=== PATIENT | female | born 1960 | race Caucasian/White ===

== ENCOUNTER 2020-02-11 14:15 | Outpatient (CLI) | payer MEDICARE, SELFPAY ==
--- NOTE | ~2020-02-11 | XR_ITS ---
XR ankle RT min 3V 02/11/2020 14:43 INDICATION: Right ankle pain. Arthritis. PROCEDURE: 4 views right ankle COMPARISON: No prior studies for comparison. FINDINGS: Fracture, dislocation or subluxation is not identified. Small degenerative calcaneal enthes ophytes. Ankle mortise intact. The soft tissues appear within normal limits. No foreign bodies are i dentified. IMPRESSION: 1: NO ACUTE BONE OR JOINT ABNORMALITY IDENTIFIED. Reviewed, dictated and finalized at location A.
== END 2020-02-11 14:16 | disposition home or self-care (01) ==
LOC: ANHIMG 14:18
PROVIDERS: PCP Internal Medicine; Visit Provider Nurse Practitioner Family
DX: M25.571 Pain in right ankle and joints of right foot (principal)
CPT/HCPCS: 73610

== ENCOUNTER 2020-02-26 15:51 | Outpatient (CLI) | payer MEDICARE, SELFPAY ==
[2020-02-26 16:34] LABS: Alanine Aminotransferase 20 U/L (4-35); Albumin Level 4.3 g/dL (3.5-5.1); Alkaline Phosphatase 92 U/L (38-126); Anion Gap 12.2 mmol/L (7-16); Aspartate Amino Transferase 25 U/L (14-36); Bilirubin,Total 0.6 mg/dL (0.2-1.3); Blood Urea Nitrogen 10 mg/dL (7-17); Calcium 9.2 mg/dL (8.4-10.2); Carbon Dioxide 26 mmol/L (22-30); Chloride 104 mmol/L (98-107); Cholesterol 186 mg/dL (0-200); Estimated Glomerular Filt Rate > 60; Glucose 178 mg/dL (65-105); HDL Direct 44 mg/dL; Potassium 3.2 mmol/L (3.4-5.0); Sodium 139 mmol/L (137-145); Triglycerides 220 mg/dL (<150)
[2020-02-26 16:45] LABS: LDL Cholesterol Direct 111 mg/dL
[2020-02-26 16:47] LABS: Basophils Percent Auto 0.4 % (0.2-1.2); Eosinophils Absolute Auto 0.2 K/mm3 (0-0.3); Eosinophils Percent Auto 1.6 % (0-4.4); Hematocrit 42.3 % (37.0-47.0); Hemoglobin 13.5 g/dL (12.0-15.0); Immature Granulocyte Absolute 0.03 K/mm3 (0.00-0.031); Immature Granulocyte Percent A 0.3 % (0-0.5); Lymphocytes Absolute Auto 2.75 K/mm3 (0.9-3.2); Lymphocytes Percent Auto 29.3 % (18.3-44.2); Mean Corpuscular HGB Conc 31.9 g/dl (32-36); Mean Corpuscular Hemoglobin 28.5 pg (26-34); Mean Corpuscular Volume 89.2 fl (80-100); Mean Platelet Volume 10.3 fl (7.4-10.4); Monocytes Absolute Auto 0.7 K/mm3 (0.1-0.6); Monocytes Percent Auto 7.2 % (2.6-8.5); Neutrophils Absolute Auto 5.7 K/mm3 (1.3-6.7); Neutrophils Percent Auto 61.2 % (45.5-73.1); Platelet Count Result 275 k/mm3 (150-375); Red Blood Count 4.74 M/mm3 (4.2-5.4); Red Cell Distribution Width 15.4 % (11.5-14.5); White Blood Count 9.4 K/mm3 (4.5-10.0)
[2020-02-26 17:24] LABS: Vitamin D 25 Hydroxy 45.4 ng/mL
== END 2020-02-26 15:52 | disposition home or self-care (01) ==
PROVIDERS: PCP Internal Medicine; Visit Provider Clinical Nurse Specialist
DX: E78.5 Hyperlipidemia, unspecified (principal); I10 Essential (primary) hypertension; E55.9 Vitamin D deficiency, unspecified
CPT/HCPCS: 36415; 80053; 80061; 82306; 85025

== ENCOUNTER 2020-03-04 14:53 | Outpatient (CLI) | payer MEDICARE, SELFPAY ==
--- NOTE | ~2020-03-04 | CT_ITS ---
EXAMINATION: CT lung screening DATE: 03/04/2020 15:27 INDICATION: Lung cancer screening TECHNIQUE: Computed tomography (CT) of the chest was performed without intravenous contrast. The dose -length product was 132.77 mGy-cm. Automated exposure control and iterative reconstruction technique were employed. COMPARISON: CT dated 09/15/2018 FINDINGS: Heart size normal. No significant pleural or pericardial effusion. There are cholecystectom y clips. Small hypodense lesions of the liver most likely benign cysts or hemangiomas. No thoracic ly mphadenopathy. Mild atherosclerosis of the coronary arteries. Calcified granuloma left upper lobe. 1- 2 mm nodule left upper lobe at the lingula. 3 mm nodule right upper lobe, axial image 31. 2 mm right upper lobe groundglass nodule, axial image 45. No endobronchial lesions. No pneumothorax. No focal ai rspace consolidation. Mild thoracic spondylosis. Spinal stimulator leads are noted. No acute osseous abnormality. IMPRESSION: 1. Lung-RADS category 2: Benign appearance or behavior. Continue annual screening with noncontrast lo w-dose chest CT in 12 months. Reviewed, dictated and finalized at location A. IMPRESSION: 1. Lung-RADS category 2: Benign appearance or behavior. Continue annual screeni ng with noncontrast low-dose chest CT in 12 months.
== END 2020-03-04 14:54 | disposition home or self-care (01) ==
LOC: ANHIMG 14:55
PROVIDERS: PCP Internal Medicine; Visit Provider Clinical Nurse Specialist
DX: Z12.2 Encounter for screening for malignant neoplasm of respiratory organs (principal); Z87.891 Personal history of nicotine dependence
CPT/HCPCS: G0297

== ENCOUNTER 2020-04-04 14:29 | Outpatient (CLI) | payer MEDICARE, SELFPAY ==
[2020-04-04 15:15] LABS: Add Urine Microscopic? YES; Appearance Urine Cloudy (Clear); Bilirubin Urine Negative (Negative); Blood Urine 2+ (Negative); Color Urine Yellow (Yellow); Glucose Urine UA Negative (Negative); Ketones Urine Negative (Negative); Leukocyte Esterase Ur 3+ LEU/UL (Negative); Mucus Urine Rare /lpf; Nitrate Urine Negative (Negative); Protein Urine 2+ mg/dL (Negative); Specific Grav Ur 1.012 (1.001-1.035); Squamous Epithelial Cell Urine Moderate /hpf (Few); Urobilinogen Urine Negative mg/dL (<2.0); WBC Urine >75 /hpf
[2020-04-04 15:21] LABS: Anion Gap 6 mmol/L (8-16); Blood Urea Nitrogen 12 mg/dL (7-17); Calcium 9.2 mg/dL (8.4-10.2); Carbon Dioxide 24 mmol/L (22-30); Chloride 107 mmol/L (98-107); Estimated Glomerular Filt Rate > 60; Glucose 98 mg/dL (65-105); Potassium 3.8 mmol/L (3.4-5.0); Sodium 137 mmol/L (137-145)
[2020-04-04 16:14] LABS: Hemoglobin A1C 5.2 % (<5.7)
== END 2020-04-04 14:30 | disposition home or self-care (01) ==
PROVIDERS: Nurse Practitioner; PCP Internal Medicine; Visit Provider Clinical Nurse Specialist
DX: E87.6 Hypokalemia (principal); R73.09 Other abnormal glucose; R39.9 Unspecified symptoms and signs involving the genitourinary system
CPT/HCPCS: 36415; 80048; 81001; 83036; 87077; 87086; 87088; 87186

== ENCOUNTER 2020-04-08 20:30 | Emergency (ER) | payer MEDICARE, SELFPAY ==
--- NOTE | ~2020-04-08 | CT_ITS ---
EXAMINATION: CT abdomen pelvis w con DATE: 04/08/2020 22:15 INDICATION: Lower abdominal pain TECHNIQUE: Computed tomography (CT) of the abdomen and pelvis was performed with 100 cc Omnipaque 350 intravenous contrast. Automated exposure control and iterative reconstruction technique were employe d. Exam dose: 1285.77 mGy-cm total exam DLP. COMPARISON: 11/21/2018 CT abdomen pelvis FINDINGS: The lung bases are clear of infiltrate or consolidation. Normal heart size. No pericardial or pleural effusion. There are occasional hepatic cysts, the largest in the left lobe, measuring up to approximately 2.1 c m dimension. Status post cholecystectomy. This likely accounts for mild prominence of the bile ducts, primarily th e extrahepatic bile ducts. No pancreatic duct dilatation. Normal splenic size. No pancreatic mass lesion or calcification. Normal morphology of the adrenal gla nds. There are scattered bilateral renal cysts, measuring up to approximately 13 mm maximal dimension on t he right, 3 cm on the left. There is an approximately 3.6 cm hypoattenuating lesion of the lower pole of the left kidney which has increased in size from 3.1 cm on 11/21/2018; this measures 24 Hounsfield units. Consider sonographic correlation or MR correlation to exclude any renal malignancy. Normal caliber of the abdominal aorta. No intraperitoneal or retroperitoneal or pelvic mass lesion or adenopathy or ascites. There is mild pericolic fat stranding in the sigmoid area, consistent with mild sigmoid diverticuliti s. There are multiple diverticula of the sigmoid and to a lesser extent descending colon. Normal appe ndix. No bowel obstruction. No intraperitoneal free air. The uterus and adnexal areas and urinary bladder are unremarkable. Leads are noted in the lower thoracic spinal canal. There is degenerative disease moderately severe degree at L3-4, L4-5 and L5-S1.. IMPRESSION: Mild sigmoid diverticulitis; no abscess or free air identified Hepatic and probable bilateral renal cysts; consider sonographic correlation for further evaluation o f enlarging 3.6 cm hypoattenuating lesion of the lower pole left kidney. Status post cholecystectomy Reviewed, dictated and finalized at [facility]. Reviewed, dictated and finalized at location A. IMPRESSION: Mild sigmoid diverticulitis; no abscess or free air identified Hepatic and probable bilateral renal cysts; consider sonographic correlation fo r further evaluation of enlarging 3.6 cm hypoattenuating lesion of the lower po le left kidney. Status post cholecystectomy
[2020-04-08 20:36] VITALS: BP 146/102; PULSE 94; RESP 16; TEMP 37.5; O2SAT 99
[2020-04-08 20:55] LABS: Basophils Absolute Auto 0.1 K/mm3 (0.0-0.1); Basophils Percent Auto 0.3 % (0.2-1.2); Eosinophils Absolute Auto 0.2 K/mm3 (0-0.3); Eosinophils Percent Auto 1.3 % (0-4.4); Hematocrit 41.7 % (37.0-47.0); Hemoglobin 13.5 g/dL (12.0-15.0); Immature Granulocyte Absolute 0.08 K/mm3 (0.00-0.031); Immature Granulocyte Percent A 0.5 % (0-0.5); Lymphocytes Absolute Auto 2.31 K/mm3 (0.9-3.2); Lymphocytes Percent Auto 13.8 % (18.3-44.2); Mean Corpuscular HGB Conc 32.4 g/dl (32-36); Mean Corpuscular Volume 89.5 fl (80-100); Mean Platelet Volume 10.5 fl (7.4-10.4); Monocytes Absolute Auto 1.5 K/mm3 (0.1-0.6); Monocytes Percent Auto 8.7 % (2.6-8.5); Neutrophils Absolute Auto 12.7 K/mm3 (1.3-6.7); Neutrophils Percent Auto 75.4 % (45.5-73.1); Platelet Count Result 249 k/mm3 (150-375); Red Blood Count 4.66 M/mm3 (4.2-5.4); Red Cell Distribution Width 14.7 % (11.5-14.5); White Blood Count 16.8 K/mm3 (4.5-10.0)
[2020-04-08 21:08] LABS: Add Urine Microscopic? YES; Appearance Urine Clear (Clear); Bilirubin Urine Negative (Negative); Blood Urine Negative (Negative); Color Urine Yellow (Yellow); Glucose Urine UA Negative (Negative); Ketones Urine Negative (Negative); Leukocyte Esterase Ur Negative LEU/UL (Negative); Mucus Urine Few /lpf; Nitrate Urine Negative (Negative); Protein Urine 3+ mg/dL (Negative); RBC Urine 0-2 /hpf (0-2); Specific Grav Ur 1.018 (1.001-1.035); Squamous Epithelial Cell Urine Occasional /hpf (Few); Urobilinogen Urine Negative mg/dL (<2.0); WBC Urine 0-3 /hpf
[2020-04-08 21:12] LABS: Alanine Aminotransferase 21 U/L (4-35); Albumin Level 4.2 g/dL (3.5-5.1); Alkaline Phosphatase 85 U/L (38-126); Anion Gap 6 mmol/L (8-16); Aspartate Amino Transferase 25 U/L (14-36); Bilirubin,Total 0.4 mg/dL (0.2-1.3); Blood Urea Nitrogen 9 mg/dL (7-17); Calcium 9.2 mg/dL (8.4-10.2); Carbon Dioxide 26 mmol/L (22-30); Chloride 105 mmol/L (98-107); Estimated CRCL calculation 63 ml/min; Estimated Glomerular Filt Rate 57; Glucose 118 mg/dL (65-105); Lipase 169 U/L (23-300); Potassium 3.8 mmol/L (3.4-5.0); Sodium 137 mmol/L (137-145)
--- NOTE | 2020-04-08 21:46 | ED.ABDPAIN ---
HPI - Abdominal Pain General Chief Complaint: Abdominal Pain Stated Complaint: abdominal pain Time Seen by Provider: 04/08/20 21:35 Source: patient Mode of arrival: ambulatory Limitations: no limitations History of Present Illness HPI narrative: This patient is a 59 year old female who presents for evaluation of lower abdominal pain. Patient reports she was diagnosed with a UTI on Saturday and she has been taking amoxicillin. She also reports diarrhea for the past week, and she now complains of lower abdominal pain starting today. She also has nausea and vomiting. She was evaluated at [facility] and she was sent to [place] for further evaluation . She had labs performed that shows leukocytosis of 16K. Pain scale (0-10): 6 Related Data Home Medications Medication Instructions Recorded Confirmed calcium carbonate 500 mg (1,250 1 tablet PO DAILY 07/01/19 04/04/20 mg)-vitamin D3 125 unit tablet cetirizine 10 mg tablet 10 mg PO DAILY 07/01/19 04/04/20 cholecalciferol (vitamin D3) 25 1,000 unit PO DAILY 07/01/19 04/04/20 mcg (1,000 unit) capsule lansoprazole 15 mg capsule,delayed 15 mg PO DAILY 07/01/19 04/04/20 release multivitamin with minerals 1 tablet PO DAILY 01/21/20 04/04/20 Allergies Allergy/AdvReac Type Severity Reaction Status Date / Time Sulfa (Sulfonamide Allergy Unknown Anaphylaxis Verified 04/08/20 20:41 Antibiotics) Review of Systems Review of Systems: All systems reviewed & are unremarkable except as noted in HPI and below Constitutional: Constitutional: Denies chills and Denies fever(s) ENT: Denies nasal congestion Cardiovascular: Cardiovascular: Denies chest pain Respiratory: Respiratory: Denies cough and Denies dyspnea Gastrointestinal: Gastrointestinal: Reports abdominal pain and Reports diarrhea Genitourinary: Genitourinary: Reports dysuria [facility] Past Medical History Medical History (Updated 04/08/20 @ 23:36 by Betty Camp MD) Allergies Back pain Degenerative disc disease Diverticulitis Hepatitis Herniated disc HLD (hyperlipidemia) HTN (hypertension) Leukocytosis Measles Spinal cord stimulator status Vitamin D deficiency Surgical History Surgical History (Updated 07/01/19 @ 07:23 by Cindi Fox CMA) History of back surgery History of bilateral tubal ligation History of carpal tunnel release of both wrists History of neck surgery vertebrae replacement in neck Hx of cholecystectomy Family History Family History (Updated 07/17/19 @ 10:36 by Cindi Fox [facility]) Sibling CHF (congestive heart failure) Cerebrovascular accident Kidney failure Father AAA (abdominal aortic aneurysm) CAD (coronary artery disease) Cerebrovascular accident Mother Brain aneurysm Hypertension Social History Social History (Updated 04/04/20 @ 13:35 by Cindi Fox [facility]) Smoking packs per day: 1.5 Smoking cigarettes per day: 30.0 Smoking status: Current every day smoker Tobacco type: cigarettes and e-cigarettes/vaping Smoking end date: 04/05/19 Alcohol intake: current Substance use: never Exam Narrative: Exam Narrative: GENERAL: Well-appearing, well-nourished, and in no acute distress. HEAD: Normocephalic, atraumatic EYES: PERRLA and EOMI, conjunctiva clear without discharge THROAT:Mucous membranes moist, NECK: Supple, without lymphadenopathy or mass RESPIRATORY: No respiratory distress, Airway patent, Respirations non-labored, Clear to auscultation without rales, rhonchi or wheeze HEART: Regular rate and rhythm. No murmur heard. Normal peripheral pulses. ABDOMEN: Soft, bilateral lower quadrant, nondistended, normal active bowel sounds. No masses. No rebound or guarding, No organomegaly. EXTREMITIES: No edema, normal strength with full range of motion. SKIN: Warm, dry, normal color without rash NEURO: Alert and oriented x3. CN 2-12 grossly intact. No focal deficits. PSYCH: Normal mood and affect. Course Reeval
[2020-04-08] MEDS: MORPHINE SULFATE 4 MG/ML INJ IV PUSH (22:45)
[2020-04-08] MEDS: SODIUM CHLORIDE 0.9% IV 1,000 ML 999 ML IV CONT (22:45)
[2020-04-08] MEDS: ONDANSETRON INJ 4 MG/2 ML VIAL IV PUSH (22:46)
[2020-04-08 23:07] VITALS: BP 156/93; PULSE 83; RESP 17; O2SAT 100
[2020-04-08 23:15] VITALS: TEMP 37.5
[2020-04-09 00:04] VITALS: BP 143/89; PULSE 74; RESP 18; TEMP 36.6; O2SAT 98
--- NOTE | 2020-04-09 00:11 | PC.NURSE ---
No dose of Dilaudid needed upon discharge. Patient did not report any pain.
== END 2020-04-09 00:08 | disposition home or self-care (01) ==
PROVIDERS: Emergency Provider General Practice; PCP Internal Medicine
DX: K57.32 Diverticulitis of large intestine without perforation or abscess without bleeding (principal); E78.5 Hyperlipidemia, unspecified; I10 Essential (primary) hypertension; E55.9 Vitamin D deficiency, unspecified; F17.210 Nicotine dependence, cigarettes, uncomplicated; K76.89 Other specified diseases of liver; N28.9 Disorder of kidney and ureter, unspecified
CPT/HCPCS: 36415; 74177; 80053; 81001; 83690; 85025; 96365; 96375; 99284; J2270; J2405; J2543; J7030; Q9967

== ENCOUNTER 2020-04-20 08:52 | Outpatient (CLI) | payer MEDICARE, SELFPAY ==
--- NOTE | 2020-04-20 08:55 | ECHO_ITS ---
Patient Info Name: Ninoska Del Rosario Age: 60 years : 1960 Gender: Female Ht: 65 in Wt: 230 lbs BSA: 2.24 m2 HR: 90 bpm BP: 148 / 99 mmHg Heart Rhythm: Sinus Rhythm Technical Quality: Good Exam Date: 04/20/2020 9:14 AM Exam Location: [facility] Patient Status: Outpatient Admit Date: 04/20/2020 Staff Ordering Physician: Africa Aguirre Shredding Machine Knife Changer: Jaison Aburto RDCS Attending Provider: Africa Aguirre Referring Physician: Carla SANDOVAL; Exam Type: CA echo doppler color flow Study Info Indications R60.9 - Edema, unspecified Complete two-dimensional, color flow and Doppler transthoracic echocardiogram is performed. Strain analysis performed. History/Risk Factors Edema and palpitations. Summary 1. Complete two-dimensional, color flow and Doppler transthoracic echocardiogram is performed. 2. Left ventricular chamber dimension is mildly enlarged. 3. Ventricular septum is mild sigmoid shaped. No significant LVOT obstruction. 4. Left ventricular systolic function is normal, estimated at 60-65%. 5. The left ventricular diastolic function is grade I diastolic dysfunction. 6. E/e' 11 is mildly elevated. 7. Global longitudinal strain is normal at -19.9%. 8. Mild systolic anterior motion of mitral valve. 9. There is trace tricuspid valve regurgitation. 10. No pulmonary hypertension, estimated pulmonary arterial systolic pressure is 33 mmHg. Left Ventricle E/e' 11 is mildly elevated. Ventricular septum is mild sigmoid shaped. No significant LVOT obstruction. Global longitudinal strain is normal at -19.9%. Left ventricular chamber dimension is mildly enlarged. Left ventricular systolic function is normal, estimated at 60-65%. The left ventricular diastolic function is grade I diastolic dysfunction. Right Ventricle Right ventricular chamber dimension is normal. Right ventricular systolic function is normal. Left Atria Left atrial chamber dimension is normal. Right Atria Right atrial chamber dimension is normal. Aortic Valve The aortic valve is trileaflet. There is no aortic valve stenosis. There is no aortic valve regurgitation. Pulmonic Valve There is no pulmonic regurgitation. Mitral Valve Mild systolic anterior motion of mitral valve. There is no mitral valve stenosis. There is no mitral valve regurgitation. Tricuspid Valve There is trace tricuspid valve regurgitation. No pulmonary hypertension, estimated pulmonary arterial systolic pressure is 33 mmHg. Pericardium/Pleural There is no pericardial effusion. Inferior Vena Cava Normal inferior vena cava with >50% collapse upon inspiration consistent with normal right atrial pressure, 5 mmHg. Aorta The aortic root size at the sinus of Valsalva is normal. Left Ventricular Outflow Tract Name Value Normal LVOT 2D LVOT Diameter 1.8 cm LVOT Doppler LVOT Peak Gradient 11 mmHg LVOT Mean Gradient 5 mmHg LVOT VTI 30 cm LVOT VTI/AV VTI Ratio 0.9 LVOT Stroke
== END 2020-04-20 08:53 | disposition home or self-care (01) ==
LOC: ANHCARD 08:54
PROVIDERS: PCP Internal Medicine; Visit Provider Clinical Nurse Specialist
DX: M79.89 Other specified soft tissue disorders (principal)
CPT/HCPCS: 93306

== ENCOUNTER 2020-06-22 12:03 | Emergency (ER) | payer MEDICARE, SELFPAY ==
--- NOTE | ~2020-06-22 | CT_ITS ---
EXAMINATION: CT brain wo con EXAM DATE: 06/22/2020 13:02 INDICATION: Headache and blurry vision. High blood pressure. TECHNIQUE: Spiral CT of the head was performed without contrast. Axial, coronal and sagittal images were reviewed. The dose-length product (DLP) for this examination was 605.33 mGy-cm. The exposure w as tailored according to patient size, and iterative reconstruction (ASIR) was used as additional dos e reduction technique. There is no prior study for comparison. FINDINGS: There is no acute intraparenchymal hemorrhage. No evidence of intraparenchymal brain mass lesion. No evidence of acute infarction. Please note that initial head CT has limited sensitivity f or small or acute infarctions. There is mild periventricular and subcortical hypodensity, nonspecific but probably related to small vessel ischemic disease. There is mild prominence of the sulci and v entricles related to cerebral atrophy. There is intracranial carotid arteriosclerosis. There are n o extra-axial collections. There is no mass effect or midline shift. The orbits are unremarkable. Soft tissue is unremarkable. The visualized sinuses and mastoid air cells are well aerated. IMPRESSION: 1. No acute intracranial findings. 2. Chronic age related findings. Reviewed, dictated and finalized at location A. M INSTALLATION TECHNICIAN
[2020-06-22 12:15] VITALS: BP 157/95; PULSE 100; RESP 16; TEMP 36.8; O2SAT 100
[2020-06-22 12:19] VITALS: BP 123/93
[2020-06-22 12:31] VITALS: BP 132/96
--- NOTE | 2020-06-22 13:01 | ED.HA ---
HPI - Headache General Chief Complaint: Headache Stated Complaint: sent by pcp for OJEDA, HTN Time Seen by Provider: 06/22/20 12:20 Source: patient Mode of arrival: ambulatory Limitations: no limitations History of Present Illness HPI Narrative: 60-year-old female History of hypertension and takes 5 mg of amlodipine and 20 mg of lisinopril Has been having occasional headaches for at least 2 weeks On a couple occasions, most recently last Saturday, the headache was associated with a little transient blurry vision This morning she had another headache and before taking some Tylenol she took her blood pressure, and got a reading of approximately 170/100, and this prompted her PCP office to suggest she be evaluated in the ER Here blood pressures have been normal or minimally elevated with systolics in the 120s and 130s There does not seem to be any pattern to these headaches, no identified triggers, they do not happen every day, they are generalized , there is no other associated neurologic symptoms with them, no sinus troubles, no fevers, no neck pain Related Data Home Medications Medication Instructions Recorded Confirmed calcium carbonate 500 mg (1,250 1 tablet PO DAILY 07/01/19 04/04/20 mg)-vitamin D3 125 unit tablet cetirizine 10 mg tablet 10 mg PO DAILY 07/01/19 04/04/20 cholecalciferol (vitamin D3) 25 1,000 unit PO DAILY 07/01/19 04/04/20 mcg (1,000 unit) capsule lansoprazole 15 mg capsule,delayed 15 mg PO DAILY 07/01/19 04/04/20 release multivitamin with minerals 1 tablet PO DAILY 01/21/20 04/04/20 Allergies Allergy/AdvReac Type Severity Reaction Status Date / Time Sulfa (Sulfonamide Allergy Unknown Anaphylaxis Verified 06/22/20 12:30 Antibiotics) Review of Systems Review of Systems: All systems reviewed & are unremarkable except as noted in HPI and below Constitutional: Constitutional: Denies chills, Denies fatigue, Denies fever(s), Denies headache(s) and Denies weakness Eyes: Eyes: Reports no additional eye complaints, Reports change in vision and Reports photophobia ENT: Denies headache(s), Denies epistaxis, Denies nasal congestion and Denies sore throat Cardiovascular: Cardiovascular: Denies chest pain, Denies leg edema, Denies palpitations and Denies dyspnea Respiratory: Respiratory: Denies cough, Denies dyspnea and Denies wheezing Gastrointestinal: Gastrointestinal: Denies abdominal pain, Denies diarrhea, Denies nausea and Denies vomiting Genitourinary: Genitourinary: Denies urinary frequency Musculoskeletal: Musculoskeletal: Denies myalgias, Denies deformity, Denies muscle weakness and Denies numbness Integumentary/Breasts: Skin/Breast: Denies wounds Neurologic: Reports headache(s), Denies focal weakness, Denies numbness and Denies weakness Psychiatric: Psychiatric: Reports no additional psychiatric complaints Endocrine: Endocrine: Denies fatigue and Denies palpitations Hematologic/Lymphatic: Hematologic/Lymphatic: Denies easy bleeding and Denies easy bruising Allergic/Immunologic: Allergic/Immunologic: Denies wheezing [facility] Past Medical History Medical History (Updated 06/22/20 @ 13:37 by Samuel Wong MD) Allergies Back pain Degenerative disc disease Diverticulitis Hepatitis Herniated disc HLD (hyperlipidemia) HTN (hypertension) Leukocytosis Measles Spinal cord stimulator status Vitamin D deficiency Surgical History Surgical History (Updated 07/01/19 @ 07:23 by Cindi Fox CMA) History of back surgery History of bilateral tubal ligation History of carpal tunnel release of both wrists History of neck surgery vertebrae replacement in neck Hx of cholecystectomy Family History Family History (Updated 07/17/19 @ 10:36 by Cindi Fox CMA) Sibling CHF (congestive heart failure) Cerebrovascular accident Kidney failure Father AAA (abdominal aortic aneurysm) CAD (coronary artery disease) Cerebrovascular accident Mother Brain aneurysm Hyperte
[2020-06-22 13:14] VITALS: BP 146/97
[2020-06-22] MEDS: ACETAMINOPHEN 500 MG TABLET 1000 MG PO (13:14)
[2020-06-22 13:26] LABS: Basophils Percent Auto 0.5 % (0.2-1.2); Eosinophils Absolute Auto 0.2 K/mm3 (0-0.3); Eosinophils Percent Auto 2.2 % (0-4.4); Hematocrit 41.5 % (37.0-47.0); Hemoglobin 13.6 g/dL (12.0-15.0); Immature Granulocyte Absolute 0.03 K/mm3 (0.00-0.031); Immature Granulocyte Percent A 0.4 % (0-0.5); Lymphocytes Absolute Auto 2.13 K/mm3 (0.9-3.2); Lymphocytes Percent Auto 25.6 % (18.3-44.2); Mean Corpuscular HGB Conc 32.8 g/dl (32-36); Mean Corpuscular Hemoglobin 29.5 pg (26-34); Mean Platelet Volume 9.7 fl (7.4-10.4); Monocytes Absolute Auto 0.7 K/mm3 (0.1-0.6); Monocytes Percent Auto 8.5 % (2.6-8.5); Neutrophils Absolute Auto 5.2 K/mm3 (1.3-6.7); Neutrophils Percent Auto 62.8 % (45.5-73.1); Platelet Count Result 230 k/mm3 (150-375); Red Blood Count 4.61 M/mm3 (4.2-5.4); Red Cell Distribution Width 14.2 % (11.5-14.5); White Blood Count 8.3 K/mm3 (4.5-10.0)
[2020-06-22 13:31] VITALS: BP 144/95
[2020-06-22 13:38] LABS: Anion Gap 7 mmol/L (8-16); Blood Urea Nitrogen 12 mg/dL (7-17); Calcium 9.7 mg/dL (8.4-10.2); Carbon Dioxide 27 mmol/L (22-30); Chloride 105 mmol/L (98-107); Estimated CRCL calculation 61 ml/min; Estimated Glomerular Filt Rate 56; Glucose 101 mg/dL (65-105); Potassium 4.4 mmol/L (3.4-5.0); Sodium 139 mmol/L (137-145)
--- NOTE | 2020-06-22 13:59 | PC.NURSE ---
resting on stretcher. provider has reviewed lab results with patient. denies needs.
[2020-06-22 14:01] VITALS: BP 136/95
== END 2020-06-22 14:19 | disposition home or self-care (01) ==
PROVIDERS: Emergency Provider Emergency Medicine; PCP Internal Medicine
DX: R51.9 Headache, unspecified (principal); I10 Essential (primary) hypertension; F17.210 Nicotine dependence, cigarettes, uncomplicated; E78.5 Hyperlipidemia, unspecified
CPT/HCPCS: 36415; 70450; 80048; 85025; 99284; A9270

== ENCOUNTER 2020-07-19 15:57 | Observation (INO) | payer MEDICARE, SELFPAY ==
[2020-07-19] VITALS (10 sets, daily range): BP systolic 120–143; BP diastolic 68–93; PULSE 66–86; RESP 12–18; TEMP 36.5–36.6; O2SAT 98–100; BMI 37.6
--- NOTE | ~2020-07-19 | CT_ITS ---
EXAMINATION: CT brain wo con EXAM DATE: 07/19/2020 17:27 INDICATION: vertigo . TECHNIQUE: Spiral CT of the head was performed without contrast. Axial, coronal and sagittal images were reviewed. The dose-length product (DLP) for this examination was 605.33 mGy-cm. The exposure w as tailored according to patient size, and iterative reconstruction (ASIR) was used as additional dos e reduction technique. Comparison is made to prior examination from 06/22/2020. FINDINGS: Punctate old left basal ganglia and internal capsular anterior limb lacunar infarctions. Th ere is no acute intraparenchymal hemorrhage. No evidence of intraparenchymal brain mass lesion. No evidence of acute infarction. Please note that initial head CT has limited sensitivity for small or acute infarctions. There is mild periventricular and subcortical hypodensity, nonspecific but probabl y related to small vessel ischemic disease. There is intracranial carotid arteriosclerosis. There are no extra-axial collections. There is no mass effect or midline shift. The orbits are unremarkab le. Soft tissue is unremarkable. The visualized sinuses and mastoid air cells are well aerated. T here is no interval change. IMPRESSION: 1. No acute intracranial findings. 2. Old left-sided lacunar infarctions.. Reviewed, dictated and finalized at location A. ING TECHNICIAN
--- NOTE | ~2020-07-19 | US_ITS ---
EXAMINATION: US carotid duplex BI DATE: 07/20/2020 08:59 INDICATION: Left basal ganglia infarct. TECHNIQUE: Grayscale, color Doppler, and pulsed Doppler images of the cervical carotid arteries were obtained. The degree of vessel stenosis is placed in one of the following categories: normal, <50%, 5 0-69%, >=70% but less than near-occlusion, near-occlusion, or total occlusion. Note that percent sten osis relative to normal distal artery lumen diameter is indirectly measured from velocity measurement s as described by Jayden, et al. Radiology 2003; 229:340-346. COMPARISON: None. FINDINGS: RIGHT: The right common carotid artery (CCA) peak systolic velocity (PSV) is 101 cm/s. The right internal ca rotid artery (ICA) PSV is 49 cm/s. The right ICA end-diastolic velocity (EDV) is 23 cm/s. The right I CA/CCA PSV ratio is 0.5. Grayscale and color Doppler images yield an estimate of <50% diameter reduct ion from plaque in the ICA. There is antegrade flow in the right vertebral artery. LEFT: The left CCA PSV is 108 cm/s. The left ICA PSV is 62 cm/s. The left ICA EDV is 20 cm/s. The left ICA/ CCA PSV ratio is 0.6. Grayscale and color Doppler images yield an estimate of <50% diameter reduction from plaque in the ICA. There is antegrade flow in the left vertebral artery. IMPRESSION: 1. <50% stenosis in the right internal carotid artery. 2. <50% stenosis in the left internal carotid artery. Reviewed, dictated and finalized at location A. TICAL CONSULTANT
--- NOTE | 2020-07-19 16:24 | ED.DIZZY ---
HPI - Dizziness General Chief Complaint: Dizziness Stated Complaint: Dizzy Time Seen by Provider: 07/19/20 16:07 History of Present Illness HPI Narrative: 60 yo female w/ h/o htn, seasonal allergies presents to the ED fro dizziness. She reports that she has been dizzy since this morning. Better with here eyes closed. Associated with headache, difficulty walking and mild nausea. She has not tried any thing for her symptoms. Seen by PCP and sent here for further evaluation. Additionally she reports that she has had 2 courses of antibiotics for an abscess on near her left hip. Improved on antibiotics then came back. Started draining spontaneously. No fever, weakness Related Data Home Medications Medication Instructions Recorded Confirmed calcium carbonate 500 mg (1,250 1 tablet PO DAILY 07/01/19 07/19/20 mg)-vitamin D3 125 unit tablet cetirizine 10 mg tablet 10 mg PO DAILY 07/01/19 07/19/20 cholecalciferol (vitamin D3) 25 1,000 unit PO DAILY 07/01/19 07/19/20 mcg (1,000 unit) capsule lansoprazole 15 mg capsule,delayed 15 mg PO DAILY 07/01/19 07/19/20 release multivitamin with minerals 1 tablet PO DAILY 01/21/20 07/19/20 citalopram [Celexa] 20 mg PO DAILY 07/19/20 07/19/20 Allergies Allergy/AdvReac Type Severity Reaction Status Date / Time Sulfa (Sulfonamide Allergy Unknown Anaphylaxis Verified 07/19/20 21:51 Antibiotics) Review of Systems Review of Systems: All systems reviewed & are unremarkable except as noted in HPI and below Constitutional: Constitutional: Denies fever(s) and Denies weakness Eyes: Eyes: Denies change in vision ENT: Reports dizziness and Denies sore throat Cardiovascular: Cardiovascular: Denies chest pain Respiratory: Respiratory: Denies cough and Denies dyspnea Gastrointestinal: Gastrointestinal: Denies abdominal pain, Denies constipation, Denies diarrhea, Reports nausea and Denies vomiting Genitourinary: Genitourinary: Denies hematuria and Denies dysuria Musculoskeletal: Musculoskeletal: Denies back pain Integumentary/Breasts: Skin/Breast: Denies rash Neurologic: Reports dizziness, Reports headache(s), Denies focal weakness, Denies numbness and Denies weakness PMFSH Past Medical History Medical History Allergies Back pain Degenerative disc disease Diverticulitis Hepatitis Herniated disc HLD (hyperlipidemia) HTN (hypertension) Leukocytosis Measles Spinal cord stimulator status Vitamin D deficiency Surgical History Surgical History History of back surgery History of bilateral tubal ligation History of carpal tunnel release of both wrists History of neck surgery vertebrae replacement in neck Hx of cholecystectomy Family History Family History Sibling CHF (congestive heart failure) Cerebrovascular accident Kidney failure Father AAA (abdominal aortic aneurysm) CAD (coronary artery disease) Cerebrovascular accident Mother Brain aneurysm Hypertension Social History Social History Social History: Patient quit smoking 17 years ago however restarted with vaping after her few years ago. Smoking packs per day: 1.5 Smoking cigarettes per day: 30.0 Smoking status: Current every day smoker Tobacco type: e-cigarettes/vaping Smoking end date: 04/05/19 Additional smoking assessment comments: Daily vaping Alcohol intake: current Drinks per week: 6 Alcohol use details: 6 a day on weekends Substance use: former Substance use type: marijuana Other substance usage details: Very occasionally minimal over last 6 months Living arrangements: with family Additional living arrangements comments: Lives in a split home, adult daughter and son-in-law live upstairs. Gender identity (if verbalize
--- NOTE | 2020-07-19 16:25 | ECG_ITS ---
Measurements Intervals [place] Rate: 70 P: 53 KS: 134 QRS: 38 QRSD: 89 T: 40 QT: 406 QTc: 441 Interpretive Statements SINUS RHYTHM BASELINE ARTIFACT- V1, V3-V5 NORMAL ECG Electronically Signed On 07-19-2020 17:08:16 CONSTRUCTION MGR by All [facility]es D.O.
[2020-07-19 16:39] LABS: Basophils Percent Auto 0.3 % (0.2-1.2); Eosinophils Absolute Auto 0.1 K/mm3 (0-0.3); Hematocrit 39.8 % (37.0-47.0); Hemoglobin 13.6 g/dL (12.0-15.0); Immature Granulocyte Absolute 0.03 K/mm3 (0.00-0.031); Immature Granulocyte Percent A 0.3 % (0-0.5); Lymphocytes Absolute Auto 2.21 K/mm3 (0.9-3.2); Lymphocytes Percent Auto 23.5 % (18.3-44.2); Mean Corpuscular HGB Conc 34.2 g/dl (32-36); Mean Corpuscular Hemoglobin 30.2 pg (26-34); Mean Corpuscular Volume 88.2 fl (80-100); Mean Platelet Volume 9.8 fl (7.4-10.4); Monocytes Absolute Auto 0.8 K/mm3 (0.1-0.6); Monocytes Percent Auto 8.2 % (2.6-8.5); Neutrophils Absolute Auto 6.3 K/mm3 (1.3-6.7); Neutrophils Percent Auto 66.7 % (45.5-73.1); Platelet Count Result 225 k/mm3 (150-375); Red Blood Count 4.51 M/mm3 (4.2-5.4); Red Cell Distribution Width 13.8 % (11.5-14.5); White Blood Count 9.4 K/mm3 (4.5-10.0)
[2020-07-19] MEDS: ONDANSETRON INJ 4 MG/2 ML VIAL IV PUSH (16:42)
[2020-07-19 16:49] LABS: Anion Gap 8 mmol/L (8-16); Blood Urea Nitrogen 12 mg/dL (7-17); Calcium 9.4 mg/dL (8.4-10.2); Carbon Dioxide 25 mmol/L (22-30); Chloride 104 mmol/L (98-107); Estimated CRCL calculation 68 ml/min; Estimated Glomerular Filt Rate > 60; Glucose 120 mg/dL (65-105); Potassium 3.7 mmol/L (3.4-5.0); Sodium 137 mmol/L (137-145)
[2020-07-19] MEDS: ASPIRIN 81 MG CHEWABLE TABLET 324 MG PO (18:24)
[2020-07-19] MEDS: MECLIZINE HCL 25 MG TABLET PO (18:25)
[2020-07-19] MEDS: diazePAM INJ (*CRX) 10 MG/2 ML SYRINGE 2.5 MG IV PUSH (18:26)
--- NOTE | 2020-07-19 20:38 | PM.IMHP ---
H&P: HPI History of Present Illness Date/Time: 07/19/20 20:38 Cheif Complaint: dizziness/vertigo Narrative: Ninoska Del Rosario is a 60 year old female with past medical history hypertension, hyperlipidemia, GERD, DJD with spinal stimulator, osteoarthritis status post cervical spine surgery presents to the ED with complaints of dizziness. Her symptom onset was sudden at 9:30 a.m. while she was cooking breakfast after a visit to her shrink pit operator. She was standing cooking an egg at the stove when all the sudden she felt dizzy to the point where she had to go lay down. The room was spinning and she needed to close her eyes. She did not fall or lose consciousness. She denies any seizure activity or migraine history. Laying down and closing her eyes helped. This current episode ended at 7:00 p.m. while in the ED. She has had 3 other episodes previous to this within the last month which were much shorter in length. Of note she says that she typically does not get headaches or migraines, last headache was 06/22/2020 which came to the ED. During that episode she had a hypertensive episode blood pressure 170/100 when her normals is systolic 120-130, she was discharged from the ED with increasing her home amlodipine to 10 mg. Also she recently she has been following up SEEING EYE DOG TRAINER aRysa Marin for an abscess in her left abdomen for last couple weeks. She was on a course of Keflex and developed a yeast infection, subsequently had a course of Diflucan. She was told the cyst would have to be excised out later this week. In the ED: EKG normal sinus rhythm rate 70, CT head noncontrast no acute findings, old left-sided lacunar infarcts. Labs stable. Patient was admitted for observation for dizziness. Review of Systems Review of Systems: Narrative: Constitutional: No Fever, No Chills, No Night Sweats, No Fatigue, No Malaise ENT/Mouth: No Hearing Changes, No Ear Pain, No Nasal Congestion, No Sinus Pain, No Hoarseness, No sore throat, No Rhinorrhea, No Swallowing Difficulty Eyes: No Eye Pain, No Redness, No Vision Changes Cardiovascular: No Chest Pain, No Palpitations, No Dyspnea on Exertion, No Orthopnea, No Claudication, No Edema Respiratory: No Cough, No Sputum, No Wheezing, No Shortness of Breath Gastrointestinal: No Nausea, No Vomiting, No Diarrhea, No Constipation, No Abdominal Pain, No Heartburn, No Hematochezia, No Melena Genitourinary: No Dysuria, No Urinary Frequency, No Hematuria, No Urinary Incontinence, No Urgency Musculoskeletal: No Arthralgias, No Myalgias, No Joint Swelling, No Joint Stiffness, endorses chronic back pain. Skin: No Skin Lesions, No Pruritis, No Hair Changes Neuro: No Weakness, No Numbness, No Paresthesias, No Loss of Consciousness, No Syncope, No Headache. Endorses dizziness. Psych: No Anxiety/Panic, No Depression, No Insomnia Heme: No Bruising, No Bleeding Lymph: No Adenopathy Endocrine: No Polyuria, No Polydipsia, No Temperature Intolerance [facility] Past Medical History Medical History Allergies Back pain Degenerative disc disease Diverticulitis Hepatitis Herniated disc HLD (hyperlipidemia) HTN (hypertension) Leukocytosis Measles Spinal cord stimulator status Vitamin D deficiency Surgical History Surgical History History of back surgery History of bilateral tubal ligation History of carpal tunnel release of both wrists History of neck surgery vertebrae replacement in neck Hx of cholecystectomy Family History Family History Sibling CHF (congestive heart failure) Cerebrovascular accident Kidney failure Father AAA (abdominal aortic aneurysm) CAD (coronary artery disease) Cerebrovascular accident Mother Brain aneurysm Hypertension Social History Social History Social Histor
--- NOTE | 2020-07-19 21:00 | ADMGEN ---
This patient, Ninoska Del Rosario, was admitted to Medical Room 340-01. Patient/family oriented to hospital policies and general routines including ID bracelet, bed and alarms, visiting hours, pain management, procedures, bathroom and other care routines, personal items, smoking policy, room service/diet, and visiting hours. Information on how to activate the Rapid Response Team has been discussed. Patient/Family are encouraged to report perceived risks to care and to ask questions if they do not understand what they are told or what they should do.
[2020-07-20] VITALS (9 sets, daily range): BP systolic 124–130; BP diastolic 72–82; PULSE 64–84; RESP 16–18; TEMP 36.1–36.6; O2SAT 95–100
[2020-07-20] MEDS: MECLIZINE HCL 25 MG TABLET PO (05:52)
[2020-07-20] MEDS: SIMVASTATIN 10 MG TABLET PO (08:06)
[2020-07-20] MEDS: PANTOPRAZOLE 40 MG TABLET PO (08:06)
[2020-07-20] MEDS: CHOLECALCIFEROL 1,000 UNITS TABLET 1000 UNITS PO (08:07)
[2020-07-20] MEDS: CITALOPRAM HYDROBROMIDE 20 MG TABLET PO (08:07)
[2020-07-20] MEDS: LORATADINE 10 MG TABLET PO (08:07)
[2020-07-20] MEDS: amLODIPine BESYLATE 5 MG TABLET 10 MG PO (08:07)
[2020-07-20] MEDS: ASPIRIN 81 MG CHEWABLE TABLET PO (08:07)
[2020-07-20] MEDS: THERAPEUTIC MULTIVITAMINS/MINERALS TAB (*BKC) 1 TABLET PO (08:07)
[2020-07-20] MEDS: lisinopriL 20 MG TABLET PO (08:07)
--- NOTE | 2020-07-20 08:51 | PCPTNOTE ---
Attempted physical therapy (vestibular) initial evaluation at 840am, however patient currently out for carotid US per RN. Will re-attempt PT evaluation around 1pm today, RN notified and aware. Denita Barr, PT, DPT
--- NOTE | 2020-07-20 09:03 | PC.NURSE ---
Patient returned from ultrasound via stretcher.
--- NOTE | 2020-07-20 14:41 | PM.DS ---
DS: Admitting Diagnosis Admitting Diagnosis Admitting Diagnosis: Dizziness DS: Discharge Diagnosis Discharge Diagnosis (1) Vertigo: Code(s): R42 - Dizziness and giddiness Status: Acute Assessment and Plan: Date of Admission 07/19/20 Date of Discharge 07/20/20 Ms. Del Rosario is a very pleasant 60yo F with history of hypertension, hyperlipidemia, chronic back pain with a nerve stimulator placed who presented to the ED for evaluation of dizziness. She had a sudden onset of dizziness while cooking breakfast in the kitchen around 9:00 AM. She felt the room was spinning which and her symptoms improved when she closed her eyes. Symptoms resolved several hours later while she was in the emergency department. CT brain showed old left-sided lacunar infarction without acute intracranial findings. She did just have a previous CT brain around 1 month ago for evaluation of headaches which did report this finding. MRI brain was unable to be obtained due to her spinal nerve stimulator. She was treated with meclizine for presumed BPPV and her symptoms resolved. Her amlodipine was recently increased from 5 mg daily to 10 mg daily around 1 month ago and her blood pressures are stable now on this dose. No arrhythmias noted on EKG or cardiac telemetry monitoring. She is noted to have a small cutaneous cyst to left lower flank which does not appear to be acutely infected at this time and she is getting excised by her OBGYN as an outpatient appointment tomorrow. She is feeling well and symptoms are completely resolved; She is hemodynamically stable for discharge on 07/20/20 with instructions to follow-up with her PCP. She is given orders for vestibular therapy should her symptoms return or persist. Given old left-sided lacunar infarct finding on CT, she will be maintained on her home statin therapy and ASA was added. (2) HTN (hypertension): Qualifiers: Hypertension type: essential hypertension Qualified Code(s): I10 - Essential (primary) hypertension Code(s): I10 - Essential (primary) hypertension Status: Chronic Assessment and Plan: Blood pressure stable maintained her home amlodipine. (3) HLD (hyperlipidemia): Code(s): E78.5 - Hyperlipidemia, unspecified Status: Chronic Assessment and Plan: Continue statin therapy. DS: Summary Hospital Course Hospital Course: See above. Time Spent with Patient Time attestation: Total time spent providing and/or coordinating discharge services: 40 minutes Exam Narrative: Exam Narrative: - GENERAL: Pleasant obese woman in no acute distress - EYES: EOMI. Anicteric. PERRL. - HENT: Moist mucous membranes. - LUNGS: Clear to auscultation bilaterally. Respirations even and nonlabored. Tolerating room air - CARDIOVASCULAR: Regular rate and rhythm. No murmur. - ABDOMEN: Soft, non-tender and non-distended, obese. No palpable masses. - EXTREMITIES: Peripheral pulses intact no edema, nontender to palpation. - NEUROLOGIC: Awake, and oriented x3. No focal neurological deficits. CN II-XII grossly intact as tested. Speech is clear. - PSYCHIATRIC: Mood and affect are normal. Pleasant and cooperative. - SKIN: No rashes. Warm. Left abdominal wall non fluctuant cyst with no open drainage. DS: Data Data Completed and Pending Labs on day of discharge: Last Vital Signs Temp 97.0 F L 07/20/20 14:00 Pulse 84 07/20/20 16:00 Resp 18 07/20/20 14:00 BP 128/74 07/20/20 14:00 Pulse Ox 100 07/20/20 14:[address] 07/19/20 17:28 IMPRESSION: 1. No acute intracranial findings. 2. Old left-sided lacunar infarctions.. Carotid Doppler Study 07/20/20 09:08 IMPRESSION: 1. <50% stenosis in the right internal carotid artery. 2. <50% stenosis in the left internal carotid artery. Laboratory
--- NOTE | 2020-07-20 17:42 | WPDNEURCNPN ---
Assessment and Plan Assessment and plan (1) Vertigo: Code(s): R42 - Dizziness and giddiness Status: Acute Additional Plan benign paroxysmal vertigo with history of stroke on the basis of small-vessel in the past considering that she has brain stimulator MRI cannot be done but at this stage neurologically she is stable and agree with the treatment plant Consult date: 07/20/20 Time Seen: 17:15 HPI: Ninoska Del Rosario is a 60 year old female admitted to the hospital for the complaints of vertigo with dizziness in addition to the ongoing history of 1. CHI hypertension 2. Hyperlipidemia 3. GERD 4. DJD with spinal stimulator 5. Osteoarthritis status post cervical spine surgery she noted the dizziness early in the morning at 9:30 a.m. while she was cooking breakfast after visit to her harness and bag inspector she felt dizzy and had to go lay down room was spinning she had to close her eyes she did not become unconscious and no seizures the whole episode lasted for up until 7:00 p.m. while she was in the emergency room she had 3 episodes within the last month which were much shorter in length but she usually does not get headaches along with these episodes at 1 time she was noted to have blood pressure 170/100 during these episodes she has received a course of Keflex by the nurse practitioner Unique mccurdy abscess in her left abdomen evaluation the ER revealed leukocytosis with hemoglobin of 13.5 MRI with old left-sided lacunar infarct and basal ganglia but no evidence of bleed or territorial stroke. carotid study unremarkable. She had echocardiogram in April with trace tricuspid valve regurgitation but not otherwise significant. Review of Systems Review of Systems: All systems reviewed & are unremarkable except as noted in HPI and below PMFSH Past Medical History Medical History Allergies Back pain Degenerative disc disease Diverticulitis Hepatitis Herniated disc HLD (hyperlipidemia) HTN (hypertension) Leukocytosis Measles Spinal cord stimulator status Vitamin D deficiency Surgical History Surgical History History of back surgery History of bilateral tubal ligation History of carpal tunnel release of both wrists History of neck surgery vertebrae replacement in neck Hx of cholecystectomy Family History Family History Sibling CHF (congestive heart failure) Cerebrovascular accident Kidney failure Father AAA (abdominal aortic aneurysm) CAD (coronary artery disease) Cerebrovascular accident Mother Brain aneurysm Hypertension Social History Social History Social History: Patient quit smoking 17 years ago however restarted with vaping after her few years ago. Smoking packs per day: 1.5 Smoking cigarettes per day: 30.0 Smoking status: Current every day smoker Tobacco type: e-cigarettes/vaping Smoking end date: 04/05/19 Additional smoking assessment comments: Daily vaping Alcohol intake: current Drinks per week: 6 Alcohol use details: 6 a day on weekends Substance use: former Substance use type: marijuana Other substance usage details: Very occasionally minimal over last 6 months Living arrangements: with family Additional living arrangements comments: Lives in a split home, adult daughter and son-in-law live upstairs. Gender identity (if verbalized by the patient): Female Spiritual care concerns: No Meds Home Medications and Allergies Home Medications Medication Instructions Recorded Confirmed Type calcium carbonate 500 mg (1,250 1 tablet PO DAILY 07/01/19 07/19/20 History mg)-vitamin D3 125 unit tablet cetirizine 10 mg tablet 10 mg PO DAILY 07/01/19 07/19/20 History cholecalciferol (vitamin D3) 25 1,000 unit PO DAILY 07/01/19 07/19/20 History mcg (1,000 unit) ca
== END 2020-07-20 18:48 | disposition home or self-care (01) ==
LOC: ANHED 16:12 → ANH3MED 21:49
PROVIDERS: Admitting Provider Internal Medicine; Emergency Provider Emergency Medicine; PCP Internal Medicine; Visit Provider Family Medicine
DX: R42 Dizziness and giddiness (principal); G89.29 Other chronic pain; M54.9 Dorsalgia, unspecified; F17.290 Nicotine dependence, other tobacco product, uncomplicated; I10 Essential (primary) hypertension; E78.5 Hyperlipidemia, unspecified; Z86.73 Personal history of transient ischemic attack (TIA), and cerebral infarction without residual deficits; Z96.82 Presence of neurostimulator
CPT/HCPCS: 36415; 70450; 80048; 85025; 93005; 93880; 96374; 96375; 97161; 99285; A9270; G0378; J2405; J3360

== ENCOUNTER 2020-11-01 19:02 | Emergency (ER) | payer MEDICARE, SELFPAY ==
--- NOTE | ~2020-11-01 | CT_ITS ---
EXAMINATION: CT brain wo con DATE: 11/01/2020 21:47 INDICATION: Syncope. TECHNIQUE: Computed tomography (CT) of the head was performed without intravenous contrast. The mA wa s adjusted according to patient size. Iterative reconstruction technique was employed. The dose-lengt h product was 605.33 mGy-cm. COMPARISON: Head CT 07/19/2020 FINDINGS: There are scattered areas of low attenuation in the cerebral white matter. There is no intr acranial hemorrhage, acute infarction, or abnormal intracranial mass lesion. The ventricles are emre l in size. The paranasal sinuses are clear. The orbits are normal. The mastoid air cells are normal. IMPRESSION: 1. Stable mild nonspecific cerebral white matter disease, which likely represents chronic small vesse l ischemic disease. Reviewed, dictated and finalized at location A. IMPRESSION: 1. Stable mild nonspecific cerebral white matter disease, which likely represen ts chronic small vessel ischemic disease.
--- NOTE | ~2020-11-01 | XR_ITS ---
EXAMINATION: XR chest 2V DATE: 11/01/2020 19:47 INDICATION: Left chest pain. TECHNIQUE: Frontal and lateral views of the chest were obtained. COMPARISON: Chest 2 views 04/28/2019, CT abdomen and pelvis 04/08/2020 FINDINGS: There is a diffuse interstitial pattern, consistent with mild pulmonary edema. No pleural e ffusion or pneumothorax. Cardiomegaly is noted. Surgical clips in the right upper quadrant are likely from cholecystectomy. There are epidural electrodes in thoracic spine. IMPRESSION: 1. Mild pulmonary edema. 2. Cardiomegaly. Reviewed, dictated and finalized at location A.
--- NOTE | 2020-11-01 19:06 | ECG_ITS ---
Measurements Intervals Leroy Rate: 88 P: 50 ID: 140 QRS: 39 QRSD: 77 T: 51 QT: 358 QTc: 433 Interpretive Statements SINUS RHYTHM ATRIAL PREMATURE COMPLEX BASELINE ARTIFACT- II, III, AVF BORDERLINE ECG Electronically Signed On 11-01-2020 19:14:49 CDT by All Montes D.O.
[2020-11-01 19:07] VITALS: BP 113/81; PULSE 89; RESP 18; TEMP 36.6; O2SAT 99
[2020-11-01 19:27] LABS: Basophils Percent Auto 0.3 % (0.2-1.2); Eosinophils Absolute Auto 0.3 K/mm3 (0-0.3); Eosinophils Percent Auto 2.7 % (0-4.4); Hemoglobin 13.1 g/dL (12.0-15.0); Immature Granulocyte Absolute 0.06 K/mm3 (0.00-0.031); Immature Granulocyte Percent A 0.5 % (0-0.5); Lymphocytes Absolute Auto 3.26 K/mm3 (0.9-3.2); Lymphocytes Percent Auto 29.9 % (18.3-44.2); Mean Corpuscular HGB Conc 33.6 g/dl (32-36); Mean Corpuscular Hemoglobin 30.4 pg (26-34); Mean Corpuscular Volume 90.5 fl (80-100); Mean Platelet Volume 9.6 fl (7.4-10.4); Monocytes Absolute Auto 0.8 K/mm3 (0.1-0.6); Monocytes Percent Auto 7.1 % (2.6-8.5); Neutrophils Absolute Auto 6.5 K/mm3 (1.3-6.7); Neutrophils Percent Auto 59.5 % (45.5-73.1); Platelet Count Result 251 k/mm3 (150-375); Red Blood Count 4.31 M/mm3 (4.2-5.4); Red Cell Distribution Width 12.8 % (11.5-14.5); White Blood Count 10.9 K/mm3 (4.5-10.0)
[2020-11-01 19:36] LABS: INR 0.9; Prothrombin Time 12.7 Seconds (11.1-14.7)
[2020-11-01 19:37] LABS: Partial Thromboplastin Time 25.2 SECONDS (22.3-36.8)
[2020-11-01 19:46] LABS: Anion Gap 8 mmol/L (8-16); Blood Urea Nitrogen 11 mg/dL (7-17); Calcium 9.4 mg/dL (8.4-10.2); Carbon Dioxide 26 mmol/L (22-30); Chloride 107 mmol/L (98-107); Estimated CRCL calculation 64 ml/min; Estimated Glomerular Filt Rate 56; Glucose 105 mg/dL (65-105); Potassium 4.1 mmol/L (3.4-5.0); Sodium 141 mmol/L (137-145)
[2020-11-01 19:58] LABS: Troponin I < 0.012 ng/mL (0.000-0.034)
--- NOTE | 2020-11-01 22:02 | ED.CHESTPAIN ---
HPI - Chest Pain General Chief Complaint: Chest Pain Stated Complaint: cp Time Seen by Provider: 11/01/20 21:15 Source: patient Mode of arrival: ambulatory Limitations: no limitations History of Present Illness HPI narrative: This is a 60 year old female with history of hypertension, CVA, and chronic pain who presents for evaluation left arm pain. Patient states yesterday she started choking on a piece of candy , and she woke up on her back on her drive way. She states she had passed out and she hit her head. Once she woke up , she start vomiting. She reports soreness everywhere. Tonight she around 7 pm she develop sharp pain to left posterior back that radiated to her left shoulder. She reports this pain would last a few minutes and it would resolve. She reports this pain occurred 5 times, but she has not felt the pain in 2 hours. She denies abdominal pain, nausea, or vomiting. She does report a diffuse headache. Related Data Home Medications Medication Instructions Recorded Confirmed calcium carbonate 500 mg (1,250 1 tablet PO DAILY 07/01/19 10/05/20 mg)-vitamin D3 125 unit tablet cetirizine 10 mg tablet 10 mg PO DAILY 07/01/19 10/05/20 cholecalciferol (vitamin D3) 25 1,000 unit PO DAILY 07/01/19 10/05/20 mcg (1,000 unit) capsule lansoprazole 15 mg capsule,delayed 15 mg PO DAILY 07/01/19 10/05/20 release multivitamin with minerals 1 tablet PO DAILY 01/21/20 10/05/20 citalopram [Celexa] 20 mg PO DAILY 07/19/20 10/05/20 Allergies Allergy/AdvReac Type Severity Reaction Status Date / Time Sulfa (Sulfonamide Allergy Unknown Anaphylaxis Verified 07/19/20 21:51 Antibiotics) Review of Systems Review of Systems: All systems reviewed & are unremarkable except as noted in HPI and below PMFSH Past Medical History Medical History Allergies Back pain Degenerative disc disease Diverticulitis Hepatitis Herniated disc HLD (hyperlipidemia) HTN (hypertension) Leukocytosis Measles Spinal cord stimulator status Vitamin D deficiency Surgical History Surgical History History of back surgery History of bilateral tubal ligation History of carpal tunnel release of both wrists History of neck surgery vertebrae replacement in neck Hx of cholecystectomy Family History Family History Sibling CHF (congestive heart failure) Cerebrovascular accident Kidney failure Father AAA (abdominal aortic aneurysm) CAD (coronary artery disease) Cerebrovascular accident Mother Brain aneurysm Hypertension Social History Social History Social History: Patient quit smoking 17 years ago however restarted with vaping after her few years ago. Smoking packs per day: 1.5 Smoking cigarettes per day: 30.0 Smoking status: Current every day smoker Tobacco type: e-cigarettes/vaping Smoking end date: 04/05/19 Additional smoking assessment comments: Daily vaping Alcohol intake: current Drinks per week: 6 Substance use: former Substance use type: marijuana Other substance usage details: Very occasionally minimal over last 6 months Additional living arrangements comments: Lives in a split home, adult daughter and son-in-law live upstairs. Gender identity (if verbalized by the patient): Female Spiritual care concerns: No Exam Const: General: no acute distress and alert Orientation/consciousness: patient oriented x3 Eyes: EOM: EOMs intact bilaterally Chest: Chest palpation & inspection: normal inspection of the chest Resp: Effort & Inspection: normal respiratory effort and no retractions Auscultation: clear to auscultation bilaterally Cardio: Rate: regular rate Rhythm: regular rhythm Heart sounds: no murmurs Other: bilateral equal palpble pulses Radial,
[2020-11-01 22:56] VITALS: BP 131/86; PULSE 70; RESP 20; O2SAT 96
[2020-11-01] MEDS: ASPIRIN 81 MG CHEWABLE TABLET 324 MG PO (23:26)
[2020-11-01 23:56] LABS: NT Pro B Type Natriuretic Pept 45 PG/ML (5-100)
[2020-11-01 23:59] LABS: Troponin I < 0.012 ng/mL (0.000-0.034)
[2020-11-02 00:45] VITALS: BP 116/79; PULSE 72; RESP 14; O2SAT 97
== END 2020-11-02 00:50 | disposition home or self-care (01) ==
PROVIDERS: Emergency Medicine; Emergency Provider General Practice; PCP Internal Medicine
DX: R55 Syncope and collapse (principal); M25.512 Pain in left shoulder; S09.90XA Unspecified injury of head, initial encounter; E78.5 Hyperlipidemia, unspecified; I10 Essential (primary) hypertension; E55.9 Vitamin D deficiency, unspecified; Z96.82 Presence of neurostimulator; F17.290 Nicotine dependence, other tobacco product, uncomplicated; I51.7 Cardiomegaly; R90.82 White matter disease, unspecified; I49.1 Atrial premature depolarization; W18.39XA Other fall on same level, initial encounter
CPT/HCPCS: 36415; 70450; 71046; 80048; 83880; 84484; 85025; 85610; 85730; 93005; 99284; A9270

== ENCOUNTER 2020-11-08 09:45 | Outpatient (CLI) | payer MEDICARE, SELFPAY ==
--- NOTE | ~2020-11-08 | XR_ITS ---
EXAMINATION: XR_[id number]_CR EXAM DATE: 11/08/2020 10:28 INDICATION: No known recent injury provided at this time. Pain of the neck. TECHNIQUE: Cervical spine frontal, lateral, lateral swimmers, and open-mouth odontoid projections. Submentovertex projection. There are no prior studies for comparison. FINDINGS: Osseous fusion of the C5-7 vertebral bodies. There is mild to moderate disc disease at C4- 5, mild at C3-4 with 2 mm anterolisthesis. There is mild to moderate cervical facet and uncovertebral joint arthropathy. The odontoid process is intact. There are no acute fractures identified. The la teral masses of C1 line up with C2. Prevertebral soft tissue and pre-dens space are within normal langston its. Paraspinal soft tissue is unremarkable. Mild cervicothoracic levocurvature. IMPRESSION: 1. Osseous fusion C5-7. 2. Mild to moderate spondylosis. Reviewed, dictated and finalized at location A.
== END 2020-11-08 09:46 | disposition home or self-care (01) ==
LOC: ANHIMG 09:49
PROVIDERS: PCP Internal Medicine; Visit Provider Nurse Practitioner
DX: M47.812 Spondylosis without myelopathy or radiculopathy, cervical region (principal); Z98.1 Arthrodesis status
CPT/HCPCS: 72040

== ENCOUNTER 2020-11-17 10:15 | Inpatient (IN) | payer MEDICARE, SELFPAY ==
[2020-11-17] VITALS (21 sets, daily range): BP systolic 111–136; BP diastolic 69–84; PULSE 78–103; RESP 16–25; TEMP 37.2–38.6; O2SAT 92–95; BMI 38.9
--- NOTE | ~2020-11-17 | CT_ITS ---
EXAMINATION: CTA chest PE protocol EXAM DATE: 11/17/2020 11:44 INDICATION: Shortness of breath, chest pain. COVID. TECHNIQUE: Spiral CTA of the chest (pulmonary arteries) was performed with 100 cc Omnipaque 350 intr avenous contrast injection. Images were acquired during the pulmonary arterial phase. Coronal maxi mum intensity projection 3D-reconstructions were created by the technologist on dedicated workstation . Axial, coronal and sagittal reformatted images were reviewed. The dose-length product (DLP) for t his examination was 516.57 mGy-cm. The exposure was tailored according to patient size (auto mA exp osure control), and iterative reconstruction (ASIR) was used as additional dose reduction technique. Comparison is made to prior examination from 03/04/2020. FINDINGS: There are no pulmonary emboli in the 1st through 3rd order (central and interlobar) pulmon theodore arteries. Some loss of attenuation in the basilar segmental pulmonary from respiratory motion, t hese regions not confidently evaluated. No Intraluminal filling defects identified. No thoracic aor tic dissection. There is moderate amount of bilateral peripheral predominant groundglass airspace disease with interl obular septal thickening. Appearance is consistent with COVID pneumonia which is most likely diagnosi s given community prevalence. There are no pleural or pericardial effusions. Tracheobronchial tree is patent. There is no mediastinal, hilar or axillary lymphadenopathy. There is no pneumothorax. There is mild cardiomegaly. There is mild coronary arterial calcification, arterial sclerosis. Le ft liver lobe lateral segmental cyst measuring about 2 cm. There are cholecystectomy clips. There i s mild to moderate thoracic spondylosis without osteoblastic or osteolytic lesions identified. There are mid thoracic spine stimulator leads. IMPRESSION: 1. Suboptimal basilar segmental evaluation, but no pulmonary emboli are suspected. 2. Moderate bilateral peripheral airspace disease most likely COVID pneumonia. Reviewed, dictated and finalized at location A. IMPRESSION: 1. Suboptimal basilar segmental evaluation, but no pulmonary emboli are suspec sebasti[place]. 2. Moderate bilateral peripheral airspace disease most likely COVID pneumonia.
--- NOTE | ~2020-11-17 | XR_ITS ---
EXAMINATION: XR chest 1V portable EXAM DATE: 11/17/2020 11:00 INDICATION: cough, sob ISO precautions. TECHNIQUE: Portable AP frontal chest x-ray was obtained. Comparison is made to prior examination from 11/01/2020. FINDINGS: There is moderate amount of peripheral mid and lower lung zone acute airspace disease, dist ribution suggests this could be COVID pneumonia. There is no pneumothorax suspected. There are no ple ural effusions. The cardiomediastinal silhouette is prominent but magnified on this AP technique. Spi ne stimulator leads. IMPRESSION: Moderate amount of mid and lower lung zone peripheral airspace disease, distribution sugg ests possibility of COVID. Reviewed, dictated and finalized at location A. IMPRESSION: Moderate amount of mid and lower lung zone peripheral airspace dise ase, distribution suggests possibility of COVID.
--- NOTE | 2020-11-17 10:47 | ECG_ITS ---
Measurements Intervals Ellinger Rate: 99 P: 44 PA: 143 QRS: 30 QRSD: 86 T: 13 QT: 355 QTc: 456 Interpretive Statements SINUS RHYTHM BASELINE ARTIFACT- I, II, III, AVR, AVL, AVF, V1 NORMAL ECG Electronically Signed On 11-17-2020 17:04:56 CDT by All Montes D.O.
--- NOTE | 2020-11-17 10:50 | ED.GENADULT ---
HPI - General Adult General Chief complaint: Nausea/Vomiting/Diarrhea Stated complaint: I have covid Time Seen by Provider: 11/17/20 10:19 Source: patient Mode of arrival: ambulatory Limitations: no limitations History of Present Illness HPI narrative: This is a 60 year old female who presents for evaluation of multiple symptoms due to COVID. She developed cough, nausea, vomiting and diarrhea on (1 week ago). She thought it was due to allergies but she was determined to be COVID + on 11/13/20. She has been taking Mucinex, Flonase and Zofran without relief. She continues to have severe cough with shortness of breath and chest tightness with coughing. She reports her pulse oximeter at home reads in 80%. She also reports nausea, vomiting and diarrhea (nonbloody). Her last episode of vomiting was yesterday. Related Data Home Medications Medication Instructions Recorded Confirmed calcium carbonate 500 mg (1,250 1 tablet PO DAILY 07/01/19 11/17/20 mg)-vitamin D3 125 unit tablet cetirizine 10 mg tablet 10 mg PO DAILY 07/01/19 11/17/20 cholecalciferol (vitamin D3) 25 1,000 unit PO DAILY 07/01/19 11/17/20 mcg (1,000 unit) capsule lansoprazole 15 mg capsule,delayed 15 mg PO DAILY 07/01/19 11/17/20 release multivitamin with minerals 1 tablet PO DAILY 01/21/20 11/17/20 citalopram [Celexa] 20 mg PO DAILY 07/19/20 11/17/20 Allergies Allergy/AdvReac Type Severity Reaction Status Date / Time Sulfa (Sulfonamide Allergy Severe Anaphylaxis Verified 11/17/20 16:21 Antibiotics) Review of Systems Review of Systems: All systems reviewed & are unremarkable except as noted in HPI and below Constitutional: Constitutional: Reports fever(s) Cardiovascular: Cardiovascular: Reports chest pain (chest tightness) Respiratory: Respiratory: Reports cough and Reports dyspnea Gastrointestinal: Gastrointestinal: Denies abdominal pain, Reports diarrhea, Reports nausea and Reports vomiting PMFSH Past Medical History Medical History (Updated 11/17/20 @ 18:55 by Betty Camp MD) Chronic back pain Degenerative disc disease Depression with anxiety Diverticulitis (~11/2018) Gastroesophageal reflux disease Hepatitis During childhood, presumably hepatitis A. Herniated disc Hyperlipidemia Hypertension Nicotine dependence Osteoarthritis Seasonal rhinitis Vitamin D deficiency Surgical History Surgical History (Updated 11/17/20 @ 16:33 by Shayy Bryson PA-C) History of bilateral tubal ligation History of carpal tunnel release of both wrists History of cervical spinal surgery Diskectomy and fusion. History of cholecystectomy History of dilation and curettage History of lumbar surgery Status post insertion of spinal cord stimulator Family History Family History Sibling CHF (congestive heart failure) Cerebrovascular accident Kidney failure Father AAA (abdominal aortic aneurysm) CAD (coronary artery disease) Cerebrovascular accident Mother Brain aneurysm Hypertension Social History Social History (Updated 11/17/20 @ 16:40 by Shayy Bryson PA-C) Social History: Surrogate decision maker: Carolina Kiran, daughter. Code status: Full code. Additional smoking assessment comments: Quit smoking for the 2nd time in November 2020, vapes now. Alcohol intake: current Drinks per week: 6 Substance use: former Substance use type: marijuana Other substance usage details: Occasional, recreational marijuana use. Additional living arrangements comments: as of 2018. Lives in a split home in [place]. Adult daughter and son-in-law live upstairs. Gender identity (if verbalized by the patient): Female Spiritual care concerns: No Exam Const: General: no acute distress and alert Orientation/consciousness: patient oriented x3 Eyes: EOM: EOMs intact bilaterally Resp: Effort & Inspection:
[2020-11-17] MEDS: LACTATED RINGERS 1,000 ML 999 ML IV CONT (10:55)
[2020-11-17] MEDS: ONDANSETRON INJ 4 MG/2 ML VIAL IV PUSH (10:56)
[2020-11-17 11:00] LABS: Basophils Percent Auto 0.2 % (0.2-1.2); Eosinophils Percent Auto 0.2 % (0-4.4); Hematocrit 37.1 % (37.0-47.0); Hemoglobin 12.6 g/dL (12.0-15.0); Immature Granulocyte Absolute 0.02 K/mm3 (0.00-0.031); Immature Granulocyte Percent A 0.3 % (0-0.5); Lymphocytes Absolute Auto 1.53 K/mm3 (0.9-3.2); Lymphocytes Percent Auto 26.7 % (18.3-44.2); Mean Corpuscular Hemoglobin 29.4 pg (26-34); Mean Corpuscular Volume 86.5 fl (80-100); Mean Platelet Volume 9.9 fl (7.4-10.4); Monocytes Absolute Auto 0.6 K/mm3 (0.1-0.6); Monocytes Percent Auto 10.5 % (2.6-8.5); Neutrophils Absolute Auto 3.6 K/mm3 (1.3-6.7); Neutrophils Percent Auto 62.1 % (45.5-73.1); Platelet Count Result 190 k/mm3 (150-375); Red Blood Count 4.29 M/mm3 (4.2-5.4); Red Cell Distribution Width 13.1 % (11.5-14.5); White Blood Count 5.7 K/mm3 (4.5-10.0)
[2020-11-17 11:11] LABS: INR 0.9; Prothrombin Time 12.8 Seconds (11.1-14.7)
[2020-11-17 11:12] LABS: Partial Thromboplastin Time 23.9 SECONDS (22.3-36.8)
[2020-11-17 11:14] LABS: D Dimer 0.74 ug/mL (<0.48)
[2020-11-17 11:15] LABS: Alanine Aminotransferase 29 U/L (4-35); Albumin Level 4.1 g/dL (3.5-5.1); Alkaline Phosphatase 78 U/L (38-126); Anion Gap 8 mmol/L (8-16); Aspartate Amino Transferase 60 U/L (14-36); Bilirubin,Total 0.5 mg/dL (0.2-1.3); Blood Urea Nitrogen 15 mg/dL (7-17); Calcium 8.8 mg/dL (8.4-10.2); Carbon Dioxide 25 mmol/L (22-30); Chloride 104 mmol/L (98-107); Estimated CRCL calculation 53 ml/min; Estimated Glomerular Filt Rate 46; Glucose 97 mg/dL (65-105); Magnesium 1.6 mg/dL (1.6-2.3); Potassium 3.4 mmol/L (3.4-5.0); Sodium 137 mmol/L (137-145)
[2020-11-17 11:16] LABS: Alveolar/Arterial O2 Gradient 49.6 mmHg; Base Excess ABG -3.3 mEq/l (+/-2.0); Carboxyhemoglobin 0.3 % THb (0-2.0); Fractional Inspired Oxygen 21 %; HCO3 ABG 19.9 mEq/l (22.0-26.0); Methemoglobin ABG 0.7 %THb (0-1.5); Modified Allen's Test Pass; Oxygen Content ABG 15.8 %vol (16.0-22.0); Oxygen Saturation ABG 93.4 % (95.0-100.0); Oxyhemoglobin 91.1 % THb (90.0-100.0); PCO2 ABG 30.2 mmHg (35.0-45.0); PO2 FiO2 Ratio Arterial Blood 3.05 %; Reduced Hemoglobin 7.9 %THb (0-5.0); Total Hemoglobin 12.3 g/dL (12.0-18.0); pH ABG 7.437 (7.350-7.450)
[2020-11-17 11:17] LABS: Device ROOM AIR; Site Drawn LEFT RADIAL
[2020-11-17] MEDS: ALBUTEROL SULFATE (*SP) AEROSOL 1 PUFF 4 PUFF INHALATION (11:18)
[2020-11-17 11:23] LABS: Troponin I < 0.012 ng/mL (0.000-0.034)
--- NOTE | 2020-11-17 11:34 | PC.NURSE ---
Pt to CT for PE study.
--- NOTE | 2020-11-17 12:40 | PC.NURSE ---
Pt ambulated in room with pulse oximetry. Pulse oximetry dropped to 89%, heart rate up to 106. Oximetry increases when pt back to stretcher and not stressed.
[2020-11-17] MEDS: REMDESIVIR 200 MG/NS 250 ML 200 MG/250 ML BAG 250 MG IVPB (13:47)
--- NOTE | 2020-11-17 13:51 | PC.NURSE ---
Continue to await bed assignment. Pt has been calling and texting on phone throughout visit.
--- NOTE | 2020-11-17 13:55 | PC.NURSE ---
Call to pharmacy regarding dexamethasone.
--- NOTE | 2020-11-17 14:24 | PC.NURSE ---
Bed assignment received, SBAR faxed. Continue to await dexamethasone from pharmacy. Repeat call to pharmacy.
[2020-11-17] MEDS: DEXAMETHASONE 2 MG TABLET 6 MG PO (14:31)
--- NOTE | 2020-11-17 14:55 | PC.NURSE ---
Floor states did not receive the SBAR. SBAR refaxed.
--- NOTE | 2020-11-17 15:48 | ADMGEN ---
This patient, Ninoska Del Rosario, was admitted to [facility] Surg Room 332-01. Patient/family oriented to hospital policies and general routines including ID bracelet, bed and alarms, visiting hours, pain management, procedures, bathroom and other care routines, personal items, smoking policy, room service/diet, and visiting hours. Information on how to activate the Rapid Response Team has been discussed. Patient/Family are encouraged to report perceived risks to care and to ask questions if they do not understand what they are told or what they should do.
[2020-11-17] MEDS: SODIUM CHLORIDE 0.9% IV 1,000 ML 125 ML IV CONT (15:58)
[2020-11-17 17:06] LABS: Alanine Aminotransferase 26 U/L (4-35); Estimated CRCL calculation 58 ml/min; Estimated Glomerular Filt Rate 50
--- NOTE | 2020-11-17 18:45 | PM.IMHP ---
H&P: HPI History of Present Illness Date/Time: 11/17/20 18:45 Chief Complaint: Shortness of breath and low oxygen saturations. Narrative: This is a 60-year-old female with hypertension and hyperlipidemia who presented to the emergency department earlier today from home for evaluation of shortness of breath and low oxygen saturations. For nearly 1 week she has not been feeling well with generalized headache, cough, decreased appetite, nausea, vomiting, and diarrhea. She has also been running fevers and has had drenching sweats on occasion. Despite taking Robitussin, Mucinex, and Flonase she has continued to feel worse and in fact she tested positive for COVID-19 on 11/13/2020. She recently bought a pulse oximeter and her SpO2 reportedly ranged from 81 to 85% today prompting her to come to the emergency department. She continues to have some loose stools but has not vomited for over 24 hours. In fact she was able to eat a little bit this evening. At the time my evaluation she is not requiring oxygen and her main complaint is of the diarrhea. She is not having any chest pain at this time but does note mild chest heaviness when she is feeling short of breath and has coughing jags. No exertional chest pain or pleuritic pain. No lower extremity edema, calf pain, or tenderness. Review of Systems Review of Systems: Narrative: Twelve systems were reviewed with pertinent positives and negatives as per HPI. Except as documented, all other systems were reviewed and are negative. [facility] Past Medical History Medical History Chronic back pain Degenerative disc disease Depression with anxiety Diverticulitis (~11/2018) Gastroesophageal reflux disease Hepatitis During childhood, presumably hepatitis A. Herniated disc Hyperlipidemia Hypertension Nicotine dependence Osteoarthritis Seasonal rhinitis Vitamin D deficiency Surgical History Surgical History (Updated 11/17/20 @ 16:33 by Shayy Bryson PA-C) History of bilateral tubal ligation History of carpal tunnel release of both wrists History of cervical spinal surgery Diskectomy and fusion. History of cholecystectomy History of dilation and curettage History of lumbar surgery Status post insertion of spinal cord stimulator Family History Family History Sibling CHF (congestive heart failure) Cerebrovascular accident Kidney failure Father AAA (abdominal aortic aneurysm) CAD (coronary artery disease) Cerebrovascular accident Mother Brain aneurysm Hypertension Social History Social History Social History: Surrogate decision maker: Carolina Kiran, daughter. Code status: Full code. Additional smoking assessment comments: Quit smoking for the 2nd time in November 2020, vapes now. Alcohol intake: current Drinks per week: 6 Substance use: former Substance use type: marijuana Other substance usage details: Occasional, recreational marijuana use. Additional living arrangements comments: as of 2018. Lives in a split home in [place]. Adult daughter and son-in-law live upstairs. Gender identity (if verbalized by the patient): Female Spiritual care concerns: No Meds Home Medications and Allergies Home Medications Medication Instructions Recorded Confirmed Type calcium carbonate 500 mg (1,250 1 tablet PO DAILY 07/01/19 11/17/20 History mg)-vitamin D3 125 unit tablet cetirizine 10 mg tablet 10 mg PO DAILY 07/01/19 11/17/20 History cholecalciferol (vitamin D3) 25 1,000 unit PO DAILY 07/01/19 11/17/20 History mcg (1,000 unit) capsule lansoprazole 15 mg capsule,delayed 15 mg PO DAILY 07/01/19 11/17/20 History release multivitamin with minerals 1 tablet PO DAILY 01/21/20 11/17/20 History citalopram [Celexa] 20 mg PO DAILY 07/19/20 11/17/20 History aspirin [Childr
[2020-11-17] MEDS: guaiFENesin 12 HR 600 MG TABCR PO (20:32)
[2020-11-17] MEDS: FLUTICASONE PROPIONATE 0.05% NA SPR 16 GM BTL (*BKC) 1 SPRAY NASAL (20:33)
[2020-11-18] VITALS (13 sets, daily range): BP systolic 112–127; BP diastolic 68–80; PULSE 74–93; RESP 18–21; TEMP 36.7–37.6; O2SAT 91–94; BMI 40.1
[2020-11-18] MEDS: LOPERAMIDE HCL 2 MG CAPSULE PO (05:54)
[2020-11-18 06:38] LABS: Hematocrit 33.7 % (37.0-47.0); Hemoglobin 11.6 g/dL (12.0-15.0); Mean Corpuscular HGB Conc 34.4 g/dl (32-36); Mean Corpuscular Hemoglobin 29.7 pg (26-34); Mean Corpuscular Volume 86.4 fl (80-100); Mean Platelet Volume 9.6 fl (7.4-10.4); Platelet Count Result 199 k/mm3 (150-375); Red Cell Distribution Width 12.9 % (11.5-14.5); White Blood Count 2.4 K/mm3 (4.5-10.0)
[2020-11-18 06:51] LABS: Alanine Aminotransferase 28 U/L (4-35); Albumin Level 3.7 g/dL (3.5-5.1); Alkaline Phosphatase 71 U/L (38-126); Anion Gap 9 mmol/L (8-16); Aspartate Amino Transferase 45 U/L (14-36); Bilirubin,Total 0.3 mg/dL (0.2-1.3); Blood Urea Nitrogen 18 mg/dL (7-17); Calcium 8.7 mg/dL (8.4-10.2); Carbon Dioxide 22 mmol/L (22-30); Chloride 106 mmol/L (98-107); Estimated CRCL calculation 79 ml/min; Estimated Glomerular Filt Rate > 60; Glucose 134 mg/dL (65-105); Lactate Dehydrogenase 760 U/L (313-618); Magnesium 1.8 mg/dL (1.6-2.3); Potassium 3.4 mmol/L (3.4-5.0); Sodium 137 mmol/L (137-145)
[2020-11-18] MEDS: ACETAMINOPHEN 325 MG TABLET 650 MG PO ×2 (08:03→23:25)
[2020-11-18] MEDS: POTASSIUM CHLORIDE 20 MEQ TABLET 40 MEQ PO (08:03)
[2020-11-18] MEDS: FLUTICASONE PROPIONATE 0.05% NA SPR 16 GM BTL (*BKC) 1 SPRAY NASAL ×2 (08:04→20:53)
[2020-11-18] MEDS: ENOXAPARIN 40 MG/0.4 ML SYRINGE SUB-Q (08:05)
[2020-11-18] MEDS: lisinopriL 10 MG TABLET 30 MG PO (08:06)
[2020-11-18] MEDS: ASPIRIN 81 MG CHEWABLE TABLET PO (08:06)
[2020-11-18] MEDS: SIMVASTATIN 10 MG TABLET PO (08:06)
[2020-11-18] MEDS: DEXAMETHASONE 2 MG TABLET 6 MG PO (08:06)
[2020-11-18] MEDS: PANTOPRAZOLE 40 MG TABLET PO (08:06)
[2020-11-18] MEDS: CHOLECALCIFEROL 1,000 UNITS TABLET 1000 UNITS PO ×2 (08:06→11:21)
[2020-11-18] MEDS: amLODIPine BESYLATE 5 MG TABLET 10 MG PO (08:07)
[2020-11-18] MEDS: CITALOPRAM HYDROBROMIDE 20 MG TABLET PO (08:07)
[2020-11-18] MEDS: THERAPEUTIC MULTIVITAMINS/MINERALS TAB (*BKC) 1 TABLET PO (08:07)
[2020-11-18] MEDS: guaiFENesin 12 HR 600 MG TABCR PO ×2 (08:07→20:52)
[2020-11-18] MEDS: LORATADINE 10 MG TABLET PO (08:07)
[2020-11-18 08:51] LABS: Band Neutrophils Percent 2 % (0-6); Monocytes Absolute Manual 0.02 K/mm3 (0.1-0.90); Monocytes Percent Manual 1 % (3-9); Neutrophils Absolute Manual 1.36 K/mm3 (1.7-7.2); Neutrophils Percent Manual 55 % (46-73); Total Cells Counted 100
[2020-11-18 08:52] LABS: Hypochromasia 1+ (NORMAL); Platelet Estimate Adequate (Adequate); Tear Drop Cells 1+ (NORMAL)
[2020-11-18] MEDS: REMDESIVIR 100 MG/NS 250 ML 100 MG/250 ML BAG 250 MG IVPB (11:20)
[2020-11-18] MEDS: ASCORBIC ACID 500 MG TABLET PO (11:21)
[2020-11-18] MEDS: ZINC SULFATE 220 MG CAPSULE PO (11:21)
--- NOTE | 2020-11-18 12:20 | PCNSR ---
On 11/18/20, the student, Park Ramirez, provided care and completed [facility] documentation on this patient. I have reviewed the student's documentation and agree with the findings.
--- NOTE | 2020-11-18 12:43 | PM.IMPN ---
Progress Note: A&P Assessment and Plan (1) Pneumonia due to COVID-19 virus: Code(s): U07.1 - COVID-19; J12.82 - Pneumonia due to coronavirus disease 2019 Status: Acute Assessment and Plan: Patient tested positive for COVID-19 on 11/13/2020 and has had symptoms for approximately 7 days. Dexamethasone and remdesivir per protocol given hypoxia. Albuterol HFA q.6 hours as needed for shortness of breath. Trend inflammatory markers. 11/18/20 12:43 Patient is 60-year-old female presented with complaint of cough shortness of breath nausea or vomiting and diarrhea and fever, on 11/13/2020 patient was diagnosed with COVID-19, and since then patient is noted shortness of breath hypoxic, emergency depart patient was started on dexamethasone on 11/17 , 09/14 and Remdesivir 09/09, today added vitamins C and D, as well as zinc. Today patient states is not feeling as short of breath as when she arrived discussed and would like to start convalescent plasma, will continue to monitor will have a PT OT evaluate the patient, as patient oxygen requirement remained stable and does not have any fever will do discharge planning in few days (2) Hypoxia: Code(s): R09.02 - Hypoxemia Status: Acute Assessment and Plan: Patient reports SpO2 between 80 to 85% at home. Wean oxygen as tolerated. (3) Elevated serum creatinine: Code(s): R79.89 - Other specified abnormal findings of blood chemistry Status: Acute Assessment and Plan: She is probably a bit dehydrated with poor oral intake vomiting and diarrhea intermittently over the past 1 week. 1 liter fluid to be given today; avoid over-hydration in the setting of COVID. Encourage p.o. intake; antiemetics available as needed. (4) Hypertension: Code(s): I10 - Essential (primary) hypertension Status: Acute Assessment and Plan: Blood pressures were reviewed and they are reasonably well controlled. Continue antihypertensives and monitor daily. (5) Gastroesophageal reflux disease: Code(s): K21.9 - Gastro-esophageal reflux disease without esophagitis Status: Acute Assessment and Plan: No acute issues on chronic PPI therapy. (6) Hyperlipidemia: Code(s): E78.5 - Hyperlipidemia, unspecified Status: Chronic Assessment and Plan: Continue statin. (7) Depression with anxiety: Code(s): F41.8 - Other specified anxiety disorders Status: Chronic Assessment and Plan: Continue citalopram. (8) Nicotine dependence: Code(s): F17.200 - Nicotine dependence, unspecified, uncomplicated Status: Acute Assessment and Plan: Patient vapes daily since she stopped smoking cigarettes. Smoking cessation was encouraged. She declines the need for nicotine patch. Subjective Date/time seen: 11/18/20 12:43 Patient is 60-year-old female presented with complaint of cough shortness of breath nausea or vomiting and diarrhea and fever, on 11/13/2020 patient was diagnosed with COVID-19, and since then patient is noted shortness of breath hypoxic, emergency depart patient was started on dexamethasone on 11/17 , 09/14 and Remdesivir 09/09, today added vitamins C and D, as well as zinc. Today patient states is not feeling as short of breath as when she arrived discussed and would like to start convalescent plasma, will continue to monitor will have a PT OT evaluate the patient, as patient oxygen requirement remained stable and does not have any fever will do discharge planning in few days Review of Systems Review of Systems: All systems reviewed & are unremarkable except as noted in HPI and below Exam Narrative: Exam Narrative: Moderately obese Patient is comfortable, NAD HEENT: eyes are clear and none icteric LUNGS: Normal respiratory effort ABD: Distended Lower extremities: no edema SKIN: nonjaundiced Neuro: grossly intact normal speech. Objective Data Vital
[2020-11-18] MEDS: BUDESONIDE/FORMOTEROL (*SP) 160-4.5 MCG 6 GM INH 2 PUFF INHALATION (20:53)
[2020-11-19] VITALS (8 sets, daily range): BP systolic 126–143; BP diastolic 73–86; PULSE 73–99; RESP 18–20; TEMP 36.6–37.2; O2SAT 94–97
[2020-11-19 06:29] LABS: Hematocrit 33.5 % (37.0-47.0); Hemoglobin 11.4 g/dL (12.0-15.0); Mean Corpuscular Hemoglobin 29.4 pg (26-34); Mean Corpuscular Volume 86.3 fl (80-100); Platelet Count Result 201 k/mm3 (150-375); Red Blood Count 3.88 M/mm3 (4.2-5.4); Red Cell Distribution Width 12.8 % (11.5-14.5); White Blood Count 7.1 K/mm3 (4.5-10.0)
[2020-11-19 06:44] LABS: Alanine Aminotransferase 27 U/L (4-35); Estimated CRCL calculation 79 ml/min; Estimated Glomerular Filt Rate > 60
[2020-11-19] MEDS: ASCORBIC ACID 500 MG TABLET PO (08:41)
[2020-11-19] MEDS: guaiFENesin 12 HR 600 MG TABCR PO ×2 (08:41→20:34)
[2020-11-19] MEDS: FLUTICASONE PROPIONATE 0.05% NA SPR 16 GM BTL (*BKC) 1 SPRAY NASAL ×2 (08:41→20:34)
[2020-11-19] MEDS: CITALOPRAM HYDROBROMIDE 20 MG TABLET PO (08:41)
[2020-11-19] MEDS: DEXAMETHASONE 2 MG TABLET 6 MG PO (08:41)
[2020-11-19] MEDS: CHOLECALCIFEROL 1,000 UNITS TABLET 1000 UNITS PO (08:41)
[2020-11-19] MEDS: amLODIPine BESYLATE 5 MG TABLET 10 MG PO (08:41)
[2020-11-19] MEDS: lisinopriL 10 MG TABLET 30 MG PO (08:42)
[2020-11-19] MEDS: LORATADINE 10 MG TABLET PO (08:42)
[2020-11-19] MEDS: ENOXAPARIN 40 MG/0.4 ML SYRINGE SUB-Q (08:42)
[2020-11-19] MEDS: ASPIRIN 81 MG CHEWABLE TABLET PO (08:42)
[2020-11-19] MEDS: PANTOPRAZOLE 40 MG TABLET PO (08:42)
[2020-11-19] MEDS: ZINC SULFATE 220 MG CAPSULE PO (08:42)
[2020-11-19] MEDS: SIMVASTATIN 10 MG TABLET PO (08:42)
[2020-11-19] MEDS: THERAPEUTIC MULTIVITAMINS/MINERALS TAB (*BKC) 1 TABLET PO (08:43)
[2020-11-19 09:16] LABS: Alanine Aminotransferase 28 U/L (4-35); Albumin Level 3.5 g/dL (3.5-5.1); Alkaline Phosphatase 64 U/L (38-126); Anion Gap 5 mmol/L (8-16); Aspartate Amino Transferase 38 U/L (14-36); Bilirubin,Total 0.2 mg/dL (0.2-1.3); Blood Urea Nitrogen 18 mg/dL (7-17); CRP 4.8 mg/dL (<1.0); Carbon Dioxide 25 mmol/L (22-30); Chloride 109 mmol/L (98-107); Estimated CRCL calculation 79 ml/min; Estimated Glomerular Filt Rate > 60; Glucose 136 mg/dL (65-105); Potassium 3.9 mmol/L (3.4-5.0); Sodium 139 mmol/L (137-145)
[2020-11-19] MEDS: BUDESONIDE/FORMOTEROL (*SP) 160-4.5 MCG 6 GM INH 2 PUFF INHALATION ×2 (10:54→20:39)
[2020-11-19] MEDS: REMDESIVIR 100 MG/NS 250 ML 100 MG/250 ML BAG 250 MG IVPB (10:56)
--- NOTE | 2020-11-19 13:17 | PM.IMPN ---
Progress Note: A&P Assessment and Plan (1) Pneumonia due to COVID-19 virus: Code(s): U07.1 - COVID-19; J12.82 - Pneumonia due to coronavirus disease 2019 Status: Acute Assessment and Plan: Patient tested positive for COVID-19 on 11/13/2020 and has had symptoms for approximately 7 days. Dexamethasone and remdesivir per protocol given hypoxia. Albuterol HFA q.6 hours as needed for shortness of breath. Trend inflammatory markers. 11/19/20 13:17 11/18Patient is 60-year-old female presented with complaint of cough shortness of breath nausea or vomiting and diarrhea and fever, on 11/13/2020 patient was diagnosed with COVID-19, and since then patient is noted shortness of breath hypoxic, emergency depart patient was started on dexamethasone on 11/17 , 09/14 and Remdesivir /, today added vitamins C and D, as well as zinc. Today patient states is not feeling as short of breath as when she arrived discussed and would like to start convalescent plasma, will continue to monitor will have a PT OT evaluate the patient, as patient oxygen requirement remained stable and does not have any fever will do discharge planning in few days 11/19 received dexamethasone on 11/17 , 10/12 and Remdesivir /, on 11/18 added vitamins C and D as well as zinc and today received convalescent plasma, patient has a low-grade fever and minimal cough a not requiring any oxygen will continue to monitor, if remains clinically stable patient will finish her 5 day course of Remdesivir on Tuesday 11/21 will discharge patient home. (2) Hypoxia: Code(s): R09.02 - Hypoxemia Status: Acute Assessment and Plan: Patient reports SpO2 between 80 to 85% at home. Wean oxygen as tolerated. (3) Elevated serum creatinine: Code(s): R79.89 - Other specified abnormal findings of blood chemistry Status: Acute Assessment and Plan: She is probably a bit dehydrated with poor oral intake vomiting and diarrhea intermittently over the past 1 week. 1 liter fluid to be given today; avoid over-hydration in the setting of COVID. Encourage p.o. intake; antiemetics available as needed. (4) Hypertension: Code(s): I10 - Essential (primary) hypertension Status: Acute Assessment and Plan: Blood pressures were reviewed and they are reasonably well controlled. Continue antihypertensives and monitor daily. (5) Gastroesophageal reflux disease: Code(s): K21.9 - Gastro-esophageal reflux disease without esophagitis Status: Acute Assessment and Plan: No acute issues on chronic PPI therapy. (6) Hyperlipidemia: Code(s): E78.5 - Hyperlipidemia, unspecified Status: Chronic Assessment and Plan: Continue statin. (7) Depression with anxiety: Code(s): F41.8 - Other specified anxiety disorders Status: Chronic Assessment and Plan: Continue citalopram. (8) Nicotine dependence: Code(s): F17.200 - Nicotine dependence, unspecified, uncomplicated Status: Acute Assessment and Plan: Patient vapes daily since she stopped smoking cigarettes. Smoking cessation was encouraged. She declines the need for nicotine patch. Subjective Date/time seen: 11/19/20 13:17 11/18Patient is 60-year-old female presented with complaint of cough shortness of breath nausea or vomiting and diarrhea and fever, on 11/13/2020 patient was diagnosed with COVID-19, and since then patient is noted shortness of breath hypoxic, emergency depart patient was started on dexamethasone on 11/17 , 09/14 and Remdesivir 09/09, today added vitamins C and D, as well as zinc. Today patient states is not feeling as short of breath as when she arrived discussed and would like to start convalescent plasma, will continue to monitor will have a PT OT evaluate the patient, as patient oxygen requirement remained stable and does not have any fever will do discharge planning in few days 11/19 rec
[2020-11-19] MEDS: ALBUTEROL SULFATE (*SP) INHALER 4 PUFF INHALATION (20:35)
[2020-11-20] VITALS (7 sets, daily range): BP systolic 113–142; BP diastolic 81–87; PULSE 76–102; RESP 16–20; TEMP 36.4–37.3; O2SAT 94–98
[2020-11-20 06:23] LABS: Hematocrit 32.6 % (37.0-47.0); Mean Corpuscular Hemoglobin 28.9 pg (26-34); Mean Corpuscular Volume 85.8 fl (80-100); White Blood Count 9.9 K/mm3 (4.5-10.0)
[2020-11-20 06:24] LABS: Basophils Percent Auto 0.2 % (0.2-1.2); Immature Granulocyte Absolute 0.18 K/mm3 (0.00-0.031); Immature Granulocyte Percent A 1.8 % (0-0.5); Lymphocytes Percent Auto 16.1 % (18.3-44.2); Mean Corpuscular HGB Conc 33.7 g/dl (32-36); Monocytes Absolute Auto 0.7 K/mm3 (0.1-0.6); Monocytes Percent Auto 6.9 % (2.6-8.5); Neutrophils Absolute Auto 7.5 K/mm3 (1.3-6.7); Platelet Count Result 240 k/mm3 (150-375); Red Cell Distribution Width 12.7 % (11.5-14.5)
[2020-11-20 06:39] LABS: Alanine Aminotransferase 99 U/L (4-35); Albumin Level 3.3 g/dL (3.5-5.1); Alkaline Phosphatase 53 U/L (38-126); Anion Gap 7 mmol/L (8-16); Aspartate Amino Transferase 90 U/L (14-36); Bilirubin,Total 0.4 mg/dL (0.2-1.3); Blood Urea Nitrogen 16 mg/dL (7-17); CRP 2.4 mg/dL (<1.0); Calcium 8.4 mg/dL (8.4-10.2); Carbon Dioxide 24 mmol/L (22-30); Chloride 107 mmol/L (98-107); Estimated CRCL calculation 103 ml/min; Estimated Glomerular Filt Rate > 60; Glucose 136 mg/dL (65-105); Potassium 3.9 mmol/L (3.4-5.0); Sodium 138 mmol/L (137-145)
[2020-11-20] MEDS: ASPIRIN 81 MG CHEWABLE TABLET PO (08:17)
[2020-11-20] MEDS: BUDESONIDE/FORMOTEROL (*SP) 160-4.5 MCG 6 GM INH 2 PUFF INHALATION ×2 (08:17→20:42)
[2020-11-20] MEDS: THERAPEUTIC MULTIVITAMINS/MINERALS TAB (*BKC) 1 TABLET PO (08:18)
[2020-11-20] MEDS: lisinopriL 10 MG TABLET 30 MG PO (08:18)
[2020-11-20] MEDS: CHOLECALCIFEROL 1,000 UNITS TABLET 1000 UNITS PO (08:18)
[2020-11-20] MEDS: DEXAMETHASONE 2 MG TABLET 6 MG PO (08:18)
[2020-11-20] MEDS: LORATADINE 10 MG TABLET PO (08:19)
[2020-11-20] MEDS: CITALOPRAM HYDROBROMIDE 20 MG TABLET PO (08:19)
[2020-11-20] MEDS: amLODIPine BESYLATE 5 MG TABLET 10 MG PO (08:19)
[2020-11-20] MEDS: ZINC SULFATE 220 MG CAPSULE PO (08:19)
[2020-11-20] MEDS: PANTOPRAZOLE 40 MG TABLET PO (08:20)
[2020-11-20] MEDS: ASCORBIC ACID 500 MG TABLET PO (08:20)
[2020-11-20] MEDS: ENOXAPARIN 40 MG/0.4 ML SYRINGE SUB-Q (08:20)
[2020-11-20] MEDS: guaiFENesin 12 HR 600 MG TABCR PO ×2 (08:20→20:41)
[2020-11-20] MEDS: SIMVASTATIN 10 MG TABLET PO (08:20)
[2020-11-20] MEDS: FLUTICASONE PROPIONATE 0.05% NA SPR 16 GM BTL (*BKC) 1 SPRAY NASAL ×2 (08:21→20:42)
[2020-11-20] MEDS: REMDESIVIR 100 MG/NS 250 ML 100 MG/250 ML BAG 250 MG IVPB (11:13)
--- NOTE | 2020-11-20 14:04 | PM.IMPN ---
Progress Note: A&P Assessment and Plan (1) Pneumonia due to COVID-19 virus: Code(s): U07.1 - COVID-19; J12.82 - Pneumonia due to coronavirus disease 2019 Status: Acute Assessment and Plan: Patient tested positive for COVID-19 on 11/13/2020 and has had symptoms for approximately 7 days. Dexamethasone and remdesivir per protocol given hypoxia. Albuterol HFA q.6 hours as needed for shortness of breath. Trend inflammatory markers. 11/20/20 14:11/18Patient is 60-year-old female presented with complaint of cough shortness of breath nausea or vomiting and diarrhea and fever, on 11/13/2020 patient was diagnosed with COVID-19, and since then patient is noted shortness of breath hypoxic, emergency depart patient was started on dexamethasone on 11/17 , 09/14 and Remdesivir /, today added vitamins C and D, as well as zinc. Today patient states is not feeling as short of breath as when she arrived discussed and would like to start convalescent plasma, will continue to monitor will have a PT OT evaluate the patient, as patient oxygen requirement remained stable and does not have any fever will do discharge planning in few days 11/19 received dexamethasone on 11/17 , 10/12 and Remdesivir /, on 11/18 added vitamins C and D as well as zinc and today received convalescent plasma, patient has a low-grade fever and minimal cough a not requiring any oxygen will continue to monitor, if remains clinically stable patient will finish her 5 day course of Remdesivir on Tuesday 11/21 will discharge patient home. 03/22 received dexamethasone on 11/17 , 11/12 and Remdesivir /, on 11/18 added vitamins C and D as well as zinc and on 11/19 received convalescent plasma, patient is a low-grade fever however not requiring any oxygen, patient is clinically stable patient will complete 5 days course remdesivir tomorrow if remains clinically stable will discharge the patient home. (2) Hypoxia: Code(s): R09.02 - Hypoxemia Status: Acute Assessment and Plan: Patient reports SpO2 between 80 to 85% at home. Wean oxygen as tolerated. (3) Elevated serum creatinine: Code(s): R79.89 - Other specified abnormal findings of blood chemistry Status: Acute Assessment and Plan: She is probably a bit dehydrated with poor oral intake vomiting and diarrhea intermittently over the past 1 week. 1 liter fluid to be given today; avoid over-hydration in the setting of COVID. Encourage p.o. intake; antiemetics available as needed. (4) Hypertension: Code(s): I10 - Essential (primary) hypertension Status: Acute Assessment and Plan: Blood pressures were reviewed and they are reasonably well controlled. Continue antihypertensives and monitor daily. (5) Gastroesophageal reflux disease: Code(s): K21.9 - Gastro-esophageal reflux disease without esophagitis Status: Acute Assessment and Plan: No acute issues on chronic PPI therapy. (6) Hyperlipidemia: Code(s): E78.5 - Hyperlipidemia, unspecified Status: Chronic Assessment and Plan: Continue statin. (7) Depression with anxiety: Code(s): F41.8 - Other specified anxiety disorders Status: Chronic Assessment and Plan: Continue citalopram. (8) Nicotine dependence: Code(s): F17.200 - Nicotine dependence, unspecified, uncomplicated Status: Acute Assessment and Plan: Patient vapes daily since she stopped smoking cigarettes. Smoking cessation was encouraged. She declines the need for nicotine patch. Subjective Date/time seen: 11/20/20 14:04 11/18Patient is 60-year-old female presented with complaint of cough shortness of breath nausea or vomiting and diarrhea and fever, on 11/13/2020 patient was diagnosed with COVID-19, and since then patient is noted shortness of breath hypoxic, emergency depart patient was started on dexamethasone on 11/17 , 09/14 and Remdesivir
[2020-11-21] VITALS: BP 159/90; PULSE 100; PULSE 76; RESP 20; TEMP 36.1; O2SAT 95
[2020-11-21 04:00] VITALS: BP 153/86; PULSE 71; PULSE 72; RESP 16; TEMP 37.2; O2SAT 99
[2020-11-21 06:55] LABS: Alanine Aminotransferase 98 U/L (4-35); Albumin Level 3.4 g/dL (3.5-5.1); Alkaline Phosphatase 65 U/L (38-126); Anion Gap 6 mmol/L (8-16); Aspartate Amino Transferase 53 U/L (14-36); Bilirubin,Total 0.3 mg/dL (0.2-1.3); Blood Urea Nitrogen 15 mg/dL (7-17); CRP 1.3 mg/dL (<1.0); Calcium 8.7 mg/dL (8.4-10.2); Carbon Dioxide 26 mmol/L (22-30); Chloride 104 mmol/L (98-107); Estimated CRCL calculation 89 ml/min; Estimated Glomerular Filt Rate > 60; Glucose 129 mg/dL (65-105); Potassium 3.7 mmol/L (3.4-5.0); Sodium 136 mmol/L (137-145)
[2020-11-21 07:15] LABS: Basophils Percent Auto 0.2 % (0.2-1.2); Hematocrit 34.5 % (37.0-47.0); Hemoglobin 11.9 g/dL (12.0-15.0); Immature Granulocyte Absolute 0.28 K/mm3 (0.00-0.031); Immature Granulocyte Percent A 2.7 % (0-0.5); Lymphocytes Absolute Auto 1.98 K/mm3 (0.9-3.2); Lymphocytes Percent Auto 19.2 % (18.3-44.2); Mean Corpuscular HGB Conc 34.5 g/dl (32-36); Mean Corpuscular Hemoglobin 29.7 pg (26-34); Mean Platelet Volume 9.8 fl (7.4-10.4); Monocytes Absolute Auto 0.9 K/mm3 (0.1-0.6); Monocytes Percent Auto 8.7 % (2.6-8.5); Neutrophils Absolute Auto 7.1 K/mm3 (1.3-6.7); Neutrophils Percent Auto 69.2 % (45.5-73.1); Platelet Count Result 264 k/mm3 (150-375); Red Blood Count 4.01 M/mm3 (4.2-5.4); Red Cell Distribution Width 12.5 % (11.5-14.5); White Blood Count 10.3 K/mm3 (4.5-10.0)
[2020-11-21 08:00] VITALS: BP 135/93; PULSE 109; PULSE 75; RESP 24; TEMP 37.7; O2SAT 98
[2020-11-21] MEDS: ENOXAPARIN 40 MG/0.4 ML SYRINGE SUB-Q (08:53)
[2020-11-21] MEDS: LORATADINE 10 MG TABLET PO (08:54)
[2020-11-21] MEDS: lisinopriL 10 MG TABLET 30 MG PO (08:54)
[2020-11-21] MEDS: CHOLECALCIFEROL 1,000 UNITS TABLET 1000 UNITS PO (08:54)
[2020-11-21] MEDS: guaiFENesin 12 HR 600 MG TABCR PO (08:54)
[2020-11-21] MEDS: ZINC SULFATE 220 MG CAPSULE PO (08:54)
[2020-11-21] MEDS: ASCORBIC ACID 500 MG TABLET PO (08:54)
[2020-11-21] MEDS: SIMVASTATIN 10 MG TABLET PO (08:54)
[2020-11-21] MEDS: THERAPEUTIC MULTIVITAMINS/MINERALS TAB (*BKC) 1 TABLET PO (08:54)
[2020-11-21] MEDS: CITALOPRAM HYDROBROMIDE 20 MG TABLET PO (08:54)
[2020-11-21] MEDS: PANTOPRAZOLE 40 MG TABLET PO (08:54)
[2020-11-21] MEDS: ASPIRIN 81 MG CHEWABLE TABLET PO (08:55)
[2020-11-21] MEDS: FLUTICASONE PROPIONATE 0.05% NA SPR 16 GM BTL (*BKC) 1 SPRAY NASAL (08:55)
[2020-11-21] MEDS: BUDESONIDE/FORMOTEROL (*SP) 160-4.5 MCG 6 GM INH 2 PUFF INHALATION (08:55)
[2020-11-21] MEDS: DEXAMETHASONE 2 MG TABLET 6 MG PO (08:55)
[2020-11-21] MEDS: REMDESIVIR 100 MG/NS 250 ML 100 MG/250 ML BAG 250 MG IVPB (08:56)
[2020-11-21] MEDS: amLODIPine BESYLATE 5 MG TABLET 10 MG PO (08:57)
--- NOTE | 2020-11-21 11:50 | PM.DS ---
DS: Admitting Diagnosis Admitting Diagnosis Admitting Diagnosis: Chief Complaint: Shortness of breath and low oxygen saturations. DS: Discharge Diagnosis Discharge Diagnosis (1) Pneumonia due to COVID-19 virus: Code(s): U07.1 - COVID-19; J12.82 - Pneumonia due to coronavirus disease 2019 Status: Acute Assessment and Plan: Patient tested positive for COVID-19 on 11/13/2020 and has had symptoms for approximately 7 days. Dexamethasone and remdesivir per protocol given hypoxia. Albuterol HFA q.6 hours as needed for shortness of breath. Trend inflammatory markers. 11/20/20 14:11/18Patient is 60-year-old female presented with complaint of cough shortness of breath nausea or vomiting and diarrhea and fever, on 11/13/2020 patient was diagnosed with COVID-19, and since then patient is noted shortness of breath hypoxic, emergency depart patient was started on dexamethasone on 11/17 , 09/14 and Remdesivir /, today added vitamins C and D, as well as zinc. Today patient states is not feeling as short of breath as when she arrived discussed and would like to start convalescent plasma, will continue to monitor will have a PT OT evaluate the patient, as patient oxygen requirement remained stable and does not have any fever will do discharge planning in few days 11/19 received dexamethasone on 11/17 , 10/12 and Remdesivir /, on 11/18 added vitamins C and D as well as zinc and today received convalescent plasma, patient has a low-grade fever and minimal cough a not requiring any oxygen will continue to monitor, if remains clinically stable patient will finish her 5 day course of Remdesivir on Tuesday 11/21 will discharge patient home. 03/22 received dexamethasone on 11/17 , 11/12 and Remdesivir /, on 11/18 added vitamins C and D as well as zinc and on 11/19 received convalescent plasma, patient is a low-grade fever however not requiring any oxygen, patient is clinically stable patient will complete 5 days course remdesivir tomorrow if remains clinically stable will discharge the patient home. (2) Hypoxia: Code(s): R09.02 - Hypoxemia Status: Acute Assessment and Plan: Patient reports SpO2 between 80 to 85% at home. Wean oxygen as tolerated. (3) Elevated serum creatinine: Code(s): R79.89 - Other specified abnormal findings of blood chemistry Status: Acute Assessment and Plan: She is probably a bit dehydrated with poor oral intake vomiting and diarrhea intermittently over the past 1 week. 1 liter fluid to be given today; avoid over-hydration in the setting of COVID. Encourage p.o. intake; antiemetics available as needed. (4) Hypertension: Code(s): I10 - Essential (primary) hypertension Status: Acute Assessment and Plan: Blood pressures were reviewed and they are reasonably well controlled. Continue antihypertensives and monitor daily. (5) Gastroesophageal reflux disease: Code(s): K21.9 - Gastro-esophageal reflux disease without esophagitis Status: Acute Assessment and Plan: No acute issues on chronic PPI therapy. (6) Hyperlipidemia: Code(s): E78.5 - Hyperlipidemia, unspecified Status: Chronic Assessment and Plan: Continue statin. (7) Depression with anxiety: Code(s): F41.8 - Other specified anxiety disorders Status: Chronic Assessment and Plan: Continue citalopram. (8) Nicotine dependence: Qualifiers: Nicotine product type: unspecified Substance use status: in remission Qualified Code(s): F17.201 - Nicotine dependence, unspecified, in remission Code(s): F17.200 - Nicotine dependence, unspecified, uncomplicated Status: Acute Assessment and Plan: Patient vapes daily since she stopped smoking cigarettes. Smoking cessation was encouraged. She declines the need for nicotine patch. DS: Summary Hospital Course Reason for hospitalization: Diana
[2020-11-21 12:00] VITALS: BP 144/85; PULSE 83; PULSE 84; RESP 16; TEMP 37.1; O2SAT 97
== END 2020-11-21 13:05 | disposition home or self-care (01) | DRG 177 ==
LOC: ANHED 13:21 → ANH3MEDSUR 14:42
PROVIDERS: Family Medicine; Physician Assistant; Admitting Provider Internal Medicine; Emergency Provider General Practice; PCP Internal Medicine; Visit Provider Internal Medicine
DX: U07.1 COVID-19 (principal); J12.82 Pneumonia due to coronavirus disease 2019; R09.02 Hypoxemia; E86.0 Dehydration; I10 Essential (primary) hypertension; K21.9 Gastro-esophageal reflux disease without esophagitis; E78.5 Hyperlipidemia, unspecified; F41.8 Other specified anxiety disorders; F17.290 Nicotine dependence, other tobacco product, uncomplicated; M19.90 Unspecified osteoarthritis, unspecified site; E55.9 Vitamin D deficiency, unspecified; Z98.1 Arthrodesis status; Z90.49 Acquired absence of other specified parts of digestive tract
CPT/HCPCS: 36415; 36430; 36600; 71045; 71275; 80053; 82375; 82565; 82728; 82805; 83050; 83615; 83735; 84460; 84484; 85025; 85027; 85380; 85610; 85730; 86140; 86900; 86901; 93005; 94640; 96361; 96365; 96366; 96372; 96375; 99285; A9270; G0378; J1650; J2405; J7030; J7120; J8540; P9059; Q9967

== ENCOUNTER 2021-02-23 10:51 | Outpatient (CLI) | payer MEDICARE, SELFPAY ==
[2021-02-23 11:43] LABS: Basophils Percent Auto 0.2 % (0.2-1.2); Eosinophils Absolute Auto 0.1 K/mm3 (0-0.3); Eosinophils Percent Auto 1.7 % (0-4.4); Hematocrit 40.7 % (37.0-47.0); Hemoglobin 13.1 g/dL (12.0-15.0); Immature Granulocyte Absolute 0.04 K/mm3 (0.00-0.031); Immature Granulocyte Percent A 0.5 % (0-0.5); Mean Corpuscular HGB Conc 32.2 g/dl (32-36); Mean Corpuscular Hemoglobin 29.5 pg (26-34); Mean Corpuscular Volume 91.7 fl (80-100); Mean Platelet Volume 10.1 fl (7.4-10.4); Monocytes Absolute Auto 0.6 K/mm3 (0.1-0.6); Neutrophils Absolute Auto 5.2 K/mm3 (1.3-6.7); Neutrophils Percent Auto 64.6 % (45.5-73.1); Platelet Count Result 257 k/mm3 (150-375); Red Blood Count 4.44 M/mm3 (4.2-5.4); Red Cell Distribution Width 13.3 % (11.5-14.5); White Blood Count 8.1 K/mm3 (4.5-10.0)
[2021-02-23 11:55] LABS: Alanine Aminotransferase 27 U/L (4-35); Albumin Level 4.5 g/dL (3.5-5.1); Alkaline Phosphatase 88 U/L (38-126); Anion Gap 11 mmol/L (8-16); Aspartate Amino Transferase 32 U/L (14-36); Bilirubin,Total 0.9 mg/dL (0.2-1.3); Blood Urea Nitrogen 9 mg/dL (7-17); Carbon Dioxide 26 mmol/L (22-30); Chloride 105 mmol/L (98-107); Cholesterol 194 mg/dL (0-200); Estimated Glomerular Filt Rate 56; Glucose 108 mg/dL (65-110); HDL Direct 56 mg/dL; Potassium 4.3 mmol/L (3.4-5.0); Sodium 142 mmol/L (137-145); Triglycerides 118 mg/dL (<150)
[2021-02-23 12:06] LABS: LDL Cholesterol Direct 98 mg/dL
[2021-02-23 12:35] LABS: Vitamin D 25 Hydroxy 43.2 ng/mL
== END 2021-02-23 10:52 | disposition home or self-care (01) ==
LOC: ANHLAB 10:56
PROVIDERS: PCP Internal Medicine; Visit Provider Nurse Practitioner
DX: E55.9 Vitamin D deficiency, unspecified (principal); E78.5 Hyperlipidemia, unspecified; I10 Essential (primary) hypertension
CPT/HCPCS: 36415; 80053; 80061; 82306; 85025

== ENCOUNTER → 2021-04-29 00:07 | Outpatient (CLI) | payer MEDICARE, SELFPAY ==
[2021-04-29 18:04] LABS: SARS-CoV-2 RNA PCR Negative
== END ==
PROVIDERS: PCP Internal Medicine; Visit Provider Internal Medicine Gastroenterology
DX: Z01.812 Encounter for preprocedural laboratory examination (principal); Z20.822 Contact with and (suspected) exposure to COVID-19
CPT/HCPCS: C9803; U0003; U0005

== ENCOUNTER 2021-05-03 01:42 | Day surgery (SDC) | payer MEDICARE, SELFPAY ==
[2021-04-20 12:47] VITALS: BMI 40.7
--- NOTE | 2021-05-03 06:51 | PM.HPGS ---
History of Present Illness History of Present Illness Consent: Risks, benefits, and alternatives have been discussed and questions answered. Patient agrees to proceed with procedure. Chief complaint: family hx of colon ca Narrative: Ninoska Del Rosario is a 61 year old female Here for colon cancer screening. She has a family history of colon cancer Review of Systems Review of Systems: All systems reviewed & are unremarkable except as noted in HPI and below PMFSH Past Medical History Medical History Chronic back pain Degenerative disc disease Depression with anxiety Diverticulitis (~11/2018) Gastroesophageal reflux disease Hepatitis During childhood, presumably hepatitis A. Herniated disc Hyperlipidemia Hypertension Nicotine dependence Osteoarthritis Seasonal rhinitis Vitamin D deficiency Surgical History Surgical History History of bilateral tubal ligation History of carpal tunnel release of both wrists History of cervical spinal surgery Diskectomy and fusion. History of cholecystectomy History of dilation and curettage History of lumbar surgery Status post insertion of spinal cord stimulator Family History Family History Sibling CHF (congestive heart failure) Cerebrovascular accident Kidney failure Father AAA (abdominal aortic aneurysm) CAD (coronary artery disease) Cerebrovascular accident Mother Brain aneurysm Hypertension Social History Social History Social History: Surrogate decision maker: Carolina Kiran, daughter. Code status: Full code. Smoking packs per day: 1 Smoking cigarettes per day: 20.0 Years smoked: 25 Smoking pack-years: 25.00 Smoking status: Current every day smoker Tobacco type: cigarettes and e-cigarettes/vaping Additional smoking assessment comments: Quit smoking for the 2nd time in November 2020, vapes now. Alcohol intake: current Drinks per week: 6 Alcohol use details: 6 PER WEEKEND DAY Substance use: current Substance use type: marijuana Other substance usage details: SMOKES MARIJUANA OCC AND MARIJUANA EDIBLES Living arrangements: with family Additional living arrangements comments: as of 2018. Lives in a split home in [place]. Adult daughter and son-in-law live upstairs. Gender identity (if verbalized by the patient): Female Spiritual care concerns: No Meds Home Medications and Allergies Home Medications Medication Instructions Recorded Confirmed Type calcium carbonate 500 mg (1,250 1 tablet PO DAILY 07/01/19 05/03/21 History mg)-vitamin D3 125 unit tablet cetirizine 10 mg tablet 10 mg PO DAILY 07/01/19 05/03/21 History cholecalciferol (vitamin D3) 25 1,000 unit PO DAILY 07/01/19 05/03/21 History mcg (1,000 unit) capsule lansoprazole 15 mg capsule,delayed 15 mg PO DAILY 07/01/19 05/03/21 History release citalopram [Celexa] 20 mg PO DAILY 07/19/20 05/03/21 History aspirin [Children's Aspirin] 81 mg PO DAILY@0800 30 Days #30 07/20/20 05/03/21 Rx tablet meclizine 25 mg PO BID PRN #30 tablet 07/20/20 05/03/21 Rx simvastatin 10 mg tablet 10 mg PO DAILY #90 tablet 11/02/20 05/03/21 Rx amlodipine 10 mg tablet 10 mg PO DAILY #90 tablet 03/29/21 05/03/21 Rx lisinopril 30 mg tablet 30 mg PO DAILY #90 tablet 04/24/21 05/03/21 Rx Allergies Allergy/AdvReac Type Severity Reaction Status Date / Time Sulfa (Sulfonamide Allergy Severe Anaphylaxis Verified 05/03/21 07:43 Antibiotics) Exam Resp: Auscultation: clear to auscultation bilaterally Cardio: Rate: regular rate Rhythm: regular rhythm GI: GI Palp: Yes Soft to palpation and No Tenderness to palpation present (GI) Assessment and Plan Assessment and plan (1) Screening for colon cancer: Code(s): Z12.11 - Encounter for
[2021-05-03 07:46] VITALS: BP 120/86; PULSE 85; RESP 18; TEMP 36.9; O2SAT 97
[2021-05-03] MEDS: LACTATED RINGERS 1,000 ML 150 ML IV CONT (07:59)
--- NOTE | 2021-05-03 08:31 | WPDANESEPPF ---
Anes - Initial Pre Proc Eval Procedure: Operation Date: 05/03/21 08:30 Proposed Procedures p Screening Colonoscopy - Vargas Ayala MD Date/Time: 05/03/21 08:31 Surgeon: Vargas Ayala MD Pre Op Diagnosis: family hx of colon ca Patient Data Age: 61 Gender: F Height: 1.65 m Weight: 107.2 kg Last Vital Signs Temp 98.5 F 05/03/21 07:46 Pulse 85 05/03/21 07:46 Resp 18 05/03/21 07:46 BP 120/86 05/03/21 07:46 Pulse Ox 97 05/03/21 07:46 Allergies Allergy/AdvReac Type Severity Reaction Status Date / Time Sulfa (Sulfonamide Allergy Severe Anaphylaxis Verified 05/03/21 07:43 Antibiotics) Home Medications Medication Instructions Recorded Confirmed Type calcium carbonate 500 mg (1,250 1 tablet PO DAILY 07/01/19 05/03/21 History mg)-vitamin D3 125 unit tablet cetirizine 10 mg tablet 10 mg PO DAILY 07/01/19 05/03/21 History cholecalciferol (vitamin D3) 25 1,000 unit PO DAILY 07/01/19 05/03/21 History mcg (1,000 unit) capsule lansoprazole 15 mg capsule,delayed 15 mg PO DAILY 07/01/19 05/03/21 History release citalopram [Celexa] 20 mg PO DAILY 07/19/20 05/03/21 History aspirin [Children's Aspirin] 81 mg PO DAILY@0800 30 Days #30 07/20/20 05/03/21 Rx tablet meclizine 25 mg PO BID PRN #30 tablet 07/20/20 05/03/21 Rx simvastatin 10 mg tablet 10 mg PO DAILY #90 tablet 11/02/20 05/03/21 Rx amlodipine 10 mg tablet 10 mg PO DAILY #90 tablet 03/29/21 05/03/21 Rx lisinopril 30 mg tablet 30 mg PO DAILY #90 tablet 04/24/21 05/03/21 Rx Patient hx anesthesia problems: none Family hx anesthesia problems: none Results Review: All pre-operative results and documents have been reviewed as part of the pre-operative evaluation. [facility] Past Medical History Medical History Chronic back pain Degenerative disc disease Depression with anxiety Diverticulitis (~11/2018) Gastroesophageal reflux disease Hepatitis During childhood, presumably hepatitis A. Herniated disc Hyperlipidemia Hypertension Nicotine dependence Osteoarthritis Seasonal rhinitis Vitamin D deficiency Surgical History Surgical History History of bilateral tubal ligation History of carpal tunnel release of both wrists History of cervical spinal surgery Diskectomy and fusion. History of cholecystectomy History of dilation and curettage History of lumbar surgery Status post insertion of spinal cord stimulator Family History Family History Sibling CHF (congestive heart failure) Cerebrovascular accident Kidney failure Father AAA (abdominal aortic aneurysm) CAD (coronary artery disease) Cerebrovascular accident Mother Brain aneurysm Hypertension Social History Social History Social History: Surrogate decision maker: Carolina Kiran, bharat. Code status: Full code. Smoking packs per day: 1 Smoking cigarettes per day: 20.0 Years smoked: 25 Smoking pack-years: 25.00 Smoking status: Current every day smoker Tobacco type: cigarettes and e-cigarettes/vaping Additional smoking assessment comments: Quit smoking for the 2nd time in November 2020, vapes now. Alcohol intake: current Drinks per week: 6 Alcohol use details: 6 PER WEEKEND DAY Substance use: current Substance use type: marijuana Other substance usage details: SMOKES MARIJUANA OCC AND MARIJUANA EDIBLES Living arrangements: with family Additional living arrangements comments: as of 2018. Lives in a split home in [place]. Adult daughter and son-in-law live upstairs. Gender identity (if verbalized by the patient): Female Spiritual care concerns: No Anes - Eval Final PreProcedure Day of Procedure 05/03/21 08:31 Patient weight: morbidly obese Heart: regular rate and rhythm Lungs: clear
[2021-05-03 08:56] VITALS: BP 108/79; PULSE 90; RESP 19; O2SAT 99
[2021-05-03 09:06] VITALS: BP 126/81; PULSE 72; RESP 15; O2SAT 100
[2021-05-03 09:16] VITALS: BP 127/85; PULSE 73; RESP 20; O2SAT 100
== END 2021-05-03 09:27 | disposition home or self-care (01) ==
PROVIDERS: PCP Internal Medicine; Visit Provider Internal Medicine Gastroenterology
PROC: 0DJD8ZZ Inspection of Lower Intestinal Tract, Via Natural or Artificial Opening Endoscopic (ICD-10-PCS; CPT 45378; principal; 2021-05-03 08:30)
DX: Z12.11 Encounter for screening for malignant neoplasm of colon (principal); K63.5 Polyp of colon; K57.30 Diverticulosis of large intestine without perforation or abscess without bleeding; Z80.0 Family history of malignant neoplasm of digestive organs; I10 Essential (primary) hypertension; E78.5 Hyperlipidemia, unspecified; E55.9 Vitamin D deficiency, unspecified; F41.8 Other specified anxiety disorders; K21.9 Gastro-esophageal reflux disease without esophagitis; M19.90 Unspecified osteoarthritis, unspecified site; Z79.82 Long term (current) use of aspirin; F17.290 Nicotine dependence, other tobacco product, uncomplicated; F12.90 Cannabis use, unspecified, uncomplicated; E66.01 Morbid (severe) obesity due to excess calories; Z68.39 Body mass index [BMI] 39.0-39.9, adult
CPT/HCPCS: 45385; 88305; C9803; J2704; J7120; U0003; U0005

== ENCOUNTER 2021-08-28 15:44 | Outpatient (CLI) | payer MEDICARE, SELFPAY ==
[2021-08-28 16:28] LABS: Add Urine Microscopic? YES; Appearance Urine Turbid (Clear); Bilirubin Urine Negative (Negative); Blood Urine 2+ (Negative); Color Urine Amber (Yellow); Glucose Urine UA Negative (Negative); Ketones Urine Negative (Negative); Leukocyte Esterase Ur 3+ LEU/UL (Negative); Mucus Urine Few /lpf; Nitrate Urine Positive (Negative); Protein Urine 3+ mg/dL (Negative); RBC Urine >75 /hpf (0-2); Specific Grav Ur 1.018 (1.001-1.035); Urobilinogen Urine Negative mg/dL (<2.0); WBC Urine >75 /hpf
[2021-08-28 16:34] LABS: Anion Gap 6 mmol/L (8-16); Blood Urea Nitrogen 11 mg/dL (7-17); Calcium 9.5 mg/dL (8.4-10.2); Carbon Dioxide 26 mmol/L (22-30); Chloride 105 mmol/L (98-107); Estimated Glomerular Filt Rate > 60; Glucose 125 mg/dL (65-110); Potassium 3.5 mmol/L (3.4-5.0); Sodium 137 mmol/L (137-145)
== END 2021-08-28 15:45 | disposition home or self-care (01) ==
LOC: ANHLAB 15:49
PROVIDERS: PCP Internal Medicine; Visit Provider Nurse Practitioner
DX: R94.4 Abnormal results of kidney function studies (principal); R30.0 Dysuria
CPT/HCPCS: 36415; 80048; 81001; 87077; 87086; 87186

== ENCOUNTER 2021-10-07 18:25 | Emergency (ER) | payer MEDICARE, SELFPAY ==
[2021-10-07 18:31] VITALS: BP 161/102; PULSE 95; RESP 16; TEMP 36.9; O2SAT 98
--- NOTE | 2021-10-07 19:15 | ED.SKABFB ---
HPI - Skin/Abscess/Foreign Bdy General Chief complaint: Skin/Abscess/Foreign Body <Ysabel Samaniego PA-C - Last Filed: 10/07/21 20:21> Stated complaint: spider bite <JOSE Dietrich Last Filed: 10/07/21 20:21> Time Seen by Provider: 10/07/21 18:46 <JOSE Dietrich Last Filed: 10/07/21 20:21> Source: patient <Ysabel Samaniego PA-C - Last Filed: 10/07/21 20:21> Mode of arrival: ambulatory <JOSE Dietrich Last Filed: 10/07/21 20:21> Limitations: no limitations <JOSE Dietrich Last Filed: 10/07/21 20:21> History of Present Illness HPI narrative: Patient is a 61-year-old female who presents to the ED with complaints of a wound to her left hand. Patient reports she was outside at a local bar last Saturday, 09/30, when she noticed an area of redness, irritation, itching and tenderness to her left dorsal hand. Over the next few days she developed small blistering along the area of redness. There was one large blister that ruptured spontaneously and is now scabbed over. She states the lesion seems to have gotten more erythematous over the past week, thus prompting her to come to the ED. She has tried triple antibiotic ointment over the lesion with no relief. Patient denies any pain in her left wrist/hand, decreased sensation, weakness, fever, chills, nausea, vomiting, purulent drainage or bleeding from the wound. Patient mention she experiences yeast infections with antibiotics. <JOSE Dietrich Last Filed: 10/07/21 20:21> Related Data Home medications: Home Medications Medication Instructions Recorded Confirmed calcium carbonate 500 mg-vitamin 1 tablet PO DAILY 07/01/19 05/03/21 D3 3.125 mcg (125 unit) tablet cetirizine 10 mg tablet 10 mg PO DAILY 07/01/19 05/03/21 cholecalciferol (vitamin D3) 25 1,000 unit PO DAILY 07/01/19 05/03/21 mcg (1,000 unit) capsule lansoprazole 15 mg capsule,delayed 15 mg PO DAILY 07/01/19 05/03/21 release <Ysabel Samaniego PA-C - Last Filed: 10/07/21 20:21> Allergies/Adverse reactions: Allergies Allergy/AdvReac Type Severity Reaction Status Date / Time Sulfa (Sulfonamide Allergy Severe Anaphylaxis Verified 05/03/21 07:43 Antibiotics) <Ysabel Samaniego PA-C - Last Filed: 10/07/21 20:21> Review of Systems Review of Systems: CONSTITUTIONAL: Denies fever, chills, or sweats. GASTROINTESTINAL: Denies nausea, vomiting. SKIN: Reports wound to left dorsal hand with redness, itching, tenderness. MUSCULOSKELETAL: Denies left wrist or hand joint pain. NEUROLOGIC: Denies numbness or weakness. <Ysabel Samaniego PA-C - Last Filed: 10/07/21 20:21> All systems reviewed & are unremarkable except as noted in HPI and below <Ysabel Samaniego PA-C - Last Filed: 10/07/21 20:21> [facility] Past Medical History Medical History: Medical History Chronic back pain Degenerative disc disease Depression with anxiety Diverticulitis (~11/2018) Gastroesophageal reflux disease Hepatitis During childhood, presumably hepatitis A. Herniated disc Hyperlipidemia Hypertension Nicotine dependence Osteoarthritis Seasonal rhinitis Vitamin D deficiency <Ysabel Samaniego PA-C - Last Filed: 10/07/21 20:21> Surgical History Surgical History: Surgical History History of bilateral tubal ligation History of carpal tunnel release of both wrists History of cervical spinal surgery Diskectomy and fusion. History of cholecystectomy History of dilation and curettage History of lumbar surgery Status post insertion of spinal cord stimulator <Ysabel Samaniego PA-C - Last Filed: 10/07/21 20:21> Family History Family History: Family History Sibling CHF (congestive heart failure) Cerebrovascular accident Kidney failure Father AAA (abdominal aortic aneurysm) CAD (
[2021-10-07] MEDS: FLUCONAZOLE 150 MG TABLET PO (20:01)
== END 2021-10-07 20:05 | disposition home or self-care (01) ==
PROVIDERS: Emergency Provider Emergency Medicine; PCP Internal Medicine
DX: L03.114 Cellulitis of left upper limb (principal); L24.9 Irritant contact dermatitis, unspecified cause; Z98.1 Arthrodesis status; K21.9 Gastro-esophageal reflux disease without esophagitis; E78.5 Hyperlipidemia, unspecified; I10 Essential (primary) hypertension; M19.90 Unspecified osteoarthritis, unspecified site; E55.9 Vitamin D deficiency, unspecified; F41.9 Anxiety disorder, unspecified; F17.290 Nicotine dependence, other tobacco product, uncomplicated; Z79.82 Long term (current) use of aspirin
CPT/HCPCS: 99283; A9270

== ENCOUNTER 2021-10-24 19:48 | Emergency (ER) | payer MEDICARE, SELFPAY ==
[2021-10-24 20:01] VITALS: BP 144/86; PULSE 92; RESP 16; TEMP 36.6; O2SAT 99
--- NOTE | 2021-10-24 20:31 | ED.SKABFB ---
HPI - Skin/Abscess/Foreign Bdy General Chief complaint: Wound/Laceration Stated complaint: increased swelling to bite, I don't feel well Time Seen by Provider: 10/24/21 20:09 Source: patient Mode of arrival: ambulatory Limitations: no limitations History of Present Illness HPI narrative: Patient is a 62-year-old female complaining of redness on the insect bite left hand that she had 3 weeks ago, was treated with antibiotics resolved, and now some redness and swelling around the wound. Patient denies any fever or chills. Related Data Home Medications Medication Instructions Recorded Confirmed calcium carbonate 500 mg-vitamin 1 tablet PO DAILY 07/01/19 05/03/21 D3 3.125 mcg (125 unit) tablet cetirizine 10 mg tablet 10 mg PO DAILY 07/01/19 05/03/21 cholecalciferol (vitamin D3) 25 1,000 unit PO DAILY 07/01/19 05/03/21 mcg (1,000 unit) capsule lansoprazole 15 mg capsule,delayed 15 mg PO DAILY 07/01/19 05/03/21 release Allergies Allergy/AdvReac Type Severity Reaction Status Date / Time Sulfa (Sulfonamide Allergy Severe Anaphylaxis Verified 10/24/21 20:05 Antibiotics) Review of Systems Review of Systems: All systems reviewed & are unremarkable except as noted in HPI and below PMFSH Past Medical History Medical History Chronic back pain Degenerative disc disease Depression with anxiety Diverticulitis (~11/2018) Gastroesophageal reflux disease Hepatitis During childhood, presumably hepatitis A. Herniated disc Hyperlipidemia Hypertension Nicotine dependence Osteoarthritis Seasonal rhinitis Vitamin D deficiency Surgical History Surgical History History of bilateral tubal ligation History of carpal tunnel release of both wrists History of cervical spinal surgery Diskectomy and fusion. History of cholecystectomy History of dilation and curettage History of lumbar surgery Status post insertion of spinal cord stimulator Family History Family History Sibling CHF (congestive heart failure) Cerebrovascular accident Kidney failure Father AAA (abdominal aortic aneurysm) CAD (coronary artery disease) Cerebrovascular accident Mother Brain aneurysm Hypertension Social History Social History Social History: Surrogate decision maker: Carolina Kiran, daughter. Code status: Full code. Smoking packs per day: 1 Smoking cigarettes per day: 20.0 Years smoked: 25 Smoking pack-years: 25.00 Smoking status: Current every day smoker Tobacco type: e-cigarettes/vaping Additional smoking assessment comments: Quit smoking for the 2nd time in November 2020, vapes now. Alcohol intake: current Drinks per week: 6 Alcohol use details: 6 PER WEEKEND DAY Substance use: current Substance use type: marijuana Other substance usage details: SMOKES MARIJUANA OCC AND MARIJUANA EDIBLES Additional living arrangements comments: as of 2018. Lives in a split home in [place]. Adult daughter and son-in-law live upstairs. Gender identity (if verbalized by the patient): Female Spiritual care concerns: No Exam Const: General: healthy appearing, no acute distress and alert Orientation/consciousness: patient oriented x3 HENMT: Head: normal to inspection Eyes: Conjunctivae: conjunctivae normal Neck: Neck: normal visual inspection Resp: Effort & Inspection: normal respiratory effort Skin: Other: Insect bite wound healing well, no discharge, mild surrounding erythema, nonfluctuant, mild tenderness on palpation of the left hand Course Vital Signs Vital signs: Vital Signs Temperature 36.6 C 10/24/21 20:01 Pulse Rate 92 10/24/21 20:01 Respiratory Rate 16 10/24/21 20:01 Blood Pressure 144/86 H 10/24/21 20:01 Pulse Oximetry 99
== END 2021-10-24 21:07 | disposition home or self-care (01) ==
LOC: ANHED 20:38
PROVIDERS: Emergency Provider Emergency Medicine; PCP Internal Medicine
DX: L03.114 Cellulitis of left upper limb (principal); E78.5 Hyperlipidemia, unspecified; I10 Essential (primary) hypertension; K21.9 Gastro-esophageal reflux disease without esophagitis; M19.90 Unspecified osteoarthritis, unspecified site; E55.9 Vitamin D deficiency, unspecified; Z98.1 Arthrodesis status; F17.290 Nicotine dependence, other tobacco product, uncomplicated
CPT/HCPCS: 99283

== ENCOUNTER 2022-03-12 09:54 | Emergency (ER) | payer MEDICARE, SELFPAY ==
[2022-03-12] VITALS (8 sets, daily range): BP systolic 113–152; BP diastolic 76–102; PULSE 66–91; RESP 10–18; TEMP 36.6; O2SAT 93–98
--- NOTE | ~2022-03-12 | XR_ITS ---
EXAMINATION: XR chest 1V portable 03/12/2022 10:45 INDICATION: Chest pain PROCEDURE: AP portable chest COMPARISON: Comparison to multiple prior studies sequentially, with oldest reviewed study dated 04/2019. FINDINGS: The lungs are clear. The cardiomediastinal silhouette is within normal limits. There are no pleural effusions. There is no pneumothorax suspected. There are spinal stimulator leads overlyi ng the thoracic spine. IMPRESSION: 1: NO ACUTE CARDIOPULMONARY DISEASE. Reviewed, dictated and finalized at location A.
--- NOTE | 2022-03-12 09:59 | ECG_ITS ---
Measurements Intervals [place] Rate: 86 P: 48 TN: 135 QRS: 38 QRSD: 84 T: 30 QT: 351 QTc: 422 Interpretive Statements SINUS RHYTHM NORMAL ELECTROCARDIOGRAM COMPARED TO ECG 11/17/2020 12:05:43 NO SIGNIFICANT CHANGES Electronically Signed On 03-12-2022 14:32:29 CDT by Eliazar Caro M.D.
[2022-03-12] MEDS: ASPIRIN 81 MG CHEWABLE TABLET 324 MG PO (10:06)
[2022-03-12] MEDS: NITROGLYCERIN SL 0.4 MG TABLET SUBLINGUAL (10:07)
[2022-03-12 10:16] LABS: Basophils Percent Auto 0.5 % (0.2-1.2); Eosinophils Absolute Auto 0.3 K/mm3 (0-0.3); Eosinophils Percent Auto 3.7 % (0-4.4); Hemoglobin 13.3 g/dL (12.0-15.0); Immature Granulocyte Absolute 0.03 K/mm3 (0.00-0.031); Immature Granulocyte Percent A 0.4 % (0-0.5); Lymphocytes Absolute Auto 2.03 K/mm3 (0.9-3.2); Lymphocytes Percent Auto 26.9 % (18.3-44.2); Mean Corpuscular HGB Conc 31.7 g/dl (32-36); Mean Corpuscular Hemoglobin 28.5 pg (26-34); Mean Corpuscular Volume 89.9 fl (80-100); Monocytes Absolute Auto 0.6 K/mm3 (0.1-0.6); Monocytes Percent Auto 8.2 % (2.6-8.5); Neutrophils Absolute Auto 4.5 K/mm3 (1.3-6.7); Neutrophils Percent Auto 60.3 % (45.5-73.1); Platelet Count Result 231 k/mm3 (150-375); Red Blood Count 4.67 M/mm3 (4.2-5.4); White Blood Count 7.5 K/mm3 (4.5-10.0)
[2022-03-12 10:23] LABS: Prothrombin Time 13.1 Seconds (11.1-14.7)
[2022-03-12 10:25] LABS: Alanine Aminotransferase 19 U/L (6-35); Albumin Level 4.4 g/dL (3.5-5.1); Alkaline Phosphatase 90 U/L (38-126); Anion Gap 10 mmol/L (8-16); Aspartate Amino Transferase 25 U/L (14-36); Bilirubin,Total 0.7 mg/dL (0.2-1.3); Blood Urea Nitrogen 11 mg/dL (7-17); Calcium 9.3 mg/dL (8.4-10.2); Carbon Dioxide 26 mmol/L (22-30); Chloride 105 mmol/L (98-107); Estimated CRCL calculation 64 ml/min; Estimated Glomerular Filt Rate 56; Glucose 112 mg/dL (65-110); Lipase 150 U/L (23-300); Potassium 3.9 mmol/L (3.4-5.0); Sodium 141 mmol/L (137-145)
[2022-03-12 10:38] LABS: NT Pro B Type Natriuretic Pept 54 pg/mL (5-100); Troponin I < 0.012 ng/mL (0.000-0.034)
[2022-03-12 10:45] LABS: Appearance Urine Clear (Clear); Bilirubin Urine Negative (Negative); Blood Urine Negative (Negative); Color Urine Yellow (Yellow); Glucose Urine UA Negative (Negative); Ketones Urine Negative (Negative); Leukocyte Esterase Ur Negative LEU/UL (Negative); Nitrate Urine Negative (Negative); Protein Urine 2+ mg/dL (Negative); Specific Grav Ur >= 1.030 (1.001-1.035); Urobilinogen Urine 0.2 mg/dL (<2.0)
[2022-03-12 10:55] LABS: Mucus Urine Rare /lpf; RBC Urine 0-2 /hpf (0-2); Squamous Epithelial Cell Urine Moderate /hpf (Few); WBC Urine 0-3 /hpf
[2022-03-12 10:56] LABS: Add Urine Microscopic? YES
[2022-03-12 11:36] LABS: SARS-CoV-2 RNA PCR Negative
[2022-03-12 13:24] LABS: Troponin I < 0.012 ng/mL (0.000-0.034)
--- NOTE | 2022-03-12 13:53 | ED.GENADULT ---
HPI - General Adult General Chief complaint: Chest Pain Stated complaint: i think I'm having a heart attack Time Seen by Provider: 03/12/22 09:59 History of Present Illness HPI narrative: Patient is a 61-year-old female who presents the emergency department with chief complaint of chest pain. The patient reports over the last several days has been having some episodes where she has some tightness in her chest. The patient states it is worse with exertion and improved with rest. Patient states that today she felt a little bit of shortness of breath and decided to come to the emergency department since these episodes keep happening. Patient reports that she has had no prior history of heart disease reports she does have history of hypertension and high cholesterol Related Data Home Medications Medication Instructions Recorded Confirmed calcium carbonate 500 mg-vitamin 1 tablet PO DAILY 07/01/19 05/03/21 D3 3.125 mcg (125 unit) tablet (Calcium) cetirizine 10 mg tablet (Zyrtec) 10 mg PO DAILY 07/01/19 05/03/21 cholecalciferol (vitamin D3) 25 1,000 unit PO DAILY 07/01/19 05/03/21 mcg (1,000 unit) capsule lansoprazole 15 mg capsule,delayed 15 mg PO DAILY 07/01/19 05/03/21 release (Prevacid) Allergies Allergy/AdvReac Type Severity Reaction Status Date / Time Sulfa (Sulfonamide Allergy Severe Anaphylaxis Verified 03/12/22 10:02 Antibiotics) Review of Systems Review of Systems: A 10 system review of systems was completed on the patient and is negative except for what is stated in the HPI. Nursing and ancillary documentation was reviewed. [facility] Past Medical History Medical History Chronic back pain Degenerative disc disease Depression with anxiety Diverticulitis (~11/2018) Gastroesophageal reflux disease Hepatitis During childhood, presumably hepatitis A. Herniated disc Hyperlipidemia Hypertension Nicotine dependence Osteoarthritis Seasonal rhinitis Vitamin D deficiency Surgical History Surgical History History of bilateral tubal ligation History of carpal tunnel release of both wrists History of cervical spinal surgery Diskectomy and fusion. History of cholecystectomy History of dilation and curettage History of lumbar surgery Status post insertion of spinal cord stimulator Family History Family History Sibling CHF (congestive heart failure) Cerebrovascular accident Kidney failure Father AAA (abdominal aortic aneurysm) CAD (coronary artery disease) Cerebrovascular accident Mother Brain aneurysm Hypertension Social History Social History Social History: Surrogate decision maker: Carolina Kiran, daughter. Code status: Full code. Smoking packs per day: 1 Smoking cigarettes per day: 20.0 Years smoked: 25 Smoking pack-years: 25.00 Smoking status: Current every day smoker Tobacco type: e-cigarettes/vaping Additional smoking assessment comments: Quit smoking for the 2nd time in November 2020, vapes now. Alcohol intake: current Drinks per week: 6 Alcohol use details: 6 PER WEEKEND DAY Substance use: current Substance use type: marijuana Other substance usage details: SMOKES MARIJUANA OCC AND MARIJUANA EDIBLES Additional living arrangements comments: as of 2018. Lives in a split home in [place]. Adult daughter and son-in-law live upstairs. Gender identity (if verbalized by the patient): Female Spiritual care concerns: No Exam Narrative: GENERAL: Well-appearing, well-nourished, and in no acute distress. HEAD: Normocephalic, atraumatic. EYES: PERRLA and EOMI. ENT: Nares clear, no rhinorrhea or epistaxis. Mucous membranes moist. NECK: Supple. CHEST: Clear to auscultation. No respiratory distress. HEART: Reg
== END 2022-03-12 14:14 | disposition home or self-care (01) ==
PROVIDERS: Emergency Provider Emergency Medicine; PCP Internal Medicine
DX: R07.89 Other chest pain (principal); Z20.822 Contact with and (suspected) exposure to COVID-19; I10 Essential (primary) hypertension; E78.5 Hyperlipidemia, unspecified; K21.9 Gastro-esophageal reflux disease without esophagitis; M19.90 Unspecified osteoarthritis, unspecified site; E55.9 Vitamin D deficiency, unspecified; Z98.1 Arthrodesis status; Z96.82 Presence of neurostimulator; F17.290 Nicotine dependence, other tobacco product, uncomplicated; R06.02 Shortness of breath
CPT/HCPCS: 36415; 71045; 80053; 81001; 83690; 83880; 84484; 85025; 85610; 85730; 93005; 99284; A9270; C9803; U0003; U0005

== ENCOUNTER 2022-04-03 09:15 | Outpatient (CLI) | payer MEDICARE, SELFPAY ==
--- NOTE | ~2022-04-03 | NM_ITS ---
EXAMINATION: NM rand stress w perfusion DATE: 04/03/2022 11:23 INDICATION: Chest pain TECHNIQUE: Rest images were obtained following intravenous administration of 10.4 mCi Tc99m tetrofosm in (Myoview). The patient was infused intravenously with Lexiscan (Regadenoson). Then, 23.0 mCi Tc99m tetrofosmin (Myoview) was administered intravenously, and stress images were obtained. Data was audrey nstructed into short axis and horizontal and vertical long axis SPECT images. Gated SPECT images were also obtained. COMPARISON: None. FINDINGS: There is no definite reversible or fixed perfusion abnormality to suggest ischemia or infar ction. There is normal left ventricular chamber size, wall motion and ejection fraction. Left ventr icular ejection fraction measures >70%. IMPRESSION: 1. Normal myocardial perfusion at rest and during stress. 2. Left ventricular ejection fraction measuring >70%. Reviewed, dictated and finalized at location A.
--- NOTE | 2022-04-03 09:23 | EST_ITS ---
Patient Info Name: Ninoska Del Rosario Age: 61 years : 1960 Gender: Female Ht: 65 in Wt: 240 lbs BSA: 2.29 m2 Exam Date: 04/03/2022 10:20 AM Exam Location: [facility] Stress Patient Status: Outpatient Admit Date: 04/03/2022 Staff Ordering Physician: Ander Dunne DO Attending Provider: Ander Dunne DO Exercise Technologist: Ciara Jarrell RDCS Exercise Physician: All Montes DO Exam Type: CA stress rand w NM Study Info Indications I20.8 - Other forms of angina pectoris A regadenoson stress test was performed. Summary 1. 1. Negative lexiscan stress test for ischemic ST changes by ECG criteria. 2. 2. Stable hemodynamics throughout the test. 3. 3. Nuclear scan to follow and will be reported separately. Please correlate with it. 4. 4. Patient informed of the above results. Protocol: Lexiscan Stress ECG Details Stage: REST Duration (min): 1 min : 2 sec HR (bpm): 74 SBP (mmHg): 129 DBP (mmHg): 82 Stage: REST Duration (min): 5 min : 49 sec HR (bpm): 74 SBP (mmHg): 129 DBP (mmHg): 82 Stage: STAGE 1 Duration (min): 1 min : 0 sec HR (bpm): 90 SBP (mmHg): 139 DBP (mmHg): 97 Stage: RECOVERY Duration (min): 1 min : 0 sec HR (bpm): 89 SBP (mmHg): 141 DBP (mmHg): 93 Stage: RECOVERY Duration (min): 2 min : 0 sec HR (bpm): 84 SBP (mmHg): 141 DBP (mmHg): 93 Stage: RECOVERY Duration (min): 3 min : 0 sec HR (bpm): 81 SBP (mmHg): 139 DBP (mmHg): 88 Stage: RECOVERY Duration (min): 3 min : 3 sec HR (bpm): 81 SBP (mmHg): 139 DBP (mmHg): 88 Rest HR: 74 bpm Peak HR: 93 bpm Rest Sys BP: 129 mmHg Peak Sys BP: 141 mmHg Max Pred HR: 158 bpm % Max Pred HR: 59 % Target HR: 134 bpm Max RPP: 13,113 bpm*mmHg Termination Reason: Completed protocol Cardiac Symptoms: Shortness of breath Total Time: 1 min : 0 sec Rest Alyton BP: 82 mmHg Peak Layton BP: 93 mmHg Total Dose: 0.4 mg Resting ECG Sinus rhythm. Stress ECG No ST changes. Arrhythmias None. Report Signatures
== END 2022-04-03 09:16 | disposition home or self-care (01) ==
PROVIDERS: PCP Internal Medicine; Visit Provider Internal Medicine
DX: I20.8 Other forms of angina pectoris (principal)
CPT/HCPCS: 78452; 93017; A9502; J2785

== ENCOUNTER 2022-06-19 08:56 | Emergency (ER) | payer MEDICARE, SELFPAY ==
[2022-06-19] VITALS (19 sets, daily range): BP systolic 135–153; BP diastolic 76–105; PULSE 63–87; RESP 12–24; TEMP 36.9; O2SAT 94–100
[2022-06-19] MEDS: ONDANSETRON INJ 4 MG/2 ML VIAL IV PUSH (09:30)
[2022-06-19] MEDS: SODIUM CHLORIDE 0.9% IV 1,000 ML 999 ML IV CONT (09:30)
[2022-06-19 09:34] LABS: Appearance Urine Clear (Clear); Bilirubin Urine 2+ (Negative); Blood Urine Negative (Negative); Color Urine Yellow (Yellow); Glucose Urine UA Negative (Negative); Ketones Urine Trace mg/dL (Negative); Leukocyte Esterase Ur Negative LEU/UL (Negative); Nitrate Urine Negative (Negative); Protein Urine 3+ mg/dL (Negative); Specific Grav Ur >= 1.030 (1.001-1.035)
[2022-06-19 09:42] LABS: Bacteria Urine Trace /hpf; Hyaline Casts Urine 20-29 /lpf; Mucus Urine Heavy /lpf; RBC Urine 0-2 /hpf (0-2); Squamous Epithelial Cell Urine Many /hpf (Few)
[2022-06-19 09:45] LABS: Add Urine Microscopic? YES
[2022-06-19 09:46] LABS: Basophils Percent Auto 0.6 % (0.2-1.2); Eosinophils Absolute Auto 0.2 K/mm3 (0-0.3); Hematocrit 41.7 % (37.0-47.0); Hemoglobin 13.9 g/dL (12.0-15.0); Immature Granulocyte Absolute 0.02 K/mm3 (0.00-0.031); Immature Granulocyte Percent A 0.4 % (0-0.5); Lymphocytes Absolute Auto 1.84 K/mm3 (0.9-3.2); Lymphocytes Percent Auto 34.5 % (18.3-44.2); Mean Corpuscular HGB Conc 33.3 g/dl (32-36); Mean Corpuscular Hemoglobin 29.2 pg (26-34); Mean Corpuscular Volume 87.6 fl (80-100); Mean Platelet Volume 10.1 fl (7.4-10.4); Monocytes Absolute Auto 0.6 K/mm3 (0.1-0.6); Monocytes Percent Auto 10.9 % (2.6-8.5); Neutrophils Absolute Auto 2.7 K/mm3 (1.3-6.7); Neutrophils Percent Auto 50.6 % (45.5-73.1); Platelet Count Result 223 k/mm3 (150-375); Red Blood Count 4.76 M/mm3 (4.2-5.4); Red Cell Distribution Width 13.6 % (11.5-14.5); White Blood Count 5.3 K/mm3 (4.5-10.0)
[2022-06-19 09:55] LABS: Alanine Aminotransferase 34 U/L (6-35); Albumin Level 4.4 g/dL (3.5-5.1); Alkaline Phosphatase 74 U/L (38-126); Anion Gap 14 mmol/L (8-16); Aspartate Amino Transferase 46 U/L (14-36); Bilirubin,Total 0.5 mg/dL (0.2-1.3); Blood Urea Nitrogen 11 mg/dL (7-17); Calcium 9.2 mg/dL (8.4-10.2); Carbon Dioxide 27 mmol/L (22-30); Chloride 100 mmol/L (98-107); Estimated CRCL calculation 63 ml/min; Estimated Glomerular Filt Rate 56; Glucose 109 mg/dL (65-110); Lipase 236 U/L (23-300); Potassium 2.7 mmol/L (3.4-5.0); Sodium 141 mmol/L (137-145)
[2022-06-19 10:28] LABS: Influenza A QL RT-PCR Positive (Negative); Influenza B QL RT-PCR Negative (Negative); SARS-CoV-2 RNA PCR Negative
[2022-06-19] MEDS: KCL 20 MEQ/SW 100 ML 100 ML 50 MEQ IVPB (11:05)
[2022-06-19] MEDS: POTASSIUM CHLORIDE 20 MEQ TABLET 40 MEQ PO (11:06)
--- NOTE | 2022-06-19 13:27 | ED.NAVMDI ---
HPI - Nausea/Vomiting/Diarrhea General Chief complaint: Nausea/Vomiting/Diarrhea Stated complaint: ?c diff Time Seen by Provider: 06/19/22 09:02 History of Present Illness HPI Narrative: Patient is a 62-year-old female who presents ER from a urgent care for evaluation of her diarrhea. Patient for the last week has had runny nose and sore throat and productive cough. She has been having fevers and chills and sweats. She is also had body aches. Stools have become somewhat mucousy. She has frequent coughing that causes her to have some incontinence of stool. Stool is typically small in volume but has had some large volume stools. She has not been on any antibiotics. Related Data Home Medications Medication Instructions Recorded Confirmed cetirizine 10 mg tablet (Zyrtec) 10 mg PO DAILY 07/01/19 06/19/22 lansoprazole 15 mg capsule,delayed 15 mg PO DAILY 07/01/19 06/19/22 release (Prevacid) Allergies Allergy/AdvReac Type Severity Reaction Status Date / Time Sulfa (Sulfonamide Allergy Severe Anaphylaxis Verified 06/19/22 07:44 Antibiotics) Review of Systems Review of Systems: All systems reviewed & are unremarkable except as noted in HPI and below Constitutional: Constitutional: Reports chills, Reports fatigue and Reports fever(s) ENT: Reports nasal congestion and Reports sore throat Cardiovascular: Cardiovascular: Denies chest pain, Denies rapid heart rate and Denies radiating jaw, neck or arm pain Respiratory: Respiratory: Reports cough and Denies dyspnea Gastrointestinal: Gastrointestinal: Reports abdominal pain, Reports diarrhea, Denies nausea and Denies vomiting Integumentary/Breasts: Skin/Breast: Denies erythema and Denies rash Neurologic: Denies syncope, Denies focal weakness and Denies numbness [facility] Past Medical History Medical History Chronic back pain Degenerative disc disease Depression with anxiety Diverticulitis (~11/2018) Gastroesophageal reflux disease Hepatitis During childhood, presumably hepatitis A. Herniated disc Hyperlipidemia Hypertension Nicotine dependence Osteoarthritis Seasonal rhinitis Vitamin D deficiency Surgical History Surgical History History of bilateral tubal ligation History of carpal tunnel release of both wrists History of cervical spinal surgery Diskectomy and fusion. History of cholecystectomy History of dilation and curettage History of lumbar surgery Status post insertion of spinal cord stimulator Family History Family History Sibling CHF (congestive heart failure) Cerebrovascular accident Kidney failure Father AAA (abdominal aortic aneurysm) CAD (coronary artery disease) Cerebrovascular accident Mother Brain aneurysm Hypertension Social History Social History Social History: Surrogate decision maker: Carolina Kiran, daughter. Code status: Full code. Smoking packs per day: 1 Smoking cigarettes per day: 20.0 Years smoked: 25 Smoking pack-years: 25.00 Smoking status: Former smoker Tobacco type: e-cigarettes/vaping Additional smoking assessment comments: Quit smoking for the 2nd time in November 2020, vapes now. Alcohol intake: current Drinks per week: 6 Alcohol use details: 6 PER WEEKEND DAY Substance use: current Substance use type: marijuana Other substance usage details: SMOKES MARIJUANA OCC AND MARIJUANA EDIBLES Additional living arrangements comments: as of 2018. Lives in a split home in [place]. Adult daughter and son-in-law live upstairs. Gender identity (if verbalized by the patient): Female Spiritual care concerns: No Exam Narrative: GENERAL: Well-appearing, well-nourished, and in no acute distress. HEAD: Normocephalic, atraumatic. EYES: PERRL and EOMI. ENT: Mucou
== END 2022-06-19 15:47 | disposition home or self-care (01) ==
PROVIDERS: Emergency Provider Emergency Medicine; PCP Internal Medicine
DX: J10.1 Influenza due to other identified influenza virus with other respiratory manifestations (principal); E87.6 Hypokalemia; Z20.822 Contact with and (suspected) exposure to COVID-19; E78.5 Hyperlipidemia, unspecified; I10 Essential (primary) hypertension; K21.9 Gastro-esophageal reflux disease without esophagitis; M19.90 Unspecified osteoarthritis, unspecified site; E55.9 Vitamin D deficiency, unspecified; Z98.1 Arthrodesis status; Z96.82 Presence of neurostimulator; F17.290 Nicotine dependence, other tobacco product, uncomplicated
CPT/HCPCS: 36415; 80053; 81001; 83690; 85025; 87636; 96361; 96365; 96366; 96375; 99284; A9270; J2405; J3480; J7030

== ENCOUNTER 2022-08-01 10:08 | Outpatient (CLI) | payer MEDICARE, SELFPAY ==
[2022-08-01 18:34] LABS: Alanine Aminotransferase 25 U/L (6-35); Albumin Level 4.2 g/dL (3.5-5.1); Alkaline Phosphatase 91 U/L (38-126); Anion Gap 4 mmol/L (8-16); Aspartate Amino Transferase 33 U/L (14-36); Bilirubin,Total 0.7 mg/dL (0.2-1.3); Blood Urea Nitrogen 8 mg/dL (7-17); Calcium 9.2 mg/dL (8.4-10.2); Carbon Dioxide 31 mmol/L (22-30); Chloride 105 mmol/L (98-107); Estimated Glomerular Filt Rate > 60; Glucose 111 mg/dL (65-110); Potassium 3.7 mmol/L (3.4-5.0); Sodium 140 mmol/L (137-145)
[2022-08-01 19:30] LABS: Basophils Absolute Auto 0.1 K/mm3 (0.0-0.1); Basophils Percent Auto 0.5 % (0.2-1.2); Eosinophils Absolute Auto 0.3 K/mm3 (0-0.3); Eosinophils Percent Auto 2.9 % (0-4.4); Hematocrit 42.8 % (37.0-47.0); Hemoglobin 13.9 g/dL (12.0-15.0); Immature Granulocyte Absolute 0.04 K/mm3 (0.00-0.031); Immature Granulocyte Percent A 0.4 % (0-0.5); Lymphocytes Absolute Auto 2.22 K/mm3 (0.9-3.2); Mean Corpuscular HGB Conc 32.5 g/dl (32-36); Mean Corpuscular Hemoglobin 28.8 pg (26-34); Mean Corpuscular Volume 88.8 fl (80-100); Mean Platelet Volume 10.7 fl (7.4-10.4); Monocytes Absolute Auto 0.7 K/mm3 (0.1-0.6); Monocytes Percent Auto 7.8 % (2.6-8.5); Neutrophils Absolute Auto 5.9 K/mm3 (1.3-6.7); Neutrophils Percent Auto 64.4 % (45.5-73.1); Platelet Count Result 287 k/mm3 (150-375); Red Blood Count 4.82 M/mm3 (4.2-5.4); Red Cell Distribution Width 13.5 % (11.5-14.5); White Blood Count 9.2 K/mm3 (4.5-10.0)
== END 2022-08-01 10:09 | disposition home or self-care (01) ==
LOC: ANHGOSHLAB 10:10
PROVIDERS: PCP Internal Medicine; Visit Provider Nurse Practitioner
DX: R11.10 Vomiting, unspecified (principal); R19.7 Diarrhea, unspecified
CPT/HCPCS: 36415; 80053; 85025

== ENCOUNTER 2022-10-02 09:09 | Emergency (ER) | payer MEDICARE, SELFPAY ==
[2022-10-02] VITALS (12 sets, daily range): BP systolic 128–170; BP diastolic 81–109; PULSE 94; RESP 18; TEMP 37.3; O2SAT 94–97
--- NOTE | ~2022-10-02 | CT_ITS ---
EXAMINATION: CT abdomen pelvis w con DATE: 10/02/2022 11:58 INDICATION: Left lower quadrant pain. Diarrhea. History of diverticulitis. TECHNIQUE: Computed tomography (CT) of the abdomen and pelvis was performed with 100 cc Omnipaque 350 intravenous contrast. The dose-length product was 1183.16 mGy-cm. Automated exposure control and ite rative reconstruction technique were employed. COMPARISON: CT dated 04/08/2020. FINDINGS: Lung bases are unremarkable. Heart size normal. No significant pleural or pericardial effus ion. No significant vascular abnormality. There are mildly enlarged portacaval lymph nodes, likely re active. Fatty infiltration of the liver. There are liver cysts, largest in the left hepatic lobe james uring 2.5 cm. Status post cholecystectomy. There are bilateral renal cysts. There is an intermediate density exophytic 1.4 cm right renal lesion, unchanged from prior CT, likely complicated cysts. Stabl e intermediate density exophytic left renal lesion measuring 1.2 cm, also likely complicated cysts. L argest renal cysts at the lower pole of the left kidney containing milk of calcium measuring 3.8 cm. There is a small fat-containing umbilical hernia. Normal appendix. Colonic diverticulosis without abril dence for acute diverticulitis. No free air or free fluid. No abnormal pelvic masses or fluid collect ions. Moderate lumbar spondylosis. There are spinal stimulator leads extending into the thoracic spin e. IMPRESSION: 1. No acute abdominal abnormality. Reviewed, dictated and finalized at location L. EWAY ATTENDANT
[2022-10-02 09:52] LABS: Basophils Percent Auto 0.3 % (0.2-1.2); Eosinophils Percent Auto 0.3 % (0-4.4); Hematocrit 42.4 % (37.0-47.0); Hemoglobin 14.1 g/dL (12.0-15.0); Immature Granulocyte Absolute 0.03 K/mm3 (0.00-0.031); Immature Granulocyte Percent A 0.4 % (0-0.5); Lymphocytes Absolute Auto 0.97 K/mm3 (0.9-3.2); Lymphocytes Percent Auto 12.6 % (18.3-44.2); Mean Corpuscular HGB Conc 33.3 g/dl (32-36); Mean Corpuscular Hemoglobin 30.3 pg (26-34); Mean Platelet Volume 9.7 fl (7.4-10.4); Monocytes Absolute Auto 0.8 K/mm3 (0.1-0.6); Monocytes Percent Auto 9.9 % (2.6-8.5); Neutrophils Absolute Auto 5.9 K/mm3 (1.3-6.7); Neutrophils Percent Auto 76.5 % (45.5-73.1); Platelet Count Result 218 k/mm3 (150-375); Red Blood Count 4.66 M/mm3 (4.2-5.4); Red Cell Distribution Width 14.2 % (11.5-14.5); White Blood Count 7.7 K/mm3 (4.5-10.0)
[2022-10-02 10:00] LABS: Appearance Urine Clear (Clear); Bilirubin Urine 2+ (Negative); Blood Urine Trace-intact (Negative); Color Urine Dark Yellow (Yellow); Glucose Urine UA Negative (Negative); Ketones Urine Trace mg/dL (Negative); Leukocyte Esterase Ur Negative LEU/UL (Negative); Nitrate Urine Negative (Negative); Protein Urine 3+ mg/dL (Negative); Specific Grav Ur >= 1.030 (1.001-1.035); pH Urine 5.5 (5.0-9.0)
[2022-10-02 10:01] LABS: Alanine Aminotransferase 21 U/L (6-35); Albumin Level 4.5 g/dL (3.5-5.1); Alkaline Phosphatase 103 U/L (38-126); Anion Gap 7 mmol/L (8-16); Aspartate Amino Transferase 27 U/L (14-36); Bilirubin,Total 1.1 mg/dL (0.2-1.3); Blood Urea Nitrogen 10 mg/dL (7-17); Calcium 9.3 mg/dL (8.4-10.2); Carbon Dioxide 26 mmol/L (22-30); Chloride 102 mmol/L (98-107); Estimated Glomerular Filt Rate 56; Glucose 120 mg/dL (65-110); Lipase 83 U/L (23-300); Potassium 3.5 mmol/L (3.4-5.0); Sodium 135 mmol/L (137-145)
[2022-10-02 10:07] LABS: Bacteria Urine 3+ /hpf; Hyaline Casts Urine Present /lpf; Mucus Urine Present /lpf; Non Pathogenic Casts >20; RBC Urine 0-2 /hpf (0-2); Squamous Epithelial Cell Urine Many /hpf (Few)
[2022-10-02 10:08] LABS: Add Urine Microscopic? YES
[2022-10-02] MEDS: HYDROmorphone HCL INJ (*CRX) 1 MG/ML SYR 0.5 MG IV PUSH (11:54)
[2022-10-02] MEDS: SODIUM CHLORIDE 0.9% IV 1,000 ML 999 ML IV CONT (11:55)
--- NOTE | 2022-10-02 11:57 | ED.GENADULT ---
HPI - General Adult General Chief complaint: Abdominal Pain Stated complaint: ?appendicitis Time Seen by Provider: 10/02/22 09:27 History of Present Illness HPI narrative: 62-year-old female presenting to the emergency department for evaluation of abdominal pain. Patient states on Saturday she had a lot to drink and thought she was hung over on Saturday. On Saturday she also began developing some left lower quadrant pain with associated diarrhea. Patient states the diarrhea has persisted. Patient denies any blood in her stool. Patient states she does have a history of diverticulitis approximately 4 years ago. Patient has a history of cholecystectomy. Related Data Home Medications Medication Instructions Recorded Confirmed cetirizine 10 mg tablet (Zyrtec) 10 mg PO DAILY 07/01/19 08/01/22 lansoprazole 15 mg capsule,delayed 15 mg PO DAILY 07/01/19 08/01/22 release (Prevacid) Allergies Allergy/AdvReac Type Severity Reaction Status Date / Time Sulfa (Sulfonamide Allergy Severe Anaphylaxis Verified 08/01/22 09:44 Antibiotics) Review of Systems Review of Systems: CONSTITUTIONAL: Denies fever, chills, or sweats. EYES: Denies visual changes, redness, or discharge. ENT: Denies rhinorrhea, congestion, sore throat, or otalgia. CARDIOVASCULAR: Denies chest pain, palpitations, or edema. RESPIRATORY: Denies cough or dyspnea. GASTROINTESTINAL: See HPI GENITOURINARY: Denies dysuria or hematuria. SKIN: Denies rash or itching. MUSCULOSKELETAL: Denies back pain, joint pain, or myalgia. NEUROLOGIC: Denies headache, numbness, or weakness. [facility] Past Medical History Medical History Chronic back pain Degenerative disc disease Depression with anxiety Diverticulitis (~11/2018) Gastroesophageal reflux disease Hepatitis During childhood, presumably hepatitis A. Herniated disc Hyperlipidemia Hypertension Nicotine dependence Osteoarthritis Seasonal rhinitis Vitamin D deficiency Surgical History Surgical History (Reviewed 08/01/22 @ 09:46 by Diana Sanderson [facility]) History of bilateral tubal ligation History of carpal tunnel release of both wrists History of cervical spinal surgery Diskectomy and fusion. History of cholecystectomy History of dilation and curettage History of lumbar surgery Status post insertion of spinal cord stimulator Family History Family History Sibling CHF (congestive heart failure) Cerebrovascular accident Kidney failure Father AAA (abdominal aortic aneurysm) CAD (coronary artery disease) Cerebrovascular accident Mother Brain aneurysm Hypertension Social History Social History (Updated 08/01/22 @ 09:51 by Diana Sanderson [facility]) Social History: Surrogate decision maker: Carolina Kiran, daughter. Code status: Full code. Smoking packs per day: 1 Smoking cigarettes per day: 20.0 Years smoked: 25 Smoking pack-years: 25.00 Smoking status: Former smoker Tobacco type: e-cigarettes/vaping Additional smoking assessment comments: Quit smoking for the 2nd time in November 2020, vapes now. Alcohol intake: current Drinks per week: 6 Alcohol use details: 6 PER WEEKEND DAY Substance use: current Substance use type: marijuana Other substance usage details: SMOKES MARIJUANA OCC AND MARIJUANA EDIBLES Lack of Transportation: No Lack of Food: Never True Current Housing: I Have Housing Concerned About Future Housing: No Difficulty Paying Gas/Electric Bills: No Difficulty Paying for Meds: No Currently Unemployed: No Education: High School Diploma/GED Difficulty w/ Childcare or Family Care: No Living arrangements: with family Additional living arrangements comments: as of 2019. Lives in a split home in [place]. Adult daughter and son-in-law live upstairs. Gender identity (if verbalized by the patient): Female Spiritual care concerns: No
== END 2022-10-02 15:31 | disposition home or self-care (01) ==
PROVIDERS: Emergency Provider Emergency Medicine; PCP Internal Medicine
DX: R19.7 Diarrhea, unspecified (principal); R10.9 Unspecified abdominal pain; G89.29 Other chronic pain; F41.9 Anxiety disorder, unspecified; F32.9 Major depressive disorder, single episode, unspecified; K21.9 Gastro-esophageal reflux disease without esophagitis; I10 Essential (primary) hypertension; M19.90 Unspecified osteoarthritis, unspecified site
CPT/HCPCS: 36415; 74177; 80053; 81001; 83690; 85025; 87086; 87088; 96361; 96374; 99284; J1170; J7030; Q9967

== ENCOUNTER 2022-10-18 10:18 | Outpatient (CLI) | payer MEDICARE, SELFPAY ==
--- NOTE | ~2022-10-18 | CT_ITS ---
EXAMINATION: CT abdomen pelvis wo/w con DATE: 10/18/2022 10:55 INDICATION: Renal cyst TECHNIQUE: Computed tomography (CT) of the abdomen and pelvis was performed without and with 100 mL O mnipaque-350 intravenous contrast. Automated exposure control and iterative reconstruction technique were employed. The dose-length product was 1915.55 mGy-cm. COMPARISON: CT dated 09/24/2022 FINDINGS: Lung bases are clear. Heart size is normal. No pericardial or pleural effusion. Small sliding-type hi atal hernia. Several low-attenuation hepatic cysts the largest in the left hepatic lobe measuring 2.5 cm. Cholecystectomy clips the gallbladder fossa. Spleen, pancreas and bilateral adrenal glands are n ormal. There are bilateral nonenhancing renal cysts which includes both simple low-attenuation cysts and higher attenuation proteinaceous/hemorrhagic cysts, the latter including the largest 4.2 cm exoph ytic cyst at the lower pole left kidney. There is moderate colonic diverticulosis with a sigmoid pred ominance. There is no adjacent inflammatory change to suggest diverticulitis. Small bowel and append ix are normal. Bladder, uterus and bilateral adnexa are unremarkable. No free intraperitoneal gas or fluid. No pathologically enlarged abdominal or pelvic lymphadenopathy. Severe lower lumbar and modera te to severe lower thoracic spondylosis. Paraspinal stimulator leads in the posterior central canal o f the lower thoracic spine. IMPRESSION: 1. Multiple bilateral nonenhancing simple and complex proteinaceous/hemorrhagic renal cysts. 2. Diverticulosis. Reviewed, dictated and finalized at location L.
== END 2022-10-18 10:19 ==
LOC: GOSHIMG 10:19
PROVIDERS: PCP Internal Medicine; Visit Provider Nurse Practitioner
DX: N28.1 Cyst of kidney, acquired (principal); K57.30 Diverticulosis of large intestine without perforation or abscess without bleeding
CPT/HCPCS: 74178; Q9967

== ENCOUNTER 2022-11-07 11:29 | Outpatient (CLI) | payer MEDICARE, SELFPAY ==
[2022-11-07 20:24] LABS: Creatinine Urine 420.8 mg/dL
[2022-11-07 20:25] LABS: Microalbumin Urine Random > 1140.0 mg/L (0-16.7)
== END 2022-11-07 11:30 | disposition home or self-care (01) ==
LOC: ANHGOSHLAB 11:30
PROVIDERS: PCP Internal Medicine; Visit Provider Nurse Practitioner
DX: R80.9 Proteinuria, unspecified (principal)
CPT/HCPCS: 82043

== ENCOUNTER 2022-12-26 13:11 | Outpatient (CLI) | payer MEDICARE, SELFPAY ==
[2022-12-26 13:46] LABS: Hematocrit 41.6 % (37.0-47.0); Hemoglobin 13.8 g/dL (12.0-15.0); Mean Corpuscular HGB Conc 33.2 g/dl (32-36); Mean Corpuscular Hemoglobin 30.2 pg (26-34); Mean Platelet Volume 9.7 fl (7.4-10.4); Platelet Count Result 239 k/mm3 (150-375); Red Blood Count 4.57 M/mm3 (4.2-5.4); Red Cell Distribution Width 13.7 % (11.5-14.5); White Blood Count 7.3 K/mm3 (4.5-10.0)
[2022-12-26 14:14] LABS: Albumin Level 4.4 g/dL (3.5-5.1); Anion Gap 8 mmol/L (8-16); Blood Urea Nitrogen 7 mg/dL (7-17); Carbon Dioxide 27 mmol/L (22-30); Chloride 105 mmol/L (98-107); Estimated Glomerular Filt Rate > 60; Glucose 119 mg/dL (65-110); Phosphorus 3.1 mg/dL (2.5-4.5); Sodium 140 mmol/L (137-145)
[2022-12-26 14:22] LABS: Complement C3 131 mg/dL (88-165)
[2022-12-26 14:44] LABS: Creatinine Urine 73.5 mg/dL; Total Protein Urine Random 47 mg/dL; Ur Ttl Prot Creatinine Ratio 0.64 mg/mg (0-0.20)
[2022-12-26 14:45] LABS: Creatinine Urine 72.9 mg/dL
[2022-12-26 14:50] LABS: Appearance Urine Cloudy (Clear); Bacteria Urine 1+ /hpf; Bilirubin Urine Negative (Negative); Blood Urine Negative (Negative); Color Urine Yellow (Yellow); Glucose Urine UA Negative (Negative); Ketones Urine Negative (Negative); Leukocyte Esterase Ur Negative LEU/UL (NEGATIVE); Nitrate Urine Negative (Negative); Non Pathogenic Casts 0-2; Protein Urine 3+ mg/dL (Negative); RBC Urine 0-2 /hpf (0-2); Specific Grav Ur 1.017 (1.001-1.035); Squamous Epithelial Cell Urine Moderate /hpf (Few); WBC Urine 0-5 /hpf (0-3); pH Urine 7.5 (5.0-9.0)
[2022-12-26 14:52] LABS: Creatinine 24 Hour Urine 1.5 gm/24 (0.8-1.8); Total Volume 24 Hour Urine 2150 ml
[2022-12-26 14:52] LABS: Total Volume 24 Hour Urine 2150 ml; Urea Nitrogen 24 Hour Urine 5.8 G/DAY (12-20)
[2022-12-26 14:57] LABS: Erythrocyte Sedimentation Rate 19 mm/hr (0-20)
[2022-12-26 17:42] LABS: Add Urine Microscopic? YES
[2022-12-30 13:42] LABS: Kappa\\Lambda Light Chains 1.21 (0.26-1.65); Lambda Light Chain 22.2 mg/L (5.7-26.3)
[2022-12-31 16:56] LABS: Complement Total CH50 >60 U/mL (31-60)
[2023-01-03 19:51] LABS: Albumin 81 %; Measured Kappa Chains <1.00 mg/dL (<2.00); Measured Lambda Chains <1.00 mg/dL (<2.00); Pro/Creat Ratio 403 mg/g creat (<150); Protein,total, 24 Hr Ur 645 mg/24 h (<150)
== END 2022-12-26 13:12 | disposition home or self-care (01) ==
LOC: ANHLAB 13:20
PROVIDERS: PCP Internal Medicine; Visit Provider Internal Medicine Nephrology
DX: R80.9 Proteinuria, unspecified (principal)
CPT/HCPCS: 36415; 80069; 81001; 81050; 82570; 83883; 84156; 84540; 85027; 85652; 86038; 86160; 86162; 86334; 86335

== ENCOUNTER 2023-01-02 11:14 | Outpatient (CLI) | payer MEDICARE, SELFPAY ==
--- NOTE | ~2023-01-02 | US_ITS ---
EXAMINATION: US renal BI DATE: 01/02/2023 11:49 INDICATION: Proteinuria TECHNIQUE: Multiple ultrasound grayscale images of the kidneys were obtained. COMPARISON: None. FINDINGS: The right kidney measures 11.5 x 5.8 x 5.7 cm. The left kidney measures 11.3 x 5.2 x 4.7 cm. The kidn eys demonstrate normal echogenicity. There are a few anechoic cysts at both kidneys, the largest on t he right measuring 1.7 cm and the largest on the left measuring 4.0 cm. There is no hydronephrosis in either kidney. No shadowing renal stones identified. The bladder is decompressed and not clearly vi sualized. IMPRESSION: 1. Bilateral renal cysts measuring up to 4.0 cm on the left with no hydronephrosis Reviewed, dictated and finalized at location B. IMPRESSION: 1. Bilateral renal cysts measuring up to 4.0 cm on the left with no hydronephr osis
== END 2023-01-02 11:15 | disposition home or self-care (01) ==
PROVIDERS: PCP Internal Medicine; Visit Provider Internal Medicine Nephrology
DX: R80.9 Proteinuria, unspecified (principal); N28.1 Cyst of kidney, acquired
CPT/HCPCS: 76775

== ENCOUNTER 2023-04-18 16:16 | Outpatient (CLI) | payer MEDICARE, SELFPAY ==
--- NOTE | ~2023-04-18 | XR_ITS ---
EXAMINATION: XR chest 2V DATE: 04/18/2023 16:42 INDICATION: Left-sided chest pain TECHNIQUE: PA and lateral views of the chest are obtained. COMPARISON: 03/12/2022 FINDINGS: The lungs are free of acute opacities. No pleural effusion or pneumothorax. The cardiomedia stinal silhouette is normal. There is moderate thoracic spondylosis. Neurostimulator leads project in the central spinal canal. Surgical clips in the right upper quadrant are likely from prior cholecyst ectomy. IMPRESSION: 1. No acute cardiopulmonary abnormality. Reviewed, dictated and finalized at location F.
== END 2023-04-18 16:17 | disposition home or self-care (01) ==
PROVIDERS: PCP Internal Medicine; Visit Provider Clinical Nurse Specialist
DX: R07.9 Chest pain, unspecified (principal)
CPT/HCPCS: 71046

== ENCOUNTER 2023-05-22 10:17 | Outpatient (CLI) | payer MEDICARE, SELFPAY ==
--- NOTE | ~2023-05-22 | NM_ITS ---
EXAMINATION: NM rand stress w perfusion DATE: 05/22/2023 12:36 INDICATION: Chest pain TECHNIQUE: Rest images were obtained following intravenous administration of 9.9 mCi Tc99m tetrofosmi n (Myoview). The patient was infused intravenously with Lexiscan (Regadenoson). Then, 31.1 mCi Tc99m tetrofosmin (Myoview) was administered intravenously, and stress images were obtained. Data was recon structed into short axis and horizontal and vertical long axis SPECT images. Gated SPECT images were also obtained. COMPARISON: None. FINDINGS: There is no definite reversible or fixed perfusion abnormality to suggest ischemia or infar ction. There is normal left ventricular chamber size, wall motion and ejection fraction. Left ventr icular ejection fraction measures >70%. IMPRESSION: 1. Normal myocardial perfusion at rest and during stress. 2. Left ventricular ejection fraction measuring >70%. Reviewed, dictated and finalized at location A.
--- NOTE | 2023-05-22 10:33 | EST_ITS ---
Patient Info Name: Ninoska Del Rosario Age: 63 years : 1960 Gender: Female Ht: 65 in Wt: 250 lbs BSA: 2.34 m2 HR: 81 bpm BP: 115 / 80 mmHg Heart Rhythm: Sinus Rhythm Exam Date: 05/22/2023 11:24 AM Exam Location: [facility] Stress Patient Status: Outpatient Admit Date: 05/22/2023 Staff Ordering Physician: Raysa Marin NP Attending Provider: Raysa Marin NP Exercise Technologist: Reina Adamson CT Exercise Physician: All Montes DO Exam Type: CA stress rand w NM Study Info Indications R07.89 - Other chest pain A regadenoson stress test was performed. Summary 1. 1. Negative lexiscan stress test for ischemic ST changes by ECG criteria. 2. 2. Stable hemodynamics throughout the test. 3. 3. Nuclear scan to follow and will be reported separately. Please correlate with it. 4. 4. Patient informed of the above results. Protocol: Lexiscan Stress ECG Details Stage: REST Duration (min): 11 min : 20 sec HR (bpm): 75 SBP (mmHg): 115 DBP (mmHg): 80 Stage: REST Duration (min): 13 min : 3 sec HR (bpm): 80 SBP (mmHg): 115 DBP (mmHg): 80 Stage: STAGE 1 Duration (min): 0 min : 59 sec HR (bpm): 97 SBP (mmHg): 134 DBP (mmHg): 82 Stage: RECOVERY Duration (min): 1 min : 0 sec HR (bpm): 91 SBP (mmHg): 134 DBP (mmHg): 82 Stage: RECOVERY Duration (min): 2 min : 0 sec HR (bpm): 98 SBP (mmHg): 134 DBP (mmHg): 82 Stage: RECOVERY Duration (min): 3 min : 0 sec HR (bpm): 94 SBP (mmHg): 125 DBP (mmHg): 81 Stage: RECOVERY Duration (min): 3 min : 12 sec HR (bpm): 89 SBP (mmHg): 125 DBP (mmHg): 81 Rest HR: 80 bpm Peak HR: 103 bpm Rest Sys BP: 115 mmHg Peak Sys BP: 134 mmHg Max Pred HR: 156 bpm % Max Pred HR: 66 % Target HR: 133 bpm Max RPP: 13,802 bpm*mmHg Termination Reason: Completed protocol Cardiac Symptoms: Shortness of breath Total Time: 1 min : 0 sec Rest Layton BP: 80 mmHg Peak Layton BP: 82 mmHg Total Dose: 0.4 mg Resting ECG Sinus rhythm. Stress ECG No ST changes. Arrhythmias None. Report Signatures
== END 2023-05-22 10:18 | disposition home or self-care (01) ==
PROVIDERS: PCP Internal Medicine; Visit Provider Nurse Practitioner
DX: R07.9 Chest pain, unspecified (principal)
CPT/HCPCS: 78452; 93017; A9502; J2785

== ENCOUNTER 2023-06-07 05:24 | Day surgery (SDC) | payer MEDICARE, SELFPAY ==
[2023-06-03 10:55] VITALS: BMI 41.5
--- NOTE | 2023-06-03 11:04 | PC.NURSE ---
Report to the Outpatient Waiting Room, entrance under the green pavilion located off [facility], at time 0815 on date 06/07/23. Planned Procedure Time: 1015. Time changes happen often and if your time is changed the preop area will call you the afternoon before. - You and your visitor will be asked to self-screen and do not enter if you have any COVID symptoms. - A mask is optional within the hospital at this time. Patients may have clear liquids (water, carbonated beverages, clear teas, apple juice) until 3 hours prior to surgery with a maximum of 20 ounces. - No food from midnight until time of surgery Take the following medications with a SIP of water the morning of surgery: AMLODIPINE, AMOXICILLIN, CITALOPRAM DO NOT STOP ANY OF YOUR OTHER PRESCRIPTION MEDICATIONS PRIOR TO SURGERY ?EXCEPT THE FOLLOWING Medications to discontinue per physician: ASPIRIN Date to take last dose: NO MORE UNTIL AFTER SURGERY Please no make-up, nail italian, hairspray, perfume, deodorant, or body powder the day of surgery. No jewelry (including any body piercings) or valuables the day of surgery, leave them at home. Please take a shower or bath the night before, or the morning of, surgery with an antibacterial soap. Wear comfortable, loose fitting clothing. Children are encouraged to wear pajamas. - Jewelry must be removed prior to entering the operating room. Rings and piercings that are not removed may be cut off. - The hospital will not accept responsibility for valuables. - Please leave all valuables, including medications, at home the day of surgery. If you are going home after surgery, a licensed route sales delivery drivers supervisor must drive you home. - NO public transportation without another adult if you receive anesthesia. - We recommend that an adult stay with you for 24 hours following discharge. - We also recommend that you do not drive, make important decision, drink alcoholic beverages, or take any drugs that were not prescribed by your health care provider for at least 24 hours after your discharge time. Follow any additional instructions given to you from your surgeon. If you or anyone in your household have experienced Covid symptoms in the past week, please notify your surgeon or the nurse liaison at the phone number below for possible testing. Telephone instructions given to PT - BALTAZAR MCFADDEN and asked if any additional questions and then verbalized understanding. Patient advised to call surgeon office or pre surgery nurse liaison [phone] if any additional questions.
--- NOTE | 2023-06-06 04:24 | PM.IMHP ---
H&P: HPI History of Present Illness Date/Time: 06/06/23 04:24 Chief Complaint: PRUDENCIO Narrative: PRUDENCIO due to ISD Review of Systems Review of Systems: All systems reviewed & are unremarkable except as noted in HPI and below PMFSH Past Medical History Medical History Abnormal Pap smear of cervix 2004 hpv - no bx Chronic back pain Degenerative disc disease Depression with anxiety Diverticulitis (~11/2018) Gastroesophageal reflux disease Hepatitis During childhood, presumably hepatitis A. 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 Hyperlipidemia Hypertension Nicotine dependence Osteoarthritis Screening mammogram, encounter for Seasonal rhinitis TIA (transient ischemic attack) (~07/2020) Vertigo Vitamin D deficiency Surgical History Surgical History History of bilateral tubal ligation (~1999) History of carpal tunnel release of both wrists (~2004) History of cervical spinal surgery Discectomy and fusion 3 vertebrae History of cholecystectomy (~1999) History of colposcopy (05/01/23) History of dilation and curettage (~1999) History of incision and drainage (07/22/20) History of lumbar surgery (06/03/19) Status post insertion of spinal cord stimulator (06/03/19) Family History Family History Sibling CHF (congestive heart failure) Cerebrovascular accident Kidney failure Father AAA (abdominal aortic aneurysm) CAD (coronary artery disease) Cerebrovascular accident Mother Brain aneurysm Hypertension Cerebrovascular accident Carcinoma of colon Social History Social History Social History: Surrogate decision maker: Carolina Kiran, daughter. Code status: Full code. Smoking packs per day: 1 Smoking cigarettes per day: 20.0 Years smoked: 25 Smoking pack-years: 25.00 Smoking status: Current every day smoker Tobacco type: cigarettes and e-cigarettes/vaping Additional smoking assessment comments: QUIT CIGARETTES FOR 17 YEARS, THEN RESTARTED. QUIT AGAIN 2019, NOW VAPING Alcohol intake: current Drinks per week: 6 Alcohol use details: WEEKENDS ONLY Substance use: current Substance use type: marijuana Other substance usage details: GUMMIES FOR PAIN Lack of Transportation: No Lack of Food: Never True Current Housing: I Have Housing Concerned About Future Housing: No Difficulty Paying Gas/Electric Bills: No Difficulty Paying for Meds: No Currently Unemployed: No Education: High School Diploma/GED Difficulty w/ Childcare or Family Care: No Living arrangements: with family Additional living arrangements comments: in 2021 as of 2018. Lives in a split home in [place]. Adult daughter and son-in-law live upstairs. Occupation/Education: unemployed Additional occupation/education comments: disabled Gender identity (if verbalized by the patient): Female Sexual Orientation (if Verbalized by the Patient): Straight or Heterosexual Spiritual care concerns: No Meds Home Medications and Allergies Home Medications Medication Instructions Recorded Confirmed Type cetirizine 10 mg tablet (Zyrtec) 10 mg PO DAILY 07/01/19 06/03/23 History lansoprazole 15 mg capsule,delayed 15 mg PO DAILY 07/01/19 06/03/23 History release (Prevacid) aspirin 81 mg chewable tablet 81 mg PO DAILY@0800 30 days #30 07/20/20 06/03/23 Rx (Children's Aspirin) tabs lisinopril 30 mg tablet 30 mg PO DAILY #90 tabs 12/17/22 06/03/23 Rx oxybutynin chloride 5 mg tablet 5 mg PO BID #60 tabs 01/01/23 06/03/23 Rx amlodipine 10 mg tablet See Rx Instructions .Route 03/18/23 06/03/23 Rx .COMPLEX #90 tabs citalopram 20 mg tablet See Rx Instructions .Route 03/18/23 06/03/23 Rx .COMPLEX #90 tabs simvastatin 10 mg tablet See Rx Instruction
--- NOTE | 2023-06-07 07:13 | WPDHPUPDATE1 ---
History and Physical Update Update Date/Time: 06/07/23 07:13 History and Physical has been reviewed, including an updated exam of the patient. There are NO changes in the patient's condition. Risks, benefits, and alternatives have been discussed and questions answered. Patient agrees to proceed with procedure.
[2023-06-07 08:40] VITALS: BP 130/82; PULSE 84; RESP 18; TEMP 36.9; O2SAT 100; BMI 41.5
[2023-06-07] MEDS: LACTATED RINGERS 1,000 ML 30 ML IV CONT (09:00)
--- NOTE | 2023-06-07 09:05 | WPDANESEPPF ---
Anes - Initial Pre Proc Eval Procedure: Operation Date: 06/07/23 10:15 Proposed Procedures p Cystoscopy with Bulkamid Injection - Danis Linn MD Date/Time: 06/07/23 09:05 Surgeon: Danis Linn MD Pre Op Diagnosis: intrinsic sphincter defficiency Patient Data Age: 63 Gender: F Height: 1.65 m Weight: 113.4 kg Allergies Allergy/AdvReac Type Severity Reaction Status Date / Time Sulfa (Sulfonamide Allergy Severe Anaphylaxis Verified 06/03/23 10:52 Antibiotics) Home Medications Medication Instructions Recorded Confirmed Type cetirizine 10 mg tablet (Zyrtec) 10 mg PO DAILY 07/01/19 06/03/23 History lansoprazole 15 mg capsule,delayed 15 mg PO DAILY 07/01/19 06/03/23 History release (Prevacid) aspirin 81 mg chewable tablet 81 mg PO DAILY@0800 30 days #30 07/20/20 06/03/23 Rx (Children's Aspirin) tabs lisinopril 30 mg tablet 30 mg PO DAILY #90 tabs 12/17/22 06/03/23 Rx oxybutynin chloride 5 mg tablet 5 mg PO BID #60 tabs 01/01/23 06/03/23 Rx amlodipine 10 mg tablet See Rx Instructions .Route 03/18/23 06/03/23 Rx .COMPLEX #90 tabs citalopram 20 mg tablet See Rx Instructions .Route 03/18/23 06/03/23 Rx .COMPLEX #90 tabs simvastatin 10 mg tablet See Rx Instructions .Route 03/18/23 06/03/23 Rx .COMPLEX #90 tabs fluconazole 150 mg tablet 150 mg PO ONCE #2 tabs 05/30/23 06/03/23 Rx amoxicillin 500 mg capsule 500 mg PO TID 06/03/23 06/03/23 History Patient hx anesthesia problems: none Family hx anesthesia problems: none Results Review: All pre-operative results and documents have been reviewed as part of the pre-operative evaluation. [facility] Past Medical History Medical History Abnormal Pap smear of cervix 2004 hpv - no bx Chronic back pain Degenerative disc disease Depression with anxiety Diverticulitis (~11/2018) Gastroesophageal reflux disease Hepatitis During childhood, presumably hepatitis A. 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 Hyperlipidemia Hypertension Nicotine dependence Osteoarthritis Screening mammogram, encounter for Seasonal rhinitis TIA (transient ischemic attack) (~07/2020) Vertigo Vitamin D deficiency Surgical History Surgical History History of bilateral tubal ligation (~1999) History of carpal tunnel release of both wrists (~2004) History of cervical spinal surgery Discectomy and fusion 3 vertebrae History of cholecystectomy (~1999) History of colposcopy (05/01/23) History of dilation and curettage (~1999) History of incision and drainage (07/22/20) History of lumbar surgery (06/03/19) Status post insertion of spinal cord stimulator (06/03/19) Family History Family History Sibling CHF (congestive heart failure) Cerebrovascular accident Kidney failure Father AAA (abdominal aortic aneurysm) CAD (coronary artery disease) Cerebrovascular accident Mother Brain aneurysm Hypertension Cerebrovascular accident Carcinoma of colon Social History Social History Social History: Surrogate decision maker: Carolina Kiran, daughter. Code status: Full code. Smoking packs per day: 1 Smoking cigarettes per day: 20.0 Years smoked: 25 Smoking pack-years: 25.00 Smoking status: Current every day smoker Tobacco type: cigarettes and e-cigarettes/vaping Additional smoking assessment comments: QUIT CIGARETTES FOR 17 YEARS, THEN RESTARTED. QUIT AGAIN 2019, NOW VAPING Alcohol intake: current Drinks per week: 6 Alcohol use details: WEEKENDS ONLY Substance use: current Substance use type: marijuana Other substance usage details: GUMMIES FOR PAIN Lack of Transportation: No Lack of Food: Never True Current Housing: I Have Housing Concerned About Future Housing: No Difficulty Paying Ga
[2023-06-07] MEDS: ceFAZolin 2 GM/D5W 50 ML 2 GM/50 ML BAG IVPB (09:20)
[2023-06-07] MEDS: LIDOCAINE HCL 2% GEL UROJET 10 ML PKG MUCOUS MEM (09:33)
[2023-06-07 09:47] VITALS: BP 110/77; PULSE 77; RESP 14; O2SAT 95
--- NOTE | 2023-06-07 10:01 | W.PM.PROC2 ---
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 She is here today for injection of a bulking agent Understands risks of bleeding, infection, incomplete efficacy, need for repeat procedures, urinary retention. She agrees to proceed Findings Intrinsic sphincter deficiency Description of Procedure She was correctly identified. Informed consent obtained. She from the operating room. She was given monitored anesthesia care. She was placed in dorsal lithotomy position. She was prepped draped sterile fashion. She was given appropriate perioperative antibiotics. A time-out performed. Cystoscopy revealed or appearing bladder without abnormalities. Urethra open consistent with intrinsic sphincter deficiency. I chose a site 2 cm distal to bladder neck. I injected bulking agent circumferentially. I used 1-1/2 syringe. There was excellent bulking effect. Her bladder was left partially full. She was awakened transferred to PACU in stable condition. Implants Bulking material Estimated Blood Loss 0 Complications No immediate complications Condition Stable Disposition PACU
[2023-06-07 10:15] VITALS: BP 110/77; PULSE 80; RESP 14; O2SAT 95
== END 2023-06-07 10:40 | disposition home or self-care (01) ==
PROVIDERS: PCP Internal Medicine; Visit Provider Urology
PROC: 3E0K8GC Introduction of Other Therapeutic Substance into Genitourinary Tract, Via Natural or Artificial Opening Endoscopic (ICD-10-PCS; CPT 51715; principal; 2023-06-07 10:15)
DX: N36.42 Intrinsic sphincter deficiency (ISD) (principal); F41.8 Other specified anxiety disorders; K21.9 Gastro-esophageal reflux disease without esophagitis; I10 Essential (primary) hypertension; E78.5 Hyperlipidemia, unspecified; Z79.82 Long term (current) use of aspirin; Z86.73 Personal history of transient ischemic attack (TIA), and cerebral infarction without residual deficits; Z98.1 Arthrodesis status; F12.90 Cannabis use, unspecified, uncomplicated; F17.290 Nicotine dependence, other tobacco product, uncomplicated; E66.01 Morbid (severe) obesity due to excess calories; Z68.41 Body mass index [BMI] 40.0-44.9, adult
CPT/HCPCS: 51715; J0690; J1100; J2250; J2405; J2704; J3010; J7120; L8606

== ENCOUNTER 2023-07-12 13:52 | Outpatient (CLI) | payer MEDICARE, SELFPAY ==
[2023-07-12 14:36] LABS: Albumin Level 4.2 g/dL (3.5-5.1); Anion Gap 10 mmol/L (8-16); Blood Urea Nitrogen 12 mg/dL (7-17); Calcium 9.3 mg/dL (8.4-10.2); Carbon Dioxide 24 mmol/L (22-30); Chloride 106 mmol/L (98-107); Estimated Glomerular Filt Rate 56; Glucose 100 mg/dL (65-110); Phosphorus 3.5 mg/dL (2.5-4.5); Potassium 4.7 mmol/L (3.4-5.0); Sodium 140 mmol/L (137-145)
[2023-07-12 14:40] LABS: Creatinine Urine 210.3 mg/dL; Total Protein Urine Random 56 mg/dL; Ur Ttl Prot Creatinine Ratio 0.27 mg/mg (0-0.20)
== END 2023-07-12 13:53 | disposition home or self-care (01) ==
PROVIDERS: PCP Internal Medicine; Visit Provider Internal Medicine Nephrology
DX: R80.1 Persistent proteinuria, unspecified (principal)
CPT/HCPCS: 36415; 80069; 82570; 84156

== ENCOUNTER 2023-08-06 10:38 | Emergency (ER) | payer MEDICARE, SELFPAY ==
[2023-08-06 10:57] VITALS: BP 154/96; PULSE 82; RESP 16; TEMP 36.6; O2SAT 98
[2023-08-06 12:09] VITALS: BP 150/90
--- NOTE | 2023-08-06 12:11 | PC.NURSE ---
patient requesting to have BP checked again. states that it is down from what it was earlier and she is going to leave without being seen. advised to return with any other complaints. patient verbalized understanding
== END 2023-08-06 13:08 | disposition left against medical advice (07) ==
LOC: ANHED 12:25
PROVIDERS: PCP Internal Medicine
DX: I10 Essential (primary) hypertension (principal)
CPT/HCPCS: 99199

== ENCOUNTER 2023-08-14 15:41 | Outpatient (CLI) | payer MEDICARE, SELFPAY ==
[2023-08-14 19:29] LABS: Anion Gap 7 mmol/L (8-16); Blood Urea Nitrogen 9 mg/dL (7-17); Calcium 9.7 mg/dL (8.4-10.2); Carbon Dioxide 26 mmol/L (22-30); Chloride 105 mmol/L (98-107); Estimated Glomerular Filt Rate 56; Glucose 113 mg/dL (65-110); Magnesium 1.8 mg/dL (1.6-2.3); Potassium 3.8 mmol/L (3.4-5.0); Sodium 138 mmol/L (137-145)
== END 2023-08-14 15:42 | disposition home or self-care (01) ==
LOC: ANHGOSHLAB 15:43
PROVIDERS: PCP Internal Medicine; Visit Provider Clinical Nurse Specialist
DX: E87.6 Hypokalemia (principal); I10 Essential (primary) hypertension
CPT/HCPCS: 36415; 80048; 83735

== ENCOUNTER 2023-11-18 13:39 | Outpatient (CLI) | payer MEDICARE, SELFPAY ==
[2023-11-18 15:09] LABS: Creatinine Urine 215.7 mg/dL; Total Protein Urine Random 29 mg/dL; Ur Ttl Prot Creatinine Ratio 0.13 mg/mg (0-0.20)
[2023-11-18 15:39] LABS: Anion Gap 6 mmol/L (4-12); Blood Urea Nitrogen 13 mg/dL (7-17); Calcium 9.5 mg/dL (8.4-10.2); Carbon Dioxide 25 mmol/L (22-30); Chloride 105 mmol/L (98-107); Estimated Glomerular Filt Rate > 60; Glucose 107 mg/dL (65-110); Phosphorus 3.7 mg/dL (2.5-4.5); Potassium 4.6 mmol/L (3.4-5.0); Sodium 136 mmol/L (137-145)
== END 2023-11-18 13:40 | disposition home or self-care (01) ==
PROVIDERS: PCP Internal Medicine; Visit Provider Internal Medicine Nephrology
DX: R80.9 Proteinuria, unspecified (principal); I10 Essential (primary) hypertension; N28.1 Cyst of kidney, acquired
CPT/HCPCS: 36415; 80069; 82570; 84156

== ENCOUNTER 2024-01-10 16:31 | Observation (INO) | payer MEDICARE, SELFPAY ==
[2024-01-10] VITALS (15 sets, daily range): BP systolic 164–213; BP diastolic 97–126; PULSE 82–100; RESP 11–164; TEMP 36.2–36.8; O2SAT 94–99; BMI 40.6
--- NOTE | ~2024-01-10 | US_ITS ---
Duplex Sonography of the left upper extremity: Indication: Vomiting Sagittal and transverse B-mode images as well as color-flow imaging were performed on the left research program intern al jugular, subclavian, axillary, brachial, basilic veins. B-mode examination was done without and w ith compression in the transverse plane. There is good visualization of the internal jugular, subcla vian, axillary, brachial, and basilic veins. There is thrombosis in the proximal left basilic vein, with echogenic thrombus, partially occlusive. There is thrombosis in one of the proximal paired brachial veins, which is noncompressible with absen ce of flow.. The mid to distal brachial vein is patent, compressible. There is additional thrombosis of the distal left cephalic vein in the forearm. Remaining deep venous structures demonstrate normal flow and compressibility. Impression: Thrombosis of the cephalic vein in the forearm. Thrombosis in one of the paired proximal brachial veins, as above. Partially occlusive thrombus in the proximal left basilic vein. Reviewed, dictated and finalized at location M. Impression: Thrombosis of the cephalic vein in the forearm. Thrombosis in one of the paired proximal brachial veins, as above. Partially occlusive thrombus in the proximal left basilic vein.
--- NOTE | ~2024-01-10 | CT_ITS ---
EXAMINATION: CT abdomen pelvis w con DATE: 01/10/2024 19:06 INDICATION: Abdominal pain and distention. TECHNIQUE: Computed tomography (CT) of the abdomen and pelvis was performed with 100 mL Omnipaque 350 intravenous contrast. Automated exposure control and iterative reconstruction technique were employe d. The dose-length product was 1402.86 mGy-cm. COMPARISON: CT abdomen and pelvis 10/18/2022 FINDINGS: The visualized portions of the lung bases demonstrate minimal atelectasis. No pleural effus ion. The heart size is normal. No pericardial effusion. There is a small sliding hiatal hernia. There are cysts in the liver measuring up to 2.4 cm. There are changes of cholecystectomy. The spleen, hammer creas, and adrenal glands are normal. There are cysts in the kidneys measuring up to 2.7 cm on the le ft. There are scattered diverticula in the colon. There is wall thickening of the sigmoid colon with adjacent fat stranding. There are no dilated loops of bowel. The appendix is normal. There are no pat hologically enlarged lymph nodes. There is trace pelvic ascites. Epidural electrodes are noted. There is severe thoracic and lumbar spondylosis. IMPRESSION: 1. Acute sigmoid diverticulosis. No perforation or abscess. Reviewed, dictated and finalized at location E.
[2024-01-10 17:05] LABS: Basophils Percent Auto 0.2 % (0.2-1.2); Eosinophils Absolute Auto 0.1 K/mm3 (0-0.3); Eosinophils Percent Auto 1.1 % (0-4.4); Hematocrit 41.8 % (37.0-47.0); Hemoglobin 14.2 g/dL (12.0-15.0); Immature Granulocyte Absolute 0.03 K/mm3 (0.00-0.031); Immature Granulocyte Percent A 0.3 % (0-0.5); Lymphocytes Absolute Auto 1.27 K/mm3 (0.9-3.2); Lymphocytes Percent Auto 14.1 % (18.3-44.2); Mean Corpuscular Hemoglobin 32.8 pg (26-34); Mean Corpuscular Volume 96.5 fl (80-100); Mean Platelet Volume 10.1 fl (7.4-10.4); Monocytes Absolute Auto 0.8 K/mm3 (0.1-0.6); Monocytes Percent Auto 8.8 % (2.6-8.5); Neutrophils Absolute Auto 6.8 K/mm3 (1.3-6.7); Neutrophils Percent Auto 75.5 % (45.5-73.1); Platelet Count Result 190 k/mm3 (150-375); Red Blood Count 4.33 M/mm3 (4.2-5.4); Red Cell Distribution Width 13.6 % (11.5-14.5)
[2024-01-10 17:16] LABS: Alanine Aminotransferase 37 U/L (6-35); Albumin Level 4.6 g/dL (3.5-5.1); Alkaline Phosphatase 85 U/L (38-126); Anion Gap 8 mmol/L (4-12); Aspartate Amino Transferase 38 U/L (14-36); Bilirubin,Total 1.4 mg/dL (0.2-1.3); Blood Urea Nitrogen 9 mg/dL (7-17); Calcium 9.7 mg/dL (8.4-10.2); Carbon Dioxide 26 mmol/L (22-30); Chloride 102 mmol/L (98-107); Estimated CRCL calculation 68 ml/min; Estimated Glomerular Filt Rate > 60; Glucose 130 mg/dL (65-110); Lipase 149 U/L (23-300); Potassium 3.5 mmol/L (3.4-5.0); Sodium 136 mmol/L (137-145)
--- NOTE | 2024-01-10 18:40 | ED.ABDPAIN ---
HPI - Abdominal Pain General Chief Complaint: Abdominal Pain Stated Complaint: constipation and abdominal pain Time Seen by Provider: 01/10/24 18:14 History of Present Illness HPI narrative: Patient is a 63-year-old female with history of HTN, alcohol use disorder, here with constipation and abdominal pain. Patient states that her last solid bowel movement was approximately 5 days ago. She has had minimal stool output since that time, yesterday she took a dose of laxative, today she has had some stool output which has been liquid in nature. She notes pain is located in her left lower quadrant, worsening, dull and aching. She has had associated vomiting and has thrown up approximately 15 times daily since Saturday. She is a daily alcohol drinker. When she does not drink alcohol she does get the shakes, no prior history of withdrawal seizure. She does have desire to quit drinking but is worried to go cold turkey due to her experience of withdrawal symptoms and fear that she may have a withdrawal seizure. She has been a heavy drinker for about 5 years. She does have a history of prior pancreatitis but this was found to be in relation to gallbladder disease. She has had difficulty keeping down any food or her medications, does have a history of hypertension but has been throwing up her medications. Related Data Home Medications Medication Instructions Recorded Confirmed cetirizine 10 mg tablet (Zyrtec) 10 mg PO DAILY 07/01/19 01/10/24 lansoprazole 15 mg capsule,delayed 15 mg PO DAILY 07/01/19 01/10/24 release (Prevacid) Allergies Allergy/AdvReac Type Severity Reaction Status Date / Time Sulfa (Sulfonamide Allergy Severe Anaphylaxis Verified 01/10/24 23:30 Antibiotics) Review of Systems Review of Systems: All systems reviewed & are unremarkable except as noted in HPI and below PMFSH Past Medical History Medical History Abnormal Pap smear of cervix 2004 hpv - no bx Chronic back pain Degenerative disc disease Depression with anxiety Diverticulitis (~11/2018) Gastroesophageal reflux disease Hepatitis During childhood, presumably hepatitis A. 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 Hyperlipidemia Hypertension Nicotine dependence Osteoarthritis Screening mammogram, encounter for Seasonal rhinitis TIA (transient ischemic attack) (~07/2020) Vertigo Vitamin D deficiency Surgical History Surgical History History of bilateral tubal ligation (~1999) History of carpal tunnel release of both wrists (~2004) History of cervical spinal surgery Discectomy and fusion 3 vertebrae History of cholecystectomy (~1999) History of colposcopy (05/01/23) History of dilation and curettage (~1999) History of incision and drainage (07/22/20) History of lumbar surgery (06/03/19) Status post insertion of spinal cord stimulator (06/03/19) Family History Family History Sibling CHF (congestive heart failure) Cerebrovascular accident Kidney failure Father AAA (abdominal aortic aneurysm) CAD (coronary artery disease) Cerebrovascular accident Mother Brain aneurysm Hypertension Cerebrovascular accident Carcinoma of colon Social History Social History Social History: Surrogate decision maker: Carolina Kiran, daughter. Code status: Full code. Smoking packs per day: 1 Smoking cigarettes per day: 20.0 Years smoked: 30 Smoking pack-years: 30.00 Smoking status: Former smoker Tobacco type: cigarettes Smoking end date: 08/05/23 Additional smoking assessment comments: QUIT CIGARETTES FOR 17 YEARS, THEN RESTARTED. QUIT AGAIN 2019, NOW VAPING Alcohol intake: current Drinks per week: 56 Alcohol use details: WEEKENDS ONLY Substance use: current Substance use type: marijuana Other substance usa
[2024-01-10 19:08] LABS: Appearance Urine Clear (Clear); Bacteria Urine 1+ /hpf; Bilirubin Urine Negative (Negative); Blood Urine Negative (Negative); Color Urine Yellow (Yellow); Glucose Urine UA Negative (Negative); Ketones Urine 1+ mg/dL (Negative); Leukocyte Esterase Ur Trace LEU/UL (Negative); Need Manual Microscopic Reviewed; Nitrate Urine Negative (Negative); Protein Urine 3+ mg/dL (Negative); RBC Urine 0-2 /hpf (0-2); Specific Grav Ur 1.016 (1.001-1.035); Squamous Epithelial Cell Urine Few /hpf (Few); WBC Urine 0-5 /hpf (0-3); pH Urine 5.5 (5.0-9.0)
[2024-01-10 19:09] LABS: Add Urine Microscopic? YES
--- NOTE | 2024-01-10 19:28 | PC.NURSE ---
this rn assumed care of patient. this rn took patient report from MYA Li.
[2024-01-10] MEDS: LORazepam INJ (*CRX) 2 MG/ML VIAL 1 MG IV PUSH (19:37)
[2024-01-10] MEDS: ONDANSETRON INJ 4 MG/2 ML VIAL IV PUSH (19:37)
[2024-01-10] MEDS: LACTATED RINGERS 1,000 ML 999 ML IV CONT (19:38)
[2024-01-10] MEDS: PIPERACILLIN/TAZ 4.5G/NS 100ML 4.5 GM/100 ML BAG IVPB (20:54)
[2024-01-10] MEDS: LACTATED RINGERS 1,000 ML 100 ML IV CONT (21:44)
[2024-01-10] MEDS: lisinopriL 10 MG TABLET 30 MG PO (22:22)
[2024-01-10] MEDS: LABETALOL HCL INJ 100 MG/20 ML VIAL 10 MG IV PUSH (22:23)
--- NOTE | 2024-01-10 23:15 | ADMGEN ---
This patient, Ninoska Del Rosario, was admitted to Medical Room 257-. Patient/family oriented to hospital policies and general routines including ID bracelet, bed and alarms, visiting hours, pain management, procedures, bathroom and other care routines, personal items, smoking policy, room service/diet, and visiting hours. Information on how to activate the Rapid Response Team has been discussed. Patient/Family are encouraged to report perceived risks to care and to ask questions if they do not understand what they are told or what they should do.
--- NOTE | 2024-01-10 23:22 | PC.NURSE ---
per warehouse administrator Shobha pt able to come to room assignment on floor after treatment of labetelol and lisinopril. manufacturing supervisor made aware of last blood pressure of 213/111.
--- NOTE | 2024-01-10 23:32 | PC.NURSE ---
There is a respiratory rate of 164 charted in error at 2332. This RN did not chart this to his knowledge and cannot figure out where this value is coming from. It is not accurate and should be ignored.
[2024-01-10 23:39] LABS: Glucose Point of Care 104 mg/dl (65-105)
--- NOTE | 2024-01-10 23:46 | PM.IMHP ---
H&P: HPI History of Present Illness Date/Time: 01/10/24 23:46 Chief Complaint: Patient came to the ER for evaluation of her constipation and abdominal pain which is slowly worsening Narrative: She is an unfortunate 63 years old white female who is complaining of abdominal pain with constipation for the last 5 days which is slowly worsening. Her last solid bowel movement was 5 days ago. She has had minimal stool output since then. She is complaining of abdominal pain located in the left lower quadrant which is slowly worsening. Her pain is dull and aching in nature associated with vomiting. She has thrown up about 15 times over last 3 days. She is a chronic alcohol user. She wants to quit alcohol but worried to go cold turkey as she is afraid of withdrawal symptoms. Workup was done in the ED which showed Acute left sigmoid diverticulitis with localized colon thickness and adjacent fat standing. She has been started on IV antibiotics, IV hydration and and being admitted to the medical unit for evaluation, monitoring, further workup and medical management. She also had uncontrolled blood pressure which was treated aggressively in the ER and on the floo.r Review of Systems Review of Systems: 14 systems were reviewed with pertinent positives and negatives per HPI. Except as documented in the HPI/progress notes, all other systems were reviewed and are negative. All systems reviewed & are unremarkable except as noted in HPI and below PMFSH Past Medical History Medical History Abnormal Pap smear of cervix 2004 hpv - no bx Chronic back pain Degenerative disc disease Depression with anxiety Diverticulitis (~11/2018) Gastroesophageal reflux disease Hepatitis During childhood, presumably hepatitis A. 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 Hyperlipidemia Hypertension Nicotine dependence Osteoarthritis Screening mammogram, encounter for Seasonal rhinitis TIA (transient ischemic attack) (~07/2020) Vertigo Vitamin D deficiency Surgical History Surgical History History of bilateral tubal ligation (~1999) History of carpal tunnel release of both wrists (~2004) History of cervical spinal surgery Discectomy and fusion 3 vertebrae History of cholecystectomy (~1999) History of colposcopy (05/01/23) History of dilation and curettage (~1999) History of incision and drainage (07/22/20) History of lumbar surgery (06/03/19) Status post insertion of spinal cord stimulator (06/03/19) Family History Family History Sibling CHF (congestive heart failure) Cerebrovascular accident Kidney failure Father AAA (abdominal aortic aneurysm) CAD (coronary artery disease) Cerebrovascular accident Mother Brain aneurysm Hypertension Cerebrovascular accident Carcinoma of colon Social History Social History Social History: Surrogate decision maker: Carolina Kiran, daughter. Code status: Full code. Smoking packs per day: 1 Smoking cigarettes per day: 20.0 Years smoked: 30 Smoking pack-years: 30.00 Smoking status: Former smoker Tobacco type: cigarettes Smoking end date: 08/05/23 Additional smoking assessment comments: QUIT CIGARETTES FOR 17 YEARS, THEN RESTARTED. QUIT AGAIN 2019, NOW VAPING Alcohol intake: current Drinks per week: 56 Alcohol use details: WEEKENDS ONLY Substance use: current Substance use type: marijuana Other substance usage details: GUMMIES FOR PAIN Do You Feel Safe in your Home?: Yes Lack of Transportation: No Lack of Food: Never True Current Housing: I Have Housing Concerned About Future Housing: No Difficulty Paying Gas/Electric Bills: No Difficulty Paying for Meds: No Currently Unemployed: No Education: Trade/Vocational Certificate Difficulty w/ Childcare
[2024-01-10] MEDS: METOPROLOL TARTRATE INJ 5 MG/5 ML VIAL IV PUSH (23:49)
[2024-01-10] MEDS: chlordiazePOXIDE (*CRX) 25 MG CAPSULE 50 MG PO (23:50)
[2024-01-11] VITALS (13 sets, daily range): BP systolic 139–158; BP diastolic 83–107; PULSE 80–96; RESP 16–20; TEMP 36.3–36.8; O2SAT 96–98
[2024-01-11] MEDS: chlordiazePOXIDE (*CRX) 25 MG CAPSULE 50 MG PO ×3 (05:46→18:46)
[2024-01-11 06:15] LABS: Glucose Point of Care 105 mg/dl (65-105)
[2024-01-11 09:37] LABS: Alanine Aminotransferase 29 U/L (6-35); Albumin Level 3.9 g/dL (3.5-5.1); Alkaline Phosphatase 60 U/L (38-126); Anion Gap 7 mmol/L (4-12); Aspartate Amino Transferase 34 U/L (14-36); Bilirubin,Total 1.1 mg/dL (0.2-1.3); Blood Urea Nitrogen 8 mg/dL (7-17); Carbon Dioxide 26 mmol/L (22-30); Chloride 105 mmol/L (98-107); Estimated CRCL calculation 62 ml/min; Estimated Glomerular Filt Rate 56; Glucose 177 mg/dL (65-110); Magnesium 1.5 mg/dL (1.6-2.3); Potassium 4.1 mmol/L (3.4-5.0); Sodium 138 mmol/L (137-145)
[2024-01-11] MEDS: LORATADINE 10 MG TABLET PO (10:55)
[2024-01-11] MEDS: oxyBUTYnin CHLORIDE 5 MG TABLET PO ×2 (10:55→18:46)
[2024-01-11] MEDS: ENOXAPARIN 40 MG/0.4 ML SYRINGE SUB-Q (10:55)
[2024-01-11] MEDS: SIMVASTATIN 10 MG TABLET BY MOUTH (10:55)
[2024-01-11] MEDS: THIAMINE HCL 200 MG/2 ML VIAL 100 MG IV PUSH (10:55)
[2024-01-11] MEDS: lisinopriL 10 MG TABLET 30 MG PO ×2 (10:55→20:32)
[2024-01-11] MEDS: PANTOPRAZOLE 40 MG TABLET PO (10:55)
[2024-01-11] MEDS: ASPIRIN 81 MG CHEWABLE TABLET PO (10:55)
[2024-01-11] MEDS: THERAPEUTIC MULTIVITAMINS/MINERALS TAB (*BKC) 1 TABLET PO (10:55)
[2024-01-11] MEDS: CITALOPRAM HYDROBROMIDE 20 MG TABLET BY MOUTH (10:55)
[2024-01-11] MEDS: PIPERACILLN/TAZ 3.375GM/NS50ML 3.375 GM/50 ML BAG IVPB ×2 (10:56→17:56)
[2024-01-11 12:00] LABS: Glucose Point of Care 109 mg/dl (65-105)
--- NOTE | 2024-01-11 14:41 | WPDPN ---
Progress Note: A&P Assessment and Plan (1) Acute diverticulitis: Code(s): K57.92 - Diverticulitis of intestine, part unspecified, without perforation or abscess without bleeding Status: Acute Assessment and Plan: Patient came to the ER for evaluation of her constipation and abdominal pain which is slowly worsening Narrative: She is an unfortunate 63 years old white female who is complaining of abdominal pain with constipation for the last 5 days which is slowly worsening. Her last solid bowel movement was 5 days ago. She has had minimal stool output since then. She is complaining of abdominal pain located in the left lower quadrant which is slowly worsening. Her pain is dull and aching in nature associated with vomiting. She has thrown up about 15 times over last 3 days. She is a chronic alcohol user. She wants to quit alcohol but worried to go cold turkey as she is afraid of withdrawal symptoms. Workup was done in the ED which showed Acute left sigmoid diverticulitis with localized colon thickness and adjacent fat standing. She has been started on IV antibiotics, IV hydration and and being admitted to the medical unit for evaluation, monitoring, further workup and medical management. 01/11/2024 interval history: patient is being treated for left sigmoid diverticulitis with Zosyn, patient stats her clinical symptoms are improving and she is able to tolerate clear liquids, and abdomen pain has improved. patient with history alcohol abuse patient drinks daily and her last drinks was 01/10/24, patient is placed on CIWA protocol with tapering dose of Librium, and daily a banana bag, will monitor and plan. (2) Nausea & vomiting: Qualifiers: Vomiting type: unspecified Qualified Code(s): R11.2 - Nausea with vomiting, unspecified Code(s): R11.2 - Nausea with vomiting, unspecified Status: Acute Assessment and Plan: clinical symptoms are improving (3) Alcohol abuse: Code(s): F10.10 - Alcohol abuse, uncomplicated Status: Acute Assessment and Plan: patient is placed on CIWA protocol (4) HTN (hypertension): Qualifiers: Hypertension type: essential hypertension Qualified Code(s): I10 - Essential (primary) hypertension Code(s): I10 - Essential (primary) hypertension Status: Chronic Assessment and Plan: upon arrival patient BP was elevated most likely due to pain and stress, BP is trending down and will monitor. (5) Vitamin D deficiency: Code(s): E55.9 - Vitamin D deficiency, unspecified Status: Acute Assessment and Plan: will monitor and supplement Subjective Date/time seen: 01/11/24 14:41 Interval history: Patient came to the ER for evaluation of her constipation and abdominal pain which is slowly worsening Narrative: She is an unfortunate 63 years old white female who is complaining of abdominal pain with constipation for the last 5 days which is slowly worsening. Her last solid bowel movement was 5 days ago. She has had minimal stool output since then. She is complaining of abdominal pain located in the left lower quadrant which is slowly worsening. Her pain is dull and aching in nature associated with vomiting. She has thrown up about 15 times over last 3 days. She is a chronic alcohol user. She wants to quit alcohol but worried to go cold turkey as she is afraid of withdrawal symptoms. Workup was done in the ED which showed Acute left sigmoid diverticulitis with localized colon thickness and adjacent fat standing. She has been started on IV antibiotics, IV hydration and and being admitted to the medical unit for evaluation, monitoring, further workup and medical management. 01/11/2024 interval history: patient is being treated for left sigmoid diverticulitis with Zosyn, patient stats her clinical symptoms are improving and she is able to tolerate clear liquids, and abdomen pain has improved. patient with hi
[2024-01-11 17:39] LABS: Glucose Point of Care 114 mg/dl (65-105)
[2024-01-11 21:19] LABS: Glucose Point of Care 107 mg/dl (65-105)
[2024-01-12] VITALS (11 sets, daily range): BP systolic 146–160; BP diastolic 81–112; PULSE 73–106; RESP 18–20; TEMP 36.2–36.6; O2SAT 95–98
[2024-01-12] MEDS: chlordiazePOXIDE (*CRX) 25 MG CAPSULE 50 MG PO (00:20)
[2024-01-12] MEDS: PIPERACILLN/TAZ 3.375GM/NS50ML 3.375 GM/50 ML BAG IVPB ×4 (00:20→18:43)
[2024-01-12 00:28] LABS: Glucose Point of Care 121 mg/dl (65-105)
[2024-01-12 05:38] LABS: Hematocrit 37.8 % (37.0-47.0); Hemoglobin 12.1 g/dL (12.0-15.0); Mean Corpuscular Hemoglobin 32.4 pg (26-34); Mean Corpuscular Volume 101.3 fl (80-100); Mean Platelet Volume 10.3 fl (7.4-10.4); Platelet Count Result 148 k/mm3 (150-375); Red Blood Count 3.73 M/mm3 (4.2-5.4); Red Cell Distribution Width 13.9 % (11.5-14.5); White Blood Count 5.4 K/mm3 (4.5-10.0)
[2024-01-12 05:54] LABS: Anion Gap 4 mmol/L (4-12); Blood Urea Nitrogen 6 mg/dL (7-17); Calcium 8.4 mg/dL (8.4-10.2); Carbon Dioxide 25 mmol/L (22-30); Chloride 108 mmol/L (98-107); Estimated CRCL calculation 62 ml/min; Estimated Glomerular Filt Rate 56; Glucose 96 mg/dL (65-110); Phosphorus 3.4 mg/dL (2.5-4.5); Potassium 3.8 mmol/L (3.4-5.0); Sodium 137 mmol/L (137-145)
[2024-01-12 06:17] LABS: Glucose Point of Care 103 mg/dl (65-105)
[2024-01-12] MEDS: chlordiazePOXIDE (*CRX) 25 MG CAPSULE PO ×4 (06:19→23:34)
[2024-01-12 08:04] LABS: Glucose Point of Care 102 mg/dl (65-105)
[2024-01-12] MEDS: SIMVASTATIN 10 MG TABLET BY MOUTH (10:23)
[2024-01-12] MEDS: ASPIRIN 81 MG CHEWABLE TABLET PO (10:23)
[2024-01-12] MEDS: LORATADINE 10 MG TABLET PO (10:23)
[2024-01-12] MEDS: oxyBUTYnin CHLORIDE 5 MG TABLET PO ×2 (10:23→18:43)
[2024-01-12] MEDS: lisinopriL 10 MG TABLET 30 MG PO ×2 (10:24→20:29)
[2024-01-12] MEDS: THERAPEUTIC MULTIVITAMINS/MINERALS TAB (*BKC) 1 TABLET PO (10:24)
[2024-01-12] MEDS: CITALOPRAM HYDROBROMIDE 20 MG TABLET BY MOUTH (10:24)
[2024-01-12] MEDS: PANTOPRAZOLE 40 MG TABLET PO (10:24)
[2024-01-12] MEDS: THIAMINE HCL 200 MG/2 ML VIAL 100 MG IV PUSH (10:25)
[2024-01-12] MEDS: ENOXAPARIN 40 MG/0.4 ML SYRINGE SUB-Q (10:26)
[2024-01-12 11:59] LABS: Glucose Point of Care 146 mg/dl (65-105)
--- NOTE | 2024-01-12 12:58 | WPDPN ---
Progress Note: A&P Assessment and Plan (1) Acute diverticulitis: Code(s): K57.92 - Diverticulitis of intestine, part unspecified, without perforation or abscess without bleeding Status: Acute Assessment and Plan: Patient came to the ER for evaluation of her constipation and abdominal pain which is slowly worsening Narrative: She is an unfortunate 63 years old white female who is complaining of abdominal pain with constipation for the last 5 days which is slowly worsening. Her last solid bowel movement was 5 days ago. She has had minimal stool output since then. She is complaining of abdominal pain located in the left lower quadrant which is slowly worsening. Her pain is dull and aching in nature associated with vomiting. She has thrown up about 15 times over last 3 days. She is a chronic alcohol user. She wants to quit alcohol but worried to go cold turkey as she is afraid of withdrawal symptoms. Workup was done in the ED which showed Acute left sigmoid diverticulitis with localized colon thickness and adjacent fat standing. She has been started on IV antibiotics, IV hydration and and being admitted to the medical unit for evaluation, monitoring, further workup and medical management. 01/11/2024 interval history: patient is being treated for left sigmoid diverticulitis with Zosyn, patient stats her clinical symptoms are improving and she is able to tolerate clear liquids, and abdomen pain has improved. patient with history alcohol abuse patient drinks daily and her last drinks was 01/10/24, patient is placed on CIWA protocol with tapering dose of Librium, and daily a banana bag, will monitor and plan. 01/12/2024:today patient stats pain in her left lower abdomen is improving, does not feel nauseated and able to tolerate PO intake, denies any fever chills and clinically improving patient with history alcohol abuse patient drinks daily and her last drinks was 01/10/24, patient is placed on CIWA protocol with tapering dose of Librium, and daily a banana bag, will monitor and plan. (2) Nausea & vomiting: Qualifiers: Vomiting type: unspecified Qualified Code(s): R11.2 - Nausea with vomiting, unspecified Code(s): R11.2 - Nausea with vomiting, unspecified Status: Acute Assessment and Plan: clinical symptoms are improving (3) Alcohol abuse: Code(s): F10.10 - Alcohol abuse, uncomplicated Status: Acute Assessment and Plan: patient is placed on CIWA protocol (4) HTN (hypertension): Qualifiers: Hypertension type: essential hypertension Qualified Code(s): I10 - Essential (primary) hypertension Code(s): I10 - Essential (primary) hypertension Status: Chronic Assessment and Plan: upon arrival patient BP was elevated most likely due to pain and stress, BP is trending down and will monitor. (5) Vitamin D deficiency: Code(s): E55.9 - Vitamin D deficiency, unspecified Status: Acute Assessment and Plan: will monitor and supplement Subjective Date/time seen: 01/12/24 12:58 Interval history: Patient came to the ER for evaluation of her constipation and abdominal pain which is slowly worsening Narrative: She is an unfortunate 63 years old white female who is complaining of abdominal pain with constipation for the last 5 days which is slowly worsening. Her last solid bowel movement was 5 days ago. She has had minimal stool output since then. She is complaining of abdominal pain located in the left lower quadrant which is slowly worsening. Her pain is dull and aching in nature associated with vomiting. She has thrown up about 15 times over last 3 days. She is a chronic alcohol user. She wants to quit alcohol but worried to go cold turkey as she is afraid of withdrawal symptoms. Workup was done in the ED which showed Acute left sigmoid diverticulitis with localized colon thickness and adjacent fat standing. She has bee
[2024-01-12 17:12] LABS: Glucose Point of Care 101 mg/dl (65-105)
[2024-01-12] MEDS: APIXABAN 5 MG TABLET 10 MG PO (19:34)
[2024-01-12 20:57] LABS: Glucose Point of Care 110 mg/dl (65-105)
[2024-01-13] VITALS (9 sets, daily range): BP systolic 146–153; BP diastolic 93–99; PULSE 74–93; RESP 16–20; TEMP 36.7; O2SAT 95–97
[2024-01-13] MEDS: PIPERACILLN/TAZ 3.375GM/NS50ML 3.375 GM/50 ML BAG IVPB ×3 (00:33→11:49)
[2024-01-13 05:28] LABS: Basophils Percent Auto 0.3 % (0.2-1.2); Eosinophils Absolute Auto 0.2 K/mm3 (0-0.3); Hematocrit 37.2 % (37.0-47.0); Hemoglobin 11.9 g/dL (12.0-15.0); Immature Granulocyte Absolute 0.02 K/mm3 (0.00-0.031); Immature Granulocyte Percent A 0.3 % (0-0.5); Lymphocytes Absolute Auto 1.53 K/mm3 (0.9-3.2); Lymphocytes Percent Auto 26.4 % (18.3-44.2); Mean Corpuscular Hemoglobin 32.7 pg (26-34); Mean Corpuscular Volume 102.2 fl (80-100); Mean Platelet Volume 10.5 fl (7.4-10.4); Monocytes Absolute Auto 0.6 K/mm3 (0.1-0.6); Monocytes Percent Auto 9.7 % (2.6-8.5); Neutrophils Absolute Auto 3.4 K/mm3 (1.3-6.7); Neutrophils Percent Auto 59.3 % (45.5-73.1); Platelet Count Result 157 k/mm3 (150-375); Red Blood Count 3.64 M/mm3 (4.2-5.4); Red Cell Distribution Width 13.8 % (11.5-14.5); White Blood Count 5.8 K/mm3 (4.5-10.0)
[2024-01-13 05:47] LABS: Alanine Aminotransferase 26 U/L (6-35); Albumin Level 3.5 g/dL (3.5-5.1); Alkaline Phosphatase 63 U/L (38-126); Anion Gap 2 mmol/L (4-12); Aspartate Amino Transferase 33 U/L (14-36); Bilirubin,Total 0.9 mg/dL (0.2-1.3); Blood Urea Nitrogen 4 mg/dL (7-17); Calcium 8.5 mg/dL (8.4-10.2); Carbon Dioxide 27 mmol/L (22-30); Chloride 110 mmol/L (98-107); Estimated CRCL calculation 62 ml/min; Estimated Glomerular Filt Rate 56; Glucose 93 mg/dL (65-110); Magnesium 2.1 mg/dL (1.6-2.3); Potassium 3.9 mmol/L (3.4-5.0); Sodium 139 mmol/L (137-145)
[2024-01-13] MEDS: chlordiazePOXIDE (*CRX) 25 MG CAPSULE PO ×4 (06:01→23:51)
[2024-01-13 07:59] LABS: Glucose Point of Care 95 mg/dl (65-105)
[2024-01-13] MEDS: CITALOPRAM HYDROBROMIDE 20 MG TABLET BY MOUTH (08:45)
[2024-01-13] MEDS: THERAPEUTIC MULTIVITAMINS/MINERALS TAB (*BKC) 1 TABLET PO (08:45)
[2024-01-13] MEDS: ASPIRIN 81 MG CHEWABLE TABLET PO (08:45)
[2024-01-13] MEDS: oxyBUTYnin CHLORIDE 5 MG TABLET PO ×2 (08:45→16:52)
[2024-01-13] MEDS: lisinopriL 10 MG TABLET 30 MG PO ×2 (08:45→21:14)
[2024-01-13] MEDS: PANTOPRAZOLE 40 MG TABLET PO (08:45)
[2024-01-13] MEDS: LORATADINE 10 MG TABLET PO (08:45)
[2024-01-13] MEDS: SIMVASTATIN 10 MG TABLET BY MOUTH (08:46)
[2024-01-13] MEDS: APIXABAN 5 MG TABLET 10 MG PO ×2 (08:46→21:14)
[2024-01-13] MEDS: THIAMINE HCL 200 MG/2 ML VIAL 100 MG IV PUSH (09:21)
--- NOTE | 2024-01-13 11:48 | PM.IMPN ---
Progress Note: A&P Assessment and Plan (1) Acute diverticulitis: Code(s): K57.92 - Diverticulitis of intestine, part unspecified, without perforation or abscess without bleeding Status: Acute (2) Nausea & vomiting: Qualifiers: Vomiting type: unspecified Qualified Code(s): R11.2 - Nausea with vomiting, unspecified Code(s): R11.2 - Nausea with vomiting, unspecified Status: Acute (3) Alcohol abuse: Code(s): F10.10 - Alcohol abuse, uncomplicated Status: Acute (4) HTN (hypertension): Qualifiers: Hypertension type: essential hypertension Qualified Code(s): I10 - Essential (primary) hypertension Code(s): I10 - Essential (primary) hypertension Status: Chronic Plan Acute diverticulitis Zosyn IV Pain control Advance diet today 01/12 IV fluids ETOH abuse ETOH<10 Banana bag/IV fluids d/c Last drink 48hrs Thiamine, folic acid, and multi-vitamin PPI daily librium taper Ativan PRN for seizure activity CIWA daily Monitor and replenish electrolytes as needed Seizure precautions if indicated Hypertension Hypertensive Resume patient's lisinopril Home clonidine 0.1 q.8h p.r.n. Hydralazine p.r.n. IV push systolic greater than 160 Monitor BP per unit protocol Acute DVT Left cephalic vein left brachial vein and left basilic vein Eliquis started 10 mg b.i.d. Code status: Full code per patient DVT prophylaxis: Eliquis Stress ulcer prophylaxis: Protonix 40 daily PT/OT notes: Ambulating Disposition: Patient continues admission to the medical unit for acute diverticulitis and alcohol withdrawal patient was tolerating clear liquids will advance to full diet if patient tolerates well can likely discharge home tomorrow. Patient is ambulatory on her own however patient will need new Eliquis prescription at discharge consult to care coordination for special medication PA. Time Spent With Patient Time with patient: 15 - 25 minutes Subjective Date/time seen: 01/13/24 11:48 Interval history: Admission: Medical chart Patient came to the ER for evaluation of her constipation and abdominal pain which is slowly worsening Narrative: She is an unfortunate 63 years old white female who is complaining of abdominal pain with constipation for the last 5 days which is slowly worsening. Her last solid bowel movement was 5 days ago. She has had minimal stool output since then. She is complaining of abdominal pain located in the left lower quadrant which is slowly worsening. Her pain is dull and aching in nature associated with vomiting. She has thrown up about 15 times over last 3 days. She is a chronic alcohol user. She wants to quit alcohol but worried to go cold turkey as she is afraid of withdrawal symptoms. Workup was done in the ED which showed Acute left sigmoid diverticulitis with localized colon thickness and adjacent fat standing. She has been started on IV antibiotics, IV hydration and and being admitted to the medical unit for evaluation, monitoring, further workup and medical management. 01/11/2024 interval history: patient is being treated for left sigmoid diverticulitis with Zosyn, patient stats her clinical symptoms are improving and she is able to tolerate clear liquids, and abdomen pain has improved. patient with history alcohol abuse patient drinks daily and her last drinks was 01/10/24, patient is placed on CIWA protocol with tapering dose of Librium, and daily a banana bag, will monitor and plan. 01/12/2024:today patient stats pain in her left lower abdomen is improving, does not feel nauseated and able to tolerate PO intake, denies any fever chills and clinically improving patient with history alcohol abuse patient drinks daily and her last drinks was 01/10/24, patient is placed on CIWA protocol with tapering dose of Librium, and daily a banana bag, will monitor and plan. 01/12: Assumed Care Patient t
[2024-01-13 11:58] LABS: Glucose Point of Care 94 mg/dl (65-105)
[2024-01-13] MEDS: ACIDOPHILUS/BULGARICUS CHEWABLE TABLET 1 TABLET PO ×3 (14:36→21:14)
[2024-01-13 16:59] LABS: Glucose Point of Care 101 mg/dl (65-105)
[2024-01-13] MEDS: AMOXICILLIN/CLAVULANATE K 875-125 MG TAB 1 TABLET PO (18:27)
[2024-01-13 21:33] LABS: Glucose Point of Care 96 mg/dl (65-105)
[2024-01-14] VITALS: PULSE 95
[2024-01-14 04:00] VITALS: PULSE 79
[2024-01-14] MEDS: ACETAMINOPHEN 325 MG TABLET 650 MG PO (05:07)
[2024-01-14] MEDS: chlordiazePOXIDE (*CRX) 25 MG CAPSULE PO (05:07)
[2024-01-14 05:31] LABS: Hematocrit 38.9 % (37.0-47.0); Hemoglobin 12.5 g/dL (12.0-15.0); Mean Corpuscular HGB Conc 32.1 g/dl (32-36); Mean Corpuscular Hemoglobin 32.6 pg (26-34); Mean Corpuscular Volume 101.6 fl (80-100); Mean Platelet Volume 10.2 fl (7.4-10.4); Platelet Count Result 175 k/mm3 (150-375); Red Blood Count 3.83 M/mm3 (4.2-5.4); Red Cell Distribution Width 13.8 % (11.5-14.5); White Blood Count 7.1 K/mm3 (4.5-10.0)
[2024-01-14 06:00] VITALS: BP 154/81; PULSE 85; RESP 16; TEMP 36.4; O2SAT 97
[2024-01-14 06:00] LABS: Alanine Aminotransferase 25 U/L (6-35); Albumin Level 3.6 g/dL (3.5-5.1); Alkaline Phosphatase 64 U/L (38-126); Anion Gap 4 mmol/L (4-12); Aspartate Amino Transferase 34 U/L (14-36); Bilirubin,Total 0.6 mg/dL (0.2-1.3); Blood Urea Nitrogen 4 mg/dL (7-17); Calcium 8.4 mg/dL (8.4-10.2); Carbon Dioxide 23 mmol/L (22-30); Chloride 112 mmol/L (98-107); Estimated CRCL calculation 69 ml/min; Estimated Glomerular Filt Rate > 60; Glucose 96 mg/dL (65-110); Magnesium 2.2 mg/dL (1.6-2.3); Potassium 3.8 mmol/L (3.4-5.0); Sodium 139 mmol/L (137-145)
[2024-01-14 08:09] LABS: Glucose Point of Care 92 mg/dl (65-105)
[2024-01-14] MEDS: ACIDOPHILUS/BULGARICUS CHEWABLE TABLET 1 TABLET PO (08:48)
[2024-01-14] MEDS: ASPIRIN 81 MG CHEWABLE TABLET PO (08:48)
[2024-01-14] MEDS: lisinopriL 10 MG TABLET 30 MG PO (08:49)
[2024-01-14] MEDS: THERAPEUTIC MULTIVITAMINS/MINERALS TAB (*BKC) 1 TABLET PO (08:49)
[2024-01-14] MEDS: FOLIC ACID 1 MG TABLET PO (08:49)
[2024-01-14] MEDS: LORATADINE 10 MG TABLET PO (08:49)
[2024-01-14] MEDS: APIXABAN 5 MG TABLET 10 MG PO (08:49)
[2024-01-14] MEDS: oxyBUTYnin CHLORIDE 5 MG TABLET PO (08:49)
[2024-01-14] MEDS: AMOXICILLIN/CLAVULANATE K 875-125 MG TAB 1 TABLET PO (08:49)
[2024-01-14] MEDS: CITALOPRAM HYDROBROMIDE 20 MG TABLET BY MOUTH (08:49)
[2024-01-14] MEDS: PANTOPRAZOLE 40 MG TABLET PO (08:50)
[2024-01-14] MEDS: SIMVASTATIN 10 MG TABLET BY MOUTH (08:50)
[2024-01-14] MEDS: THIAMINE HCL 200 MG/2 ML VIAL 100 MG IV PUSH (08:50)
--- NOTE | 2024-01-14 09:46 | PM.DS ---
DS: Admitting Diagnosis Discharge Date 01/14/24 Admitting Diagnosis Abdominal pain DS: Discharge Diagnosis Discharge Diagnosis (1) Acute diverticulitis: Code(s): K57.92 - Diverticulitis of intestine, part unspecified, without perforation or abscess without bleeding Status: Acute (2) Nausea & vomiting: Qualifiers: Vomiting type: unspecified Qualified Code(s): R11.2 - Nausea with vomiting, unspecified Code(s): R11.2 - Nausea with vomiting, unspecified Status: Acute (3) Alcohol abuse: Code(s): F10.10 - Alcohol abuse, uncomplicated Status: Acute (4) HTN (hypertension): Qualifiers: Hypertension type: essential hypertension Qualified Code(s): I10 - Essential (primary) hypertension Code(s): I10 - Essential (primary) hypertension Status: Chronic DS: Summary Hospital Course Reason for hospitalization: Abdominal pain Hospital Course: 63-year-old female presented with abdominal pain, constipation along with vomiting. She also has history of chronic alcohol use.s. Workup was done in the ED which showed Acute left sigmoid diverticulitis with localized colon thickness and adjacent fat standing. She has been started on IV antibiotics, IV hydration. Was started on IV Zosyn Was being treated on the [facility] protocol for alcohol abuse/withdrawal. Symptoms improved, eventually was able to tolerate p.o. food. Was discharged home on oral Augmentin for additional 5 days. Status at Discharge Functional status at discharge: independent ambulation Overall status at discharge: patient is progressing back to baseline Time Spent with Patient Time attestation: Total time spent providing and/or coordinating discharge services: Time spent: Greater than 30 minutes Exam Narrative: General physical exam: Morbidly obese white female, lying in bed, cooperative with exam, ENT: Moist mucous membranes, nasal passages clear Neck: Supple, trachea midline CVS: S1 + S2, regular rate and rhythm, no murmurs Respiratory: Bilaterally fair air entry in both lung vieyra, mild B/L crackles, symmetric chest expansion, no distress Abdomen: Soft, ++ left lower quadrant tenderness on palpation, bowel sounds +ve, no organomegaly Extremities:no edema, Musculoskeletal: Moves all, adequate range of motion, no muscle spasms Skin: Warm, dry, no jaundice, no cyanosis Neurological: Awake, alert, oriented x 3, cranial nerves grossly intact Psychiatric: Normal mood, Non suicidal DS: Data Data Completed and Pending Labs on day of discharge: Labs from last 24 hours 01/14/24 01/14/24 01/13/24 07:47 05:00 21:16 WBC 7.1 RBC 3.83 L Hgb 12.5 Hct 38.9 MCV 101.6 H MCH 32.6 MCHC 32.1 RDW 13.8 Plt Count 175 MPV 10.2 Sodium 139 Potassium 3.8 Chloride 112 H Carbon Dioxide 23 Anion Gap 4 BUN 4 L Creatinine 0.90 Estim Creat Clear Calc 69 Estimated GFR > 60 Glucose 96 POC Capillary Glucose 92 96 Calcium 8.4 Magnesium 2.2 Total Bilirubin 0.6 AST 34 ALT 25 Alkaline Phosphatase 64 Total Protein 6.0 L Albumin 3.6 01/13/24 01/13/24 16:51 11:55 WBC RBC Hgb Hct MCV MCH MCHC RDW Plt Count MPV Sodium Potassium Chloride Carbon Dioxide Anion Gap BUN Creatinine Estim Creat Clear Calc Estimated GFR Glucose POC Capillary Glucose 101 94 Calcium Magnesium Total Bilirubin AST ALT Alkaline Phosphatase Total Protein Albumin Discharge Plan Discharge Attending physician on discharge: Gena Peng Discharging Clinician: Gena Peng Anticipated Discharge Date/Time: 01/14/24 09:39 Patient Disposition: Home, Self-Care Activity: as tolerated Diet: as tolerated Patient Instructions: Antibiotic Form, Apixaban (By mouth), How to Stop Smoking (DC), Pain Management (DC) Stand Alone Forms: General Discharge In
== END 2024-01-14 11:40 | disposition home or self-care (01) ==
LOC: ANHED 18:56 → ANH2MED 23:20
PROVIDERS: Family Medicine; Admitting Provider Family Medicine; Emergency Provider Student in an Organized Health Care Education/Training Program; PCP Internal Medicine; Visit Provider Internal Medicine
DX: K57.92 Diverticulitis of intestine, part unspecified, without perforation or abscess without bleeding (principal); I82.612 Acute embolism and thrombosis of superficial veins of left upper extremity; I82.622 Acute embolism and thrombosis of deep veins of left upper extremity; R11.2 Nausea with vomiting, unspecified; F10.10 Alcohol abuse, uncomplicated; I10 Essential (primary) hypertension; F41.8 Other specified anxiety disorders; K21.9 Gastro-esophageal reflux disease without esophagitis; E78.5 Hyperlipidemia, unspecified; M54.2 Cervicalgia; E55.9 Vitamin D deficiency, unspecified; F12.90 Cannabis use, unspecified, uncomplicated; F17.290 Nicotine dependence, other tobacco product, uncomplicated; N28.1 Cyst of kidney, acquired; N36.42 Intrinsic sphincter deficiency (ISD); E66.01 Morbid (severe) obesity due to excess calories; Z68.41 Body mass index [BMI] 40.0-44.9, adult; Z98.1 Arthrodesis status; Z86.19 Personal history of other infectious and parasitic diseases; Z86.73 Personal history of transient ischemic attack (TIA), and cerebral infarction without residual deficits; Z79.82 Long term (current) use of aspirin
CPT/HCPCS: 36415; 74177; 80048; 80053; 81001; 82948; 83690; 83735; 84100; 85025; 85027; 93971; 96361; 96365; 96366; 96367; 96372; 96375; 96376; 99285; A9270; G0378; J0360; J1650; J2060; J2405; J2543; J3411; J3475; J7042; J7120; Q9967

== ENCOUNTER 2024-02-19 15:48 | Outpatient (CLI) | payer MEDICARE, SELFPAY ==
--- NOTE | ~2024-02-19 | US_ITS ---
EXAMINATION: US venous doppler UE DATE: 02/19/2024 16:59 INDICATION: Soft tissue disorder. Prior DVT of the left arm. TECHNIQUE: Lux scale images with and without compression and Doppler images of the greater than left upper extremity veins were obtained. COMPARISON: Ultrasound dated 01/12/2024. FINDINGS: The internal jugular vein, subclavian vein, axillary vein, brachial veins, basilic vein, cephalic vei n, radial vein, and ulnar vein are patent. IMPRESSION: 1. Patent bilateral upper extremity veins. No evidence of deep venous thrombosis. Reviewed, dictated and finalized at location B. IMPRESSION: 1. Patent bilateral upper extremity veins. No evidence of deep venous thrombosi s.
== END 2024-02-19 15:49 | disposition home or self-care (01) ==
PROVIDERS: PCP Internal Medicine; Visit Provider Clinical Nurse Specialist
DX: M79.89 Other specified soft tissue disorders (principal)
CPT/HCPCS: 93970

== ENCOUNTER 2024-05-05 12:39 | Emergency (ER) | payer MEDICARE, SELFPAY ==
--- NOTE | ~2024-05-05 | XR_ITS ---
EXAMINATION: XR chest 2V Exam Date/Time: 05/05/2024 17:03 CDT HISTORY: CP Comparison: 04/18/2023. RESULT: Lines, tubes, and devices: Stimulator leads project over the lower thoracic spine. Cholecystectomy c lips. Lungs and pleura: Clear. Cardiomediastinal silhouette: Stable. Other: No acute osseous or upper abdominal finding. IMPRESSION: No acute cardiopulmonary process. Reviewed, dictated and finalized at location K.
--- NOTE | ~2024-05-05 | CT_ITS ---
EXAMINATION: CT abdomen pelvis w con DATE: 05/05/2024 18:30 INDICATION: lower abdominal pain, diarrhea, vomiting TECHNIQUE: Computed tomography (CT) of the abdomen and pelvis was performed with 100 mL Omnipaque-350 intravenous contrast. Automated exposure control and iterative reconstruction technique were employe d. The dose-length product was 1270.40 mGy-cm. COMPARISON: 01/13/2027. FINDINGS: Lower thorax: Unremarkable Liver: Left and right lobe cysts. Multiple additional subcentimeter hypodensities that are too small to characterize but likely represent cysts or hemangiomas. Biliary/Gallbladder: Gallbladder is absent. No intrahepatic duct dilation. Mild extrahepatic duct dil ation likely secondary to cholecystectomy. Pancreas: No mass or duct dilation. Spleen: Normal. Adrenals:No mass. Kidneys: No suspicious mass, obstructing stone, or hydronephrosis. Punctate nonobstructing left midpo le calcification. Multiple bilateral simple renal cysts. Multiple bilateral subcentimeter hypodensiti es, too small to characterize but also likely represent cysts. GI tract: No small or large bowel dilation. Normal appendix. Diverticulosis without diverticulitis. Mesentery/Peritoneum: No ascites, mass, or free air. Lymphadenopathy in the maicol hepatis, a chronic finding. Retroperitoneum: No mass. Atherosclerotic abdominal aortic and/or arterial calcifications. Pelvis: Empty urinary bladder. Normal uterus and bilateral ovaries.. Soft Tissues: Posterior stimulator pack, leads terminating over the lower thoracic spine. Bones: No acute osseous finding. IMPRESSION: No acute abdominopelvic process detected. Reviewed, dictated and finalized at location K.
--- NOTE | 2024-05-05 16:21 | ED.ABDPAIN ---
HPI - Abdominal Pain General Chief Complaint: Abdominal Pain <Fatuma Adams PA-C - Last Filed: 05/06/24 09:54> Stated Complaint: abd pain <Fatuma Adams PA-C - Last Filed: 05/06/24 09:54> Time Seen by Provider: 05/05/24 16:21 <Fatuma Adams PA-C - Last Filed: 05/06/24 09:54> Focused HPI: This is a 64 year old female that presents to the ER for mid-lower abdominal pain. Ongoing over the last 5 days. Reports subjective fever. Reports vomiting and diarrhea. Reports history of diverticulitis. Reports over the weekend her heart hurt a couple of times. GENERAL: Well-appearing, well-nourished, and in no acute distress. HEAD: Normocephalic, atraumatic. CHEST: Clear to auscultation. ?No respiratory distress. HEART: Regular rate and rhythm.? NEURO: ?Alert and oriented x3. Patient screened in triage and initial orders placed.? ?Additional care and disposition to be based upon?diagnostic testing and treatment. <Fatuma Adams PA-C - Last Filed: 05/06/24 09:54> History of Present Illness HPI narrative: 64-year-old female presenting with abdominal pain. States that for the last several days she has had lower mid abdominal pain associated with diarrhea and nausea and vomiting. States that she has a history of diverticulitis. Several days ago she also had a headache and intermittent chest pains that have resolved. No dysuria or hematuria. No further complaints. <Jaylyn Goddard MD - Last Filed: 05/07/24 14:47> Related Data Home Medications: Home Medications Medication Instructions Recorded Confirmed cetirizine 10 mg tablet (Zyrtec) 10 mg PO DAILY 07/01/19 02/28/24 lansoprazole 15 mg capsule,delayed 15 mg PO DAILY 07/01/19 02/28/24 release (Prevacid) chlordiazepoxide HCl 25 mg capsule 25 mg PO 02/03/24 02/28/24 <Fatuma Adams PA-C - Last Filed: 05/06/24 09:54> Allergies/Adverse Reactions: Allergies Allergy/AdvReac Type Severity Reaction Status Date / Time Sulfa (Sulfonamide Allergy Severe Anaphylaxis Verified 05/05/24 16:29 Antibiotics) <Fatuma Adams PA-C - Last Filed: 05/06/24 09:54> Review of Systems Review of Systems: All systems reviewed & are unremarkable except as noted in HPI and below <Jaylyn Goddard MD - Last Filed: 05/07/24 14:47> [facility] Past Medical History Medical History: Medical History Abnormal Pap smear of cervix 2004 hpv - no bx Chronic back pain Degenerative disc disease Depression with anxiety Diverticulitis (~11/2018) Gastroesophageal reflux disease Hepatitis During childhood, presumably hepatitis A. 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 Hyperlipidemia Hypertension Nicotine dependence Osteoarthritis Screening mammogram, encounter for Seasonal rhinitis TIA (transient ischemic attack) (~07/2020) Vertigo Vitamin D deficiency <Fatuma Adams PA-C - Last Filed: 05/06/24 09:54> Surgical History Surgical History: Surgical History History of bilateral tubal ligation (~1999) History of carpal tunnel release of both wrists (~2004) History of cervical spinal surgery Discectomy and fusion 3 vertebrae History of cholecystectomy (~1999) History of colposcopy (05/01/23) History of dilation and curettage (~1999) History of incision and drainage (07/22/20) History of lumbar surgery (06/03/19) Status post insertion of spinal cord stimulator (06/03/19) <Fatuma Adams PA-C - Last Filed: 05/06/24 09:54> Family History Family History: Family History Sibling CHF (congestive heart failure) Cerebrovascular accident Kidney failure Father AAA (abdominal aortic aneurysm) CAD (coronary artery disease) Cerebrovascular accident Mother Brain aneurysm Hypertension Cerebrovascular accident Carcinoma of colon <Jyotsna
--- NOTE | 2024-05-05 16:23 | ECG_ITS ---
Test Date: 2024-05-05 16:42:40 Measurements Intervals [place] Rate: 72 P: 49 UT: 138 QRS: 34 QRSD: 85 T: 52 QT: 421 QTc: 462 Interpretive Statements SINUS RHYTHM WITH SINUS ARRHYTHMIA OTHERWISE NORMAL ECG No previous ECG available for comparison Electronically Signed On 05-06-2024 13:47:47 CDT by Mahendra Hernandez M.D.
[2024-05-05 16:52] LABS: Basophils Percent Auto 0.3 % (0.2-1.2); Eosinophils Absolute Auto 0.2 K/mm3 (0-0.3); Eosinophils Percent Auto 2.7 % (0-4.4); Hematocrit 40.3 % (37.0-47.0); Hemoglobin 13.7 g/dL (12.0-15.0); Immature Granulocyte Absolute 0.04 K/mm3 (0.00-0.031); Immature Granulocyte Percent A 0.5 % (0-0.5); Lymphocytes Absolute Auto 2.16 K/mm3 (0.9-3.2); Lymphocytes Percent Auto 24.5 % (18.3-44.2); Mean Corpuscular Hemoglobin 31.5 pg (26-34); Mean Corpuscular Volume 92.6 fl (80-100); Mean Platelet Volume 10.2 fl (7.4-10.4); Monocytes Absolute Auto 0.7 K/mm3 (0.1-0.6); Monocytes Percent Auto 7.7 % (2.6-8.5); Neutrophils Absolute Auto 5.7 K/mm3 (1.3-6.7); Neutrophils Percent Auto 64.3 % (45.5-73.1); Platelet Count Result 192 k/mm3 (150-375); Red Blood Count 4.35 M/mm3 (4.2-5.4); Red Cell Distribution Width 14.2 % (11.5-14.5); White Blood Count 8.8 K/mm3 (4.5-10.0)
[2024-05-05 16:56] VITALS: BP 173/101; PULSE 72; RESP 14; O2SAT 98
[2024-05-05 17:01] LABS: Alanine Aminotransferase 23 U/L (6-35); Albumin Level 4.2 g/dL (3.5-5.1); Alkaline Phosphatase 74 U/L (38-126); Anion Gap 7 mmol/L (4-12); Aspartate Amino Transferase 34 U/L (14-36); Bilirubin,Total 0.9 mg/dL (0.2-1.3); Blood Urea Nitrogen 7 mg/dL (7-17); Calcium 9.3 mg/dL (8.4-10.2); Carbon Dioxide 27 mmol/L (22-30); Chloride 104 mmol/L (98-107); Estimated CRCL calculation 87 ml/min; Estimated Glomerular Filt Rate > 60; Glucose 96 mg/dL (65-110); Lipase 146 U/L (23-300); Potassium 3.4 mmol/L (3.4-5.0); Sodium 138 mmol/L (137-145)
[2024-05-05 17:12] LABS: Troponin I < 0.012 ng/mL (0.000-0.034)
[2024-05-05] MEDS: ONDANSETRON INJ 4 MG/2 ML VIAL IV PUSH (18:38)
[2024-05-05] MEDS: MORPHINE SULFATE (*CRX) 4 MG/ML INJ IV PUSH (18:38)
[2024-05-05] MEDS: KETOROLAC 15 MG/ML VIAL (*BKC) IV PUSH (18:38)
[2024-05-05] MEDS: SODIUM CHLORIDE 0.9% IV 1,000 ML 999 ML IV CONT (18:38)
[2024-05-05 19:24] VITALS: BP 180/98; PULSE 61; RESP 18; O2SAT 99
[2024-05-05 20:21] LABS: Add Urine Microscopic? YES; Appearance Urine Clear (Clear); Bacteria Urine None Seen /hpf; Bilirubin Urine Negative (Negative); Blood Urine Negative (Negative); Color Urine Yellow (Yellow); Glucose Urine UA Negative (Negative); Ketones Urine 1+ mg/dL (Negative); Leukocyte Esterase Ur Negative LEU/UL (Negative); Nitrate Urine Negative (Negative); Non Pathogenic Casts 0-2; Protein Urine 1+ mg/dL (Negative); RBC Urine 0-2 /hpf (0-2); Specific Grav Ur > 1.045 (1.001-1.035); Squamous Epithelial Cell Urine None Seen /hpf (Few); WBC Urine 0-5 /hpf (0-3); pH Urine 6.5 (5.0-9.0)
== END 2024-05-05 21:23 | disposition home or self-care (01) ==
PROVIDERS: Physician Assistant; Emergency Provider Emergency Medicine; PCP Internal Medicine
DX: R11.2 Nausea with vomiting, unspecified (principal); R10.30 Lower abdominal pain, unspecified; I10 Essential (primary) hypertension; E78.5 Hyperlipidemia, unspecified; E55.9 Vitamin D deficiency, unspecified; K21.9 Gastro-esophageal reflux disease without esophagitis; Z86.73 Personal history of transient ischemic attack (TIA), and cerebral infarction without residual deficits; Z98.1 Arthrodesis status; Z96.82 Presence of neurostimulator; F17.290 Nicotine dependence, other tobacco product, uncomplicated; F12.90 Cannabis use, unspecified, uncomplicated; Z79.01 Long term (current) use of anticoagulants; Z79.82 Long term (current) use of aspirin
CPT/HCPCS: 36415; 71046; 74177; 80053; 81001; 83690; 84484; 85025; 93005; 96361; 96374; 96375; 99284; J1885; J2270; J2405; J7030; Q9967

== ENCOUNTER 2024-05-08 12:08 | Outpatient (CLI) | payer MEDICARE, SELFPAY ==
[2024-05-08 12:41] LABS: Basophils Percent Auto 0.4 % (0.2-1.2); Eosinophils Absolute Auto 0.1 K/mm3 (0-0.3); Eosinophils Percent Auto 2.3 % (0-4.4); Hematocrit 40.4 % (37.0-47.0); Hemoglobin 13.4 g/dL (12.0-15.0); Immature Granulocyte Absolute 0.02 K/mm3 (0.00-0.031); Immature Granulocyte Percent A 0.4 % (0-0.5); Lymphocytes Absolute Auto 1.37 K/mm3 (0.9-3.2); Lymphocytes Percent Auto 26.8 % (18.3-44.2); Mean Corpuscular HGB Conc 33.2 g/dl (32-36); Mean Corpuscular Volume 93.5 fl (80-100); Monocytes Absolute Auto 0.4 K/mm3 (0.1-0.6); Monocytes Percent Auto 8.6 % (2.6-8.5); Neutrophils Absolute Auto 3.2 K/mm3 (1.3-6.7); Neutrophils Percent Auto 61.5 % (45.5-73.1); Platelet Count Result 168 k/mm3 (150-375); Red Blood Count 4.32 M/mm3 (4.2-5.4); Red Cell Distribution Width 14.2 % (11.5-14.5); White Blood Count 5.1 K/mm3 (4.5-10.0)
[2024-05-08 12:48] LABS: Creatinine Urine 158.6 mg/dL; Total Protein Urine Random 59 mg/dL; Ur Ttl Prot Creatinine Ratio 0.37 mg/mg (0-0.20)
[2024-05-08 12:55] LABS: Alanine Aminotransferase 25 U/L (6-35); Albumin Level 4.2 g/dL (3.5-5.1); Alkaline Phosphatase 74 U/L (38-126); Anion Gap 10 mmol/L (4-12); Aspartate Amino Transferase 37 U/L (14-36); Bilirubin,Total 1.1 mg/dL (0.2-1.3); Blood Urea Nitrogen 4 mg/dL (7-17); Calcium 9.3 mg/dL (8.4-10.2); Carbon Dioxide 25 mmol/L (22-30); Chloride 105 mmol/L (98-107); Cholesterol 199 mg/dL (0-200); Estimated Glomerular Filt Rate > 60; Glucose 96 mg/dL (65-110); HDL Direct 49 mg/dL; Sodium 140 mmol/L (137-145); Triglycerides 111 mg/dL (<150)
[2024-05-08 12:56] LABS: Albumin Level 4.1 g/dL (3.5-5.1); Anion Gap 9 mmol/L (4-12); Blood Urea Nitrogen 4 mg/dL (7-17); Calcium 9.2 mg/dL (8.4-10.2); Carbon Dioxide 25 mmol/L (22-30); Chloride 106 mmol/L (98-107); Estimated Glomerular Filt Rate > 60; Glucose 97 mg/dL (65-110); Sodium 140 mmol/L (137-145)
[2024-05-08 13:06] LABS: LDL Cholesterol Direct 108 mg/dL
== END 2024-05-08 12:09 | disposition home or self-care (01) ==
PROVIDERS: Clinical Nurse Specialist; PCP Internal Medicine; Visit Provider Internal Medicine Nephrology
DX: N28.1 Cyst of kidney, acquired (principal); R80.9 Proteinuria, unspecified; I10 Essential (primary) hypertension; E78.5 Hyperlipidemia, unspecified; R73.09 Other abnormal glucose
CPT/HCPCS: 36415; 80053; 80061; 80069; 82570; 83036; 84156; 85025

== ENCOUNTER 2024-06-01 12:22 | Emergency (ER) | payer MEDICARE, SELFPAY ==
--- NOTE | ~2024-06-01 | XR_ITS ---
EXAMINATION: XR chest 2V DATE: 06/01/2024 13:09 INDICATION: Cough. TECHNIQUE: Frontal and lateral views of the chest were obtained. COMPARISON: Chest 2 views 05/05/2024, CT abdomen and pelvis 05/05/2024 FINDINGS: There are airspace opacities in right midlung zone. No pleural effusion or pneumothorax. Th e heart size is normal. Epidural leads are noted. IMPRESSION: 1. Airspace opacities in right midlung zone, consistent with pneumonia. Reviewed, dictated and finalized at location B.
[2024-06-01 12:27] VITALS: BP 177/100; PULSE 111; RESP 15; TEMP 36.6; O2SAT 98
[2024-06-01] MEDS: SODIUM CHLORIDE 0.9% IV 1,000 ML 999 ML IV CONT (13:25)
[2024-06-01] MEDS: ONDANSETRON INJ 4 MG/2 ML VIAL IV PUSH (13:25)
[2024-06-01 13:34] LABS: Basophils Percent Auto 0.3 % (0.2-1.2); Eosinophils Absolute Auto 0.1 K/mm3 (0-0.3); Eosinophils Percent Auto 0.4 % (0-4.4); Hematocrit 42.3 % (37.0-47.0); Hemoglobin 14.4 g/dL (12.0-15.0); Immature Granulocyte Absolute 0.07 K/mm3 (0.00-0.031); Immature Granulocyte Percent A 0.6 % (0-0.5); Lymphocytes Absolute Auto 1.39 K/mm3 (0.9-3.2); Lymphocytes Percent Auto 11.1 % (18.3-44.2); Mean Corpuscular Hemoglobin 31.2 pg (26-34); Mean Corpuscular Volume 91.6 fl (80-100); Mean Platelet Volume 10.3 fl (7.4-10.4); Monocytes Absolute Auto 1.3 K/mm3 (0.1-0.6); Monocytes Percent Auto 10.2 % (2.6-8.5); Neutrophils Absolute Auto 9.7 K/mm3 (1.3-6.7); Neutrophils Percent Auto 77.4 % (45.5-73.1); Platelet Count Result 170 k/mm3 (150-375); Red Blood Count 4.62 M/mm3 (4.2-5.4); Red Cell Distribution Width 14.6 % (11.5-14.5); White Blood Count 12.5 K/mm3 (4.5-10.0)
[2024-06-01 13:43] LABS: Alanine Aminotransferase 19 U/L (6-35); Albumin Level 4.1 g/dL (3.5-5.1); Alkaline Phosphatase 90 U/L (38-126); Anion Gap 12 mmol/L (4-12); Aspartate Amino Transferase 27 U/L (14-36); Bilirubin,Total 2.2 mg/dL (0.2-1.3); Blood Urea Nitrogen 7 mg/dL (7-17); Calcium 9.1 mg/dL (8.4-10.2); Carbon Dioxide 25 mmol/L (22-30); Chloride 100 mmol/L (98-107); Estimated CRCL calculation 71 ml/min; Estimated Glomerular Filt Rate > 60; Glucose 110 mg/dL (65-110); Lipase 62 U/L (23-300); Potassium 2.9 mmol/L (3.4-5.0); Sodium 137 mmol/L (137-145)
[2024-06-01] MEDS: POTASSIUM CHLORIDE 20 MEQ ER TABLET 40 MEQ PO (13:51)
[2024-06-01 14:17] LABS: Influenza A QL RT-PCR Negative (Negative); Influenza B QL RT-PCR Negative (Negative); RSV RNA, RT-PCR Negative (Negative); SARS-CoV-2 RNA PCR Negative (Negative)
[2024-06-01 14:31] VITALS: BP 153/99; PULSE 97; RESP 14; O2SAT 98
--- NOTE | 2024-06-01 15:57 | ED_ITS ---
HPI - General Adult General Chief complaint: Upper Respiratory Infection Stated complaint: back pain, cough, congestion Time Seen by Provider: 06/01/24 12:46 History of Present Illness HPI narrative: patient is a 64-year-old female who presents ER with multiple complaints. First complaint is cough. Ongoing over last month. Worse over last 3 days associated with some mild shortness of breath. She also endorses that she has been having diarrhea with this. Due to the cough she is developing back pain. Subjective fevers no chills. Cough is productive. Related Data Home Medications Medication Instructions Recorded Confirmed cetirizine 10 mg tablet (Zyrtec) 10 mg PO DAILY 07/01/19 05/30/24 lansoprazole 15 mg capsule,delayed 15 mg PO DAILY 07/01/19 05/30/24 release (Prevacid) Allergies Allergy/AdvReac Type Severity Reaction Status Date / Time Sulfa (Sulfonamide Allergy Severe Anaphylaxis Verified 06/01/24 12:33 Antibiotics) Review of Systems Review of Systems: All systems reviewed & are unremarkable except as noted in HPI and below Constitutional: Constitutional: Reports no additional constitutional complaints Cardiovascular: Cardiovascular: Reports no additional cardiovascular complaints Respiratory: Respiratory: Reports no additional respiratory complaints Gastrointestinal: Gastrointestinal: Reports no additional gastrointestinal complaints Musculoskeletal: Musculoskeletal: Reports no additional musculoskeletal complaints PMFSH Past Medical History Medical History Abnormal Pap smear of cervix 2004 hpv - no bx Acute diverticulitis Cellulitis Chronic back pain COVID-19 Degenerative disc disease Depression with anxiety Diverticulitis (~11/2018) Dysuria Elevated glucose level Gastroesophageal reflux disease Hepatitis During childhood, presumably hepatitis A. Herniated disc History of HPV infection Hospital discharge follow-up HPV in female Hyperlipidemia Hypertension Hypokalemia Leg swelling Nicotine dependence Osteoarthritis Pneumonia due to COVID-19 virus Screening mammogram, encounter for Seasonal rhinitis TIA (transient ischemic attack) (~07/2020) Vertigo Viral illness Vitamin D deficiency Vomiting and diarrhea Surgical History Surgical History History of bilateral tubal ligation (~1999) History of carpal tunnel release of both wrists (~2004) History of cervical spinal surgery Discectomy and fusion 3 vertebrae History of cholecystectomy (~1999) History of colposcopy (05/01/23) History of dilation and curettage (~1999) History of incision and drainage (07/22/20) History of lumbar surgery (06/03/19) Status post insertion of spinal cord stimulator (06/03/19) Family History Family History Sibling CHF (congestive heart failure) Cerebrovascular accident Kidney failure Father AAA (abdominal aortic aneurysm) CAD (coronary artery disease) Cerebrovascular accident Mother Brain aneurysm Hypertension Cerebrovascular accident Carcinoma of colon Social History Social History Social History: Surrogate decision maker: Carolina Kiran, daughter. Code status: Full code. Smoking packs per day: 1 Smoking cigarettes per day: 20.0 Years smoked: 30 Smoking pack-years: 30.00 Smoking status: Former smoker Tobacco type: cigarettes Smoking end date: 08/05/23 Additional smoking assessment comments: QUIT CIGARETTES FOR 17 YEARS, THEN RESTARTED. QUIT AGAIN 2019, NOW VAPING Alcohol intake: current Drinks per week: 56 Alcohol use details: WEEKENDS ONLY Substance use: current Substance use type: marijuana Other substance usage details: GUMMIES FOR PAIN Do You Feel Safe in your Home?: Yes Lack of Transportation: No Lack of Food: Never True Current Housing: I Have Housing Concerned About Future Housing: No Difficulty Paying Gas/Electric Bills: No Difficulty Paying for Meds: No Currently Unemployed: No Education: Trade/Vocational Certificate Difficulty w/ Childcare or Family Care: No Living arrangements: with family Additional living arrangements comments: in 2021 as of 2018. Lives in a split home in [place]. Adult daughter and son-in-law live upstairs. Occupation/Education: unemployed Additional occupation/education comments: disabled Gender identity (if verbalized by the patient): Female Sexual Orientation (if Verbalized by the Patient): Straight or Heterosexual Spiritual care concerns: No Exam Narrative: GENERAL: Well-appearing, well-nourished, and in no acute distress. HEAD: Normocephalic, atraumatic. ENT: Mucous membranes moist. CHEST: Clear to auscultation. No respiratory distress. Occasional coughing. HEART: Tachycardic and regular. Normal peripheral pulses. ABDOMEN: Soft, nontender, nondistended. EXTREMITIES: Normal range of motion. No edema. SKIN: Warm, dry, no rash. NEURO: Alert and oriented x3. PSYCH: Normal mood and affect. Course Course Emergency Course: mild hypokalemia from vomiting. Replaced with oral supplementation. Patient informed of results. Discharge with antibiotics to cover pneumonia. Azithromyc in would also cover legionnaires if that is the cause of her diarrhea. Vital Signs Vital signs: Vital Signs Temperature 97.9 F 06/01/24 12:27 Pulse Rate 111 H 06/01/24 12:27 Respiratory Rate 15 06/01/24 12:27 Blood Pressure 177/100 H 06/01/24 12:27 Pulse Oximetry 98 06/01/24 12:27 Oxygen Delivery Room Air 06/01/24 12:27 Temperature 97.9 F 06/01/24 12:27 Pulse Rate 94 06/01/24 16:25 Respiratory Rate 16 06/01/24 16:25 Blood Pressure 144/89 H 06/01/24 16:25 Pulse Oximetry 98 06/01/24 16:25 Oxygen Delivery Room Air 06/01/24 12:45 Medical Decision Making Vital Signs Vital Signs: Vital Signs Temperature 97.9 F 06/01/24 12:27 Pulse Rate 111 H 06/01/24 12:27 Respiratory Rate 15 06/01/24 12:27 Blood Pressure 177/100 H 06/01/24 12:27 Pulse Oximetry 98 06/01/24 12:27 Oxygen Delivery Room Air 06/01/24 12:27 Temperature 97.9 F 06/01/24 12:27 Pulse Rate 94 06/01/24 16:25 Respiratory Rate 16 06/01/24 16:25 Blood Pressure 144/89 H 06/01/24 16:25 Pulse Oximetry 98 06/01/24 16:25 Oxygen Delivery Room Air 06/01/24 12:45 Lab Data 06/01/24 13:19 06/01/24 13:19 Labs: Lab Results 06/01/24 06/01/24 Range/Units 13:13 13:19 WBC 12.5 H (4.5-10.0) K/mm3 RBC 4.62 (4.2-5.4) M/mm3 Hgb 14.4 (12.0-15.0) g/dL Hct 42.3 (37.0-47.0) % MCV 91.6 (80-100) fl MCH 31.2 (26-34) pg MCHC 34.0 (32-36) g/dl RDW 14.6 H (11.5-14.5) % Plt Count 170 (150-375) k/mm3 MPV 10.3 (7.4-10.4) fl Immature Gran % (Auto) 0.6 H (0-0.5) % Neut % (Auto) 77.4 H (45.5-73.1) % Lymph % (Auto) 11.1 L (18.3-44.2) % [place] % (Auto) 10.2 H (2.6-8.5) % Eos % (Auto) 0.4 (0-4.4) % Baso % (Auto) 0.3 (0.2-1.2) % Lymph # (Auto) 1.39 (0.9-3.2) K/mm3 [place] # (Auto) 1.3 H (0.1-0.6) K/mm3 Eos # (Auto) 0.1 (0-0.3) K/mm3 Baso # (Auto) 0.0 (0.0-0.1) K/mm3 Abs Immat Gran (auto) 0.07 H (0.00-0.031) K/mm3 Absolute Neuts (auto) 9.7 H (1.3-6.7) K/mm3 Absolute Nucleated RBC 0.000 (0.0-0.012) K/mm3 Nucleated RBC % 0.0 (0.0-0.2) % Sodium 137 (137-145) mmol/L Potassium 2.9 L (3.4-5.0) mmol/L Chloride 100 (98-107) mmol/L Carbon Dioxide 25 (22-30) mmol/L Anion Gap 12 (4-12) mmol/L BUN 7 (7-17) mg/dL Creatinine 0.80 (0.7-1.0) mg/dL Estim Creat Clear Calc 71 ml/min Estimated GFR > 60 (59 - ) Glucose 110 (65-110) mg/dL Calcium 9.1 (8.4-10.2) mg/dL Total Bilirubin 2.2 H (0.2-1.3) mg/dL AST 27 (14-36) U/L ALT 19 (6-35) U/L Alkaline Phosphatase 90 (38-126) U/L Total Protein 8.0 (6.3-8.2) g/dL Albumin 4.1 (3.5-5.1) g/dL Lipase 62 (23-300) U/L Urine Color Cancelled Urine Appearance Cancelled Urine pH Cancelled Ur Specific [place] Cancelled Urine Protein Cancelled Urine Glucose (UA) Cancelled Urine Ketones Cancelled Ur Blood (Man) Cancelled Urine Nitrate Cancelled Urine Bilirubin Cancelled Urine Urobilinogen Cancelled Add Ur Microanalysis Cancelled Leukocyte Esterase Rfl Cancelled Urine RBC Cancelled Urine WBC Cancelled Urine WBC Clumps Cancelled Ur Squamous Epith Cells Cancelled Ur Transition Epith Cell Cancelled Ur Renal Epithelial Cell Cancelled Inman Biurate Crystals Cancelled Calcium Carbonate Cryst Cancelled Calcium Phosphate Cryst Cancelled Calcium Oxalate Crystal Cancelled Leucine Crystals Cancelled Cystine Crystals Cancelled Uric Acid Crystals Cancelled Triple Phos Crystals Cancelled Sulfonamide Crystals Cancelled Cholesterol Crystals Cancelled Talc Crystals Cancelled Tyrosine Crystals Cancelled Hippuric Acid Crystals Cancelled Bilirubin Crystals Cancelled Other Crystals Cancelled Amorphous Sediment Cancelled Other Sediment Cancelled Urine Bacteria Cancelled Urine Casts Cancelled Cellular Casts Cancelled Epithelial Casts Cancelled Fatty Casts Cancelled Hyaline Casts Cancelled Granular Casts Cancelled Waxy Casts Cancelled Broad Casts Cancelled RBC Casts Cancelled WBC Casts Cancelled Urine Starch Cancelled Urine Mucus Cancelled Urine Trichomonas Cancelled Urine Yeast (Budding) Cancelled Ur Oval Fat Bodies Cancelled Sperm Presence Cancelled Influenza A (RT-PCR) Negative (Negative) Influenza B (RT-PCR) Negative (Negative) RSV (RT-PCR) Negative (Negative) SARS-CoV-2 RNA (RT-PCR) Negative (Negative) Imaging Data Radiologist's impression: ITS Impressions Chest X-Ray 06/01/24 13:17 IMPRESSION: 1. Airspace opacities in right midlung zone, consistent with pneumonia. Discharge Plan Discharge Clinical Impression: Pneumonia, Acute hypokalemia Patient Disposition: Home, Self-Care Condition: Stable Instructions: Antibiotic Form, Hypokalemia (ED), Community Acquired Pneumonia (ED) Additional Instructions: Return the ER if you have difficulty keeping down food /water / medication, lose consciousness, or have additional concerns. Prescriptions: New promethazine 12.5 mg tablet 12.5 mg PO TID Qty: 10 0RF azithromycin 250 mg tablet See Rx Instructions .ROUTE .COMPLEX Qty: 6 0RF Rx Instructions: take 500 mg today (day 1), then 250 mg for 4 days (days 2-5) doxycycline hyclate 100 mg tablet 100 mg PO BID Qty: 10 0RF potassium chloride 20 mEq tablet extended release 20 meq PO DAILY Qty: 5 0RF No Action lansoprazole [Prevacid] 15 mg capsule,delayed release(DR/EC) 15 mg PO DAILY cetirizine [Zyrtec] 10 mg tablet 10 mg PO DAILY clonidine HCl 0.1 mg tablet 0.1 mg PO Q8H PRN (Reason: hypertensive emergency) Qty: 30 0RF Rx Instructions: Take if SBP is greater than 160 and/or DBP is greater than 105 pravastatin 10 mg tablet 10 mg PO QHS Qty: 90 3RF diltiazem HCl 120 mg capsule,extended release 24 hr 120 mg PO DAILY Qty: 90 3RF lisinopril 30 mg tablet 30 mg PO BID Qty: 180 1RF citalopram 20 mg tablet See Rx Instructions .ROUTE .COMPLEX Qty: 90 1RF Dose Instruction: TAKE 1 TABLET BY MOUTH DAILY Rx Instructions: TAKE 1 TABLET BY MOUTH DAILY Follow-up/Referrals: Ander Dunne DO [Primary Care Provider] - 1 Week
[2024-06-01 16:25] VITALS: BP 144/89; PULSE 94; RESP 16; O2SAT 98
== END 2024-06-01 16:30 | disposition home or self-care (01) ==
PROVIDERS: Emergency Provider Emergency Medicine; PCP Internal Medicine
DX: J18.9 Pneumonia, unspecified organism (principal); E87.6 Hypokalemia; Z20.822 Contact with and (suspected) exposure to COVID-19; F32.A Depression, unspecified; F41.9 Anxiety disorder, unspecified; K21.9 Gastro-esophageal reflux disease without esophagitis; I10 Essential (primary) hypertension; M19.90 Unspecified osteoarthritis, unspecified site
CPT/HCPCS: 36415; 71046; 80053; 83690; 85025; 87637; 96361; 96374; 99284; A9270; J2405; J7030

== ENCOUNTER 2024-06-30 09:53 | Outpatient (CLI) | payer MEDICARE, SELFPAY ==
--- NOTE | ~2024-06-30 | CT_ITS ---
EXAMINATION:CT diagnostic chest w con DATE: 06/30/2024 10:25 INDICATION: Shortness of breath. TECHNIQUE: Computed tomography (CT) of the chest was performed with 75 mL Omnipaque 350 intravenous c ontrast. Automated exposure control and iterative reconstruction technique were employed. The dose-le ngth product (DLP) was 259.00 mGy-cm. COMPARISON: Chest CT 11/17/2020 FINDINGS: There are mild peripheral airspace opacities in right upper lobe. No pleural effusion. The heart size is normal. No pericardial effusion. There are acute pulmonary emboli in right upper lobe, right middle lobe, in the lower lobes. There are changes of cholecystectomy. There are cysts in the l iver measuring up to 2.6 cm. Epidural electrodes are noted. There is severe thoracic spondylosis. The re is mild chronic anterior wedging of multiple mid thoracic vertebral bodies. IMPRESSION: 1. Acute bilateral pulmonary emboli. I left a message with the bookkeeper receptionist at the office of [employer] [facility]. 2. Mild airspace opacities in peripheral right upper lobe, consistent with infarct. Reviewed, dictated and finalized at location A. RING MACHINE OPERATOR IMPRESSION: 1. Acute bilateral pulmonary emboli. I left a message with the bookkeeper receptionist at the office of [employer] [facility]. 2. Mild airspace opacities in peripheral right upper lobe, consistent with infa rct.
[2024-06-30 10:12] LABS: Estimated Glomerular Filt Rate 56
== END 2024-06-30 09:54 | disposition home or self-care (01) ==
LOC: MICIMG 09:55
PROVIDERS: PCP Internal Medicine; Visit Provider Clinical Nurse Specialist
DX: R91.8 Other nonspecific abnormal finding of lung field (principal); I26.99 Other pulmonary embolism without acute cor pulmonale; R06.02 Shortness of breath
CPT/HCPCS: 71260; Q9967

== ENCOUNTER 2024-06-30 16:51 | Observation (INO) | payer MEDICARE, SELFPAY ==
[2024-06-30] VITALS (18 sets, daily range): BP systolic 131–173; BP diastolic 82–98; PULSE 69–86; RESP 12–18; TEMP 36.4; O2SAT 94–99; BMI 35.9
--- NOTE | ~2024-06-30 | XR_ITS ---
EXAMINATION: XR chest 2V Exam Date/Time: 06/30/2024 17:28 AVIATION SURVIVAL TECHNICIAN HISTORY: sob Comparison: CT chest, same date. RESULT: Lines, tubes, and devices: Epidural electrodes project over the lower thoracic spine. Cholecystomy c lips. Lungs and pleura: Persistent focal airspace opacity in the peripheral right upper lung. Cardiomediastinal silhouette: Stable. Other: No acute osseous or upper abdominal finding. IMPRESSION: Focal right upper lung pulmonary infarct as seen in the prior CT. No significant interval change. Reviewed, dictated and finalized at location K. TION SURVIVAL TECHNICIAN IMPRESSION: Focal right upper lung pulmonary infarct as seen in the prior CT. No significan t interval change.
--- NOTE | 2024-06-30 16:55 | ECG_ITS ---
Test Date: 2024-06-30 17:00:45 Measurements Intervals [place] Rate: 75 P: 52 [place]: 135 QRS: 33 QRSD: 85 T: 50 QT: 397 QTc: 444 Interpretive Statements SINUS RHYTHM POSSIBLE RIGHT VENTRICULAR CONDUCTION DELAY BORDERLINE ECG Compared to ECG 05/05/2024 16:42:40 NO SIGNIFICANT CHANGE Electronically Signed On 06-30-2024 19:05:57 HARPOONER by All Montes D.O.
[2024-06-30 17:13] LABS: Basophils Percent Auto 0.5 % (0.2-1.2); Eosinophils Absolute Auto 0.3 K/mm3 (0-0.3); Eosinophils Percent Auto 3.1 % (0-4.4); Hematocrit 42.4 % (37.0-47.0); Hemoglobin 14.1 g/dL (12.0-15.0); Immature Granulocyte Absolute 0.03 K/mm3 (0.00-0.031); Immature Granulocyte Percent A 0.4 % (0-0.5); Lymphocytes Absolute Auto 1.99 K/mm3 (0.9-3.2); Lymphocytes Percent Auto 23.9 % (18.3-44.2); Mean Corpuscular HGB Conc 33.3 g/dl (32-36); Mean Corpuscular Hemoglobin 30.8 pg (26-34); Mean Corpuscular Volume 92.6 fl (80-100); Mean Platelet Volume 10.1 fl (7.4-10.4); Monocytes Absolute Auto 0.7 K/mm3 (0.1-0.6); Monocytes Percent Auto 8.5 % (2.6-8.5); Neutrophils Absolute Auto 5.3 K/mm3 (1.3-6.7); Neutrophils Percent Auto 63.6 % (45.5-73.1); Platelet Count Result 221 k/mm3 (150-375); Red Blood Count 4.58 M/mm3 (4.2-5.4); Red Cell Distribution Width 15.1 % (11.5-14.5); White Blood Count 8.3 K/mm3 (4.5-10.0)
[2024-06-30 17:30] LABS: INR 1.1; Partial Thromboplastin Time 25.2 Seconds (22.3-36.8); Prothrombin Time 14.1 Seconds (11.1-14.7)
[2024-06-30 17:34] LABS: Alanine Aminotransferase 17 U/L (6-35); Alkaline Phosphatase 113 U/L (38-126); Anion Gap 9 mmol/L (4-12); Aspartate Amino Transferase 29 U/L (14-36); Bilirubin,Total 1.3 mg/dL (0.2-1.3); Blood Urea Nitrogen 7 mg/dL (7-17); Calcium 9.4 mg/dL (8.4-10.2); Carbon Dioxide 25 mmol/L (22-30); Chloride 103 mmol/L (98-107); Estimated CRCL calculation 62 ml/min; Estimated Glomerular Filt Rate > 60; Glucose 137 mg/dL (65-110); Potassium 2.9 mmol/L (3.4-5.0); Sodium 137 mmol/L (137-145)
--- NOTE | 2024-06-30 18:03 | ED_ITS ---
HPI - Recheck/Abnormal Lab/Rx General Chief Complaint: Recheck/Abnormal Lab/Rx <Fatuma Adams PA-C - Last Filed: 07/01/24 02:42> Stated Complaint: PE <JOSE Jose Last Filed: 07/01/24 02:42> Time Seen by Provider: 06/30/24 17:19 <JOSE Jose Last Filed: 07/01/24 02:42> Source: patient <JOSE Jose Last Filed: 07/01/24 02:42> Mode of arrival: ambulatory <JOSE Joes Last Filed: 07/01/24 02:42> Limitations: no limitations <Fatuma Adams PA-C - Last Filed: 07/01/24 02:42> History of Present Illness HPI narrative: This is a 64-year-old female that presents to the emergency department for an abnormal outpatient CT scan. Reports she had recently suffered from pneumonia. Had some abnormalities on her chest x-ray which prompted a CT scan. That was performed today. She was called and told to come to the ER as she has blood clots in her lungs. She does endorse some shortness of breath. Denies chest pain. Additionally reports she is currently trying to detox from alcohol. She has been prescribed Librium by her PCP for this. <Fatuma Adams PA-C - Last Filed: 07/01/24 02:42> Related Data Home Medications: Home Medications Medication Instructions Recorded Confirmed cetirizine 10 mg tablet (Zyrtec) 10 mg PO DAILY 07/01/19 06/30/24 lansoprazole 15 mg capsule,delayed 15 mg PO DAILY 07/01/19 06/30/24 release (Prevacid) citalopram 20 mg tablet 20 mg PO DAILY 06/30/24 06/30/24 pravastatin 10 mg tablet 10 mg PO QPM 06/30/24 06/30/24 <JOSE Jose Last Filed: 07/01/24 02:42> Allergies/Adverse Reactions: Allergies Allergy/AdvReac Type Severity Reaction Status Date / Time Sulfa (Sulfonamide Allergy Severe Anaphylaxis Verified 06/30/24 21:16 Antibiotics) <Fatuma Adams PA-C - Last Filed: 07/01/24 02:42> Review of Systems Review of Systems: CONSTITUTIONAL: Denies fever CARDIOVASCULAR: Denies chest pain, or edema. RESPIRATORY: Reports cough and dyspnea. <Fatuma Adams PA-C - Last Filed: 07/01/24 02:42> All systems reviewed & are unremarkable except as noted in HPI and below <Fatuma Adams PA-C - Last Filed: 07/01/24 02:42> [facility] Past Medical History Medical History: Medical History Abnormal Pap smear of cervix 2004 hpv - no bx Acute diverticulitis Cellulitis Chronic back pain COVID-19 Degenerative disc disease Depression with anxiety Diverticulitis (~11/2018) Dysuria Elevated glucose level Gastroesophageal reflux disease Hepatitis During childhood, presumably hepatitis A. Herniated disc History of HPV infection Hospital discharge follow-up Hospital discharge follow-up HPV in female Hyperlipidemia Hypertension Hypokalemia Leg swelling Nicotine dependence Osteoarthritis Pneumonia due to COVID-19 virus Screening mammogram, encounter for Seasonal rhinitis Superficial thrombophlebitis TIA (transient ischemic attack) (~07/2020) Vertigo Viral illness Vitamin D deficiency Vomiting and diarrhea <Fatuma Adams PA-C - Last Filed: 07/01/24 02:42> Surgical History Surgical History: Surgical History History of bilateral tubal ligation (~1999) History of carpal tunnel release of both wrists (~2004) History of cervical spinal surgery Discectomy and fusion 3 vertebrae History of cholecystectomy (~1999) History of colposcopy (05/01/23) History of dilation and curettage (~1999) History of incision and drainage (07/22/20) History of lumbar surgery (06/03/19) Status post insertion of spinal cord stimulator (06/03/19) <JOSE Jose Last Filed: 07/01/24 02:42> Family History Family History: Family History Sibling CHF (congestive heart failure) Cerebrovascular accident Kidney failure Father AAA (abdominal aortic aneurysm) CAD (coronary artery disease) Cerebrovascular accident Mother Brain aneurysm Hypertension Cerebrovascular accident Carcinoma of colon <Fatuma Adams PA-C - Last Filed: 07/01/24 02:42> Social History Social History: Social History Social History: Surrogate decision maker: Carolina Kiran, daughter. Code status: Full code. Smoking packs per day: 1 Smoking cigarettes per day: 20.0 Years smoked: 30 Smoking pack-years: 30.00 Smoking status: Former smoker Tobacco type: e-cigarettes/vaping Additional smoking assessment comments: QUIT CIGARETTES FOR 17 YEARS, THEN RES TARTED. QUIT AGAIN 2019, NOW VAPING Alcohol intake: current Alcohol use details: WEEKENDS ONLY Substance use: current Substance use type: marijuana Other substance usage details: GUMMIES FOR PAIN; 1/2-1/5 per day of whiskey or vodka Do You Feel Safe in your Home?: Yes Lack of Transportation: No Lack of Food: Never True Current Housing: I Have Housing Concerned About Future Housing: No Difficulty Paying Gas/Electric Bills: No Difficulty Paying for Meds: No Currently Unemployed: No Education: Trade/Vocational Certificate Difficulty w/ Childcare or Family Care: No Living arrangements: with family Additional living arrangements comments: in 2021 as of 2018. Lives in a split home in [place]. Adult daughter and son-in-law live upstairs. Occupation/Education: unemployed Additional occupation/education comments: disabled Gender identity (if verbalized by the patient): Female Sexual Orientation (if Verbalized by the Patient): Straight or Heterosexual Spiritual care concerns: No <Fatuma Adams PA-C - Last Filed: 07/01/24 02:42> Exam Narrative: GENERAL: Well-appearing, well-nourished, and in no acute distress. HEAD: Normocephalic, atraumatic. EYES: EOMI. CHEST: Clear to auscultation. No respiratory distress. No wheezes rales or rhonchi HEART: Regular rate and rhythm. No murmur heard. Normal peripheral pulses. EXTREMITIES: Normal range of motion. No edema. SKIN: Warm, dry, no rash. NEURO: No focal deficits. Alert and oriented x3. PSYCH: Normal mood and affect <Fatuma Adams PA-C - Last Filed: 07/01/24 02:42> Course Course Emergency Course: Patient updated on workup and recommendation for admission <Fatuma Adams PA-C - Last Filed: 07/01/24 02:42> [employer]ANT MAINTENANCE ENGINEER/PA Physician Supervision This visit was performed by both a physician and an APC. I performed all aspects of the MDM as documented. <Syed Lema MD - Last Filed: 06/30/24 21:42> Consultations Consultation #1: Spoke with hospitalist about patient and workup who accepts admit <Fatuma Adams PA-C - Last Filed: 07/01/24 02:42> Date: 06/30/24 <Fatuma Adams PA-C - Last Filed: 07/01/24 02:42> Vital Signs Vital signs: Vital Signs Temperature 97.6 F 06/30/24 16:56 Pulse Rate 86 06/30/24 16:56 Respiratory Rate 18 06/30/24 16:56 Blood Pressure 173/89 H 06/30/24 16:56 Pulse Oximetry 98 06/30/24 16:56 Temperature 97.8 F 07/01/24 00:20 Pulse Rate 70 07/01/24 02:00 Respiratory Rate 16 07/01/24 00:20 Blood Pressure 144/91 H 07/01/24 00:20 Pulse Oximetry 100 07/01/24 00:20 Oxygen Delivery Room Air 06/30/24 23:30 <Fatuma Adams PA-C - Last Filed: 07/01/24 02:42> Vital Signs Temperature 97.6 F 06/30/24 16:56 Pulse Rate 86 06/30/24 16:56 Respiratory Rate 18 06/30/24 16:56 Blood Pressure 173/89 H 06/30/24 16:56 Pulse Oximetry 98 06/30/24 16:56 Temperature 97.8 F 07/01/24 00:20 Pulse Rate 70 07/01/24 02:00 Respiratory Rate 16 07/01/24 00:20 Blood Pressure 144/91 H 07/01/24 00:20 Pulse Oximetry 100 07/01/24 00:20 Oxygen Delivery Room Air 06/30/24 23:30 <Syed Lema MD - Last Filed: 06/30/24 21:42> MDM - Recheck/Abnormal Lab/Rx MDM Narrative Medical decision making narrative: Patient presents to the emergency department for outpatient imaging showing PE. She does endorse some shortness of breath. Oxygen saturation has remained normal on room air. Cbc without leukocytosis. Metabolic panel with mild hypokalemia, patient given a dose of potassium in the ER. Magnesium is also low. This was replaced as well. Patient will be started on Lovenox. Spoke with hospitalist about patient and workup who accepts admission <Fatuma Adams PA-C - Last Filed: 07/01/24 02:42> Medical Records Attestation: I reviewed the patient's medical records. <Fatuma Adams PA-C - Last Filed: 07/01/24 02:42> Medical records narrative: CT chest with contrast IMPRESSION: 1. Acute bilateral pulmonary emboli. I left a message with the otr flatbed company truck driver at the office of [employer]. 2. Mild airspace opacities in peripheral right upper lobe, consistent with infarct. <Fatuma Adams PA-C - Last Filed: 07/01/24 02:42> Lab Data Attestation: I reviewed the patient's lab results. <Fatuma Adams PA-C - Last Filed: 07/01/24 02:42> Result diagrams: 06/30/24 17:06 06/30/24 17:07 <Fatuma Adams PA-C - Last Filed: 07/01/24 02:42> Labs: Lab Results 06/30/24 06/30/24 Range/Units 17:06 17:07 WBC 8.3 (4.5-10.0) K/mm3 RBC 4.58 (4.2-5.4) M/mm3 Hgb 14.1 (12.0-15.0) g/dL Hct 42.4 (37.0-47.0) % MCV 92.6 (80-100) fl MCH 30.8 (26-34) pg MCHC 33.3 (32-36) g/dl RDW 15.1 H (11.5-14.5) % Plt Count 221 (150-375) k/mm3 MPV 10.1 (7.4-10.4) fl Immature Gran % (Auto) 0.4 (0-0.5) % Neut % (Auto) 63.6 (45.5-73.1) % Lymph % (Auto) 23.9 (18.3-44.2) % [place] % (Auto) 8.5 (2.6-8.5) % Eos % (Auto) 3.1 (0-4.4) % Baso % (Auto) 0.5 (0.2-1.2) % Lymph # (Auto) 1.99 (0.9-3.2) K/mm3 [place] # (Auto) 0.7 H (0.1-0.6) K/mm3 Eos # (Auto) 0.3 (0-0.3) K/mm3 Baso # (Auto) 0.0 (0.0-0.1) K/mm3 Abs Immat Gran (auto) 0.03 (0.00-0.031) K/mm3 Absolute Neuts (auto) 5.3 (1.3-6.7) K/mm3 Absolute Nucleated RBC 0.000 (0.0-0.012) K/mm3 Nucleated RBC % 0.0 (0.0-0.2) % PT 14.1 (11.1-14.7) Seconds INR 1.1 APTT 25.2 (22.3-36.8) Seconds Sodium 137 (137-145) mmol/L Potassium 2.9 L (3.4-5.0) mmol/L Chloride 103 (98-107) mmol/L Carbon Dioxide 25 (22-30) mmol/L Anion Gap 9 (4-12) mmol/L BUN 7 (7-17) mg/dL Creatinine 0.90 (0.7-1.0) mg/dL Estim Creat Clear Calc 62 ml/min Estimated GFR > 60 (59 - ) Glucose 137 H (65-110) mg/dL Calcium 9.4 (8.4-10.2) mg/dL Magnesium 1.5 L (1.6-2.3) mg/dL Total Bilirubin 1.3 (0.2-1.3) mg/dL AST 29 (14-36) U/L ALT 17 (6-35) U/L Alkaline Phosphatase 113 (38-126) U/L Total Protein 8.0 (6.3-8.2) g/dL Albumin 4.0 (3.5-5.1) g/dL <Fatuma Adams PA-C - Last Filed: 07/01/24 02:42> Lab Results 06/30/24 06/30/24 Range/Units 17:06 17:07 WBC 8.3 (4.5-10.0) K/mm3 RBC 4.58 (4.2-5.4) M/mm3 Hgb 14.1 (12.0-15.0) g/dL Hct 42.4 (37.0-47.0) % MCV 92.6 (80-100) fl MCH 30.8 (26-34) pg MCHC 33.3 (32-36) g/dl RDW 15.1 H (11.5-14.5) % Plt Count 221 (150-375) k/mm3 MPV 10.1 (7.4-10.4) fl Immature Gran % (Auto) 0.4 (0-0.5) % Neut % (Auto) 63.6 (45.5-73.1) % Lymph % (Auto) 23.9 (18.3-44.2) % [place] % (Auto) 8.5 (2.6-8.5) % Eos % (Auto) 3.1 (0-4.4) % Baso % (Auto) 0.5 (0.2-1.2) % Lymph # (Auto) 1.99 (0.9-3.2) K/mm3 [place] # (Auto) 0.7 H (0.1-0.6) K/mm3 Eos # (Auto) 0.3 (0-0.3) K/mm3 Baso # (Auto) 0.0 (0.0-0.1) K/mm3 Abs Immat Gran (auto) 0.03 (0.00-0.031) K/mm3 Absolute Neuts (auto) 5.3 (1.3-6.7) K/mm3 Absolute Nucleated RBC 0.000 (0.0-0.012) K/mm3 Nucleated RBC % 0.0 (0.0-0.2) % PT 14.1 (11.1-14.7) Seconds INR 1.1 APTT 25.2 (22.3-36.8) Seconds Sodium 137 (137-145) mmol/L Potassium 2.9 L (3.4-5.0) mmol/L Chloride 103 (98-107) mmol/L Carbon Dioxide 25 (22-30) mmol/L Anion Gap 9 (4-12) mmol/L BUN 7 (7-17) mg/dL Creatinine 0.90 (0.7-1.0) mg/dL Estim Creat Clear Calc 62 ml/min Estimated GFR > 60 (59 - ) Glucose 137 H (65-110) mg/dL Calcium 9.4 (8.4-10.2) mg/dL Magnesium 1.5 L (1.6-2.3) mg/dL Total Bilirubin 1.3 (0.2-1.3) mg/dL AST 29 (14-36) U/L ALT 17 (6-35) U/L Alkaline Phosphatase 113 (38-126) U/L Total Protein 8.0 (6.3-8.2) g/dL Albumin 4.0 (3.5-5.1) g/dL <Syed Lema MD - Last Filed: 06/30/24 21:42> Imaging Data Radiologist's impression: ITS Impressions Chest X-Ray 06/30/24 17:40 IMPRESSION: Focal right upper lung pulmonary infarct as seen in the prior CT. No significant interval change. <Fatuma Adams PA-C - Last Filed: 07/01/24 02:42> Critical Care Time Critical Care Time Critical Care Time: Yes <Fatuma Adams PA-C - Last Filed: 07/01/24 02:42> Total Critical Care Time: 35 <Fatuma Adams PA-C - Last Filed: 07/01/24 02:42> Discharge Plan Discharge Clinical Impression: Alcohol abuse Pulmonary emboli Qualifiers: Pulmonary embolism type: multiple subsegmental (without acute cor pulmonale) Qualified Code(s): I26.94 - [facility] <Fatuma Adams PA-C - Last Filed: 07/01/24 02:42> Patient Disposition: Still a Patient <Fatuma Adams PA-C - Last Filed: 07/01/24 02:42> Condition: Serious <MARLI Jose-Tim - Last Filed: 07/01/24 02:42>
[2024-06-30 18:16] LABS: Magnesium 1.5 mg/dL (1.6-2.3)
[2024-06-30] MEDS: chlordiazePOXIDE (*CRX) 25 MG CAPSULE 50 MG PO (18:24)
[2024-06-30] MEDS: ENOXAPARIN 100 MG/ML SYRINGE 95 MG SUB-Q (18:24)
[2024-06-30] MEDS: POTASSIUM CHLORIDE 20 MEQ ER TABLET 40 MEQ PO (18:24)
[2024-06-30] MEDS: MAGNESIUM SULF 2 GM/WATER 50ML 2 GM/50 ML BAG IVPB (18:34)
--- NOTE | 2024-06-30 20:57 | ADMGEN ---
This patient, Ninoska Del Rosario, was admitted to IMU Room 212-. Patient/family oriented to hospital policies and general routines including ID bracelet, bed and alarms, visiting hours, pain management, procedures, bathroom and other care routines, personal items, smoking policy, room service/diet, and visiting hours. Information on how to activate the Rapid Response Team has been discussed. Patient/Family are encouraged to report perceived risks to care and to ask questions if they do not understand what they are told or what they should do.
--- NOTE | 2024-06-30 21:26 | PC.NURSE ---
Admission report to [facility].
[2024-06-30] MEDS: chlordiazePOXIDE (*CRX) 25 MG CAPSULE PO (23:32)
[2024-06-30 23:38] LABS: Glucose Point of Care 136 mg/dl (65-105)
[2024-07-01] VITALS (19 sets, daily range): BP systolic 132–146; BP diastolic 72–105; PULSE 67–99; RESP 16–20; TEMP 36.3–36.7; O2SAT 91–100; BMI 35.9
--- NOTE | 2024-07-01 | ECHO_ITS ---
Patient Info Name: Ninoska Del Rosario Age: 64 years : 1960 Gender: Female Ht: 65 in Wt: 210 lbs BSA: 2.13 m2 HR: 74 bpm BP: 139 / 88 mmHg Technical Quality: Fair Exam Date: 07/01/2024 10:30 AM Exam Location: Echo Lab Patient Status: Inpatient Admit Date: 06/30/2024 Staff Ordering Physician: Norma Mendoza DO Bit Gatherer: Vikram Yang RDCS Attending Provider: Juancho Meza MD Referring Physician: Kelly LUTHER; Exam Type: CA echo doppler color flow Study Info Indications - PULMONARY EMBOLISM Complete two-dimensional, color flow and Doppler transthoracic echocardiogram is performed with contrast to opacify the left ventricle and to improve the deliniation of the left ventricle endocardial borders. Contrast/Agitated Saline Contrast/Ag. Saline: Definity Amount: 2.00 ml Existing IV Access: Yes Summary 1. Definity contrast administered improved wall motion interpretation. 2. Left ventricular chamber dimension is normal. 3. Left ventricular systolic function is normal, estimated at 60-65%. 4. There is mild concentric increased left ventricular wall thickness. 5. The left ventricular diastolic function is grade I diastolic dysfunction. 6. E/e' 7 is not elevated. 7. Left atrial chamber dimension is mildly enlarged. 8. There is mild aortic valve sclerosis. 9. There is mild tricuspid valve regurgitation. 10. No pulmonary hypertension, estimated pulmonary arterial systolic pressure is 35 mmHg. 11. Dilated inferior vena cava with >50% collapse upon inspiration consistent with elevated right atrial pressure, 10 mmHg. Left Ventricle Definity contrast administered improved wall motion interpretation. E/e' 7 is not elevated. Left ventricular chamber dimension is normal. Left ventricular systolic function is normal, estimated at 60-65%. There is mild concentric increased left ventricular wall thickness. The left ventricular diastolic function is grade I diastolic dysfunction. Right Ventricle Right ventricular systolic function is normal and with normal TAPSE 2.2 cm. Right ventricular chamber dimension is normal. Left Atria Left atrial chamber dimension is mildly enlarged. Right Atria Right atrial chamber dimension is normal. Aortic Valve The aortic valve is trileaflet. There is mild aortic valve sclerosis. There is no aortic valve stenosis. There is no aortic valve regurgitation. Pulmonic Valve There is no pulmonic regurgitation. Mitral Valve There is no mitral valve stenosis. There is no mitral valve regurgitation. Tricuspid Valve There is mild tricuspid valve regurgitation. No pulmonary hypertension, estimated pulmonary arterial systolic pressure is 35 mmHg. Pericardium/Pleural There is no pericardial effusion. Inferior Vena Cava Dilated inferior vena cava with >50% collapse upon inspiration consistent with elevated right atrial pressure, 10 mmHg. Aorta The aortic root size at the sinus of Valsalva is normal. Left Ventricular Outflow Tract Name Value Normal LVOT 2D LVOT Diameter 1.7 cm LVOT Doppler LVOT Peak Gradient 5 mmHg LVOT Mean Gradient 3 mmHg LVOT VTI 22 cm LVOT VTI/AV VTI Ratio 0.7 LVOT Stroke Volume 47 ml LVOT CO 3.7 l/min LVOT CI 1.8 l/min/m2 Pulmonic Valve Name Value Normal RVOT Doppler RVOT Peak Gradient 3 mmHg PV Doppler PV Peak Gradient 5 mmHg Mitral Valve Name Value Normal MV Doppler MV Decel Lyon 268 cm/s2 MV PHT 57 ms MV Area (PHT) 3.9 cm2 4.0-5.0 MV Diastolic Function MV E Peak Velocity 53 cm/s MV A Peak Velocity 85 cm/s MV E/A 0.6 MV Decel Time 196 ms MV Annular TDI MV E/e' (Septal) 7.3 <=8.0 MV E/e' (Lateral) 7.5 <=8.0 MV E/e' (Average) 7.4 Tricuspid Valve Name Value Normal TV Regurgitation Doppler TR Peak Velocity 250 cm/s TR Peak Gradient 25 mmHg Estimated PAP/RSVP RA Pressure 10 mmHg <=5 PA Systolic Pressure 35 mmHg <36 RV Systolic Pressure 35 mmHg <36 Aorta Name Value Normal Ascending Aorta Ao Root Diameter (MM) 3.5 cm Ao Root Diam Index (MM) 1.6 cm/m2 Aortic Valve Name Value Normal AV Doppler AV Peak Velocity 151 cm/s AV Peak Gradient 9 mmHg AV Mean Gradient 6 mmHg AV VTI 33 cm AV Area (Cont Eq VTI) 1.4 cm2 >=3.0 AV Area (Cont Eq Timi) 1.5 cm2 AV Regurgitation 2D LVOT Area 2.1 cm2 Ventricles Name Value Normal LV Dimensions 2D/MM IVS Diastolic Thickness (2D) 1.2 cm 0.6-1.0 LVID Diastole (2D) 4.2 cm 3.8-5.2 LVIW Diastolic Thickness (2D) 1.7 cm 0.6-0.9 LVID Systole (2D) 3.0 cm 2.2-3.5 LVOT Diameter 1.7 cm LV Mass (2D Cubed) 230.24 g 67.00-162.00 LV Mass Index (2D Cubed) 108 g/m2 43-95 Relative Wall Thickness (2D) 0.78 LV Fractional Shortening/Ejection Fraction 2D/MM LV Fractional Shortening (2D) 31 % 27-45 LV EF (2D Teicholz) 60 % 54-74 LV Diastolic Volume (4C MOD) 103 ml LV EF (4C MOD) 58 % LV Diastolic Volume (2C MOD) 57 ml LV EF (2C MOD) 70 % LV Diastolic Volume (BP MOD) 78 ml 46-106 LV Diastolic Volume Index (BP MOD) 37 ml/m2 29-61 LV Systolic Volume (BP MOD) 28 ml 14-42 LV Systolic Volume Index (BP MOD) 13 ml/m2 8-24 LV EF (BP MOD) 64 % 54-74 LV Diastolic Length (4C) 7.9 cm LV Systolic Length (4C) 6.6 cm LV Stroke Volume (4C MOD) 59 ml Atria Name Value Normal LA Dimensions LA Dimension (MM) 4.2 cm 2.7-3.8 LA Volume (4C A-L) 69 ml LA Volume (BP A-L) 64 ml RA Dimensions RA Area (4C) 16.2 cm2 <=18.0 Report Signatures
--- NOTE | 2024-07-01 04:28 | PM.IMHP ---
H&P: HPI History of Present Illness Date/Time: 07/01/24 04:28 Chief Complaint: Pulmonary embolisms noted on outpatient CT Narrative: 64-year-old female with past medical history of alcoholism, nicotine dependence with vaping, depression, essential hypertension, urge urinary incontinence and dyslipidemia who presented to the ER after outpatient CT scan with contrast demonstrated bilateral pulmonary embolisms. Patient states that she had been on antibiotics on and off for the last year due to recurrent diverticulitis. Although review of imaging results demonstrates patient only had acute sigmoid diverticulitis on CT scan within our system in January. Is unclear she had imaging studies at other facilities. She had repeat CT scan on May 05 which demonstrated diverticulosis without diverticulitis. She has still been having intermittent loose stools and nausea. However, she denies any hematochezia or melena. After she had gotten over her diverticulitis she then developed cough and x-ray demonstrated right middle lung zone pneumonia at the end of May. She was treated with azithromycin. She was still having cough productive of whitish sputum. She was still having intermittent subjective fevers but was not measuring her temperature with a thermometer. She has not had any fevers in the last couple of weeks. She was sent for CT scan of the chest with contrast which demonstrated acute bilateral pulmonary emboli and mild airspace opacities and peripheral right upper lobe consistent with infarct. She was sent to the ER for further evaluation. The patient denies any significant chest pain. She has been having some intermittent shortness of breath. She had does report that she has been significantly less active due to her issues with her bowels over the last year. She has been more weak and fatigued. She reports a 50 lb weight loss in the time interval. She had noticed about 2 and half weeks ago that she developed some pain and her right calf and right thigh. She was able to rub the area and eventually the pain went away after a couple of days. In hindsight this is in the same amount of time that she did notice some increased shortness of breath with activity and increased fatigue. She denies any palpitations. She denies any significant chest pain. She reports that she is supposed to have an outpatient endoscopy in August to further evaluate her abdominal symptoms. Review of Systems Review of Systems: 12 systems were reviewed with pertinent positives and negatives per HPI. Except as documented in the HPI, all other systems were reviewed and are negative. PMFSH Past Medical History Medical History (Updated 07/01/24 @ 08:28 by Norma Mendoza DO) Abnormal Pap smear of cervix 2004 hpv - no bx Acute diverticulitis (01/2024) Chronic back pain Degenerative disc disease Depression with anxiety Diverticulitis (~11/2018) Gastroesophageal reflux disease Hepatitis During childhood, presumably hepatitis A. Herniated disc History of Clostridioides difficile colitis (2018) History of HPV infection Hyperlipidemia Hypertension Nicotine dependence Osteoarthritis Pneumonia due to COVID-19 virus 11/2020 Seasonal rhinitis Superficial thrombophlebitis TIA (transient ischemic attack) (~07/2020) Vertigo Vitamin D deficiency Surgical History Surgical History History of bilateral tubal ligation (~1999) History of carpal tunnel release of both wrists (~2004) History of cervical spinal surgery Discectomy and fusion 3 vertebrae History of cholecystectomy (~1999) History of colposcopy (05/01/23) History of dilation and curettage (~1999) History of incision and drainage (07/22/20) History of lumbar surgery (06/03/19) Status post insertion of spinal cord stimulator (06/03/19) Family History Family History Sibling CHF (congestive heart failure) Cerebrovascular accident Kidney failure Father AAA (abdominal aortic aneurysm) CAD (coronary artery disease) Cerebrovascular accident Mother Brain aneurysm Hypertension Cerebrovascular accident Carcinoma of colon Social History Social History (Updated 07/01/24 @ 08:16 by Norma Mendoza DO) Social History: She was but now is remarried. She used to smoke 1.5 packs of cigarettes per day but switch to vaping size E cigarettes 2-3 years ago. She used to drink up to a 5th of hard liquor a day but quit drinking alcohol on the 27 of June. She has been using Librium. She has no intention of starting drinking alcohol again. She had a history of alcoholism for the last several years with 1 brief episode of recovery in November. She does use marijuana gummies for pain. She has a son who is homeless and has an addiction to drugs. Her daughter has been in recovery from alcohol for 15 months. Surrogate decision maker: Code status: Full code. Smoking packs per day: 1 Smoking cigarettes per day: 20.0 Years smoked: 30 Smoking pack-years: 30.00 Smoking status: Former smoker Tobacco type: e-cigarettes/vaping Additional smoking assessment comments: QUIT CIGARETTES FOR 17 YEARS, THEN RESTARTED. QUIT AGAIN 2019, NOW VAPING Alcohol intake: current Alcohol use details: She drinks up to a 5th of alcohol a day but quit drinking June 27, 2024 Substance use: current Substance use type: marijuana Other substance usage details: GUMMIES FOR PAIN; 1/2-1/5 per day of whiskey or vodka Do You Feel Safe in your Home?: Yes Lack of Transportation: No Lack of Food: Never True Current Housing: I Have Housing Concerned About Future Housing: No Difficulty Paying Gas/Electric Bills: No Difficulty Paying for Meds: No Currently Unemployed: No Education: Trade/Vocational Certificate Difficulty w/ Childcare or Family Care: No Living arrangements: with family Additional living arrangements comments: in 2021 as of 2018. Lives in a split home in [place]. Adult daughter and son-in-law live upstairs. Occupation/Education: unemployed Additional occupation/education comments: disabled Gender identity (if verbalized by the patient): Female Sexual Orientation (if Verbalized by the Patient): Straight or Heterosexual Spiritual care concerns: No Meds Home Medications and Allergies Home Medications Medication Instructions Recorded Confirmed Type cetirizine 10 mg tablet (Zyrtec) 10 mg PO DAILY 07/01/19 06/30/24 History lansoprazole 15 mg capsule,delayed 15 mg PO DAILY 07/01/19 06/30/24 History release (Prevacid) clonidine HCl 0.1 mg tablet 0.1 mg PO Q8H PRN hypertensive 09/17/23 06/30/24 Rx emergency #30 tabs lisinopril 30 mg tablet 30 mg PO BID #180 tabs 12/02/23 06/30/24 Rx diltiazem HCl 120 mg capsule,24 120 mg PO DAILY #90 caps 05/20/24 06/30/24 Rx hr,extended release potassium chloride 20 mEq 20 meq PO DAILY #5 tabs 06/01/24 06/30/24 Rx tablet,extended release oxybutynin chloride 5 mg tablet 5 mg PO BID #90 tabs 06/02/24 06/30/24 Rx chlordiazepoxide HCl 25 mg capsule 25 mg PO Q8HR PRN Alcohol 06/25/24 06/30/24 Rx Withdrawal #30 caps gabapentin 300 mg capsule 300 mg PO BID #180 caps 06/25/24 06/30/24 Rx naltrexone 50 mg tablet 50 mg PO DAILY #90 tabs 06/25/24 06/30/24 Rx citalopram 20 mg tablet 20 mg PO DAILY 06/30/24 06/30/24 History pravastatin 10 mg tablet 10 mg PO QPM 06/30/24 06/30/24 History Allergies Allergy/AdvReac Type Severity Reaction Status Date / Time Sulfa (Sulfonamide Allergy Severe Anaphylaxis Verified 06/30/24 21:16 Antibiotics) Vital Signs Vital Signs - 24 hr 06/30/24 16:56 06/30/24 17:13 06/30/24 17:15 Temperature 97.6 F Pulse Rate 86 80 Respiratory Rate 18 17 17 Blood Pressure 173/89 H 166/91 H Pulse Oximetry 98 97 99 Oxygen Delivery 06/30/24 17:31 06/30/24 17:46 06/30/24 18:01 Temperature Pulse Rate 79 76 70 Respiratory Rate 12 17 12 Blood Pressure 150/85 H 135/89 148/82 H Pulse Oximetry 96 98 97 Oxygen Delivery 06/30/24 18:16 06/30/24 18:46 06/30/24 19:01 Temperature Pulse Rate 74 74 69 Respiratory Rate 17 14 18 Blood Pressure 143/88 H 147/94 H 155/84 H Pulse Oximetry 99 97 95 Oxygen Delivery 06/30/24 19:16 06/30/24 19:31 06/30/24 19:46 Temperature Pulse Rate 74 69 69 Respiratory Rate 14 15 15 Blood Pressure 146/91 H 137/83 140/94 H Pulse Oximetry 95 94 95 Oxygen Delivery 06/30/24 20:15 06/30/24 20:30 06/30/24 20:59 Temperature Pulse Rate 70 74 69 Respiratory Rate 14 16 Blood Pressure 137/98 H 131/87 Pulse Oximetry 95 94 Oxygen Delivery 06/30/24 21:00 06/30/24 22:00 06/30/24 23:30 Temperature Pulse Rate 69 81 81 Respiratory Rate 16 16 Blood Pressure Pulse Oximetry 94 94 Oxygen Delivery Room Air Room Air 07/01/24 00:20 07/01/24 00:00 07/01/24 02:00 Temperature 97.8 F Pulse Rate 79 77 70 Respiratory Rate 16 Blood Pressure 144/91 H Pulse Oximetry 100 Oxygen Delivery 07/01/24 04:02 Temperature 97.7 F Pulse Rate 70 Respiratory Rate 16 Blood Pressure 139/88 Pulse Oximetry 95 Oxygen Delivery Exam Narrative: Weight 97.8 kg BMI 35.9 Const: Other: No acute distress, well-developed well-nourished HENMT: Other: Upper dentures in place, partial in the lower jaw with few scattered missing teeth, mucous membranes are moist, no oral pharyngeal erythema, crowded posterior oropharynx Eyes: Other: Pupils are equal and reactive, no scleral icterus, no conjunctival pallor Neck: Other: Large neck circumference, supple Resp: Other: Clear to auscultation in the left lung field, crackles at the right midlung, no increased work of breathing Cardio: Other: Regular rate, regular rhythm, 2+ bilateral radial pedal pulses, no murmur GI: Other: Soft, nontender, nondistended, positive bowel sounds Skin: Other: No jaundice, no pallor, no petechia Neuro: Other: Alert oriented x4, speech is clear, no facial asymmetry, no localizing neurologic deficits noted during the course of conversation Extrem: Other: Right lower leg slightly larger in diameter than the left, negative Homans sign, no pitting edema Psych: Other: Appropriate mood and affect, pleasant and cooperative, judgment and insight intact H&P: Results Labs Labs: Laboratory Tests 06/30/24 17:06 06/30/24 17:07 06/30/24 06/30/24 06/30/24 17:06 17:07 23:33 WBC 8.3 RBC 4.58 Hgb 14.1 Hct 42.4 MCV 92.6 MCH 30.8 MCHC 33.3 RDW 15.1 H Plt Count 221 MPV 10.1 Immature Gran % (Auto) 0.4 Neut % (Auto) 63.6 Lymph % (Auto) 23.9 Divide % (Auto) 8.5 Eos % (Auto) 3.1 Baso % (Auto) 0.5 Lymph # (Auto) 1.99 Divide # (Auto) 0.7 H Eos # (Auto) 0.3 Baso # (Auto) 0.0 Abs Immat Gran (auto) 0.03 Absolute Neuts (auto) 5.3 Absolute Nucleated RBC 0.000 Nucleated RBC % 0.0 PT 14.1 INR 1.1 APTT 25.2 Sodium 137 Potassium 2.9 L Chloride 103 Carbon Dioxide 25 Anion Gap 9 BUN 7 Creatinine 0.90 Estim Creat Clear Calc 62 Estimated GFR > 60 Glucose 137 H POC Capillary Glucose 136 H Calcium 9.4 Magnesium 1.5 L Total Bilirubin 1.3 AST 29 ALT 17 Alkaline Phosphatase 113 Total Protein 8.0 Albumin 4.0 Impressions Chest X-Ray 06/30/24 17:40 (personally reviewed interpreted opacity noted with radiology interpretation noted below) IMPRESSION: Focal right upper lung pulmonary infarct as seen in the prior CT. No significant interval change. Outpatient CT of the chest with contrast: EXAMINATION:CT diagnostic chest w con DATE: 06/30/2024 10:25 INDICATION: Shortness of breath. TECHNIQUE: Computed tomography (CT) of the chest was performed with 75 mL Omnipaque 350 intravenous contrast. Automated exposure control and iterative reconstruction technique were employed. The dose-length product (DLP) was 259.00 mGy-cm. COMPARISON: Chest CT 11/17/2020 FINDINGS: There are mild peripheral airspace opacities in right upper lobe. No pleural effusion. The heart size is normal. No pericardial effusion. There are acute pulmonary emboli in right upper lobe, right middle lobe, in the lower lobes. There are changes of cholecystectomy. There are cysts in the liver measuring up to 2.6 cm. Epidural electrodes are noted. There is severe thoracic spondylosis. There is mild chronic anterior wedging of multiple mid thoracic vertebral bodies. IMPRESSION: 1. Acute bilateral pulmonary emboli. I left a message with the airline lounge receptionist at the office of [employer] [facility]. 2. Mild airspace opacities in peripheral right upper lobe, consistent with infarct. EKG: Personally reviewed and interpreted. Cardiology interpretation below Measurements Intervals Clarence Rate: 75 P: 52 WI: 135 QRS: 33 QRSD: 85 T: 50 QT: 397 QTc: 444 Interpretive Statements SINUS RHYTHM POSSIBLE RIGHT VENTRICULAR CONDUCTION DELAY BORDERLINE ECG Assessment and Plan Assessment and plan (1) Pulmonary emboli: Qualifiers: Pulmonary embolism type: multiple subsegmental (without acute cor pulmonale) Qualified Code(s): I26.94 - Multiple subsegmental thrombotic pulmonary emboli without acute cor pulmonale Code(s): I26.99 - Other pulmonary embolism without acute cor pulmonale Status: Acute (2) Tobacco abuse: Code(s): Z72.0 - Tobacco use Status: Acute (3) Alcohol abuse: Code(s): F10.10 - Alcohol abuse, uncomplicated Status: Acute (4) Hypokalemia: Code(s): E87.6 - Hypokalemia Status: Acute (5) Hypomagnesemia: Code(s): E83.42 - Hypomagnesemia Status: Acute Plan Patient likely had a right lower extremity DVT due to inactivity. This likely resulted in her pulmonary embolism. She is no longer having any leg pain but states that her leg is still slightly more swollen than the left. Treatment for the DVT and PEs same sort this time will not proceed with a venous Dopplers will not exchange underwriting consultant. Will however will check echocardiogram to rule out evidence of right heart strain. Patient received 1 dose of therapeutic Lovenox in the ER. Will transition the patient to Xarelto as the patient would prefer once daily dosing once she is over the loading doses. The patient has had significant weight loss which changes in bowel habits and fatigue. Under underlying malignancy cannot be completely ruled out however no evidence of malignancy on CT scan of the chest. Patient has outpatient evaluation scheduled for colonoscopy and had CT of the abdomen pelvis recently that did not demonstrate any obvious malignancy or mass. The similarly is most likely cause for the patient's pulmonary embolism. Patient will need 6 months of therapeutic anticoagulation. The patient is currently in early recovery from alcoholism. Will continue Librium but decrease the dose to 25 mg q.8h. Will monitor CIWA scores q.4 hours. Patient verbalizes understanding that vaping still causes damage to her lungs and that it is encouraged that she quit using nicotine altogether. She verbalized understanding but does not want to proceed with efforts to quit at this time. Hypokalemia patient received potassium replacement in the ER will repeat value in a.m. and monitor. Patient is on telemetry. Hypo magnesemia patient received a magnesium sulfate rider in ER. Will repeat level in a.m.. Patient has been admitted as observation status. Quality VTE Prophylaxis VTE prophylaxis: pharmacologic ordered (Xarelto) Hospitalist [facility] Advance Care Plan I have confirmed that the patient's Advanced Care Plan is present, code status is documented, or surrogate decision maker is listed in patient medical record.: Yes Medication Reconciliation I have utilized all available resources to obtain, update and review the patients current medications (includes all prescriptions, OTC, herbals, cannabis, and nutritional supplements).: Yes
[2024-07-01 06:07] LABS: Glucose Point of Care 91 mg/dl (65-105)
[2024-07-01 08:17] LABS: Anion Gap 5 mmol/L (4-12); Blood Urea Nitrogen 7 mg/dL (7-17); Calcium 8.9 mg/dL (8.4-10.2); Carbon Dioxide 30 mmol/L (22-30); Chloride 104 mmol/L (98-107); Estimated CRCL calculation 71 ml/min; Estimated Glomerular Filt Rate > 60; Glucose 97 mg/dL (65-110); Magnesium 1.8 mg/dL (1.6-2.3); Phosphorus 3.6 mg/dL (2.5-4.5); Potassium 3.6 mmol/L (3.4-5.0); Sodium 139 mmol/L (137-145)
[2024-07-01] MEDS: PANTOPRAZOLE 40 MG TABLET PO (08:26)
[2024-07-01] MEDS: dilTIAZem HCL CD 120 MG CAP.24HR PO (08:26)
[2024-07-01] MEDS: lisinopriL 10 MG TABLET 30 MG PO ×2 (08:27→17:17)
[2024-07-01] MEDS: oxyBUTYnin CHLORIDE 5 MG TABLET PO ×2 (08:27→17:17)
[2024-07-01] MEDS: CITALOPRAM HYDROBROMIDE 20 MG TABLET PO (08:27)
[2024-07-01] MEDS: RIVAROXABAN 15 MG TABLET PO ×2 (08:27→17:17)
[2024-07-01] MEDS: GABAPENTIN 300 MG CAPSULE PO ×2 (08:27→17:17)
[2024-07-01] MEDS: POTASSIUM CHLORIDE 20 MEQ ER TABLET PO (08:27)
[2024-07-01] MEDS: chlordiazePOXIDE (*CRX) 25 MG CAPSULE PO ×2 (08:27→21:24)
[2024-07-01] MEDS: LORATADINE 10 MG TABLET PO (08:27)
[2024-07-01] MEDS: PERFLUTREN LIPID MICROSPHERES 1.5 ML VIAL DILUTED TO 10 ML TOTAL VOLUME IV PUSH (11:20)
--- NOTE | 2024-07-01 11:31 | IVDEFINITY ---
Prior to administration of IV Definity the patient was educated on the risks and benefits of the imaging enhancing agent including potential adverse side effects. The patient verbalized understanding. Allergies were verified. No exclusion criteria were identified and at least one of the following inclusion criteria were met: 1) physician request, 2) patient technically difficult to image (per the [place] [employer] guidelines of two or more segments not discernable within the apical view), or 3) questionable left ventricular function. ?
[2024-07-01 11:49] LABS: Glucose Point of Care 112 mg/dl (65-105)
--- NOTE | 2024-07-01 14:38 | P.PNIM_ITS ---
Progress Note: A&P Assessment and Plan (1) Pulmonary emboli: Qualifiers: Pulmonary embolism type: multiple subsegmental (without acute cor pulmonale) Qualified Code(s): I26.94 - Multiple subsegmental thrombotic pulmonary emboli without acute cor pulmonale Code(s): I26.99 - Other pulmonary embolism without acute cor pulmonale Status: Acute Assessment and Plan: Will switch to po Xarelto Possible dc in am (2) Tobacco abuse: Code(s): Z72.0 - Tobacco use Status: Acute Assessment and Plan: Counselling given (3) Alcohol abuse: Code(s): F10.10 - Alcohol abuse, uncomplicated Status: Acute Assessment and Plan: Counselling given (4) Hypokalemia: Code(s): E87.6 - Hypokalemia Status: Acute Assessment and Plan: Resolved (5) Hypomagnesemia: Code(s): E83.42 - Hypomagnesemia Status: Acute Assessment and Plan: Resolved Plan Patient likely had a right lower extremity DVT due to inactivity. This likely resulted in her pulmonary embolism. She is no longer having any leg pain but states that her leg is still slightly more swollen than the left. Treatment for the DVT and PEs same sort this time will not proceed with a venous Dopplers will not change agent. Will however will check echocardiogram to rule out evidence of right heart strain. Patient received 1 dose of therapeutic Lovenox in the ER. Will transition the patient to Xarelto as the patient would prefer once daily dosing once she is over the loading doses. The patient has had significant weight loss which changes in bowel habits and fatigue. Under underlying malignancy cannot be completely ruled out however no evidence of malignancy on CT scan of the chest. Patient has outpatient evaluation scheduled for colonoscopy and had CT of the abdomen pelvis recently that did not demonstrate any obvious malignancy or mass. The similarly is most likely cause for the patient's pulmonary embolism. Patient will need 6 months of therapeutic anticoagulation. The patient is currently in early recovery from alcoholism. Will continue Librium but decrease the dose to 25 mg q.8h. Will monitor CIWA scores q.4 hours. Patient verbalizes understanding that vaping still causes damage to her lungs and that it is encouraged that she quit using nicotine altogether. She verb alized understanding but does not want to proceed with efforts to quit at this time. Hypokalemia patient received potassium replacement in the ER will repeat value in a.m. and monitor. Patient is on telemetry. Hypo magnesemia patient received a magnesium sulfate rider in ER. Will repeat level in a.m.. Patient has been admitted as observation status. Subjective Date/time seen: 07/01/24 14:38 Patient was seen during the morning rounds today. Feeling better. No sob or chest pain Review of Systems Review of Systems: 12 systems were reviewed with pertinent positives and negatives per HPI. Except as documented in the HPI, all other systems were reviewed and are negative. Exam Narrative: Weight 97.8 kg BMI 35.9 Const: Other: No acute distress, well-developed well-nourished HENMT: Other: Upper dentures in place, partial in the lower jaw with few scattered missing teeth, mucous membranes are moist, no oral pharyngeal erythema, crowded posterior oropharynx Eyes: Other: Pupils are equal and reactive, no scleral icterus, no conjunctival pallor Neck: Other: Large neck circumference, supple Resp: Other: Clear to auscultation in the left lung field, crackles at the right midlung, no increased work of breathing Cardio: Other: Regular rate, regular rhythm, 2+ bilateral radial pedal pulses, no murmur GI: Other: Soft, nontender, nondistended, positive bowel sounds Skin: Other: No jaundice, no pallor, no petechia Neuro: Other: Alert oriented x4, speech is clear, no facial asymmetry, no localizing neurologic deficits noted during the course of conversation Extrem: Other: Right lower leg slightly larger in diameter than the left, negative Homans sign, no pitting edema Psych: Other: Appropriate mood and affect, pleasant and cooperative, judgment and insight intact Objective Data Vital Signs Vital Signs: Vital Signs - 24 hr 06/30/24 16:56 06/30/24 17:13 06/30/24 17:15 Temperature 36.4 C Pulse Rate 86 80 Respiratory Rate 18 17 17 Blood Pressure 173/89 H 166/91 H Pulse Oximetry 98 97 99 Oxygen Delivery 06/30/24 17:31 06/30/24 17:46 06/30/24 18:01 Temperature Pulse Rate 79 76 70 Respiratory Rate 12 17 12 Blood Pressure 150/85 H 135/89 148/82 H Pulse Oximetry 96 98 97 Oxygen Delivery 06/30/24 18:16 06/30/24 18:46 06/30/24 19:01 Temperature Pulse Rate 74 74 69 Respiratory Rate 17 14 18 Blood Pressure 143/88 H 147/94 H 155/84 H Pulse Oximetry 99 97 95 Oxygen Delivery 06/30/24 19:16 06/30/24 19:31 06/30/24 19:46 Temperature Pulse Rate 74 69 69 Respiratory Rate 14 15 15 Blood Pressure 146/91 H 137/83 140/94 H Pulse Oximetry 95 94 95 Oxygen Delivery 06/30/24 20:15 06/30/24 20:30 06/30/24 20:59 Temperature Pulse Rate 70 74 69 Respiratory Rate 14 16 Blood Pressure 137/98 H 131/87 Pulse Oximetry 95 94 Oxygen Delivery 06/30/24 21:00 06/30/24 22:00 06/30/24 23:30 Temperature Pulse Rate 69 81 81 Respiratory Rate 16 16 Blood Pressure Pulse Oximetry 94 94 Oxygen Delivery Room Air Room Air 07/01/24 00:20 07/01/24 00:00 07/01/24 02:00 Temperature 36.6 C Pulse Rate 79 77 70 Respiratory Rate 16 Blood Pressure 144/91 H Pulse Oximetry 100 Oxygen Delivery 07/01/24 04:02 07/01/24 05:10 07/01/24 04:00 Temperature 36.5 C Pulse Rate 70 70 67 Respiratory Rate 16 16 Blood Pressure 139/88 Pulse Oximetry 95 95 Oxygen Delivery Room Air 07/01/24 06:00 07/01/24 07:34 07/01/24 08:00 Temperature 36.7 C Pulse Rate 74 74 Respiratory Rate 20 Blood Pressure 132/92 H Pulse Oximetry 95 Oxygen Delivery Room Air 07/01/24 08:00 07/01/24 10:00 07/01/24 11:29 Temperature 36.6 C Pulse Rate 91 85 79 Respiratory Rate 20 Blood Pressure 136/86 Pulse Oximetry 100 Oxygen Delivery 07/01/24 12:00 07/01/24 12:00 07/01/24 14:00 Temperature Pulse Rate 82 92 Respiratory Rate Blood Pressure Pulse Oximetry Oxygen Delivery Room Air Intake/Output Intake/Output: Intake & Output 06/28/24 06/29/24 06/30/24 07/01/24 23:59 23:59 23:59 23:59 Intake Total 990 360 Output Total 800 Balance 990 -440 Meds/Results Medications: Active Medications Generic Name Dose Route Start Last Admin Trade Name David PRN Reason Stop Dose Admin Chlordiazepoxide HCl 25 mg 07/01/24 08:30 07/01/24 08:27 Chlordiazepoxide (*Crx) 25 Mg Capsule PO 25 mg Q8HR [facility]OS Administration Citalopram Hydrobromide 20 mg 07/01/24 09:00 07/01/24 08:27 Citalopram Hydrobromide 20 Mg Tablet PO 20 mg DAILY [facility]OS Administration Diltiazem HCl 120 mg 07/01/24 09:00 07/01/24 08:26 Diltiazem Hcl Cd 120 Mg Cap.24hr PO 120 mg DAILY [facility]OS Administration Gabapentin 300 mg 07/01/24 09:00 07/01/24 08:27 Gabapentin 300 Mg Capsule PO 300 mg BID CH[facility]OS Administration Lisinopril 30 mg 07/01/24 09:00 07/01/24 08:27 Lisinopril 10 Mg Tablet PO 30 mg BID [facility]OS Administration Loratadine 10 mg 07/01/24 09:00 07/01/24 08:27 Loratadine 10 Mg Tablet PO 10 mg QAM [facility] Administration Miscellaneous Information 1 each 07/01/24 00:01 Naltrexone 50 Mg Tablet Is Nonformulary. Can She Use Home Supply? XX 07/31/24 00:00 CLARIFY CHRISTOS Non-Formulary Medication 50 mg 07/01/24 09:00 Naltrexone PO 07/31/24 08:59 DAILY [facility]OS Ondansetron HCl 4 mg 06/30/24 18:04 Ondansetron Inj 4 Mg/2 Ml Vial IV PUSH Q6H PRN Nausea And Vomiting Oxybutynin Chloride 5 mg 07/01/24 09:00 07/01/24 08:27 Oxybutynin Chloride 5 Mg Tablet PO 5 mg BID [facility]OS Administration Pantoprazole Sodium 40 mg 07/01/24 09:00 07/01/24 08:26 Pantoprazole 40 Mg Tablet PO 40 mg QAM [facility] Administration Potassium Chloride 20 meq 07/01/24 09:00 07/01/24 08:27 Potassium Chloride 20 Meq Er Tablet PO 20 meq DAILY [facility]OS Administration Pravastatin Sodium 10 mg 07/01/24 18:00 Pravastatin Sodium 10 Mg Tablet PO QPM [facility] Rivaroxaban 15 mg 07/01/24 08:00 07/01/24 08:27 Rivaroxaban 15 Mg Tablet PO 07/21/24 17:01 15 mg BIDWM [facility] Administration Rivaroxaban 20 mg 07/22/24 17:00 Rivaroxaban 20 Mg Tablet PO DAILY@1700 [facility] Radiology Results: ITS Impressions Chest X-Ray 06/30/24 17:40 IMPRESSION: Focal right upper lung pulmonary infarct as seen in the prior CT. No significant interval change. Labs Labs: Laboratory Results - last 24 hr 06/30/24 06/30/24 06/30/24 17:06 17:07 23:33 WBC 8.3 RBC 4.58 Hgb 14.1 Hct 42.4 MCV 92.6 MCH 30.8 MCHC 33.3 RDW 15.1 H Plt Count 221 MPV 10.1 Immature Gran % (Auto) 0.4 Neut % (Auto) 63.6 Lymph % (Auto) 23.9 Cross % (Auto) 8.5 Eos % (Auto) 3.1 Baso % (Auto) 0.5 Lymph # (Auto) 1.99 Cross # (Auto) 0.7 H Eos # (Auto) 0.3 Baso # (Auto) 0.0 Abs Immat Gran (auto) 0.03 Absolute Neuts (auto) 5.3 Absolute Nucleated RBC 0.000 Nucleated RBC % 0.0 PT 14.1 INR 1.1 APTT 25.2 Sodium 137 Potassium 2.9 L Chloride 103 Carbon Dioxide 25 Anion Gap 9 BUN 7 Creatinine 0.90 Estim Creat Clear Calc 62 Estimated GFR > 60 Glucose 137 H POC Capillary Glucose 136 H Calcium 9.4 Phosphorus Magnesium 1.5 L Total Bilirubin 1.3 AST 29 ALT 17 Alkaline Phosphatase 113 Total Protein 8.0 Albumin 4.0 07/01/24 07/01/24 07/01/24 06:04 07:56 11:30 WBC RBC Hgb Hct MCV MCH MCHC RDW Plt Count MPV Immature Gran % (Auto) Neut % (Auto) Lymph % (Auto) Cross % (Auto) Eos % (Auto) Baso % (Auto) Lymph # (Auto) Cross # (Auto) Eos # (Auto) Baso # (Auto) Abs Immat Gran (auto) Absolute Neuts (auto) Absolute Nucleated RBC Nucleated RBC % PT INR APTT Sodium 139 Potassium 3.6 Chloride 104 Carbon Dioxide 30 Anion Gap 5 BUN 7 Creatinine 0.80 Estim Creat Clear Calc 71 Estimated GFR > 60 Glucose 97 POC Capillary Glucose 91 112 H Calcium 8.9 Phosphorus 3.6 Magnesium 1.8 Total Bilirubin AST ALT Alkaline Phosphatase Total Protein Albumin Quality VTE Prophylaxis VTE prophylaxis: pharmacologic ordered (Xarelto)
[2024-07-01] MEDS: PRAVASTATIN SODIUM 10 MG TABLET PO (17:17)
[2024-07-01 18:49] LABS: Glucose Point of Care 106 mg/dl (65-105)
--- NOTE | 2024-07-01 21:38 | PHAR ---
HOME MED: NALTREXONE 50 MG TABLETS, TAKE 1 TABLET BY MOUTH DAILY, VERIFIED IN PHARMACY 07/01/24 @ 9253.
[2024-07-01 23:35] LABS: Glucose Point of Care 124 mg/dl (65-105)
[2024-07-02] VITALS: PULSE 85
[2024-07-02 02:00] VITALS: PULSE 73
[2024-07-02 04:00] VITALS: BP 126/75; PULSE 71; PULSE 74; RESP 20; TEMP 36.5; O2SAT 93
[2024-07-02 06:00] VITALS: PULSE 72
[2024-07-02] MEDS: chlordiazePOXIDE (*CRX) 25 MG CAPSULE PO (06:14)
[2024-07-02 06:17] LABS: Glucose Point of Care 95 mg/dl (65-105)
[2024-07-02] MEDS: PANTOPRAZOLE 40 MG TABLET PO (07:44)
[2024-07-02 08:00] VITALS: BP 141/91; PULSE 81; PULSE 96; RESP 16; TEMP 36.5; O2SAT 98
[2024-07-02] MEDS: CITALOPRAM HYDROBROMIDE 20 MG TABLET PO (08:04)
[2024-07-02] MEDS: RIVAROXABAN 15 MG TABLET PO (08:04)
[2024-07-02] MEDS: lisinopriL 10 MG TABLET 30 MG PO (08:04)
[2024-07-02] MEDS: oxyBUTYnin CHLORIDE 5 MG TABLET PO (08:05)
[2024-07-02] MEDS: GABAPENTIN 300 MG CAPSULE PO (08:05)
[2024-07-02] MEDS: LORATADINE 10 MG TABLET PO (08:05)
[2024-07-02] MEDS: dilTIAZem HCL CD 120 MG CAP.24HR PO (08:05)
[2024-07-02] MEDS: NALTREXONE 50 MG 50 EACH PO (08:05)
[2024-07-02] MEDS: POTASSIUM CHLORIDE 20 MEQ ER TABLET PO (08:05)
--- NOTE | 2024-07-02 10:26 | P.DS_ITS ---
DS: Admitting Diagnosis Discharge Date 07/02/2024 Admitting Diagnosis Pulmonary embolism DS: Discharge Diagnosis Discharge Diagnosis (1) Pulmonary emboli: Qualifiers: Pulmonary embolism type: multiple subsegmental (without acute cor pulmonale) Qualified Code(s): I26.94 - Multiple subsegmental thrombotic pulmona ry emboli without acute cor pulmonale Code(s): I26.99 - Other pulmonary embolism without acute cor pulmonale Status: Acute Assessment and Plan: Will switch to po Xarelto Possible dc in am (2) Tobacco abuse: Code(s): Z72.0 - Tobacco use Status: Acute Assessment and Plan: Counselling given (3) Alcohol abuse: Code(s): F10.10 - Alcohol abuse, uncomplicated Status: Acute Assessment and Plan: Counselling given (4) Hypokalemia: Code(s): E87.6 - Hypokalemia Status: Acute Assessment and Plan: Resolved (5) Hypomagnesemia: Code(s): E83.42 - Hypomagnesemia Status: Acute Assessment and Plan: Resolved Plan Patient likely had a right lower extremity DVT due to inactivity. This likely resulted in her pulmonary embolism. She is no longer having any leg pain but states that her leg is still slightly more swollen than the left. Treatment for the DVT and PEs same sort this time will not proceed with a venous Dopplers will not interchange agent. Will however will check echocardiogram to rule out evidence of right heart strain. Patient received 1 dose of therapeutic Lovenox in the ER. Will transition the patient to Xarelto as the patient would prefer once daily dosing once she is over the loading doses. The patient has had significant weight loss which changes in bowel habits and fatigue. Under underlying malignancy cannot be completely ruled out however no evidence of malignancy on CT scan of the chest. Patient has outpatient evaluation scheduled for colonoscopy and had CT of the abdomen pelvis recently that did not demonstrate any obvious malignancy or mass. The similarly is most likely cause for the patient's pulmonary embolism. Patient will need 6 months of therapeutic anticoagulation. The patient is currently in early recovery from alcoholism. Will continue Librium but decrease the dose to 25 mg q.8h. Will monitor CIWA scores q.4 hours. Patient verbalizes understanding that vaping still causes damage to her lungs and that it is encouraged that she quit using nicotine altogether. She verbalized understanding but does not want to proceed with efforts to quit at this time. Hypokalemia patient received potassium replacement in the ER will repeat value in a.m. and monitor. Patient is on telemetry. Hypo magnesemia patient received a magnesium sulfate rider in ER. Will repeat level in a.m.. Patient has been admitted as observation status. DS: Summary Hospital Course Reason for hospitalization: Pulmonary embolism Hospital Course: 64 years old female was admitted complains of having shortness of breath. Patient CT scan shows pulmonary embolism. Patient was treated with anticoagulation. Patient was later on started on p.o. Xarelto. Today patient is feeling better. Patient was discharged home in stable condition. Patient advised to come back to ER if she gets shortness of breath at home. 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 Smoking counseling given to patient Status at Discharge Cognitive/behavioral status at discharge: Stable Time Spent with Patient Time attestation: Total time spent providing and/or coordinating discharge services: 30 minutes Exam Narrative: Weight 97.8 kg BMI 35.9 Const: Other: No acute distress, well-developed well-nourished HENMT: Other: Upper dentures in place, partial in the lower jaw with few scattered missing teeth, mucous membranes are moist, no oral pharyngeal erythema, crowded posterior oropharynx Eyes: Other: Pupils are equal and reactive, no scleral icterus, no conjunctival pallor Neck: Other: Large neck circumference, supple Resp: Other: Clear to auscultation in the left lung field, crackles at the right midlung, no increased work of breathing Cardio: Other: Regular rate, regular rhythm, 2+ bilateral radial pedal pulses, no murmur GI: Other: Soft, nontender, nondistended, positive bowel sounds Skin: Other: No jaundice, no pallor, no petechia Neuro: Other: Alert oriented x4, speech is clear, no facial asymmetry, no localizing neurologic deficits noted during the course of conversation Extrem: Other: Right lower leg slightly larger in diameter than the left, negative Homans sign, no pitting edema Psych: Other: Appropriate mood and affect, pleasant and cooperative, judgment and insight intact DS: Data Data Completed and Pending Labs on day of discharge: Labs from last 24 hours 07/02/24 07/01/24 07/01/24 06:14 23:33 18:46 POC Capillary Glucose 95 124 H 106 H 07/01/24 11:30 POC Capillary Glucose 112 H Discharge Plan Discharge Attending physician on discharge: Justin Perez Discharging Clinician: Justin Perez Patient Disposition: Home, Self-Care Activity: as tolerated Diet: as tolerated Discharge Instructions: Pulmonary Emobli Patient Instructions: Antibiotic Form, Enoxaparin (By injection), Pain Manag ement (DC) Stand Alone Forms: General Discharge Information Follow-up/Referrals: Radha Willett MD [Physician] - Ander Dunne DO [Primary Care Provider] - Discharge Medications: New Xarelto 15 mg Tablet 15 mg PO BIDWM Qty: 40 0RF Continued lansoprazole [Prevacid] 15 mg capsule,delayed release(DR/EC) 15 mg PO DAILY cetirizine [Zyrtec] 10 mg tablet 10 mg PO DAILY clonidine HCl 0.1 mg tablet 0.1 mg PO Q8H PRN (Reason: hypertensive emergency) Qty: 30 0RF Rx Instructions: Take if SBP is greater than 160 and/or DBP is greater than 105 diltiazem HCl 120 mg capsule,extended release 24 hr 120 mg PO DAILY Qty: 90 3RF chlordiazepoxide HCl 25 mg capsule 25 mg PO Q8HR PRN (Reason: Alcohol Withdrawal) Qty: 30 0RF naltrexone 50 mg tablet 50 mg PO DAILY Qty: 90 0RF gabapentin 300 mg capsule 300 mg PO BID Qty: 180 0RF pravastatin 10 mg tablet 10 mg PO QPM citalopram 20 mg tablet 20 mg PO DAILY potassium chloride 20 mEq tablet extended release 20 meq PO DAILY Qty: 5 0RF lisinopril 30 mg tablet 30 mg PO BID Qty: 180 1RF oxybutynin chloride 5 mg tablet 5 mg PO BID Qty: 90 3RF Date of admission: 06/30/24 18:10 Primary Care Provider: Ander Dunne Admitting Provider: Juancho Meza Attending physician on admission: Juancho Meza Condition: Serious Quality VTE Prophylaxis VTE prophylaxis: pharmacologic ordered (Xarelto)
== END 2024-07-02 11:35 | disposition home or self-care (01) ==
LOC: ANHED 18:09 → ANHIMU 21:15
PROVIDERS: Emergency Medicine; Internal Medicine; Admitting Provider Internal Medicine; Emergency Provider Physician Assistant; PCP Internal Medicine; Visit Provider Internal Medicine
DX: I26.94 Multiple subsegmental thrombotic pulmonary emboli without acute cor pulmonale (principal); F17.290 Nicotine dependence, other tobacco product, uncomplicated; F10.10 Alcohol abuse, uncomplicated; E87.6 Hypokalemia; E83.42 Hypomagnesemia; F41.8 Other specified anxiety disorders; E78.5 Hyperlipidemia, unspecified; I10 Essential (primary) hypertension; K57.90 Diverticulosis of intestine, part unspecified, without perforation or abscess without bleeding; M54.9 Dorsalgia, unspecified; G89.29 Other chronic pain; N39.41 Urge incontinence; R63.4 Abnormal weight loss; Z68.35 Body mass index [BMI] 35.0-35.9, adult; Z79.899 Other long term (current) drug therapy; Z86.16 Personal history of COVID-19; Z86.19 Personal history of other infectious and parasitic diseases; Z86.73 Personal history of transient ischemic attack (TIA), and cerebral infarction without residual deficits; Z88.2 Allergy status to sulfonamides; Z98.1 Arthrodesis status; Z96.82 Presence of neurostimulator
CPT/HCPCS: 36415; 71046; 80048; 80053; 82948; 83735; 84100; 85025; 85610; 85730; 93005; 96365; 96366; 96372; 96375; 99285; A9270; C8929; G0378; J1650; J3475; Q9957

== ENCOUNTER 2024-07-07 09:37 | Outpatient (CLI) | payer MEDICARE, SELFPAY ==
[2024-08-02 17:33] VITALS: BMI 34.1
--- NOTE | 2024-08-02 17:33 | P.SLEEP_ITS ---
Sleep Study Date of Study: 07/07/24 Ordering Provider: Raysa Marin NP Interpreting Physician: Latanya Elizabeth DO Sleep Study Type: Polysomnogram Height: 1.65 m Weight: 92.986 kg Body Mass Index: 34.1 Neck Circumference (inches): 16 Willard: 3 Reason for Sleep Study snoring, daytime hypersomnia Sleep History The patient is a 64-year-old female that had a sleep study ordered by her primary care for evaluation of sleep apneas. The patient occasionally awakens at night with coughing. She occasionally snores loud enough that others complain. She occasionally has trouble sleeping when she has a cold. She denies waking up gasping for air throughout the night. She occasionally has breathing problems at night observed by herself or others. She rarely sweats excessively at night. She denies having heart palpitations or irregular heartbeats during the night. She occasionally falls asleep during the day but never while driving. She rarely experiences loss of muscle tone when extremely emotional. She denies sleep paralysis and hypnagogic/ hypnopompic hallucinations. She denies having trouble at school or work due to sleepiness. She denies feeling afraid of going to sleep. She rarely has nightmares. She rarely remembers her dreams. She frequently has thoughts racing through her mind. She occasionally feels sad or depressed. She frequently has anxiety. She denies having muscular tension. She occasionally notices parts of her body jerk. She occasionally kicks during the night. She occasionally has crawling and aching feelings in her legs but rarely has leg pain during the night. She occasionally grinds her teeth during sleep but never awakens with morning jaw pain. She is frequently bothered by pain during the day and occasionally awakened by pain during the night. She frequently wakes up feeling stiff in the morning. She frequently wakes up with sore or achy muscles. She frequently wakes up with pain in the neck, spine or other joints. She goes to bed between 1-2 a.m. on both weekdays and weekends. It takes her at least an hour for her to help fall asleep. She wakes up once throughout the night to urinate and is able to fall back asleep immediately. She wakes up between 7-8 a.m. on both weekdays and weekends. She typically gets 5-6 hours of sleep per night. She does not stay in bed after waking up in the morning. She currently lives with her . She denies consuming any caffeinated beverages within 2 hours of bedtime. She denies engaging in physical exercise before bedtime. She will watch television before falling asleep. She denies taking naps in the afternoon or the evening. She consumes 1-2 caffeinated sodas per day. She currently vapes. She denies alcohol use. She will occasionally use CBD gummies. FOR[facility]LY [facility] Past Medical History Medical History History of Clostridioides difficile colitis (2018) Superficial thrombophlebitis Acute diverticulitis (01/2024) History of HPV infection Abnormal Pap smear of cervix 2004 hpv - no bx TIA (transient ischemic attack) (~07/2020) Nicotine dependence Pneumonia due to COVID-19 virus 11/2020 Chronic back pain Osteoarthritis Gastroesophageal reflux disease Hyperlipidemia Hypertension Seasonal rhinitis Depression with anxiety Vertigo Degenerative disc disease Herniated disc Hepatitis During childhood, presumably hepatitis A. Vitamin D deficiency Diverticulitis (~11/2018) Surgical History Surgical History History of colposcopy (05/01/23) History of incision and drainage (07/22/20) History of dilation and curettage (~1999) History of lumbar surgery (06/03/19) History of cervical spinal surgery Discectomy and fusion 3 vertebrae History of cholecystectomy (~1999) Status post insertion of spinal cord stimulator (06/03/19) History of carpal tunnel release of both wrists (~2004) History of bilateral tubal ligation (~1999) Family History Family History Sibling CHF (congestive heart failure) Cerebrovascular accident Kidney failure Father AAA (abdominal aortic aneurysm) CAD (coronary artery disease) Cerebrovascular accident Mother Brain aneurysm Hypertension Cerebrovascular accident Carcinoma of colon Social History Social History Social History: She was but now is remarried. She used to smoke 1.5 packs of cigarettes per day but switch to vaping size E cigarettes 2-3 years ago. She used to drink up to a 5th of hard liquor a day but quit drinking alcohol on the 27 of June. She has been using Librium. She has no intention of starting drinking alcohol again. She had a history of alcoholism for the last several years with 1 brief episode of recovery in November. She does use marijuana gummies for pain. She has a son who is homeless and has an addiction to drugs. Her daughter has been in recovery from alcohol for 15 months. Surrogate decision maker: Code status: Full code. Smoking packs per day: 1 Smoking cigarettes per day: 20.0 Years smoked: 30 Smoking pack-years: 30.00 Smoking status: Former smoker Tobacco type: cigarettes and e-cigarettes/vaping Additional smoking assessment comments: QUIT CIGARETTES FOR 17 YEARS, THEN RESTARTED. QUIT AGAIN 2019, NOW VAPING Alcohol intake: former Alcohol use details: Started abusing alcohol around 5 yrs ago after husbands , No drinks since Jun 2024 Substance use: current Substance use type: marijuana Other substance usage details: Edibles Last use: 07/30 Do You Feel Safe in your Home?: Yes Lack of Transportation: No Lack of Food: Never True Current Housing: I Have Housing Concerned About Future Housing: No Difficulty Paying Gas/Electric Bills: No Difficulty Paying for Meds: No Currently Unemployed: No Education: Trade/Vocational Certificate Difficulty w/ Childcare or Family Care: No Living arrangements: with family Additional living arrangements comments: With sp Occupation/Education: unemployed Additional occupation/education comments: disabled Gender identity (if verbalized by the patient): Female Sexual Orientation (if Verbalized by the Patient): Straight or Heterosexual Spiritual care concerns: No Medications Home Medications ?Medication ?Instructions ?Recorded ?Confirmed ?Type cetirizine 10 mg tablet (Zyrtec) 10 mg PO DAILY 07/01/19 07/31/24 History lansoprazole 15 mg capsule,delayed 15 mg PO DAILY 07/01/19 07/31/24 History release (Prevacid) clonidine HCl 0.1 mg tablet 0.1 mg PO Q8H PRN hypertensive 09/17/23 07/31/24 Rx emergency #30 tabs diltiazem HCl 120 mg capsule,24 120 mg PO DAILY #90 caps 05/20/24 07/31/24 Rx hr,extended release potassium chloride 20 mEq 20 meq PO DAILY #5 tabs 06/01/24 07/31/24 Rx tablet,extended release oxybutynin chloride 5 mg tablet 5 mg PO BID #90 tabs 06/02/24 07/31/24 Rx naltrexone 50 mg tablet 50 mg PO DAILY #90 tabs 06/25/24 07/31/24 Rx citalopram 20 mg tablet 20 mg PO DAILY 06/30/24 07/31/24 History pravastatin 10 mg tablet 10 mg PO QPM 06/30/24 07/31/24 History rivaroxaban 20 mg tablet (Xarelto) 20 mg PO DAILY #90 tabs 07/14/24 07/31/24 Rx lisinopril 30 mg tablet 30 mg PO BID #180 tabs 07/28/24 07/31/24 Rx Sleep Procedure A full night polysomnogram using the [employer] multi-channel system recorded the standard physiologic parameters including EEG, EOG, submentalis EMG, anterior tibialis EMG, EKG, body position, nasal and oral airflow using nasal pressure sensor and thermistor.? Respiratory parameters of chest and abdominal movements were recorded with Respiratory Inductance Plethysmography belts. Oxygen saturation was recorded by pulse oximetry. Video monitoring was also performed. Sleep stages, periodic limb movements, and EEG arousals were scored in 30 second epochs according to the criteria of the AASM Scoring Manual. The Apnea-Hypopnea Index was calculated using CMS guidelines for definition of hypopnea with 4% O2 desaturations while scoring respiratory events. Sleep Architecture The total recording time was 452.4 minutes.? The total sleep time was 415.0 mi nutes. Sleep latency was 18.3 minutes. REM sleep was not achieved during this study. Sleep efficiency was 91.7%. The patient had 17 awakenings for an awakening index of 2.5. Wake after sleep onset time was 19.5 minutes. The patient spent 43.5 minutes, 10.5% of total sleep time in Stage N1. The patient spent 371.5 minutes, 89.5% in Stage N2. The patient spent 0.0 minutes, 0.0% in Stage N3. The patient spent 0.0 minutes, 0.0% in Stage REM sleep. Respiratory Analysis The patient had 6 central apneas for an overall Apnea Hypopnea Index of 0.9. The REM Apnea Hypopnea Index was 0. The NREM Apnea Hypopnea Index was 0.9. The patient had a Central Apnea Hypopnea Index of 0.9. There was no evidence of Gordo-Yost Respirations. Arousals There were 121 total arousals for an arousal index of 17.5. There were 64 spontaneous arousals for an index of 9.3. There were 0 arousals due to respiratory events for an index of 0. There were 26 arousals due to periodic limb movements for an index of 3.8.? There were 19 arousals due to isolated limb movements for an index of 2.7. Periodic Limb Movements The patient had 26 isolated limb movements with an index of 3.8. The patient had 37 periodic limb movements with an index of 5.3. Patient had a total of 63 limb movements with a total limb movement index of 9.1. Oximetry Data The patient had an average oxygen saturation of 89.8% in sleep with a minimum oxygen saturation of 87.0% and a maximum oxygen saturation of 93.0%. The patient had 3 oxygen desaturations that were 4% or greater resulting in an Oxygen Desaturation Index of 0.4.? The patient spent 49.8 minutes, 11% of total sleep time with an oxygen saturation below 88%. Snoring Profile Moderate snoring was present throughout the study. Cardiac Profile The EKG showed normal sinus rhythm. No arrhythmias or PVCs were seen.?The patient had an average pulse rate of 77.4 bpm with a minimum pulse of rate of 63.0 bpm and a maximum pulse rate of 95.0 bpm.? EEG Profile No signs of seizure activity seen. Assessment and Plan Assessment and Plan (1) Hypoxemia: Code(s): R09.02 - Hypoxemia Status: Acute Assessment and Plan: The patient had an overall AHI of 0.9 with desaturation down to 87%. This is not consistent with sleep disordered breathing. The patient spent 49.8 minutes, 11% of total sleep time with an oxygen saturation below 88%. I recommend that the patient be prescribed 1 lpm of supplemental oxygen to be used while sleeping. I also recommend that the patient have a nocturnal oximetry performed 2 weeks after starting supplemental oxygen therapy to ensure that oxygen saturations remain above 90%. If not done already, I recommend that the the patient have a 2-view CXR and a complete PFT for evaluation of underlying pulmonary disease. Data The data obtained during this sleep study is adequate for interpretation. Certification This sleep study has been reviewed by a board certified sleep medicine physician.
== END 2024-07-08 07:16 | disposition home or self-care (01) ==
LOC: ANHCSM 09:41
PROVIDERS: PCP Internal Medicine; Visit Provider Nurse Practitioner
DX: R09.02 Hypoxemia (principal); G47.9 Sleep disorder, unspecified
CPT/HCPCS: 95810

== ENCOUNTER 2024-07-14 14:20 | Outpatient (CLI) | payer MEDICARE, SELFPAY ==
[2024-07-14 15:41] LABS: Hematocrit 43.8 % (37.0-47.0); Hemoglobin 13.9 g/dL (12.0-15.0); Mean Corpuscular HGB Conc 31.7 g/dl (32-36); Mean Corpuscular Volume 94.6 fl (80-100); Mean Platelet Volume 10.2 fl (7.4-10.4); Platelet Count Result 258 k/mm3 (150-375); Red Blood Count 4.63 M/mm3 (4.2-5.4); Red Cell Distribution Width 14.6 % (11.5-14.5); White Blood Count 8.9 K/mm3 (4.5-10.0)
[2024-07-14 16:11] LABS: Phosphorus 3.7 mg/dL (2.5-4.5)
[2024-07-14 17:04] LABS: Alanine Aminotransferase 22 U/L (6-35); Albumin Level 4.4 g/dL (3.5-5.1); Alkaline Phosphatase 83 U/L (38-126); Anion Gap 7 mmol/L (4-12); Aspartate Amino Transferase 44 U/L (14-36); Bilirubin,Total 0.7 mg/dL (0.2-1.3); Blood Urea Nitrogen 16 mg/dL (7-17); Calcium 9.6 mg/dL (8.4-10.2); Carbon Dioxide 26 mmol/L (22-30); Chloride 106 mmol/L (98-107); Estimated Glomerular Filt Rate 50; Glucose 94 mg/dL (65-110); Potassium 4.6 mmol/L (3.4-5.0); Sodium 139 mmol/L (137-145)
[2024-07-14 17:26] LABS: Basophils Percent Auto 0.4 % (0.2-1.2); Eosinophils Absolute Auto 0.3 K/mm3 (0-0.3); Eosinophils Percent Auto 3.3 % (0-4.4); Hematocrit 43.3 % (37.0-47.0); Hemoglobin 13.9 g/dL (12.0-15.0); Immature Granulocyte Absolute 0.02 K/mm3 (0.00-0.031); Immature Granulocyte Percent A 0.2 % (0-0.5); Lymphocytes Absolute Auto 2.41 K/mm3 (0.9-3.2); Lymphocytes Percent Auto 26.8 % (18.3-44.2); Mean Corpuscular HGB Conc 32.1 g/dl (32-36); Mean Corpuscular Hemoglobin 30.3 pg (26-34); Mean Corpuscular Volume 94.5 fl (80-100); Mean Platelet Volume 10.6 fl (7.4-10.4); Monocytes Absolute Auto 0.6 K/mm3 (0.1-0.6); Monocytes Percent Auto 6.4 % (2.6-8.5); Neutrophils Absolute Auto 5.7 K/mm3 (1.3-6.7); Neutrophils Percent Auto 62.9 % (45.5-73.1); Platelet Count Result 251 k/mm3 (150-375); Red Blood Count 4.58 M/mm3 (4.2-5.4); Red Cell Distribution Width 14.6 % (11.5-14.5)
== END 2024-07-14 14:21 | disposition home or self-care (01) ==
PROVIDERS: Nurse Practitioner; PCP Internal Medicine; Visit Provider Internal Medicine Nephrology
DX: N28.1 Cyst of kidney, acquired (principal); I10 Essential (primary) hypertension; Z13.29 Encounter for screening for other suspected endocrine disorder
CPT/HCPCS: 36415; 80053; 80069; 84100; 85025; 85027

== ENCOUNTER 2024-10-30 09:50 | Emergency (ER) | payer MEDICARE, SELFPAY ==
[2024-10-30] VITALS (13 sets, daily range): BP systolic 126–174; BP diastolic 91–108; PULSE 75–100; RESP 10–19; TEMP 36.7; O2SAT 94–100
--- NOTE | ~2024-10-30 | XR_ITS ---
EXAMINATION: XR chest 1V portable DATE: 10/30/2024 12:20 INDICATION: Emesis. TECHNIQUE: A single frontal view of the chest was obtained. COMPARISON: Chest 2 views 06/30/2024, chest CT 06/30/2024 FINDINGS: There is a nodule in right upper lobe. No pleural effusion or pneumothorax. The heart size is normal. Epidural electrodes are noted. Surgical clips in the right upper quadrant are likely from cholecystectomy. IMPRESSION: 1. Nodule in right lung upper lobe with interval improvement, consistent with infarct. Reviewed, dictated and finalized at location A. IMPRESSION: 1. Nodule in right lung upper lobe with interval improvement, consistent with i nfarct.
--- NOTE | ~2024-10-30 | CT_ITS ---
EXAMINATION: CT chest abdomen pelvis w con DATE: 10/30/2024 13:30 INDICATION: Intracranial patient with ethanol abuse presenting with hematemesis. TECHNIQUE: Computed tomography (CT) of the chest, abdomen, and pelvis was performed with 100 mL Omnip aque-350 intravenous contrast. Automated exposure control and iterative reconstruction technique were employed. The dose-length product was 821.95 mGy-cm. COMPARISON: Chest CT dated 06/[address] abdomen pelvis dated 05/05/2024 FINDINGS: CHEST CT: Small calcified left upper lobe nodule consistent with old granulomatous disease. Residual mild linea r atelectasis/scarring. Likely prior infarct at the posterior segment of the right upper lobe. Prior pulmonary emboli. Have resolved. No pneumonia, pulmonary edema or pleural effusion. Heart size is nor mal. Small of atherosclerotic coronary artery calcification. No pericardial effusion. Thoracic aorta is normal in caliber with no dissection. Small amount of fluid in the esophagus which could be relate d to reflux. No pathologically enlarged thoracic lymphadenopathy. Very small sliding-type hiatal rebecca ia. Severe thoracic spondylosis with chronic mild anterior wedging of a few mid thoracic vertebral ranjan dies. Again seen is a spinal stimulator lead projects over the posterior aspect of the central canal with distal tip at the level of T6-T7. ABDOMEN/PELVIS CT: Cholecystectomy clips the gallbladder fossa. A few hepatic cysts the largest measuring 2.6 cm. Spleen , pancreas and bilateral adrenal glands are normal. Multiple bilateral renal cysts measuring up to 2. 3 cm. Moderate diverticulosis with sigmoid predominance and without adjacent inflammatory stranding t o suggest diverticulitis. Small bowel and appendix are normal. Bladder, anteverted uterus and bilater al adnexa are unremarkable. No free intraperitoneal gas or fluid. No pathologically enlarged abdomina l or pelvic lymphadenopathy. Severe lumbar spondylosis. IMPRESSION: 1. No acute cardiopulmonary disease. 2. Small sliding-type hiatal hernia with small amount of fluid in the esophagus which could be relate d to reflux. 3. Diverticulosis. Reviewed, dictated and finalized at location B. IMPRESSION: 1. No acute cardiopulmonary disease. 2. Small sliding-type hiatal hernia with small amount of fluid in the esophagus which could be related to reflux. 3. Diverticulosis.
--- OUTSIDE RECORDS SUMMARY | 2024-10-30 10:35 | XMS_ITS | Clinical Summary ---
Author Organization [facility] Address [address] [place] [id number] Care Team Providers Care Vice President Research Name Role Phone Ander Dunne DO Primary Care Provider [phone] Allergies Active Allergy Reactions Criticality Noted Date Comments Sulfa Antibiotics Swelling 08/06/2023 Medications ondansetron (ZOFRAN-ODT) 4 MG disintegrating tablet Take 1 tablet (4 mg total) by mouth every 8 (eight) hours as needed for Nausea. 20 tablet Active Social History Tobacco Use Types Packs/Day Years Used Date Smoking Tobacco: Former Cigarettes Smokeless Tobacco: Current Tobacco Cessation:Ready to Q uit: Not Asked; Counseling Given: Not Answered Alcohol Use Standard Drinks/Week Comments Not Currently 0 (1 standard drink = 0.6 oz pure alcohol) reports she was an alcoholic, not currently drinking. Reports last drink x3 weeks ago. Comments No Sex and Gender Information Value Date Recorded Sex Assigned at Not on file Legal Sex Female 2:07 PM [employer]ING [employer] Gender Identity Not on file Sexual Orientation Not on file Last Filed Vital Signs Vital Sign Reading Time Taken Comments Blood Pressure 177/118 06/05/2024 3:30 PM CDT Pulse 82 06/05/2024 12:17 PM CDT Temperature 36.3 C (97.4 F) 06/05/2024 12:17 PM CDT Respiratory Rate 22 06/05/2024 12:17 PM CDT Oxygen Saturation 99% 06/05/2024 3:30 PM CDT Inhaled Oxygen Concentration - - Weight 96.7 kg (213 lb 3 oz) 06/05/2024 12:17 PM CDT Height 165.1 cm (5' 5 ) 06/05/2024 12:17 PM CDT Body Mass Index 35.48 06/05/2024 12:17 PM CDT Plan of Treatment Health Maintenance Due Date Last Done Comments Colorectal Cancer Screening Colonoscopy (10 Years) 1959 Hepatitis C 1977 DTaP, Tdap and Td Vaccines ( 1 - Tdap) 1978 Mammogram Screening 1999 Zoster Vaccines (1 of 2) 2009 RSV Immunization or 60+ Years (1 - Risk 60-74 years 1-dose series) 2019 COVID-19 Vaccine (1 - 2023-2 5 season) 2024 Dexa Scan (General) 2024 Pneumococcal Vaccine: 65+ Ye ars (1 of 1 - PCV) 2024 Influenza Adult (#1) 2024 Meningococcal B Vaccine Aged Out No l onger eligible based on patient's age to complete this topic Meningococcal Vaccine Aged Out No angelika lyn eligible based on patient's age to complete this topic Pneumococcal Vaccine: Pediat rics (0 to 5 Years) and At-Risk Patients (6 to 64 Years) Aged Out No longer eligible b ased on patient's age to complete this topic RSV Immunizations Under 20 Months Aged Out No longer eligible based on patient's age to complete this topic Insurance Care Teams Vice President Research Relationship Specialty Start Date End Date Ander Dunne DO [address] [facility] [address] [place] [id number] PCP - General INTERNAL MEDICINE 08/06/23
[2024-10-30 12:29] LABS: Basophils Percent Auto 0.3 % (0.2-1.2); Eosinophils Absolute Auto 0.1 K/mm3 (0-0.3); Eosinophils Percent Auto 0.8 % (0-4.4); Hematocrit 41.9 % (37.0-47.0); Hemoglobin 14.1 g/dL (12.0-15.0); Immature Granulocyte Absolute 0.02 K/mm3 (0.00-0.031); Immature Granulocyte Percent A 0.3 % (0-0.5); Lymphocytes Absolute Auto 1.19 K/mm3 (0.9-3.2); Lymphocytes Percent Auto 18.6 % (18.3-44.2); Mean Corpuscular HGB Conc 33.7 g/dl (32-36); Mean Corpuscular Hemoglobin 30.2 pg (26-34); Mean Corpuscular Volume 89.7 fl (80-100); Mean Platelet Volume 9.8 fl (7.4-10.4); Monocytes Absolute Auto 0.4 K/mm3 (0.1-0.6); Monocytes Percent Auto 5.8 % (2.6-8.5); Neutrophils Absolute Auto 4.8 K/mm3 (1.3-6.7); Neutrophils Percent Auto 74.2 % (45.5-73.1); Platelet Count Result 214 k/mm3 (150-375); Red Blood Count 4.67 M/mm3 (4.2-5.4); Red Cell Distribution Width 14.4 % (11.5-14.5); White Blood Count 6.4 K/mm3 (4.5-10.0)
--- NOTE | 2024-10-30 12:31 | ED.GIBLEED ---
HPI - GI Bleed General Chief complaint: GI Bleed Stated complaint: coffee ground emesis Time Seen by Provider: 10/30/24 12:02 History of Present Illness HPI Narrative: 64-year-old female with a past medical history including alcohol abuse, hypertension, hyperlipidemia, recently diagnosed pulmonary embolism and June of last year currently on Xarelto daily. She does endorse drinking the last 2 days a significant amount. She states that she was doing well without drinking for a while but her is out of town so she started drinking. She endorse that this morning she had 1 episode of coffee-ground emesis and provides a picture. Has not had any recurrence of this, no chest pain, abdominal pain, abdominal bloating, back pain, neck pain. Presently states she is not nauseous but is concerned because she is on a blood thinner. Was told she needs an endoscopy recently but they were holding off given that she is on a blood thinner at this time. No recent endoscopies previous. Was otherwise in her normal state of health recently. Related Data Home Medications ?Medication ?Instructions ?Recorded ?Confirmed ?Last Taken ?Type cetirizine 10 mg tablet (Zyrtec) 10 mg PO DAILY 07/01/19 08/17/24 06/30/24 History lansoprazole 15 mg capsule,delayed 15 mg PO DAILY 07/01/19 08/17/24 06/30/24 History release (Prevacid) pravastatin 10 mg tablet 10 mg PO QPM 06/30/24 08/17/24 06/29/24 History Allergies Allergy/AdvReac Type Severity Reaction Status Date / Time Sulfa (Sulfonamide Allergy Severe Anaphylaxis Verified 08/17/24 13:50 Antibiotics) Review of Systems Review of Systems: As reviewed above in HPI [facility] Past Medical History Medical History History of Clostridioides difficile colitis (2018) Superficial thrombophlebitis Acute diverticulitis (01/2024) History of HPV infection Abnormal Pap smear of cervix 2004 hpv - no bx TIA (transient ischemic attack) (~07/2020) Nicotine dependence Pneumonia due to COVID-19 virus 11/2020 Chronic back pain Osteoarthritis Gastroesophageal reflux disease Hyperlipidemia Hypertension Seasonal rhinitis Depression with anxiety Vertigo Degenerative disc disease Herniated disc Hepatitis During childhood, presumably hepatitis A. Vitamin D deficiency Diverticulitis (~11/2018) Surgical History Surgical History History of colposcopy (05/01/23) History of incision and drainage (07/22/20) History of dilation and curettage (~1999) History of lumbar surgery (06/03/19) History of cervical spinal surgery Discectomy and fusion 3 vertebrae History of cholecystectomy (~1999) Status post insertion of spinal cord stimulator (06/03/19) History of carpal tunnel release of both wrists (~2004) History of bilateral tubal ligation (~1999) Family History Family History Sibling CHF (congestive heart failure) Cerebrovascular accident Kidney failure Father AAA (abdominal aortic aneurysm) CAD (coronary artery disease) Cerebrovascular accident Mother Brain aneurysm Hypertension Cerebrovascular accident Carcinoma of colon Social History Social History Social History: She was but now is remarried. She used to smoke 1.5 packs of cigarettes per day but switch to vaping size E cigarettes 2-3 years ago. She used to drink up to a 5th of hard liquor a day but quit drinking alcohol on the 27 of June. She has been using Librium. She has no intention of starting drinking alcohol again. She had a history of alcoholism for the last several years with 1 brief episode of recovery in November. She does use marijuana gummies for pain. She has a son who is homeless and has an addiction to drugs. Her daughter has been in recovery from alcohol for 15 months. Surrogate decision maker: Code status: Full code. Smoking packs per day: 1 Smoking cigarettes per day: 20.0 Years smoked: 30 Smoking pack-years: 30.00 Smoking status: Former smoker Tobacco type: e-cigarettes/vaping Additional smoking assessment comments: QUIT CIGARETTES FOR 17 YEARS, THEN RESTARTED. QUIT AGAIN 2019, NOW VAPING Alcohol intake: current Alcohol use details: She drinks up to a 5th of alcohol a day but quit drinking June 27, 2024 Substance use: current Substance use type: marijuana Other substance usage details: GUMMIES FOR PAIN; 1/2-1/5 per day of whiskey or vodka Last use: 07/30 Do You Feel Safe in your Home?: Yes Lack of Transportation: No Lack of Food: Never True Current Housing: I Have Housing Concerned About Future Housing: No Difficulty Paying Gas/Electric Bills: No Difficulty Paying for Meds: No Currently Unemployed: No Education: Trade/Vocational Certificate Difficulty w/ Childcare or Family Care: No Living arrangements: with family Additional living arrangements comments: in 2021 as of 2018. Lives in a split home in [place]. Adult daughter and son-in-law live upstairs. Occupation/Education: unemployed Additional occupation/education comments: disabled Gender identity (if verbalized by the patient): Female Sexual Orientation (if Verbalized by the Patient): Straight or Heterosexual Spiritual care concerns: No Exam Narrative: GENERAL: [Well-appearing, well-nourished, and in no acute distress.] HEAD: [Normocephalic, atraumatic.] EYES: [PERRLA and EOMI.] ENT: Nares clear, no rhinorrhea or epistaxis. Mucous membranes moist. NECK: Supple. CHEST: [Clear to auscultation. No respiratory distress.] HEART: [Regular rate and rhythm]. No murmur heard. [Normal peripheral pulses.] ABDOMEN: [Soft, nondistended], [nontender], [No rigidity or guarding] EXTREMITIES: Normal range of motion. [No edema.] SKIN: Warm, dry, no rash. NEURO: [No focal deficits]. Alert and oriented [x3.] PSYCH: [Normal mood and affect.] Course Vital Signs Vital signs: Vital Signs Temperature 36.7 C 10/30/24 10:06 Pulse Rate 100 10/30/24 10:06 Respiratory Rate 18 10/30/24 10:06 Blood Pressure 156/108 H 10/30/24 10:06 Pulse Oximetry 99 10/30/24 10:06 Oxygen Delivery Room Air 10/30/24 10:06 Temperature 36.7 C 10/30/24 10:06 Pulse Rate 79 10/30/24 13:15 Respiratory Rate 10 L 10/30/24 13:15 Blood Pressure 148/102 H 10/30/24 13:15 Pulse Oximetry 94 10/30/24 13:15 Oxygen Delivery Room Air 10/30/24 10:06 MDM - GI Bleed MDM Narrative Medical decision making narrative: 64-year-old female with a history of alcohol abuse, pulmonary embolism on Xarelto, hypertension, hyperlipidemia. She presents today with a episode of coffee-ground emesis 1 time at home. Presents via picture does appear to be coffee-ground emesis into the toilet bowl. She is not nauseous presently but is concerned that she is on a blood thinner. No known history of ulcerative disease or any peptic ulcer disease but she has not had any recent endoscopies secondary to being on a blood thinner. She was told she needed this done. She is not any acute distress, no present nausea chest pain abdominal pain, back pain. She has normal reassuring vital signs without any tachycardia, fever or hypoxia. Considerations presently are for coffee-ground emesis secondary to Isabell-Marin tear versus esophageal varices versus upper GI bleed that is a called, active upper GI bleed, erosive disease from drinking such as peptic ulcer disease. Low suspicion lower GI given there is no melena or hematochezia. Low suspicion hemoptysis that she was not having any coughing during this. A broad workup was ordered including a CBC, CMP, type and screen, CT chest abdomen pelvis with contrast. She was given Protonix, fluid resuscitation and Zofran and re-evaluated frequently. She was placed on cardiac monitor technician and pulse oximetry. Patient was observed here for numerous hours without any recurrence of her emesis. No nauseousness or pain. She remained comfortable on room air. Workup was also very reassuring without any leukocytosis or anemia. Normal platelet count. Minor elevations in PT and INR probably from underlying liver disease and drinking/Xarelto use. Chemistry panel shows no leukocytosis. Normal BUN and creatinine. Normal glucose normal LFTs. Chest x-ray shows nodule in the right upper lobe with interval improvement from her previous PE with infarct, no new process. CT of the chest abdomen pelvis shows no acute cardiopulmonary disease, diverticulosis seen, small sliding hiatal hernia with fluid in the esophagus consistent with reflux. Patient was re-evaluated frequently and remained stable without any recurrent symptoms. He the hiatal hernia with reflux is likely the cause of her transient symptoms combined with her alcohol use the last 2 days. No active hemorrhaging, she is hemodynamically stable. She has a GI that she can follow-up with on outpatient basis. She is already taking lansoprazole and will be prescribed Pepcid and encouraged to stop drinking. She will call her GI doctor after discharge for close outpatient follow-up. She was given very strict return precautions and she was verbalizing understanding them. She was safe for discharge at this time. Medical Records Attestation: I reviewed the patient's medical records. Lab Data Attestation: I reviewed the patient's lab results. 10/30/24 12:16 10/30/24 12:16 Labs: Lab Results 10/30/24 Range/Units 12:16 WBC 6.4 (4.5-10.0) K/mm3 RBC 4.67 (4.2-5.4) M/mm3 Hgb 14.1 (12.0-15.0) g/dL Hct 41.9 (37.0-47.0) % MCV 89.7 (80-100) fl MCH 30.2 (26-34) pg MCHC 33.7 (32-36) g/dl RDW 14.4 (11.5-14.5) % Plt Count 214 (150-375) k/mm3 MPV 9.8 (7.4-10.4) fl Immature Gran % (Auto) 0.3 (0-0.5) % Neut % (Auto) 74.2 H (45.5-73.1) % Lymph % (Auto) 18.6 (18.3-44.2) % [place] % (Auto) 5.8 (2.6-8.5) % Eos % (Auto) 0.8 (0-4.4) % Baso % (Auto) 0.3 (0.2-1.2) % Lymph # (Auto) 1.19 (0.9-3.2) K/mm3 [place] # (Auto) 0.4 (0.1-0.6) K/mm3 Eos # (Auto) 0.1 (0-0.3) K/mm3 Baso # (Auto) 0.0 (0.0-0.1) K/mm3 Abs Immat Gran (auto) 0.02 (0.00-0.031) K/mm3 Absolute Neuts (auto) 4.8 (1.3-6.7) K/mm3 Absolute Nucleated RBC 0.000 (0.0-0.012) K/mm3 Nucleated RBC % 0.0 (0.0-0.2) % PT 25.9 H (11.1-14.7) Seconds INR 2.3 APTT 31.2 (22.3-36.8) Seconds Sodium 138 (137-145) mmol/L Potassium 3.5 (3.4-5.0) mmol/L Chloride 103 (98-107) mmol/L Carbon Dioxide 24 (22-30) mmol/L Anion Gap 11 (4-12) mmol/L BUN 8 D (7-17) mg/dL Creatinine 0.81 (0.7-1.0) mg/dL Estim Creat Clear Calc 67 ml/min Estimated GFR > 60 (59 - ) Glucose 109 (65-110) mg/dL Calcium 9.5 (8.4-10.2) mg/dL Total Bilirubin 1.1 (0.2-1.3) mg/dL AST 33 (14-36) U/L ALT 23 (6-35) U/L Alkaline Phosphatase 85 (38-126) U/L Total Protein 7.0 (6.3-8.2) g/dL Albumin 4.4 (3.5-5.1) g/dL Blood Type A Positive Antibody Screen Negative Imaging Data Attestation: I personally reviewed and interpreted this imaging study as follows: My impression: Impressions Chest X-Ray 10/30/24 12:35 IMPRESSION: 1. Nodule in right lung upper lobe with interval improvement, consistent with infarct. Chest/Abdomen/Pelvis CT 10/30/24 13:50 IMPRESSION: 1. No acute cardiopulmonary disease. 2. Small sliding-type hiatal hernia with small amount of fluid in the esophagus which could be related to reflux. 3. Diverticulosis. Discharge Plan Discharge Clinical Impression: Coffee ground emesis, Alcohol abuse, Sliding hiatal hernia, Reflux gastritis, History of pulmonary embolus (PE) Patient Disposition: Home, Self-Care Condition: Stable Instructions: Antibiotic Form, Hiatal Hernia (DC), Gastrointestinal Bleeding (ED), Acute Nausea and Vomiting (DC) Additional Instructions: Your workup today was very reassuring, the CT scan shows a hiatal hernia that is small and has some reflux which likely is why you had some coffee-ground emesis. This combined with your recent alcohol use and history of alcohol drinking in the past may have caused some erosive disease or ulcers but there is nothing actively bleeding at this time. Your hemoglobin is stable in your vital signs are reassuring and stable. You do need to call your GI doctor for close outpatient visit and upper endoscopy. If you have any recurrent hematemesis, bright red blood per rectum or bright red blood from vomiting, chest pain, neck pain, fever, chills, rigors or any other concerns please return to the emergency department at that time otherwise follow-up with your doctors on a close visit outpatient Patient Language: Burmese Prescriptions: New famotidine [Pepcid] 20 mg tablet 20 mg PO BID Qty: 20 0RF ondansetron 4 mg tablet,disintegrating 4 mg PO Q8H PRN (Reason: nausea and vomiting) Qty: 10 0RF No Action lansoprazole [Prevacid] 15 mg capsule,delayed release(DR/EC) 15 mg PO DAILY cetirizine [Zyrtec] 10 mg tablet 10 mg PO DAILY clonidine HCl 0.1 mg tablet 0.1 mg PO Q8H PRN (Reason: hypertensive emergency) Qty: 30 0RF Rx Instructions: Take if SBP is greater than 160 and/or DBP is greater than 105 Xarelto 20 mg tablet 20 mg PO DAILY Qty: 90 1RF Rx Instructions: must administer with evening meal diltiazem HCl 120 mg capsule,extended release 24 hr 120 mg PO DAILY Qty: 90 3RF naltrexone 50 mg tablet 50 mg PO DAILY Qty: 90 0RF pravastatin 10 mg tablet 10 mg PO QPM oxybutynin chloride 5 mg tablet 5 mg PO BID Qty: 90 3RF lisinopril 30 mg tablet 30 mg PO BID Qty: 180 1RF citalopram 20 mg tablet See Rx Instructions .ROUTE .COMPLEX Qty: 90 0RF Dose Instruction: TAKE 1 TABLET BY MOUTH DAILY Rx Instructions: TAKE 1 TABLET BY MOUTH DAILY (DME) O2 See Rx Instructions .Route .MEDSUPPLY Qty: 1 0RF Rx Instructions: Home O2 at 1L Follow-up/Referrals: Ander Dunne DO [Primary Care Provider] - Time of Disposition: 15:24
[2024-10-30 12:40] LABS: INR 2.3; Partial Thromboplastin Time 31.2 Seconds (22.3-36.8); Prothrombin Time 25.9 Seconds (11.1-14.7)
[2024-10-30 12:47] LABS: Alanine Aminotransferase 23 U/L (6-35); Albumin Level 4.4 g/dL (3.5-5.1); Alkaline Phosphatase 85 U/L (38-126); Anion Gap 11 mmol/L (4-12); Aspartate Amino Transferase 33 U/L (14-36); Bilirubin,Total 1.1 mg/dL (0.2-1.3); Blood Urea Nitrogen 8 mg/dL (7-17); Calcium 9.5 mg/dL (8.4-10.2); Carbon Dioxide 24 mmol/L (22-30); Chloride 103 mmol/L (98-107); Estimated CRCL calculation 67 ml/min; Estimated Glomerular Filt Rate > 60; Glucose 109 mg/dL (65-110); Potassium 3.5 mmol/L (3.4-5.0); Sodium 138 mmol/L (137-145)
--- OUTSIDE RECORDS SUMMARY | 2024-10-30 12:50 | XMS_ITS | Clinical Summary ---
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
[2024-10-30] MEDS: ONDANSETRON INJ 4 MG/2 ML VIAL IV PUSH (12:57)
[2024-10-30] MEDS: LACTATED RINGERS 1,000 ML 999 ML IV CONT (12:57)
[2024-10-30] MEDS: PANTOPRAZOLE SODIUM IV 40 MG VIAL 80 MG IV PUSH (12:58)
== END 2024-10-30 15:35 | disposition home or self-care (01) ==
PROVIDERS: Family Medicine; Emergency Provider Student in an Organized Health Care Education/Training Program; PCP Internal Medicine
DX: K92.0 Hematemesis (principal); F10.10 Alcohol abuse, uncomplicated; Y90.9 Presence of alcohol in blood, level not specified; K44.9 Diaphragmatic hernia without obstruction or gangrene; K29.60 Other gastritis without bleeding; I10 Essential (primary) hypertension; E78.5 Hyperlipidemia, unspecified; Z86.711 Personal history of pulmonary embolism; Z79.01 Long term (current) use of anticoagulants; Z87.891 Personal history of nicotine dependence
CPT/HCPCS: 36415; 71045; 71260; 74177; 80053; 85025; 85610; 85730; 86850; 86900; 86901; 96361; 96374; 96375; 99284; J2405; J2470; J7120; Q9967

== ENCOUNTER 2024-11-16 08:19 | Outpatient (CLI) | payer MEDICARE, SELFPAY ==
--- OUTSIDE RECORDS SUMMARY | 2024-11-16 08:41 | XMS_ITS | Clinical Summary ---
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 Gender Identity Not on file Sexual Orientation [...] 2024 Dexa Scan (General) 2024 Pneumococcal Vaccine: 50+ Ye ars (1 of 1 - PCV) 2024 Meningococcal B Vaccine Aged Out No l onger eligible based on patient's age to complete this topic Meningococcal Vaccine Aged Out No angelika lyn eligible based on patient's age to complete this topic Pneumococcal Vaccine: Pediat rics (0 to 5 Years) and At-Risk Patients (6 to 49 Years) Aged Out No longer eligible b ased on patient's age to complete this topic RSV Immunizations Under 20 Months Aged Out No longer eligible based on patient's age to complete this topic Insurance Care Teams Shaker Repairer Relationship Specialty Start Date End Date Ander Dunne DO [address] [place] [address] PCP - General INTERNAL MEDICINE 08/06/23
[2024-11-16 09:23] LABS: Hematocrit 40.8 % (37.0-47.0); Hemoglobin 13.1 g/dL (12.0-15.0); Mean Corpuscular HGB Conc 32.1 g/dl (32-36); Mean Corpuscular Hemoglobin 29.6 pg (26-34); Mean Corpuscular Volume 92.1 fl (80-100); Mean Platelet Volume 10.4 fl (7.4-10.4); Platelet Count Result 226 k/mm3 (150-375); Red Blood Count 4.43 M/mm3 (4.2-5.4); Red Cell Distribution Width 13.6 % (11.5-14.5); White Blood Count 7.4 K/mm3 (4.5-10.0)
[2024-11-16 09:26] LABS: Creatinine Urine 97.6 mg/dL; Total Protein Urine Random 56 mg/dL; Ur Ttl Prot Creatinine Ratio 0.57 mg/mg (0-0.20)
[2024-11-16 09:48] LABS: Albumin Level 4.1 g/dL (3.5-5.1); Anion Gap 9 mmol/L (4-12); Blood Urea Nitrogen 8 mg/dL (7-17); Calcium 9.6 mg/dL (8.4-10.2); Carbon Dioxide 28 mmol/L (22-30); Chloride 105 mmol/L (98-107); Estimated Glomerular Filt Rate > 60; Glucose 85 mg/dL (65-110); Phosphorus 4.3 mg/dL (2.5-4.5); Potassium 2.8 mmol/L (3.4-5.0); Sodium 142 mmol/L (137-145)
== END 2024-11-16 08:20 | disposition home or self-care (01) ==
PROVIDERS: PCP Internal Medicine; Visit Provider Internal Medicine Nephrology
DX: R80.1 Persistent proteinuria, unspecified (principal); N18.2 Chronic kidney disease, stage 2 (mild)
CPT/HCPCS: 36415; 80069; 82570; 84156; 85027

== ENCOUNTER 2024-12-07 15:03 | Outpatient (CLI) | payer MEDICARE, SELFPAY ==
--- OUTSIDE RECORDS SUMMARY | 2024-12-07 15:41 | XMS_ITS | Clinical Summary ---
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 Gender Identity Not on file Sexual Orientation [...] 1 - Tdap) 1978 Mammogram Screening 1999 Pneumococcal Vaccine: 50+ Ye ars (1 of 1 - PCV) 2009 Zoster Vaccines (1 of 2) 2009 RSV Immunization or 60+ Years (1 - Risk 60-74 years 1-dose series) 2019 COVID-19 Vaccine (1 - 2023-2 5 season) 2024 Dexa Scan (General) 2024 Meningococcal B Vaccine Aged Out No l onger eligible based on patient's age to complete this topic Meningococcal Vaccine Aged Out No angelika lyn eligible based on patient's age to complete this topic RSV Immunizations Under 20 Months Aged Out No longer eligible based on patient's age to complete this topic Insurance Care Teams Driveway Attendant Relationship Specialty Start Date End Date Ander Dunne DO [address] [place] [address] PCP - General INTERNAL MEDICINE 08/06/23
[2024-12-07 16:18] LABS: Anion Gap 10 mmol/L (4-12); Blood Urea Nitrogen 11 mg/dL (7-17); Calcium 9.5 mg/dL (8.4-10.2); Carbon Dioxide 25 mmol/L (22-30); Chloride 103 mmol/L (98-107); Estimated Glomerular Filt Rate 58; Glucose 108 mg/dL (65-110); Potassium 3.8 mmol/L (3.4-5.0); Sodium 138 mmol/L (137-145)
== END 2024-12-07 15:04 | disposition home or self-care (01) ==
PROVIDERS: PCP Internal Medicine; Visit Provider Internal Medicine Nephrology
DX: E87.6 Hypokalemia (principal)
CPT/HCPCS: 36415; 80048

== ENCOUNTER 2024-12-22 00:23 | Day surgery (SDC) | payer MEDICARE, SELFPAY ==
[2024-12-17 15:27] VITALS: BMI 32.4
--- OUTSIDE RECORDS SUMMARY | 2024-12-22 00:26 | XMS_ITS | Clinical Summary ---
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
[2024-12-22 06:43] VITALS: BP 135/89; PULSE 63; RESP 18; TEMP 36.5; O2SAT 94
[2024-12-22] MEDS: LACTATED RINGERS 1,000 ML 150 ML IV CONT (06:49)
--- NOTE | 2024-12-22 07:03 | P.PNAN_ITS ---
Anes - Initial Pre Proc Eval Procedure: Operation Date: 12/22/24 07:45 Proposed Procedures p Esophagogastroduodenoscopy - Sandor Edward MD Date/Time: 12/22/24 07:03 Surgeon: Sandor Edward MD Pre Op Diagnosis: Hematemesis Patient Data Age: 64 Gender: F Height: 1.65 m Weight: 88.5 kg Last Vital Signs Temp 36.5 C 12/22/24 06:43 Pulse 63 12/22/24 06:43 Resp 18 12/22/24 06:43 BP 135/89 12/22/24 06:43 Pulse Ox 94 12/22/24 06:43 O2 Del Method Room Air 12/22/24 06:43 Allergies Allergy/AdvReac Type Severity Reaction Status Date / Time Sulfa (Sulfonamide Allergy Severe Anaphylaxis Verified 12/22/24 06:42 Antibiotics) Home Medications Medication Instructions Recorded Confirmed Type cetirizine 10 mg tablet (Zyrtec) 10 mg PO DAILY 07/01/19 12/17/24 History lansoprazole 15 mg capsule,delayed 15 mg PO DAILY 07/01/19 12/17/24 History release (Prevacid) clonidine HCl 0.1 mg tablet 0.1 mg PO Q8H PRN hypertensive 09/17/23 12/17/24 Rx emergency #30 tabs pravastatin 10 mg tablet 10 mg PO QPM 06/30/24 12/17/24 History O2 #1 ea 09/29/24 12/15/24 Rx finerenone 10 mg tablet (Kerendia) 10 mg PO DAILY #30 tabs 11/18/24 12/17/24 Rx lisinopril 30 mg tablet See Rx Instructions .Route 11/23/24 12/17/24 Rx .COMPLEX #180 tabs diltiazem HCl 240 mg capsule,24 240 mg PO DAILY #90 caps 11/25/24 12/17/24 Rx hr,extended release (Tiadylt ER) citalopram 20 mg tablet See Rx Instructions .Route 11/26/24 12/17/24 Rx .COMPLEX #90 tabs oxybutynin chloride 5 mg tablet 5 mg PO BID #90 tabs 11/26/24 12/17/24 Rx Patient hx anesthesia problems: none Family hx anesthesia problems: none Results Review: All pre-operative results and documents have been reviewed as part of the pre- operative evaluation. [facility] Past Medical History Medical History (Updated 12/15/24 @ 22:15 by KUSHAL Jama) Periorbital cellulitis Incontinence HLD (hyperlipidemia) Angina at rest Hypoxia Bronchitis Weight loss, unintentional Vitamin D deficiency Chest pain Alcohol abuse History of Clostridioides difficile colitis (2018) Superficial thrombophlebitis Acute diverticulitis (01/2024) History of HPV infection Abnormal Pap smear of cervix 2004 hpv - no bx TIA (transient ischemic attack) (~07/2020) Nicotine dependence Pneumonia due to COVID-19 virus 11/2020 Chronic back pain Osteoarthritis Gastroesophageal reflux disease Hyperlipidemia Hypertension Seasonal rhinitis Depression with anxiety Vertigo Degenerative disc disease Herniated disc Hepatitis During childhood, presumably hepatitis A. Vitamin D deficiency Diverticulitis (~11/2018) Surgical History Surgical History History of colposcopy (05/01/23) History of incision and drainage (07/22/20) History of dilation and curettage (~1999) History of lumbar surgery (06/03/19) History of cervical spinal surgery Discectomy and fusion 3 vertebrae History of cholecystectomy (~1999) Status post insertion of spinal cord stimulator (06/03/19) History of carpal tunnel release of both wrists (~2004) History of bilateral tubal ligation (~1999) Family History Family History Sibling CHF (congestive heart failure) Cerebrovascular accident Kidney failure Father AAA (abdominal aortic aneurysm) CAD (coronary artery disease) Cerebrovascular accident Mother Brain aneurysm Hypertension Cerebrovascular accident Carcinoma of colon Social History Social History Social History: She was but now is remarried. She used to smoke 1.5 packs of cigarettes per day but switch to vaping size E cigarettes 2-3 years ago. She used to drink up to a 5th of hard liquor a day but quit drinking alcohol on the 27 of June. She has been using Librium. She has no intention of starting drinking alcohol again. She had a history of alcoholism for the last several years with 1 brief episode of recovery in November. She does use marijuana gummies for pain. She has a son who is homeless and has an addiction to drugs. Her daughter has been in recovery from alcohol for 15 months. Surrogate decision maker: Code status: Full code. Smoking packs per day: 1 Smoking cigarettes per day: 20.0 Years smoked: 30 Smoking pack-years: 30.00 Smoking status: Current every day smoker Tobacco type: smokeless tobacco Additional smoking assessment comments: QUIT CIGARETTES FOR 17 YEARS, THEN RESTARTED. QUIT AGAIN 2019, NOW VAPING Alcohol intake: current Alcohol use details: She drinks up to a 5th of alcohol a day but quit drinking June 27, 2024 Substance use: current Substance use type: marijuana and other Other substance usage details: GUMMIES FOR PAIN; 1/2-1/5 per day of whiskey or vodka Last use: THC gummies & MJ Do You Feel Safe in your Home?: Yes Lack of Transportation: No Lack of Food: Never True Current Housing: I Have Housing Concerned About Future Housing: No Difficulty Paying Gas/Electric Bills: No Difficulty Paying for Meds: No Currently Unemployed: No Education: Trade/Vocational Certificate Difficulty w/ Childcare or Family Care: No Living arrangements: with family Additional living arrangements comments: in 2021 as of 2018. Lives in a split home in [place]. Adult daughter and son-in-law live upstairs. Occupation/Education: unemployed Additional occupation/education comments: disabled Gender identity (if verbalized by the patient): Female Sexual Orientation (if Verbalized by the Patient): Straight or Heterosexual Spiritual care concerns: No Anes - Eval Final PreProcedure Day of Procedure 12/22/24 07:03 Patient weight: obese Heart: regular rate and rhythm Lungs: clear to auscultation Airway: Mallampati scale class II Neurological: alert and oriented Last oral intake: >/= 8 hours ASA classification: III Emergent: no Anesthetic plan: proceed Anesthesia type and monitoring: general GIVS and standard monitoring Results Review: All pre-operative results and documents have been reviewed as part of the pre- operative evaluation. Informed Consent: The patient's anesthetic plan and its attendant risks and benefits were discussed with the patient/family/POA. Questions were solicited and answers provided to the satisfaction of the patient/family/POA.
--- NOTE | 2024-12-22 07:40 | PM.HPGS ---
History of Present Illness History of Present Illness Consent: Risks, benefits, and alternatives have been discussed and questions answered. Patient agrees to proceed with procedure. Chief complaint: Hematemesis Narrative: Ninoska Del Rosario is a 64 year old female with episode of coffee ground emesis once several weeks ago, now doing ok Review of Systems Review of Systems: All systems reviewed & are unremarkable except as noted in HPI and below PMFSH Past Medical History Medical History (Updated 12/15/24 @ 22:15 by Africa Aguirre, ELECTRO MECHANICAL ENGINEER-C) Periorbital cellulitis Incontinence HLD (hyperlipidemia) Angina at rest Hypoxia Bronchitis Weight loss, unintentional Vitamin D deficiency Chest pain Alcohol abuse History of Clostridioides difficile colitis (2018) Superficial thrombophlebitis Acute diverticulitis (01/2024) History of HPV infection Abnormal Pap smear of cervix 2004 hpv - no bx TIA (transient ischemic attack) (~07/2020) Nicotine dependence Pneumonia due to COVID-19 virus 11/2020 Chronic back pain Osteoarthritis Gastroesophageal reflux disease Hyperlipidemia Hypertension Seasonal rhinitis Depression with anxiety Vertigo Degenerative disc disease Herniated disc Hepatitis During childhood, presumably hepatitis A. Vitamin D deficiency Diverticulitis (~11/2018) Surgical History Surgical History History of colposcopy (05/01/23) History of incision and drainage (07/22/20) History of dilation and curettage (~1999) History of lumbar surgery (06/03/19) History of cervical spinal surgery Discectomy and fusion 3 vertebrae History of cholecystectomy (~1999) Status post insertion of spinal cord stimulator (06/03/19) History of carpal tunnel release of both wrists (~2004) History of bilateral tubal ligation (~1999) Family History Family History Sibling CHF (congestive heart failure) Cerebrovascular accident Kidney failure Father AAA (abdominal aortic aneurysm) CAD (coronary artery disease) Cerebrovascular accident Mother Brain aneurysm Hypertension Cerebrovascular accident Carcinoma of colon Social History Social History Social History: She was but now is remarried. She used to smoke 1.5 packs of cigarettes per day but switch to vaping size E cigarettes 2-3 years ago. She used to drink up to a 5th of hard liquor a day but quit drinking alcohol on the 27 of June. She has been using Librium. She has no intention of starting drinking alcohol again. She had a history of alcoholism for the last several years with 1 brief episode of recovery in November. She does use marijuana gummies for pain. She has a son who is homeless and has an addiction to drugs. Her daughter has been in recovery from alcohol for 15 months. Surrogate decision maker: Code status: Full code. Smoking packs per day: 1 Smoking cigarettes per day: 20.0 Years smoked: 30 Smoking pack-years: 30.00 Smoking status: Current every day smoker Tobacco type: smokeless tobacco Additional smoking assessment comments: QUIT CIGARETTES FOR 17 YEARS, THEN RESTARTED. QUIT AGAIN 2019, NOW VAPING Alcohol intake: current Alcohol use details: She drinks up to a 5th of alcohol a day but quit drinking June 27, 2024 Substance use: current Substance use type: marijuana and other Other substance usage details: GUMMIES FOR PAIN; 1/2-1/5 per day of whiskey or vodka Last use: THC gummies & MJ Do You Feel Safe in your Home?: Yes Lack of Transportation: No Lack of Food: Never True Current Housing: I Have Housing Concerned About Future Housing: No Difficulty Paying Gas/Electric Bills: No Difficulty Paying for Meds: No Currently Unemployed: No Education: Trade/Vocational Certificate Difficulty w/ Childcare or Family Care: No Living arrangements: with family Additional living arrangements comments: in 2021 as of 2018. Lives in a split home in [place]. Adult daughter and son-in-law live upstairs. Occupation/Education: unemployed Additional occupation/education comments: disabled Gender identity (if verbalized by the patient): Female Sexual Orientation (if Verbalized by the Patient): Straight or Heterosexual Spiritual care concerns: No Meds Home Medications and Allergies Home Medications Medication Instructions Recorded Confirmed Type cetirizine 10 mg tablet (Zyrtec) 10 mg PO DAILY 07/01/19 12/17/24 History lansoprazole 15 mg capsule,delayed 15 mg PO DAILY 07/01/19 12/17/24 History release (Prevacid) clonidine HCl 0.1 mg tablet 0.1 mg PO Q8H PRN hypertensive 09/17/23 12/17/24 Rx emergency #30 tabs pravastatin 10 mg tablet 10 mg PO QPM 06/30/24 12/17/24 History O2 #1 ea 09/29/24 12/15/24 Rx finerenone 10 mg tablet (Kerendia) 10 mg PO DAILY #30 tabs 11/18/24 12/17/24 Rx lisinopril 30 mg tablet See Rx Instructions .Route 11/23/24 12/17/24 Rx .COMPLEX #180 tabs diltiazem HCl 240 mg capsule,24 240 mg PO DAILY #90 caps 11/25/24 12/17/24 Rx hr,extended release (Tiadylt ER) citalopram 20 mg tablet See Rx Instructions .Route 11/26/24 12/17/24 Rx .COMPLEX #90 tabs oxybutynin chloride 5 mg tablet 5 mg PO BID #90 tabs 11/26/24 12/17/24 Rx Allergies Allergy/AdvReac Type Severity Reaction Status Date / Time Sulfa (Sulfonamide Allergy Severe Anaphylaxis Verified 12/22/24 06:42 Antibiotics) Vital Signs Vital Signs - 24 hr 12/22/24 06:43 Temperature 97.7 F Pulse Rate 63 Respiratory Rate 18 Blood Pressure 135/89 Pulse Oximetry 94 Oxygen Delivery Room Air Exam Const: General: comfortable and no acute distress HENMT: Face/Nose/Sinus: Normal nares present Eyes: General: appearance normal, both eyes and all related structures Neck: Neck: no JVD Resp: Auscultation: clear to auscultation bilaterally Cardio: Rate: regular rate Rhythm: regular rhythm GI: Inspection: non-distended GI Palp: Yes Soft to palpation Skin: General skin exam: normal color Neuro: General: gait normal Speech: normal speech Extrem: General: normal to inspection Psych: Mental Status: mental status grossly normal Assessment and Plan Assessment and plan (1) Coffee ground emesis: Code(s): K92.0 - Hematemesis Status: Inactive Assessment and Plan: no more episodes egd
[2024-12-22 07:48] VITALS: BP 120/85; PULSE 72; RESP 18; O2SAT 91
[2024-12-22 07:59] VITALS: BP 112/78; PULSE 68; RESP 15; O2SAT 94
[2024-12-22 08:09] VITALS: BP 131/89; PULSE 66; RESP 15; O2SAT 100
== END 2024-12-22 08:19 | disposition home or self-care (01) ==
PROVIDERS: Visit Provider Internal Medicine Gastroenterology
PROC: 0DJ08ZZ Inspection of Upper Intestinal Tract, Via Natural or Artificial Opening Endoscopic (ICD-10-PCS; CPT 43239; principal; 2024-12-22 07:45)
DX: K22.70 Barrett's esophagus without dysplasia (principal); K21.00 Gastro-esophageal reflux disease with esophagitis, without bleeding; K44.9 Diaphragmatic hernia without obstruction or gangrene; K29.70 Gastritis, unspecified, without bleeding; K31.7 Polyp of stomach and duodenum; E78.5 Hyperlipidemia, unspecified; R09.02 Hypoxemia; E55.9 Vitamin D deficiency, unspecified; K21.9 Gastro-esophageal reflux disease without esophagitis; I10 Essential (primary) hypertension; L03.213 Periorbital cellulitis; R32 Unspecified urinary incontinence; G89.29 Other chronic pain; M54.9 Dorsalgia, unspecified; M19.90 Unspecified osteoarthritis, unspecified site; I80.8 Phlebitis and thrombophlebitis of other sites; F17.290 Nicotine dependence, other tobacco product, uncomplicated; F12.90 Cannabis use, unspecified, uncomplicated; E66.9 Obesity, unspecified; Z68.32 Body mass index [BMI] 32.0-32.9, adult; Z98.890 Other specified postprocedural states; Z98.1 Arthrodesis status; Z90.49 Acquired absence of other specified parts of digestive tract; Z98.51 Tubal ligation status; Z87.19 Personal history of other diseases of the digestive system; Z86.73 Personal history of transient ischemic attack (TIA), and cerebral infarction without residual deficits; Z80.0 Family history of malignant neoplasm of digestive organs; Z82.49 Family history of ischemic heart disease and other diseases of the circulatory system
CPT/HCPCS: 43239; 88305; J2704; J7120

== ENCOUNTER 2025-05-14 10:20 | Outpatient (CLI) | payer MEDICARE, SELFPAY ==
[2025-05-14 10:48] LABS: Hematocrit 41.7 % (37.0-47.0); Hemoglobin 13.6 g/dL (12.0-15.0); Mean Corpuscular HGB Conc 32.6 g/dl (32-36); Mean Corpuscular Hemoglobin 30.2 pg (26-34); Mean Corpuscular Volume 92.7 fl (80-100); Platelet Count Result 223 k/mm3 (150-375); Red Blood Count 4.50 M/mm3 (4.2-5.4); White Blood Count 7.3 K/mm3 (4.5-10.0)
[2025-05-14 11:14] LABS: Albumin Level 4.3 g/dL (3.5-5.1); Anion Gap 7 mmol/L (4-12); Blood Urea Nitrogen 13 mg/dL (7-17); Calcium 9.7 mg/dL (8.4-10.2); Carbon Dioxide 28 mmol/L (22-30); Chloride 106 mmol/L (98-107); Estimated Glomerular Filt Rate 57; Glucose 100 mg/dL (65-110); Potassium 3.9 mmol/L (3.4-5.0); Sodium 141 mmol/L (137-145)
[2025-05-14 11:21] LABS: Total Protein Urine Random 96 mg/dL; Ur Ttl Prot Creatinine Ratio 1.00 mg/mg (0-0.20)
== END 2025-05-14 10:21 | disposition home or self-care (01) ==
PROVIDERS: PCP Internal Medicine; Visit Provider Internal Medicine Nephrology
DX: I10 Essential (primary) hypertension (principal); I26.99 Other pulmonary embolism without acute cor pulmonale
CPT/HCPCS: 36415; 80069; 82570; 84156; 85027